=== PATIENT | female | born 1930 | race Caucasian/White ===

== ENCOUNTER → 2016-09-21 | Day surgery (SDC) | payer MEDICARE ==
[~2016-09-21] VITALS: Ht 157.5 cm; Wt 70.3 kg
[~2016-09-21] MED LIST: /INSU7030 SC; /PRAV20TA PO; /WARF5TA PO; ACET-654 PO; ACETAMINOPHEN TAB 650MG DOSE (2X325MG) PO PRN; ADV250INH INH; ALBU17IN INH; ALBU17IN2 INH; ALBU83IN INH; ALPR0.5T3 PO; AMOX500C PO; ASCO10003 PO; ASPI325T5 PO; ASPI81TA85 PO; BACITAB3 PO; BIOT5TAB3 PO; BIOTCAP PO; BISA5TAB29 PO; CEPA0.05 MT; CIPR250T2 PO; COLA100C3 PO; CONRAY-60 60% 50ML VIAL (Q9961) As Ordered ONE; CYMB1CAP PO; DIFL150T PO; DIFL200T PO; DILT PO; DOCU10ELUD PO; DULC5TAB PO; DUONSOL INH; ELIQ2.5T PO; ELIQ5TAB PO; FERR150C PO; FERR325T PO; FURO20TA2 PO; FURO40TA2 PO; GENTAMICIN 80 MG in APPROPRIATE DILUENT 1 EA IV ONE; GLUC10TA3 PO; HEPA100SY INJ; HEPA1INJ4 IV; HUMA100I3 SC; HUMU70IN SC; INSUH10VL SC; IPRA2IN INH; IPRASOL4 INH; IPRASOL4 NEB; IRON65TA PO; K-TA10TA2 PO; KEFL500C7 PO; KLOR10TA21 PO; KLOR1TAB69 PO; KLOR1TAB77 PO; KLOR20TA PO; LASI20TA PO; LASI40TA PO; LASI80TA PO; LEVO25TA4 PO; LEXA1TAB PO; LIDOCAINE 2% 5ML JELLY UROJET As Ordered ONE; LIDOCAINE 2% INJ 100 MG/5 ML SDV (FOR ANES.) As Ordered ONE; LISI-538 PO; LISI2.5T PO; LOPR1TAB6 PO; LOSA25TA8 PO; LR 1,000 ML IV SCH; MACR100C3 PO; MECL-68 PO; MELA5TAB14 PO; METO12TA PO; MILKSUS PO; MIRA3350 PO; MOM30SS PO; NEXI40CA PO; NITR4TASL SL; NOVO70IN SC; NOVO70VL SC; NOVOLIN 70/30 SC; NYST100024 TOP; NYSTPOW TOP; OCEA0.654; ONDA4TAB6 PO; ONDANSETRON 4MG/2ML VIAL (J2405) IV PRN; OXYGEN INH; PANT40TA2 PO; PENI IV; PENI250T57 PO; PERC5TAB6 PO; PERCOCET 5MG/325MG TAB PO PRN; PERCOCET PO; POLYBTL PO; POTA20TA PO; POTA20TA4 PO; PRAV10TA PO; PRAV20TA2 PO; PRAV40TA2 PO; PRED10PA PO; PRED10TA PO; PROP225T PO; PROP300T PO; PROPOFOL 200 MG/20 ML VIAL As Ordered ONE; PROT20TA11 PO; RANI300C PO; REFR0.1D OU; SALI0.9I2 IV; SENO8.6T2 PO; SERT-138 PO; SYNT25TA PO; TRAMADOL PO; TYLE325T5 PO; TYLE500T78 PO; TYLE650T25 PO; VANC1VLAD INJ; VANCOMYCIN HCL 1,000 MG, VIAL MATE ADAPTER 1 EACH in D5W 250 ML IV ONE; VENTAER INH; VICODEN PO; VIT D PO; VITA-122 PO; VITA-130 PO; VITA100066 PO; ZETI10TA2 PO; ZETI10TA21 PO; ZOFR20TA PO; ZOFR4TAB3 PO; [UNRECOGNIZED DRUG - CODE] IV; [UNRECOGNIZED DRUG - OTHER] PO; fentaNYL 100 MCG/2 ML INJECTION (J3010) As Ordered ONE; fentaNYL 100 MCG/2 ML INJECTION (J3010) IV PRN; mycostatin TOP
--- NOTE | 2016-09-21 09:19 | RO ---
DATE OF PROCEDURE: 09/21/2016 PREPROCEDURE DIAGNOSIS: Left ureteral stricture. POSTPROCEDURE DIAGNOSIS: Left ureteral stricture. PROCEDURE: Cystoscopy, left retrograde pyelogram with intraoperative interpretation of images, left ureteral stent exchange. SURGEON: Dr. Dann Loza MANAGER GROCERY: None. ANESTHESIA: MAC. 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 She is here today for routine ureteral stent exchange. DESCRIPTION OF PROCEDURE: The patient was brought to the operating room where MAC anesthesia was administered. Prophylactic antibiotics were infused. She was then placed in dorsal lithotomy position, prepped and draped in the usual sterile fashion. A rigid cystoscope was inserted into the urethral meatus and advanced into the bladder. Once within the bladder, a wire was advanced up the to the left collecting system along side the previously placed left ureteral stent. The left ureteral stent was the removed leaving the wire in place. I then advanced an open ended ureteral catheter over the wire up into the left collecting system. The wire was then removed and a retrograde pyelogram was performed and was notable for mild to moderate left hydronephrosis and no extravasation. The wire was then advanced back up the open ended ureteral catheter and into the left collecting system. The open ended ureteral catheter was then removed leaving the wire in place. We then utilized the wire to advance a #7-Andorran x 22-32 cm JJ ureteral stent up into the left collecting system. The wire was the removed and there were adequate curl to the stent in the left renal pelvis and in the bladder. The bladder was emptied of all fluid and this marked the conclusion of the procedure. The patient was then taken out of dorsal lithotomy position, awakened from anesthesia and transported to the recovery room in stable condition. ESTIMATED BLOOD LOSS: 0 mL. COMPLICATIONS: None. SPECIMENS: None. PLAN: The patient will be brought back to the seen in the clinic in approximately 2 months to get her setup for her next ureteral stent exchange.
[2016-09-21 10:20] VITALS: BP 110/58
--- NOTE | 2016-09-22 09:44 | REP ---
C-ARM VIEWS ABDOMEN: Two C-arm views are performed. There is a left ureteral stent with the proximal end coiled in the left renal pelvis, which is partially opacified by contrast. The distal end is coiled in the region of the urinary bladder. 10 seconds of fluoroscopy time utilized. Signed by David Hubbard MD 09/22/2016 04:36 P
== END | disposition home or self-care (01) ==
LOC: M SDC 07:26
PROVIDERS: ATTEND Urology
DX: N13.5 Crossing vessel and stricture of ureter without hydronephrosis (principal); I25.10 Atherosclerotic heart disease of native coronary artery without angina pectoris; I10 Essential (primary) hypertension; Z95.0 Presence of cardiac pacemaker; E10.21 Type 1 diabetes mellitus with diabetic nephropathy; K21.9 Gastro-esophageal reflux disease without esophagitis; E03.9 Hypothyroidism, unspecified; Z79.4 Long term (current) use of insulin; J44.9 Chronic obstructive pulmonary disease, unspecified; Z86.73 Personal history of transient ischemic attack (TIA), and cerebral infarction without residual deficits; Z87.891 Personal history of nicotine dependence; Z92.21 Personal history of antineoplastic chemotherapy; Z79.899 Other long term (current) drug therapy; Z88.2 Allergy status to sulfonamides; Z88.8 Allergy status to other drugs, medicaments and biological substances
CPT/HCPCS: 52332; 74420; C1726; C2617; J1580; J3010; J3370; Q9961

== ENCOUNTER → 2016-12-24 | Day surgery (SDC) | payer MEDICARE ==
[~2016-12-24] VITALS: Ht 157.5 cm; Wt 78.9 kg
[~2016-12-24] MED LIST changes: -ACET-654 PO; +ACET1TAB17 PO; -ACETAMINOPHEN TAB 650MG DOSE (2X325MG) PO PRN; +BACITAB PO; -BACITAB3 PO; +CIPR-249 PO; -COLA100C3 PO; +COLA100C5 PO; +COZA1TAB PO; +FERR1TAB8 PO; -FERR325T PO; +HYDR-3713 PO; +KEFL500C17 PO; -KEFL500C7 PO; +LR 1,000 ML IV ONE; -LR 1,000 ML IV SCH; -MACR100C3 PO; +MACR100C43 PO; -MELA5TAB14 PO; +MELA5TAB17 PO; +METO-346 PO; +MIDAZOLAM INJ 2 MG/2 ML VIAL (J2250) As Ordered ONE; +NOVO1INJ4 SC; -NOVO70IN SC; -NYST100024 TOP; +NYST1POW9 TOP; -ONDANSETRON 4MG/2ML VIAL (J2405) IV PRN; +PERC5TAB12 PO; -PERC5TAB6 PO; -PERCOCET 5MG/325MG TAB PO PRN; -PRAV10TA PO; +PRAV10TA4 PO; -SENO8.6T2 PO; +SENO8.6T5 PO; -VITA-130 PO; +VITA500T PO; -ZETI10TA2 PO; +ZETI10TA30 PO; -fentaNYL 100 MCG/2 ML INJECTION (J3010) IV PRN
[2016-12-24 14:05] VITALS: BP 121/56
--- NOTE | 2016-12-24 14:07 | REP ---
Clinical: Chronic ureteral obstruction. Technique: Intraoperative fluoroscopic imaging for retrograde pyelogram. Findings: Multiple intraoperative fluoroscopic images demonstrate the patient to be status post left ureteral stent placement. Total fluoroscopic time 17-second. Impression: Satisfactory left ureteral stent placement. Signed by Puneet Sommers MD 12/24/2016 01:58 P
--- NOTE | 2016-12-24 20:56 | RO ---
DATE OF PROCEDURE: 12/24/2016 PREPROCEDURE DIAGNOSIS: Ureteral stricture. POSTPROCEDURE DIAGNOSIS: Ureteral stricture. PROCEDURE: Cystoscopy, left retrograde pyelogram with intraoperative interpretation of images, left ureteral stent exchange. SURGEON: Dann Loza MD GAMING TABLE OPERATOR: None. ANESTHESIA: Monitored anesthesia care (MAC) OPERATIVE INDICATIONS: This is an 86-year-old female with a left ureteral stricture managed with chronic left renal stenting. She is brought to the emergency room today for a stent exchange. DESCRIPTION OF PROCEDURE: The patient was brought to the operating room and MAC anesthesia was administered. Prophylactic antibiotics were infused. She was then placed in the dorsal lithotomy position and prepped and draped in the usual sterile fashion. At this point a rigid cystoscope was inserted through the urethral meatus and advanced into the bladder. Once within the bladder, a guidewire was advanced up the left collecting system along side the stent. The stent was then removed leaving the wire in place. Next, an open ended ureteral catheter was advanced over the wire up to the left collecting system. The wire was then removed and a retrograde pyelogram was performed notable for mild to moderate left hydronephrosis with no extravasation. At this point, the wire was then advanced back up the ureteral catheter and the ureteral catheter was removed leaving the wire in place. We then utilized this wire to advance a #7-Cymro x 22-32 cm JJ ureteral stent up to the left collecting system. The wire was then removed and there were adequate curls of the stent in the left renal pelvis and in the bladder. The bladder was then emptied of all fluid. This marked the conclusion of the procedure. The patient was then taken out of the dorsal lithotomy position, awakened from anesthesia and transported to the recovery room in stable condition. ESTIMATED BLOOD LOSS: 0 mL COMPLICATIONS: None SPECIMENS: None. PLAN: The patient will followup in the clinic in approximately two months to sign a consent for the next stent exchange. MAG
== END | disposition home or self-care (01) ==
LOC: M SDC 10:01
PROVIDERS: ATTEND Urology
DX: N13.5 Crossing vessel and stricture of ureter without hydronephrosis (principal); E55.9 Vitamin D deficiency, unspecified; Q85.00 Neurofibromatosis, unspecified; C20 Malignant neoplasm of rectum; C85.90 Non-Hodgkin lymphoma, unspecified, unspecified site; H40.9 Unspecified glaucoma; I48.91 Unspecified atrial fibrillation; H54.7 Unspecified visual loss; M15.0 Primary generalized (osteo)arthritis; F41.9 Anxiety disorder, unspecified; K21.9 Gastro-esophageal reflux disease without esophagitis; I11.0 Hypertensive heart disease with heart failure; I25.10 Atherosclerotic heart disease of native coronary artery without angina pectoris; E10.40 Type 1 diabetes mellitus with diabetic neuropathy, unspecified; I50.9 Heart failure, unspecified; N20.0 Calculus of kidney; N39.0 Urinary tract infection, site not specified; E78.00 Pure hypercholesterolemia, unspecified; R23.3 Spontaneous ecchymoses; R29.898 Other symptoms and signs involving the musculoskeletal system; M54.9 Dorsalgia, unspecified; J44.9 Chronic obstructive pulmonary disease, unspecified; R06.02 Shortness of breath; Z88.6 Allergy status to analgesic agent; Z88.2 Allergy status to sulfonamides; Z88.8 Allergy status to other drugs, medicaments and biological substances; Z79.899 Other long term (current) drug therapy; Z87.440 Personal history of urinary (tract) infections; Z87.442 Personal history of urinary calculi; Z95.0 Presence of cardiac pacemaker; Z92.21 Personal history of antineoplastic chemotherapy; Z86.73 Personal history of transient ischemic attack (TIA), and cerebral infarction without residual deficits; Z90.710 Acquired absence of both cervix and uterus; Z78.0 Asymptomatic menopausal state; Z96.1 Presence of intraocular lens; Z96.653 Presence of artificial knee joint, bilateral
CPT/HCPCS: 52332; 74420; C1726; C2617; J1580; J2250; J3370; Q9961

== ENCOUNTER → 2017-02-16 | Outpatient (REF) | payer MEDICARE ==
[~2017-02-16] MED LIST changes: -CONRAY-60 60% 50ML VIAL (Q9961) As Ordered ONE; -GENTAMICIN 80 MG in APPROPRIATE DILUENT 1 EA IV ONE; -LIDOCAINE 2% 5ML JELLY UROJET As Ordered ONE; -LIDOCAINE 2% INJ 100 MG/5 ML SDV (FOR ANES.) As Ordered ONE; -LR 1,000 ML IV ONE; -MIDAZOLAM INJ 2 MG/2 ML VIAL (J2250) As Ordered ONE; -PROPOFOL 200 MG/20 ML VIAL As Ordered ONE; -VANCOMYCIN HCL 1,000 MG, VIAL MATE ADAPTER 1 EACH in D5W 250 ML IV ONE; -fentaNYL 100 MCG/2 ML INJECTION (J3010) As Ordered ONE
[2017-02-16 13:36] LABS: BASO # 0.1 K/mm3 (0.0-0.2); BASO % 0.8 % (0.0-1.0); EOS # 0.2 K/mm3 (0.0-0.50); EOS % 1.8 % (0.0-3.0); LARGE UNSTAINED CELL # 0.1 K/mm3 (0.0-0.4); LARGE UNSTAINED CELL % 1.4 % (0.0-4.0); LYMPH # 1.2 K/mm3 (1.5-4.5); LYMPH % 12.8 % (24.0-44.0); MEAN CORPUSCULAR HEMOGLOBIN 29.8 pg (27.0-33.0); MEAN CORPUSCULAR HGB CONC 32.5 g/dl (32.0-36.5); MEAN CORPUSCULAR VOLUME 91.7 fl (80.0-96.0); MONO # 0.6 K/mm3 (0.0-0.8); MONO % 6.5 % (0.0-5.0); NEUTROPHILS # 6.5 K/mm3 (1.8-7.7); NEUTROPHILS % 76.6 % (36.0-66.0); PLATELET COUNT, AUTOMATED 214 k/mm3 (150-450); RED CELL DISTRIBUTION WIDTH 14.1 % (11.5-14.5); WHITE BLOOD COUNT 8.5 K/mm3 (4.0-10.0)
[2017-02-16 14:46] LABS: ERYTHROCYTE SEDIMENTATION RATE 52 mm/hr (0-42)
== END ==
LOC: M SFHCPLAZ 11:12
PROVIDERS: ATTEND Internal Medicine Infectious Disease
DX: T84.59XA Infection and inflammatory reaction due to other internal joint prosthesis, initial encounter (principal); N39.0 Urinary tract infection, site not specified; B95.2 Enterococcus as the cause of diseases classified elsewhere; Z79.2 Long term (current) use of antibiotics; Z79.01 Long term (current) use of anticoagulants; Z79.899 Other long term (current) drug therapy; X58.XXXA Exposure to other specified factors, initial encounter; Y92.9 Unspecified place or not applicable; Y93.9 Activity, unspecified; Y99.9 Unspecified external cause status
CPT/HCPCS: 36415; 85025; 85652; 86140; G0463

== ENCOUNTER → 2017-03-02 | Outpatient (CLI) | payer MEDICARE ==
[2017-03-02 19:21] LABS: CREATININE FOR GFR 1.17 MG/DL (0.55-1.02); GLOMERULAR FILTRATION RATE 46.6 (>32); POTASSIUM SERUM 3.6 MEQ/L (3.5-5.1)
[2017-03-02 19:43] LABS: MICROSCOPIC INDICATED? MAN YES (NO)
[2017-03-02 20:08] LABS: BACTERIA, URINE MOD AMOUNT; MICROSCOPIC EXAM PERFORMED; RBC, URINE TNTC /hpf (0-3); SQUAMOUS EPITHELIAL CELL URINE SMALL AMOUNT /hpf (SMALL AMT); WBC, URINE 20-30 /hpf (0-3)
== END ==
LOC: M SMT 15:09
PROVIDERS: ATTEND Urology
DX: N13.5 Crossing vessel and stricture of ureter without hydronephrosis (principal)
CPT/HCPCS: 36415; 80048; 81000; 87086; G0463

== ENCOUNTER 2017-03-08 10:12 | Day surgery (SDC) | payer MEDICARE ==
[~2017-03-08] VITALS: Ht 157.5 cm; Wt 80.7 kg
[~2017-03-08 10:12] MED LIST changes: +GENTAMICIN 80 MG in APPROPRIATE DILUENT 1 EA IV ONE; +VANCOMYCIN HCL 1,000 MG, VIAL MATE ADAPTER 1 EACH in D5W 250 ML IV ONE
[2017-03-08] MEDS ORDERED: LIDOCAINE 2% INJ 100 MG/5 ML SDV (FOR ANES.) As Ordered ONE (10:36)
[2017-03-08] MEDS ORDERED: MIDAZOLAM INJ 2 MG/2 ML VIAL (J2250) As Ordered ONE (10:37)
[2017-03-08] MEDS ORDERED: fentaNYL 100 MCG/2 ML INJECTION (J3010) As Ordered ONE (10:37)
[2017-03-08] MEDS ORDERED: PROPOFOL 200 MG/20 ML VIAL As Ordered ONE (10:37)
[2017-03-08] MEDS ORDERED: LIDOCAINE 1% MDV 20ML VIAL SQ ONE (11:00)
[2017-03-08] MEDS ORDERED: LR 1,000 ML IV ONE (11:00)
[2017-03-08] MEDS ORDERED: CONRAY-60 60% 50ML VIAL (Q9961) As Ordered ONE (11:02)
[2017-03-08] MEDS ORDERED: LIDOCAINE 2% 5ML JELLY UROJET As Ordered ONE (11:02)
[2017-03-08 13:20] VITALS: BP 96/50
--- NOTE | 2017-03-08 14:59 | REP ---
C-ARM VIEW DURING RETROGRADE PYELOGRAM: Single C-arm view of the abdomen demonstrates contrast in the left pelvicalyceal system. There is a left ureteral stent. The proximal end is coiled in the left renal pelvis. The distal end is coiled in the region of the urinary bladder. 113 seconds of fluoroscopy time is utilized. Signed by David Hubbard MD 03/08/2017 05:04 P
--- NOTE | 2017-03-08 15:44 | RO ---
DATE OF PROCEDURE: 03/08/2017 PREPROCEDURE DIAGNOSIS: Left ureteral stricture. POSTPROCEDURE DIAGNOSIS: Left ureteral stricture. PROCEDURE: Cystoscopy, left retrograde pyelogram with intraoperative interpretation of images, left ureteral stent exchange. SURGEON: Dann Loza MD INSIDE TRUCKER: None. ANESTHESIA: Monitored anesthesia care (MAC) OPERATIVE INDICATIONS: This is an 87-year-old female with a left ureteral stricture managed with chronic left ureteral stenting. She is here for ureteral stent exchange. DESCRIPTION OF PROCEDURE: The patient was brought to the operating room and MAC anesthesia was administered. Prophylactic antibiotics were infused. She was then placed in the dorsal lithotomy position and prepped and draped in the usual sterile fashion. A rigid cystoscope was inserted through the urethral meatus and a wire was advanced up along side the previously placed stent. The previously placed stent was then removed leaving the wire in place. Next an open-ended ureteral catheter was advanced over the wire up into the left collecting system. The wire was then removed and the retrograde pyelogram was shot and was notable for mild hydronephrosis but no extravasation. The wire was then advanced back up the open-ended ureteral catheter and then the open-ended ureteral catheter was removed leaving the wire in place. The wire was then utilized to advance a #7-Tongan x 22-32 cm JJ ureteral stent up the left collecting system. The wire was then removed and there were adequate curls of the stent in the left renal pelvis and in the bladder. The bladder was then emptied of all fluid and this marked the conclusion of the procedure. The patient was then taken out of the dorsal lithotomy position, awakened from anesthesia and transported to the recovery room in stable condition. ESTIMATED BLOOD LOSS: 0 mL COMPLICATIONS: None SPECIMENS: None PLAN: The patient will followup in the clinic in approximately 2 months in preparation for her next stent exchange. MAG
== END 2017-03-08 14:00 | disposition home or self-care (01) ==
LOC: M SDC 10:12
PROVIDERS: ATTEND Urology
DX: N35.9 Urethral stricture, unspecified (principal); I25.10 Atherosclerotic heart disease of native coronary artery without angina pectoris; I10 Essential (primary) hypertension; E78.00 Pure hypercholesterolemia, unspecified; R60.0 Localized edema; E11.40 Type 2 diabetes mellitus with diabetic neuropathy, unspecified; E03.9 Hypothyroidism, unspecified; K57.32 Diverticulitis of large intestine without perforation or abscess without bleeding; I69.998 Other sequelae following unspecified cerebrovascular disease; J44.9 Chronic obstructive pulmonary disease, unspecified; K44.9 Diaphragmatic hernia without obstruction or gangrene; K59.00 Constipation, unspecified; K21.9 Gastro-esophageal reflux disease without esophagitis; D64.9 Anemia, unspecified; R06.02 Shortness of breath; M51.86 Other intervertebral disc disorders, lumbar region; F41.9 Anxiety disorder, unspecified; Z88.2 Allergy status to sulfonamides; Z88.5 Allergy status to narcotic agent; Z88.8 Allergy status to other drugs, medicaments and biological substances; Z79.899 Other long term (current) drug therapy; Z79.4 Long term (current) use of insulin; Z79.01 Long term (current) use of anticoagulants; Z95.0 Presence of cardiac pacemaker; Z92.21 Personal history of antineoplastic chemotherapy; Z96.653 Presence of artificial knee joint, bilateral; Z90.710 Acquired absence of both cervix and uterus; Z87.442 Personal history of urinary calculi; Z87.440 Personal history of urinary (tract) infections; Z85.72 Personal history of non-Hodgkin lymphomas
CPT/HCPCS: 52332; 74420; C1769; C2617; J1580; J2250; J3010; J3370; Q9961

== ENCOUNTER → 2017-05-24 | Outpatient (REF) | payer MEDICARE ==
[~2017-05-24] MED LIST changes: +CARDIA XT PO; -GENTAMICIN 80 MG in APPROPRIATE DILUENT 1 EA IV ONE; -VANCOMYCIN HCL 1,000 MG, VIAL MATE ADAPTER 1 EACH in D5W 250 ML IV ONE; +[UNRECOGNIZED DRUG - CODE] PO
== END ==
LOC: M SMT 17:05
PROVIDERS: ATTEND Nurse Practitioner Family
DX: R31.0 Gross hematuria (principal)
CPT/HCPCS: 51798; 87086; G0463

== ENCOUNTER 2017-06-07 05:58 | Day surgery (SDC) | payer MEDICARE ==
[~2017-06-07] VITALS: Ht 157.5 cm; Wt 81.6 kg
[~2017-06-07 05:58] MED LIST changes: -CARDIA XT PO; -[UNRECOGNIZED DRUG - CODE] PO
[2017-06-07] MEDS ORDERED: [UNRECOGNIZED DRUG - CODE] PO (06:43)
[2017-06-07] MEDS ORDERED: CARDIA XT PO (06:43)
[2017-06-07] MEDS ORDERED: VANCOMYCIN 1000 MG/20 ML VIAL (J3370) As Ordered ONE (08:16)
[2017-06-07] MEDS ORDERED: GENTAMICIN SULF INJ 80MG/2ML VIAL (J1580) As Ordered ONE (08:16)
[2017-06-07] MEDS ORDERED: LIDOCAINE 2% 5ML JELLY UROJET As Ordered ONE (08:50)
[2017-06-07] MEDS ORDERED: MIDAZOLAM INJ 2 MG/2 ML VIAL (J2250) As Ordered ONE (08:50)
[2017-06-07] MEDS ORDERED: CONRAY-60 60% 50ML VIAL (Q9961) As Ordered ONE (08:50)
[2017-06-07] MEDS ORDERED: fentaNYL 100 MCG/2 ML INJECTION (J3010) As Ordered ONE (08:52)
[2017-06-07] MEDS ORDERED: PROPOFOL 200 MG/20 ML VIAL As Ordered ONE (08:55)
[2017-06-07] MEDS ORDERED: LIDOCAINE 2% INJ 100 MG/5 ML SDV (FOR ANES.) As Ordered ONE (08:55)
[2017-06-07] MEDS ORDERED: VANCOMYCIN HCL 1,000 MG, VIAL MATE ADAPTER 1 EACH in D5W 250 ML IV ONE (09:00)
[2017-06-07] MEDS ORDERED: LR 1,000 ML IV ONE (09:00)
[2017-06-07] MEDS ORDERED: GENTAMICIN 80 MG in APPROPRIATE DILUENT 1 EA IV ONE (09:00)
--- NOTE | 2017-06-07 09:56 | ROOPDOC ---
[facility] Report Of Operation Report of Operation DATE OF PROCEDURE: 06/07/2017 PREPROCEDURE DIAGNOSIS: Left ureteral stricture. POSTPROCEDURE DIAGNOSIS: Left ureteral stricture. PROCEDURE: Cystoscopy, left retrograde pyelogram with intraoperative interpretation of images, left ureteral stent exchange. SURGEON: Mckinley Pancahl MD SOFTWARE INTERN: None. ANESTHESIA: Monitored anesthesia care (MAC) OPERATIVE INDICATIONS: This is an 87-year-old female with a left ureteral stricture managed with chronic left ureteral stenting. She is here for ureteral stent exchange. DESCRIPTION OF PROCEDURE: The patient was brought to the operating room and MAC anesthesia was administered. Prophylactic antibiotics were infused. She was then placed in the dorsal lithotomy position and prepped and draped in the usual sterile fashion. A rigid cystoscope was inserted through the urethral meatus and a wire was advanced up along side the previously placed stent. The previously placed stent was then removed leaving the wire in place. Next an open-ended ureteral catheter was advanced over the wire up into the left collecting system. The wire was then removed and the retrograde pyelogram was shot. Of note, the patient's bowel was opacified due to recent oral contrast given during her hospital stay. Because of this it was difficult to visualize the contrast in the left collecting system. The wire was then advanced back up the open-ended ureteral catheter and then the open-ended ureteral catheter was removed leaving the wire in place. The wire was then utilized to advance a #7-Bruneian x 22-32 cm JJ ureteral stent up the left collecting system. The wire was then removed and there were adequate curls of the stent in the left renal pelvis and in the bladder. The bladder was then emptied of all fluid and this marked the conclusion of the procedure. The patient was then taken out of the dorsal lithotomy position, awakened from anesthesia and transported to the recovery room in stable condition. ESTIMATED BLOOD LOSS: 0 mL COMPLICATIONS: None SPECIMENS: None PLAN: The patient will followup in the clinic in approximately 2 months in preparation for her next stent exchange. MCKINLEY PANCHAL MD Jun 07, 2017 09:56
--- NOTE | 2017-06-07 10:03 | REP ---
C-ARM VIEWS ABDOMEN: Two C-arm views of the abdomen are performed. Left ureteral stent is visualized. Proximal end cannot be visualized due to barium in the colon obscuring the underlying proximal end of the catheter. The distal end is coiled in the region of the urinary bladder. 33 seconds fluoroscopy time utilized. Signed by David Hubbard MD 06/07/2017 05:55 P
[2017-06-07] MEDS ORDERED: LR 1,000 ML IV SCH (10:15)
[2017-06-07] MEDS ORDERED: ONDANSETRON 4MG/2ML VIAL (J2405) IV PRN (10:15)
[2017-06-07] MEDS ORDERED: ACETAMINOPHEN TAB 650MG DOSE (2X325MG) PO PRN (10:15)
[2017-06-07] MEDS ORDERED: PERCOCET 5MG/325MG TAB As Ordered ONE (10:45)
[2017-06-07] MEDS ORDERED: PERCOCET 5MG/325MG TAB PO PRN (11:00)
[2017-06-07 12:00] VITALS: BP 116/56
== END 2017-06-07 12:24 | disposition home or self-care (01) ==
LOC: M SDC 05:58
PROVIDERS: ATTEND Urology
DX: N35.9 Urethral stricture, unspecified (principal); R31.0 Gross hematuria; I11.0 Hypertensive heart disease with heart failure; I48.91 Unspecified atrial fibrillation; Z95.0 Presence of cardiac pacemaker; J44.9 Chronic obstructive pulmonary disease, unspecified; E11.9 Type 2 diabetes mellitus without complications; I50.9 Heart failure, unspecified; I25.10 Atherosclerotic heart disease of native coronary artery without angina pectoris; M19.90 Unspecified osteoarthritis, unspecified site; F41.9 Anxiety disorder, unspecified; K21.9 Gastro-esophageal reflux disease without esophagitis; I25.83 Coronary atherosclerosis due to lipid rich plaque; C85.90 Non-Hodgkin lymphoma, unspecified, unspecified site; Z79.899 Other long term (current) drug therapy; Z79.01 Long term (current) use of anticoagulants; Z79.51 Long term (current) use of inhaled steroids; Z79.4 Long term (current) use of insulin; Z95.5 Presence of coronary angioplasty implant and graft; Z87.891 Personal history of nicotine dependence; Z88.5 Allergy status to narcotic agent; Z88.8 Allergy status to other drugs, medicaments and biological substances
CPT/HCPCS: 52332; 74420; C1769; C2617; J1580; J2250; J3010; J3370; Q9961

== ENCOUNTER 2017-08-30 06:09 | Day surgery (SDC) | payer MEDICARE ==
[2017-08-30] MEDS ORDERED: LIDOCAINE 1% MDV 20ML VIAL SQ (06:15)
[2017-08-30] MEDS: LR 1,000 ML IV (06:56)
[2017-08-30] MEDS ORDERED: PROPOFOL 200 MG/20 ML VIAL As Ordered (07:11)
[2017-08-30] MEDS ORDERED: METOCLOPRAMIDE INJ 10MG/2ML VIAL (J2765) As Ordered (07:11)
[2017-08-30] MEDS ORDERED: LIDOCAINE 2% INJ 100 MG/5 ML SDV (FOR ANES.) As Ordered (07:11)
[2017-08-30] MEDS ORDERED: fentaNYL 100 MCG/2 ML INJECTION (J3010) As Ordered (07:11)
[2017-08-30] MEDS ORDERED: ONDANSETRON 4MG/2ML VIAL (J2405) As Ordered (07:11)
[2017-08-30] MEDS ORDERED: MIDAZOLAM INJ 2 MG/2 ML VIAL (J2250) As Ordered (07:11)
[2017-08-30] MEDS: PIPERACILLIN/TAZOBACTAM SOD 3.375 GM in APPROPRIATE DILUENT 1 EA IV (07:44)
[2017-08-30] MEDS: LIDOCAINE 2% 5ML JELLY UROJET As Ordered (07:52)
[2017-08-30] MEDS: CONRAY-60 60% 50ML VIAL (Q9961) As Ordered (07:53)
[2017-08-30] MEDS ORDERED: PHENYLephrine HCL 500 MCG/5 ML (100MCG/ML) SYRINGE (J2370) As Ordered (07:54)
[2017-08-30] MEDS ORDERED: ACETAMINOPHEN TAB 650MG DOSE (2X325MG) As Ordered (08:32)
[2017-08-30 08:34] LABS: BEDSIDE GLUCOSE 237 MG/DL (83-110)
[2017-08-30] MEDS ORDERED: HumaLOG INSULIN (NovoLOG) PER UNIT As Ordered (08:38)
[2017-08-30] MEDS: ACETAMINOPHEN TAB 650MG DOSE (2X325MG) PO (08:47)
[2017-08-30] MEDS: HumaLOG INSULIN (NovoLOG) PER UNIT SC (08:49)
== END 2017-08-30 09:55 | disposition home or self-care (01) ==
LOC: M SDC 06:09
DX: N13.5 Crossing vessel and stricture of ureter without hydronephrosis (principal); H40.9 Unspecified glaucoma; E03.9 Hypothyroidism, unspecified; I11.0 Hypertensive heart disease with heart failure; I50.32 Chronic diastolic (congestive) heart failure; I48.91 Unspecified atrial fibrillation; C20 Malignant neoplasm of rectum; C85.90 Non-Hodgkin lymphoma, unspecified, unspecified site; Q85.00 Neurofibromatosis, unspecified; M15.0 Primary generalized (osteo)arthritis; K21.9 Gastro-esophageal reflux disease without esophagitis; E10.40 Type 1 diabetes mellitus with diabetic neuropathy, unspecified; I25.10 Atherosclerotic heart disease of native coronary artery without angina pectoris; E78.00 Pure hypercholesterolemia, unspecified; R60.0 Localized edema; K57.32 Diverticulitis of large intestine without perforation or abscess without bleeding; K44.9 Diaphragmatic hernia without obstruction or gangrene; K59.00 Constipation, unspecified; D64.9 Anemia, unspecified; R23.3 Spontaneous ecchymoses; R29.898 Other symptoms and signs involving the musculoskeletal system; M51.9 Unspecified thoracic, thoracolumbar and lumbosacral intervertebral disc disorder; M81.0 Age-related osteoporosis without current pathological fracture; F41.9 Anxiety disorder, unspecified; F32.9 Major depressive disorder, single episode, unspecified; R51 Headache; I69.998 Other sequelae following unspecified cerebrovascular disease; R06.02 Shortness of breath; R32 Unspecified urinary incontinence; Z88.8 Allergy status to other drugs, medicaments and biological substances; Z79.899 Other long term (current) drug therapy; Z79.01 Long term (current) use of anticoagulants; Z79.4 Long term (current) use of insulin; Z95.0 Presence of cardiac pacemaker; Z92.21 Personal history of antineoplastic chemotherapy; Z90.710 Acquired absence of both cervix and uterus; Z78.0 Asymptomatic menopausal state; Z96.1 Presence of intraocular lens; Z96.653 Presence of artificial knee joint, bilateral
CPT/HCPCS: 52332

== ENCOUNTER 2017-10-09 10:09 | Inpatient (IN) | payer MEDICARE ==
[2017-10-09 10:59] LABS: BASO % 0.3 % (0.0-1.0); EOS # 0.1 10^3/uL (0.0-0.50); HEMATOCRIT 34.2 % (36.0-47.0); HEMOGLOBIN 10.9 g/dl (12.0-15.5); IMMATURE GRANULOCYTE % 0.5 % (0-3.0); LYMPH # 0.8 10^3/uL (1.5-4.5); LYMPH % 6.6 % (24.0-44.0); MEAN CORPUSCULAR HEMOGLOBIN 29.4 pg (27.0-33.0); MEAN CORPUSCULAR HGB CONC 31.9 g/dl (32.0-36.5); MEAN CORPUSCULAR VOLUME 92.2 fl (80.0-96.0); MONO # 0.9 10^3/uL (0.0-0.8); MONO % 7.7 % (0.0-5.0); NEUTROPHILS # 9.6 10^3/uL (1.8-7.7); NEUTROPHILS % 83.9 % (36.0-66.0); PLATELET COUNT, AUTOMATED 220 10^3/uL (150-450); RED BLOOD COUNT 3.71 10^6/uL (4.00-5.40); RED CELL DISTRIBUTION WIDTH 15.1 % (11.5-14.5); WHITE BLOOD COUNT 11.5 10^3/uL (4.0-10.0)
[2017-10-09 11:10] LABS: INR 1.48; PROTHROMBIN TIME 18.3 SECONDS (12.4-14.5)
[2017-10-09 11:11] LABS: PARTIAL THROMBOPLASTIN TIME 36.4 SECONDS (26.8-37.9)
[2017-10-09 11:27] LABS: ANION GAP 6 MEQ/L (8-16); BLOOD UREA NITROGEN 38 MG/DL (7-18); CALCIUM LEVEL 8.2 MG/DL (8.8-10.2); CARBON DIOXIDE LEVEL 34 MEQ/L (21-32); CHLORIDE LEVEL 99 MEQ/L (98-107); CK-MB VALUE MASS 1.3 NG/ML (<3.6); CPK CREATINE PHOSPHOKINASE 54 U/L (26-192); CREATININE FOR GFR 1.59 MG/DL (0.55-1.30); GLOMERULAR FILTRATION RATE 32.7 (>32); GLUCOSE, FASTING 318 MG/DL (70-100); POTASSIUM SERUM 4.7 MEQ/L (3.5-5.1); SODIUM LEVEL 139 MEQ/L (136-145); TROPONIN I < 0.02 NG/ML (< 0.10)
[2017-10-09] MEDS ORDERED: GLUCOSE 4 GM CHEW TABLET PO (14:00)
[2017-10-09] MEDS ORDERED: GLUCAGON FOR INJ 1 MG VIAL (J1610) SC (14:00)
[2017-10-09] MEDS ORDERED: DEXTROSE 50% 50 ML SYRINGE IV (14:00)
[2017-10-09] MEDS ORDERED: ONDANSETRON 4MG/2ML VIAL (J2405) IV (14:15)
[2017-10-09] MEDS ORDERED: FUROSEMIDE 40 MG TAB PO (16:00)
[2017-10-09 17:02] LABS: CK-MB VALUE MASS < 1.0 NG/ML (<3.6); CPK CREATINE PHOSPHOKINASE 46 U/L (26-192); MB/CK RELATIVE INDEX 2.17 (< OR =4); TROPONIN I < 0.02 NG/ML (< 0.10)
[2017-10-09] MEDS: SUCRALFATE 1 GM TAB PO (18:19)
[2017-10-09] MEDS: HumaLOG INSULIN (NovoLOG) PER UNIT SC (18:19)
[2017-10-09] MEDS: HumuLIN (NovoLIN)70/30 INSULIN INJ PER UNIT SC (18:20)
[2017-10-09 19:21] LABS: BEDSIDE GLUCOSE 295 MG/DL (83-110)
[2017-10-09] MEDS: IPRATROPIUM 0.5MG/ALBUTEROL 2.5MG INH SOL UD 3ML (DUONEB)(J7620) NEB (20:22)
[2017-10-09 21:44] LABS: CPK CREATINE PHOSPHOKINASE 58 U/L (26-192); TROPONIN I < 0.02 NG/ML (< 0.10)
[2017-10-09 21:45] LABS: CK-MB VALUE MASS < 1.0 NG/ML (<3.6); MB/CK RELATIVE INDEX 1.72 (< OR =4)
[2017-10-09] MEDS: FERROUS SULFATE 325MG TAB PO (22:14)
[2017-10-09] MEDS: EZETIMIBE 10 MG TAB (ZETIA) PO (22:15)
[2017-10-09] MEDS: MECLIZINE 25 MG TABLET PO (22:15)
[2017-10-09] MEDS: SIMVASTATIN 20 MG TAB PO (22:15)
[2017-10-09] MEDS: POTASSIUM CHLORIDE 10 MEQ SR TABLET PO (22:15)
[2017-10-09] MEDS: CARVedilol 3.125 MG TAB PO (22:15)
[2017-10-09] MEDS: DOCUSATE SODIUM 100 MG CAP PO (22:16)
[2017-10-09] MEDS: PROPAFENONE 150 MG TAB PO (22:16)
[2017-10-09] MEDS: APIXABAN 5 MG TAB (ELIQUIS) PO (22:16)
[2017-10-09 22:55] LABS: BEDSIDE GLUCOSE 117 MG/DL (83-110)
[2017-10-10 04:02] LABS: BASO % 0.4 % (0.0-1.0); EOS # 0.1 10^3/uL (0.0-0.50); EOS % 1.3 % (0.0-3.0); HEMATOCRIT 30.1 % (36.0-47.0); HEMOGLOBIN 9.6 g/dl (12.0-15.5); IMMATURE GRANULOCYTE % 0.2 % (0-3.0); LYMPH # 1.2 10^3/uL (1.5-4.5); LYMPH % 14.9 % (24.0-44.0); MEAN CORPUSCULAR HEMOGLOBIN 29.5 pg (27.0-33.0); MEAN CORPUSCULAR HGB CONC 31.9 g/dl (32.0-36.5); MEAN CORPUSCULAR VOLUME 92.6 fl (80.0-96.0); MONO # 0.8 10^3/uL (0.0-0.8); NEUTROPHILS % 73.2 % (36.0-66.0); PLATELET COUNT, AUTOMATED 175 10^3/uL (150-450); RED BLOOD COUNT 3.25 10^6/uL (4.00-5.40); WHITE BLOOD COUNT 8.2 10^3/uL (4.0-10.0)
[2017-10-10 04:25] LABS: ALBUMIN 2.8 GM/DL (3.2-5.2); ALBUMIN/GLOBULIN RATIO 0.72 (1.00-1.93); ALKALINE PHOSPHATASE 94 U/L (45-117); ALT/SGPT 10 U/L (12-78); ANION GAP 7 MEQ/L (8-16); AST/SGOT 14 U/L (7-37); BILIRUBIN,TOTAL 0.3 MG/DL (0.2-1.0); BLOOD UREA NITROGEN 32 MG/DL (7-18); CALCIUM LEVEL 8.3 MG/DL (8.8-10.2); CARBON DIOXIDE LEVEL 31 MEQ/L (21-32); CHLORIDE LEVEL 100 MEQ/L (98-107); CK-MB VALUE MASS < 1.0 NG/ML (<3.6); CPK CREATINE PHOSPHOKINASE 72 U/L (26-192); CREATININE FOR GFR 1.47 MG/DL (0.55-1.30); GLOMERULAR FILTRATION RATE 35.8 (>32); GLUCOSE, FASTING 131 MG/DL (70-100); MB/CK RELATIVE INDEX 1.38 (< OR =4); SODIUM LEVEL 138 MEQ/L (136-145); TOTAL PROTEIN 6.7 GM/DL (6.4-8.2); TROPONIN I < 0.02 NG/ML (< 0.10)
[2017-10-10] MEDS: LEVOTHYROXINE 50MCG TABLET (0.05MG) PO (05:57)
[2017-10-10] MEDS: IPRATROPIUM 0.5MG/ALBUTEROL 2.5MG INH SOL UD 3ML (DUONEB)(J7620) NEB ×3 (07:10→19:48)
[2017-10-10] MEDS: SUCRALFATE 1 GM TAB PO ×3 (07:30→17:28)
[2017-10-10] MEDS: HumaLOG INSULIN (NovoLOG) PER UNIT SC ×3 (07:30→17:28)
[2017-10-10] MEDS: MECLIZINE 25 MG TABLET PO ×2 (08:18→20:52)
[2017-10-10] MEDS: ESCITALOPRAM OXALATE 10 MG TAB (LEXAPRO) PO (08:18)
[2017-10-10] MEDS: PANTOPRAZOLE 40MG TAB (PROTONIX) PO (08:19)
[2017-10-10] MEDS: CARVedilol 3.125 MG TAB PO ×2 (08:19→20:49)
[2017-10-10] MEDS: POTASSIUM CHLORIDE 10 MEQ SR TABLET PO ×3 (08:20→20:50)
[2017-10-10] MEDS: PROPAFENONE 150 MG TAB PO ×2 (08:20→20:51)
[2017-10-10] MEDS: VITAMIN D 1,000 INTERNATIONAL UNITS TABLET PO (08:20)
[2017-10-10] MEDS: diltiaZEM **CD** 180 MG CAP PO (08:20)
[2017-10-10] MEDS: DOCUSATE SODIUM 100 MG CAP PO ×2 (08:20→20:53)
[2017-10-10] MEDS: SITagliptin 50 MG TAB (JANUVIA) PO (08:20)
[2017-10-10] MEDS: FERROUS SULFATE 325MG TAB PO ×2 (08:21→20:49)
[2017-10-10] MEDS: APIXABAN 5 MG TAB (ELIQUIS) PO ×2 (08:21→20:49)
[2017-10-10] MEDS: HumuLIN (NovoLIN)70/30 INSULIN INJ PER UNIT SC ×2 (08:21→17:29)
[2017-10-10] MEDS: TAMSULOSIN 0.4 MG CAP PO (08:21)
[2017-10-10] MEDS: MIRALAX *UNIT DOSE* 17GM PACKET PO (08:22)
[2017-10-10] MEDS: NYSTATIN 100,000 UNITS/GM TOPICAL PWD 15 GM TOP ×2 (09:00→20:52)
[2017-10-10] MEDS: FUROSEMIDE 80 MG TAB PO (09:47)
[2017-10-10 11:47] LABS: BEDSIDE GLUCOSE 265 MG/DL (83-110)
[2017-10-10 17:16] LABS: BEDSIDE GLUCOSE 160 MG/DL (83-110)
[2017-10-10] MEDS: EZETIMIBE 10 MG TAB (ZETIA) PO (20:51)
[2017-10-10] MEDS: SIMVASTATIN 20 MG TAB PO (20:51)
[2017-10-11 04:35] LABS: BEDSIDE GLUCOSE 108 MG/DL (83-110)
[2017-10-11 05:22] LABS: BASO % 0.4 % (0.0-1.0); EOS # 0.2 10^3/uL (0.0-0.50); EOS % 2.9 % (0.0-3.0); HEMATOCRIT 30.6 % (36.0-47.0); HEMOGLOBIN 9.8 g/dl (12.0-15.5); IMMATURE GRANULOCYTE % 0.4 % (0-3.0); LYMPH # 1.1 10^3/uL (1.5-4.5); LYMPH % 14.1 % (24.0-44.0); MEAN CORPUSCULAR HEMOGLOBIN 29.7 pg (27.0-33.0); MEAN CORPUSCULAR VOLUME 92.7 fl (80.0-96.0); MONO # 0.8 10^3/uL (0.0-0.8); NEUTROPHILS # 5.4 10^3/uL (1.8-7.7); NEUTROPHILS % 72.2 % (36.0-66.0); PLATELET COUNT, AUTOMATED 175 10^3/uL (150-450); RED CELL DISTRIBUTION WIDTH 15.3 % (11.5-14.5); WHITE BLOOD COUNT 7.5 10^3/uL (4.0-10.0)
[2017-10-11 05:49] LABS: ALBUMIN 2.6 GM/DL (3.2-5.2); ALBUMIN/GLOBULIN RATIO 0.65 (1.00-1.93); ALKALINE PHOSPHATASE 91 U/L (45-117); ALT/SGPT 10 U/L (12-78); ANION GAP 6 MEQ/L (8-16); AST/SGOT 18 U/L (7-37); BILIRUBIN,TOTAL 0.3 MG/DL (0.2-1.0); BLOOD UREA NITROGEN 30 MG/DL (7-18); CALCIUM LEVEL 8.3 MG/DL (8.8-10.2); CARBON DIOXIDE LEVEL 31 MEQ/L (21-32); CHLORIDE LEVEL 103 MEQ/L (98-107); CREATININE FOR GFR 1.47 MG/DL (0.55-1.30); GLOMERULAR FILTRATION RATE 35.8 (>32); GLUCOSE, FASTING 117 MG/DL (70-100); MAGNESIUM LEVEL 2.3 MG/DL (1.8-2.4); POTASSIUM SERUM 4.3 MEQ/L (3.5-5.1); SODIUM LEVEL 140 MEQ/L (136-145); TOTAL PROTEIN 6.6 GM/DL (6.4-8.2)
[2017-10-11] MEDS: LEVOTHYROXINE 50MCG TABLET (0.05MG) PO (06:00)
[2017-10-11] MEDS: IPRATROPIUM 0.5MG/ALBUTEROL 2.5MG INH SOL UD 3ML (DUONEB)(J7620) NEB ×3 (08:09→20:11)
[2017-10-11] MEDS: HumuLIN (NovoLIN)70/30 INSULIN INJ PER UNIT SC ×2 (08:22→17:10)
[2017-10-11] MEDS: SUCRALFATE 1 GM TAB PO ×3 (08:22→17:11)
[2017-10-11] MEDS: HumaLOG INSULIN (NovoLOG) PER UNIT SC ×3 (08:22→17:10)
[2017-10-11] MEDS: MIRALAX *UNIT DOSE* 17GM PACKET PO (08:23)
[2017-10-11] MEDS: CARVedilol 3.125 MG TAB PO ×2 (08:24→21:00)
[2017-10-11] MEDS: PROPAFENONE 150 MG TAB PO ×2 (08:24→21:17)
[2017-10-11] MEDS: MECLIZINE 25 MG TABLET PO ×2 (08:24→21:05)
[2017-10-11] MEDS: POTASSIUM CHLORIDE 10 MEQ SR TABLET PO ×3 (08:25→21:04)
[2017-10-11] MEDS: APIXABAN 5 MG TAB (ELIQUIS) PO ×2 (08:25→21:05)
[2017-10-11] MEDS: PANTOPRAZOLE 40MG TAB (PROTONIX) PO (08:26)
[2017-10-11] MEDS: VITAMIN D 1,000 INTERNATIONAL UNITS TABLET PO (08:26)
[2017-10-11] MEDS: SITagliptin 50 MG TAB (JANUVIA) PO (08:26)
[2017-10-11] MEDS: diltiaZEM **CD** 180 MG CAP PO (08:27)
[2017-10-11] MEDS: FUROSEMIDE 80 MG TAB PO (08:27)
[2017-10-11] MEDS: ESCITALOPRAM OXALATE 10 MG TAB (LEXAPRO) PO (08:27)
[2017-10-11] MEDS: TAMSULOSIN 0.4 MG CAP PO (08:27)
[2017-10-11] MEDS: FERROUS SULFATE 325MG TAB PO ×2 (08:28→21:05)
[2017-10-11] MEDS: DOCUSATE SODIUM 100 MG CAP PO ×3 (08:28→21:04)
[2017-10-11] MEDS: NYSTATIN 100,000 UNITS/GM TOPICAL PWD 15 GM TOP ×2 (08:33→21:17)
[2017-10-11 12:26] LABS: BEDSIDE GLUCOSE 195 MG/DL (83-110)
[2017-10-11] MEDS: ACETAMINOPHEN TAB 650MG DOSE (2X325MG) PO (13:22)
[2017-10-11 16:54] LABS: BEDSIDE GLUCOSE 193 MG/DL (83-110)
[2017-10-11] MEDS: ASPIRIN 81 MG ENTERIC TAB PO (17:16)
[2017-10-11 20:19] LABS: BEDSIDE GLUCOSE 126 MG/DL (83-110)
[2017-10-11] MEDS: EZETIMIBE 10 MG TAB (ZETIA) PO (21:04)
[2017-10-11] MEDS: SIMVASTATIN 20 MG TAB PO (21:05)
[2017-10-12] MEDS: LEVOTHYROXINE 50MCG TABLET (0.05MG) PO (05:27)
[2017-10-12] MEDS: MEROPENEM INJ 1 GM in APPROPRIATE DILUENT 1 EA IV ×2 (06:17→17:21)
[2017-10-12] MEDS: HumaLOG INSULIN (NovoLOG) PER UNIT SC ×3 (07:30→17:20)
[2017-10-12 07:31] LABS: BASO % 0.4 % (0.0-1.0); EOS # 0.2 10^3/uL (0.0-0.50); EOS % 2.7 % (0.0-3.0); HEMATOCRIT 32.8 % (36.0-47.0); HEMOGLOBIN 10.6 g/dl (12.0-15.5); IMMATURE GRANULOCYTE % 0.2 % (0-3.0); LYMPH # 0.9 10^3/uL (1.5-4.5); LYMPH % 10.9 % (24.0-44.0); MEAN CORPUSCULAR HEMOGLOBIN 29.9 pg (27.0-33.0); MEAN CORPUSCULAR HGB CONC 32.3 g/dl (32.0-36.5); MEAN CORPUSCULAR VOLUME 92.7 fl (80.0-96.0); MONO # 0.6 10^3/uL (0.0-0.8); MONO % 7.1 % (0.0-5.0); NEUTROPHILS # 6.5 10^3/uL (1.8-7.7); NEUTROPHILS % 78.7 % (36.0-66.0); PLATELET COUNT, AUTOMATED 213 10^3/uL (150-450); RED BLOOD COUNT 3.54 10^6/uL (4.00-5.40); RED CELL DISTRIBUTION WIDTH 15.3 % (11.5-14.5); WHITE BLOOD COUNT 8.3 10^3/uL (4.0-10.0)
[2017-10-12] MEDS: IPRATROPIUM 0.5MG/ALBUTEROL 2.5MG INH SOL UD 3ML (DUONEB)(J7620) NEB ×3 (07:36→20:43)
[2017-10-12 08:18] LABS: ALBUMIN 2.9 GM/DL (3.2-5.2); ALBUMIN/GLOBULIN RATIO 0.83 (1.00-1.93); ALKALINE PHOSPHATASE 107 U/L (45-117); ALT/SGPT 12 U/L (12-78); ANION GAP 6 MEQ/L (8-16); AST/SGOT 18 U/L (7-37); BILIRUBIN,TOTAL 0.3 MG/DL (0.2-1.0); BLOOD UREA NITROGEN 26 MG/DL (7-18); CALCIUM LEVEL 7.9 MG/DL (8.8-10.2); CARBON DIOXIDE LEVEL 30 MEQ/L (21-32); CHLORIDE LEVEL 105 MEQ/L (98-107); CREATININE FOR GFR 1.39 MG/DL (0.55-1.30); GLOMERULAR FILTRATION RATE 38.2 (>32); GLUCOSE, FASTING 146 MG/DL (70-100); MAGNESIUM LEVEL 2.4 MG/DL (1.8-2.4); POTASSIUM SERUM 4.3 MEQ/L (3.5-5.1); SODIUM LEVEL 141 MEQ/L (136-145); TOTAL PROTEIN 6.4 GM/DL (6.4-8.2)
[2017-10-12] MEDS: HumuLIN (NovoLIN)70/30 INSULIN INJ PER UNIT SC ×2 (08:22→17:21)
[2017-10-12] MEDS: TAMSULOSIN 0.4 MG CAP PO (08:23)
[2017-10-12] MEDS: FERROUS SULFATE 325MG TAB PO ×2 (08:23→21:05)
[2017-10-12] MEDS: POTASSIUM CHLORIDE 10 MEQ SR TABLET PO ×3 (08:23→21:03)
[2017-10-12] MEDS: ASPIRIN 81 MG ENTERIC TAB PO (08:23)
[2017-10-12] MEDS: PROPAFENONE 150 MG TAB PO ×2 (08:24→21:04)
[2017-10-12] MEDS: FUROSEMIDE 80 MG TAB PO (08:24)
[2017-10-12] MEDS: VITAMIN D 1,000 INTERNATIONAL UNITS TABLET PO (08:24)
[2017-10-12] MEDS: SITagliptin 50 MG TAB (JANUVIA) PO (08:24)
[2017-10-12] MEDS: SUCRALFATE 1 GM TAB PO ×3 (08:24→17:21)
[2017-10-12] MEDS: diltiaZEM **CD** 180 MG CAP PO (08:25)
[2017-10-12] MEDS: PANTOPRAZOLE 40MG TAB (PROTONIX) PO (08:25)
[2017-10-12] MEDS: MECLIZINE 25 MG TABLET PO ×2 (08:25→21:03)
[2017-10-12] MEDS: DOCUSATE SODIUM 100 MG CAP PO ×3 (08:25→21:00)
[2017-10-12] MEDS: CARVedilol 3.125 MG TAB PO ×2 (08:25→21:05)
[2017-10-12] MEDS: NYSTATIN 100,000 UNITS/GM TOPICAL PWD 15 GM TOP ×2 (08:26→21:05)
[2017-10-12] MEDS: ESCITALOPRAM OXALATE 10 MG TAB (LEXAPRO) PO (08:26)
[2017-10-12] MEDS: MIRALAX *UNIT DOSE* 17GM PACKET PO ×2 (08:26→09:00)
[2017-10-12] MEDS: APIXABAN 5 MG TAB (ELIQUIS) PO ×2 (08:26→21:03)
[2017-10-12 11:45] LABS: BEDSIDE GLUCOSE 215 MG/DL (83-110)
[2017-10-12 17:26] LABS: BEDSIDE GLUCOSE 184 MG/DL (83-110)
[2017-10-12 20:14] LABS: BEDSIDE GLUCOSE 150 MG/DL (83-110)
[2017-10-12] MEDS: EZETIMIBE 10 MG TAB (ZETIA) PO (21:05)
[2017-10-12] MEDS: SIMVASTATIN 20 MG TAB PO (21:05)
[2017-10-13 04:41] LABS: BASO % 0.5 % (0.0-1.0); EOS # 0.3 10^3/uL (0.0-0.50); EOS % 3.2 % (0.0-3.0); HEMATOCRIT 31.6 % (36.0-47.0); HEMOGLOBIN 10.3 g/dl (12.0-15.5); IMMATURE GRANULOCYTE % 0.4 % (0-3.0); LYMPH # 1.1 10^3/uL (1.5-4.5); LYMPH % 14.4 % (24.0-44.0); MEAN CORPUSCULAR HEMOGLOBIN 29.9 pg (27.0-33.0); MEAN CORPUSCULAR HGB CONC 32.6 g/dl (32.0-36.5); MEAN CORPUSCULAR VOLUME 91.6 fl (80.0-96.0); MONO # 0.7 10^3/uL (0.0-0.8); MONO % 9.1 % (0.0-5.0); NEUTROPHILS # 5.6 10^3/uL (1.8-7.7); NEUTROPHILS % 72.4 % (36.0-66.0); PLATELET COUNT, AUTOMATED 203 10^3/uL (150-450); RED BLOOD COUNT 3.45 10^6/uL (4.00-5.40); RED CELL DISTRIBUTION WIDTH 15.2 % (11.5-14.5); WHITE BLOOD COUNT 7.8 10^3/uL (4.0-10.0)
[2017-10-13 04:58] LABS: ALBUMIN 2.7 GM/DL (3.2-5.2); ALBUMIN/GLOBULIN RATIO 0.66 (1.00-1.93); ALKALINE PHOSPHATASE 102 U/L (45-117); ALT/SGPT 10 U/L (12-78); ANION GAP 5 MEQ/L (8-16); AST/SGOT 17 U/L (7-37); BILIRUBIN,TOTAL 0.3 MG/DL (0.2-1.0); BLOOD UREA NITROGEN 22 MG/DL (7-18); CARBON DIOXIDE LEVEL 30 MEQ/L (21-32); CHLORIDE LEVEL 107 MEQ/L (98-107); CREATININE FOR GFR 1.36 MG/DL (0.55-1.30); GLOMERULAR FILTRATION RATE 39.2 (>32); GLUCOSE, FASTING 104 MG/DL (70-100); MAGNESIUM LEVEL 2.3 MG/DL (1.8-2.4); POTASSIUM SERUM 4.5 MEQ/L (3.5-5.1); SODIUM LEVEL 142 MEQ/L (136-145); TOTAL PROTEIN 6.8 GM/DL (6.4-8.2)
[2017-10-13] MEDS: LEVOTHYROXINE 50MCG TABLET (0.05MG) PO (06:20)
[2017-10-13] MEDS: MEROPENEM INJ 1 GM in APPROPRIATE DILUENT 1 EA IV (06:21)
[2017-10-13] MEDS: HumaLOG INSULIN (NovoLOG) PER UNIT SC ×2 (07:30→11:54)
[2017-10-13] MEDS: IPRATROPIUM 0.5MG/ALBUTEROL 2.5MG INH SOL UD 3ML (DUONEB)(J7620) NEB ×2 (08:00→13:54)
[2017-10-13] MEDS: MIRALAX *UNIT DOSE* 17GM PACKET PO (08:49)
[2017-10-13] MEDS: SUCRALFATE 1 GM TAB PO ×2 (08:50→11:54)
[2017-10-13] MEDS: MECLIZINE 25 MG TABLET PO (08:51)
[2017-10-13] MEDS: HumuLIN (NovoLIN)70/30 INSULIN INJ PER UNIT SC (08:51)
[2017-10-13] MEDS: SITagliptin 50 MG TAB (JANUVIA) PO (08:52)
[2017-10-13] MEDS: DOCUSATE SODIUM 100 MG CAP PO (08:52)
[2017-10-13] MEDS: ASPIRIN 81 MG ENTERIC TAB PO (08:52)
[2017-10-13] MEDS: FERROUS SULFATE 325MG TAB PO (08:52)
[2017-10-13] MEDS: TAMSULOSIN 0.4 MG CAP PO (08:52)
[2017-10-13] MEDS: APIXABAN 5 MG TAB (ELIQUIS) PO (08:52)
[2017-10-13] MEDS: CARVedilol 3.125 MG TAB PO (08:52)
[2017-10-13] MEDS: NYSTATIN 100,000 UNITS/GM TOPICAL PWD 15 GM TOP (08:53)
[2017-10-13] MEDS: POTASSIUM CHLORIDE 10 MEQ SR TABLET PO (08:53)
[2017-10-13] MEDS: PANTOPRAZOLE 40MG TAB (PROTONIX) PO (08:53)
[2017-10-13] MEDS: VITAMIN D 1,000 INTERNATIONAL UNITS TABLET PO (08:53)
[2017-10-13] MEDS: ESCITALOPRAM OXALATE 10 MG TAB (LEXAPRO) PO (08:53)
[2017-10-13] MEDS: FUROSEMIDE 80 MG TAB PO (08:53)
[2017-10-13] MEDS: PROPAFENONE 150 MG TAB PO (08:53)
[2017-10-13 11:20] LABS: BEDSIDE GLUCOSE 229 MG/DL (83-110)
== END 2017-10-13 16:00 | DRG 68 ==
LOC: M ED 10:09 → M ED INP 13:16 → M PCU 17:10
DX: I65.23 Occlusion and stenosis of bilateral carotid arteries (principal); I13.0 Hypertensive heart and chronic kidney disease with heart failure and stage 1 through stage 4 chronic kidney disease, or unspecified chronic kidney disease; I50.22 Chronic systolic (congestive) heart failure; N18.3 Chronic kidney disease, stage 3 (moderate); E03.9 Hypothyroidism, unspecified; I48.91 Unspecified atrial fibrillation; Z95.0 Presence of cardiac pacemaker; E11.9 Type 2 diabetes mellitus without complications; I27.20 Pulmonary hypertension, unspecified; K21.9 Gastro-esophageal reflux disease without esophagitis; B96.29 Other Escherichia coli [E. coli] as the cause of diseases classified elsewhere; Z86.711 Personal history of pulmonary embolism; Z79.01 Long term (current) use of anticoagulants; M19.90 Unspecified osteoarthritis, unspecified site; Z79.899 Other long term (current) drug therapy; Z79.4 Long term (current) use of insulin; Z88.2 Allergy status to sulfonamides; Z88.8 Allergy status to other drugs, medicaments and biological substances; Z95.1 Presence of aortocoronary bypass graft; J44.9 Chronic obstructive pulmonary disease, unspecified; F41.9 Anxiety disorder, unspecified; F32.9 Major depressive disorder, single episode, unspecified; Z96.651 Presence of right artificial knee joint; Z96.652 Presence of left artificial knee joint; E78.00 Pure hypercholesterolemia, unspecified; R35.0 Frequency of micturition

== ENCOUNTER 2017-10-13 16:00 | Inpatient (IN) | payer MEDICARE ==
[~2017-10-13 16:00] MED LIST changes: -/INSU7030 SC; -/PRAV20TA PO; -/WARF5TA PO; -ACET1TAB17 PO; -ADV250INH INH; -ALBU17IN INH; -ALBU17IN2 INH; -ALBU83IN INH; +ALBUTEROL 90 MCG/ACT 8GM HFA INHALER INH; -ALPR0.5T3 PO; -AMOX500C PO; -ASCO10003 PO; -ASPI325T5 PO; -ASPI81TA85 PO; -BACITAB PO; -BIOT5TAB3 PO; -BIOTCAP PO; -BISA5TAB29 PO; +BISACODYL 10 MG SUPP PR; -CEPA0.05 MT; -CIPR-249 PO; -CIPR250T2 PO; -COLA100C5 PO; -COZA1TAB PO; -CYMB1CAP PO; +DEXTROSE 50% 50 ML SYRINGE IV; -DIFL150T PO; -DIFL200T PO; -DILT PO; -DOCU10ELUD PO; -DULC5TAB PO; -DUONSOL INH; -ELIQ2.5T PO; -ELIQ5TAB PO; -FERR150C PO; -FERR1TAB8 PO; +FLEET ENEMA PR; -FURO20TA2 PO; -FURO40TA2 PO; -GLUC10TA3 PO; +GLUCAGON FOR INJ 1 MG VIAL (J1610) SC; +GLUCOSE 4 GM CHEW TABLET PO; -HEPA100SY INJ; -HEPA1INJ4 IV; -HUMA100I3 SC; -HUMU70IN SC; -HYDR-3713 PO; -INSUH10VL SC; -IPRA2IN INH; -IPRASOL4 INH; -IPRASOL4 NEB; -IRON65TA PO; -K-TA10TA2 PO; -KEFL500C17 PO; -KLOR10TA21 PO; -KLOR1TAB69 PO; -KLOR1TAB77 PO; -KLOR20TA PO; -LASI20TA PO; -LASI40TA PO; -LASI80TA PO; -LEVO25TA4 PO; -LEXA1TAB PO; -LISI-538 PO; -LISI2.5T PO; -LOPR1TAB6 PO; -LOSA25TA8 PO; -MACR100C43 PO; -MECL-68 PO; +MECLIZINE 25 MG TABLET PO; -MELA5TAB17 PO; -METO-346 PO; -METO12TA PO; -MILKSUS PO; -MIRA3350 PO; -MOM30SS PO; -NEXI40CA PO; -NITR4TASL SL; -NOVO1INJ4 SC; -NOVO70VL SC; -NOVOLIN 70/30 SC; -NYST1POW9 TOP; -NYSTPOW TOP; -OCEA0.654; -ONDA4TAB6 PO; -OXYGEN INH; -PANT40TA2 PO; -PENI IV; -PENI250T57 PO; -PERC5TAB12 PO; -PERCOCET PO; -POLYBTL PO; -POTA20TA PO; -POTA20TA4 PO; +POTASSIUM CHLORIDE 10 MEQ SR TABLET PO; -PRAV10TA4 PO; -PRAV20TA2 PO; -PRAV40TA2 PO; -PRED10PA PO; -PRED10TA PO; -PROP225T PO; -PROP300T PO; -PROT20TA11 PO; -RANI300C PO; -REFR0.1D OU; -SALI0.9I2 IV; -SENO8.6T5 PO; -SERT-138 PO; -SYNT25TA PO; -TRAMADOL PO; -TYLE325T5 PO; -TYLE500T78 PO; -TYLE650T25 PO; -VANC1VLAD INJ; -VENTAER INH; -VICODEN PO; -VIT D PO; -VITA-122 PO; -VITA100066 PO; -VITA500T PO; -ZETI10TA21 PO; -ZETI10TA30 PO; -ZOFR20TA PO; -ZOFR4TAB3 PO; -[UNRECOGNIZED DRUG - CODE] IV; -[UNRECOGNIZED DRUG - OTHER] PO; -mycostatin TOP
[2017-10-13 16:59] LABS: BEDSIDE GLUCOSE 173 MG/DL (83-110)
[2017-10-13] MEDS ORDERED: PILL CRUSHER/CUTTER 1 EACH XX (17:00)
[2017-10-13] MEDS: IPRATROPIUM 0.5MG/ALBUTEROL 2.5MG INH SOL UD 3ML (DUONEB)(J7620) NEB ×3 (17:49→20:00)
[2017-10-13] MEDS: SUCRALFATE 1 GM TAB PO (18:04)
[2017-10-13] MEDS: HumaLOG INSULIN (NovoLOG) PER UNIT SC (18:05)
[2017-10-13] MEDS: MEROPENEM INJ 1 GM in APPROPRIATE DILUENT 1 EA IV (18:05)
[2017-10-13] MEDS: HumuLIN (NovoLIN)70/30 INSULIN INJ PER UNIT SC (18:05)
[2017-10-13 20:59] LABS: BEDSIDE GLUCOSE 232 MG/DL (83-110)
[2017-10-13] MEDS: DOCUSATE SODIUM 100 MG CAP PO (21:08)
[2017-10-13] MEDS: SIMVASTATIN 20 MG TAB PO (21:08)
[2017-10-13] MEDS: POTASSIUM CHLORIDE 10 MEQ SR TABLET PO (21:08)
[2017-10-13] MEDS: APIXABAN 5 MG TAB (ELIQUIS) PO (21:08)
[2017-10-13] MEDS: CARVedilol 3.125 MG TAB PO (21:09)
[2017-10-13] MEDS: PROPAFENONE 150 MG TAB PO (21:09)
[2017-10-13] MEDS: FERROUS SULFATE 325MG TAB PO (21:09)
[2017-10-13] MEDS: NYSTATIN 100,000 UNITS/GM TOPICAL PWD 15 GM TOP (21:10)
[2017-10-14 01:43] LABS: BEDSIDE GLUCOSE 121 MG/DL (83-110)
[2017-10-14] MEDS: PROPAFENONE 150 MG TAB PO ×3 (05:28→21:28)
[2017-10-14] MEDS: MEROPENEM INJ 1 GM in APPROPRIATE DILUENT 1 EA IV ×2 (05:28→17:36)
[2017-10-14] MEDS: LEVOTHYROXINE 50MCG TABLET (0.05MG) PO (05:28)
[2017-10-14 06:49] LABS: BASO % 0.4 % (0.0-1.0); EOS # 0.4 10^3/uL (0.0-0.50); HEMATOCRIT 33.7 % (36.0-47.0); HEMOGLOBIN 10.8 g/dl (12.0-15.5); IMMATURE GRANULOCYTE % 0.4 % (0-3.0); LYMPH % 13.8 % (24.0-44.0); MEAN CORPUSCULAR HEMOGLOBIN 29.8 pg (27.0-33.0); MEAN CORPUSCULAR VOLUME 93.1 fl (80.0-96.0); MONO # 0.6 10^3/uL (0.0-0.8); MONO % 8.7 % (0.0-5.0); NEUTROPHILS # 5.2 10^3/uL (1.8-7.7); NEUTROPHILS % 70.7 % (36.0-66.0); PLATELET COUNT, AUTOMATED 234 10^3/uL (150-450); RED BLOOD COUNT 3.62 10^6/uL (4.00-5.40); RED CELL DISTRIBUTION WIDTH 15.3 % (11.5-14.5); WHITE BLOOD COUNT 7.3 10^3/uL (4.0-10.0)
[2017-10-14 07:25] LABS: ALBUMIN 2.9 GM/DL (3.2-5.2); ALBUMIN/GLOBULIN RATIO 0.81 (1.00-1.93); ALKALINE PHOSPHATASE 102 U/L (45-117); ALT/SGPT 13 U/L (12-78); ANION GAP 4 MEQ/L (8-16); AST/SGOT 17 U/L (7-37); BILIRUBIN,TOTAL 0.3 MG/DL (0.2-1.0); BLOOD UREA NITROGEN 20 MG/DL (7-18); CALCIUM LEVEL 8.2 MG/DL (8.8-10.2); CARBON DIOXIDE LEVEL 31 MEQ/L (21-32); CHLORIDE LEVEL 108 MEQ/L (98-107); CREATININE FOR GFR 1.23 MG/DL (0.55-1.30); GLUCOSE, FASTING 93 MG/DL (70-100); POTASSIUM SERUM 4.2 MEQ/L (3.5-5.1); SODIUM LEVEL 143 MEQ/L (136-145); TOTAL PROTEIN 6.5 GM/DL (6.4-8.2)
[2017-10-14] MEDS: HumaLOG INSULIN (NovoLOG) PER UNIT SC ×3 (07:27→17:30)
[2017-10-14] MEDS: IPRATROPIUM 0.5MG/ALBUTEROL 2.5MG INH SOL UD 3ML (DUONEB)(J7620) NEB ×4 (07:28→20:32)
[2017-10-14] MEDS: HumuLIN (NovoLIN)70/30 INSULIN INJ PER UNIT SC ×3 (07:30→17:37)
[2017-10-14] MEDS: SUCRALFATE 1 GM TAB PO ×3 (07:52→17:36)
[2017-10-14] MEDS: MIRALAX *UNIT DOSE* 17GM PACKET PO (09:00)
[2017-10-14] MEDS: DOCUSATE SODIUM 100 MG CAP PO ×3 (09:00→21:28)
[2017-10-14] MEDS: SITagliptin 50 MG TAB (JANUVIA) PO (09:38)
[2017-10-14] MEDS: TAMSULOSIN 0.4 MG CAP PO (09:41)
[2017-10-14] MEDS: CARVedilol 3.125 MG TAB PO ×2 (09:41→21:30)
[2017-10-14] MEDS: APIXABAN 5 MG TAB (ELIQUIS) PO ×2 (09:42→21:28)
[2017-10-14] MEDS: VITAMIN D 1,000 INTERNATIONAL UNITS TABLET PO (09:42)
[2017-10-14] MEDS: PANTOPRAZOLE 40MG TAB (PROTONIX) PO (09:42)
[2017-10-14] MEDS: POTASSIUM CHLORIDE 10 MEQ SR TABLET PO ×2 (09:42→21:27)
[2017-10-14] MEDS: FERROUS SULFATE 325MG TAB PO ×2 (09:42→21:28)
[2017-10-14] MEDS: EZETIMIBE 10 MG TAB (ZETIA) PO (09:42)
[2017-10-14] MEDS: ESCITALOPRAM OXALATE 10 MG TAB (LEXAPRO) PO (09:42)
[2017-10-14] MEDS: ASPIRIN 81 MG ENTERIC TAB PO (09:43)
[2017-10-14] MEDS: FUROSEMIDE 40 MG TAB PO ×2 (09:43→12:40)
[2017-10-14] MEDS: NYSTATIN 100,000 UNITS/GM TOPICAL PWD 15 GM TOP ×2 (09:44→21:28)
[2017-10-14] MEDS: LISINOPRIL *2.5 MG* TAB PO (09:44)
[2017-10-14 12:10] LABS: BEDSIDE GLUCOSE 148 MG/DL (83-110)
[2017-10-14 17:32] LABS: BEDSIDE GLUCOSE 146 MG/DL (83-110)
[2017-10-14 20:27] LABS: BEDSIDE GLUCOSE 79 MG/DL (83-110)
[2017-10-14] MEDS: SIMVASTATIN 20 MG TAB PO (21:28)
[2017-10-15 03:19] LABS: BEDSIDE GLUCOSE 67 MG/DL (83-110)
[2017-10-15] MEDS: MEROPENEM INJ 1 GM in APPROPRIATE DILUENT 1 EA IV ×2 (05:48→17:14)
[2017-10-15] MEDS: PROPAFENONE 150 MG TAB PO ×3 (05:48→21:26)
[2017-10-15] MEDS: LEVOTHYROXINE 50MCG TABLET (0.05MG) PO (05:48)
[2017-10-15 07:01] LABS: BEDSIDE GLUCOSE 74 MG/DL (83-110)
[2017-10-15 07:11] LABS: BEDSIDE GLUCOSE 89 MG/DL (83-110)
[2017-10-15] MEDS: HumaLOG INSULIN (NovoLOG) PER UNIT SC ×4 (07:20→17:09)
[2017-10-15] MEDS: IPRATROPIUM 0.5MG/ALBUTEROL 2.5MG INH SOL UD 3ML (DUONEB)(J7620) NEB (09:00)
[2017-10-15] MEDS: HumuLIN (NovoLIN)70/30 INSULIN INJ PER UNIT SC (09:09)
[2017-10-15] MEDS: POTASSIUM CHLORIDE 10 MEQ SR TABLET PO ×2 (09:09→21:26)
[2017-10-15] MEDS: EZETIMIBE 10 MG TAB (ZETIA) PO (09:09)
[2017-10-15] MEDS: ASPIRIN 81 MG ENTERIC TAB PO (09:09)
[2017-10-15] MEDS: FUROSEMIDE 40 MG TAB PO ×2 (09:09→11:48)
[2017-10-15] MEDS: SUCRALFATE 1 GM TAB PO ×3 (09:09→17:14)
[2017-10-15] MEDS: VITAMIN D 1,000 INTERNATIONAL UNITS TABLET PO (09:10)
[2017-10-15] MEDS: SITagliptin 50 MG TAB (JANUVIA) PO (09:10)
[2017-10-15] MEDS: ESCITALOPRAM OXALATE 10 MG TAB (LEXAPRO) PO (09:10)
[2017-10-15] MEDS: FERROUS SULFATE 325MG TAB PO ×2 (09:10→21:26)
[2017-10-15] MEDS: TAMSULOSIN 0.4 MG CAP PO (09:10)
[2017-10-15] MEDS: APIXABAN 5 MG TAB (ELIQUIS) PO ×2 (09:10→21:26)
[2017-10-15] MEDS: PANTOPRAZOLE 40MG TAB (PROTONIX) PO (09:10)
[2017-10-15] MEDS: CARVedilol 3.125 MG TAB PO ×2 (09:10→21:27)
[2017-10-15] MEDS: LISINOPRIL *2.5 MG* TAB PO (09:11)
[2017-10-15] MEDS: DOCUSATE SODIUM 100 MG CAP PO ×2 (09:11→21:26)
[2017-10-15] MEDS: NYSTATIN 100,000 UNITS/GM TOPICAL PWD 15 GM TOP ×2 (09:12→21:28)
[2017-10-15] MEDS: ACETAMINOPHEN TAB 650MG DOSE (2X325MG) PO ×2 (10:35→21:30)
[2017-10-15 11:36] LABS: BEDSIDE GLUCOSE 111 MG/DL (83-110)
[2017-10-15 17:05] LABS: BEDSIDE GLUCOSE 75 MG/DL (83-110)
[2017-10-15 17:05] LABS: BEDSIDE GLUCOSE 66 MG/DL (83-110)
[2017-10-15] MEDS: ONDANSETRON 4 MG TAB (S0181) PO (17:18)
[2017-10-15] MEDS ORDERED: HumuLIN (NovoLIN)70/30 INSULIN INJ PER UNIT SC (17:30)
[2017-10-15 20:40] LABS: BEDSIDE GLUCOSE 116 MG/DL (83-110)
[2017-10-15] MEDS ORDERED: LEVEMIR (INSULIN DETEMIR) 1 UNITS/0.01ML SC (21:00)
[2017-10-15] MEDS: SIMVASTATIN 20 MG TAB PO (21:26)
[2017-10-15] MEDS: LEVEMIR (INSULIN DETEMIR) 1 UNITS/0.01ML SC (21:26)
[2017-10-16 02:35] LABS: BEDSIDE GLUCOSE 112 MG/DL (83-110)
[2017-10-16] MEDS: LEVOTHYROXINE 50MCG TABLET (0.05MG) PO (06:34)
[2017-10-16] MEDS: PROPAFENONE 150 MG TAB PO ×3 (06:34→21:11)
[2017-10-16] MEDS: MEROPENEM INJ 1 GM in APPROPRIATE DILUENT 1 EA IV ×2 (06:34→17:43)
[2017-10-16 06:38] LABS: HEMATOCRIT 32.9 % (36.0-47.0); HEMOGLOBIN 10.4 g/dl (12.0-15.5); MEAN CORPUSCULAR HEMOGLOBIN 29.6 pg (27.0-33.0); MEAN CORPUSCULAR HGB CONC 31.6 g/dl (32.0-36.5); MEAN CORPUSCULAR VOLUME 93.7 fl (80.0-96.0); PLATELET COUNT, AUTOMATED 246 10^3/uL (150-450); RED BLOOD COUNT 3.51 10^6/uL (4.00-5.40); RED CELL DISTRIBUTION WIDTH 15.4 % (11.5-14.5); WHITE BLOOD COUNT 7.5 10^3/uL (4.0-10.0)
[2017-10-16 06:53] LABS: ANION GAP 4 MEQ/L (8-16); BLOOD UREA NITROGEN 19 MG/DL (7-18); CALCIUM LEVEL 8.4 MG/DL (8.8-10.2); CARBON DIOXIDE LEVEL 32 MEQ/L (21-32); CHLORIDE LEVEL 106 MEQ/L (98-107); CREATININE FOR GFR 1.18 MG/DL (0.55-1.30); GLOMERULAR FILTRATION RATE 46.1 (>32); GLUCOSE, FASTING 82 MG/DL (70-100); MAGNESIUM LEVEL 2.5 MG/DL (1.8-2.4); POTASSIUM SERUM 4.3 MEQ/L (3.5-5.1); SODIUM LEVEL 142 MEQ/L (136-145)
[2017-10-16] MEDS: HumaLOG INSULIN (NovoLOG) PER UNIT SC ×3 (07:14→17:10)
[2017-10-16 07:17] LABS: ESTIMATED AVERAGE GLUCOSE 189 MG/DL (60-110); HEMOGLOBIN A1c 8.2 %
[2017-10-16] MEDS ORDERED: HumuLIN (NovoLIN)70/30 INSULIN INJ PER UNIT SC (07:30)
[2017-10-16] MEDS: SUCRALFATE 1 GM TAB PO ×3 (08:37→17:43)
[2017-10-16] MEDS: EZETIMIBE 10 MG TAB (ZETIA) PO (08:37)
[2017-10-16] MEDS: LISINOPRIL *2.5 MG* TAB PO (08:37)
[2017-10-16] MEDS: FERROUS SULFATE 325MG TAB PO ×2 (08:37→21:12)
[2017-10-16] MEDS: FUROSEMIDE 40 MG TAB PO ×2 (08:37→11:40)
[2017-10-16] MEDS: PANTOPRAZOLE 40MG TAB (PROTONIX) PO (08:37)
[2017-10-16] MEDS: ASPIRIN 81 MG ENTERIC TAB PO (08:38)
[2017-10-16] MEDS: TAMSULOSIN 0.4 MG CAP PO (08:38)
[2017-10-16] MEDS: VITAMIN D 1,000 INTERNATIONAL UNITS TABLET PO (08:38)
[2017-10-16] MEDS: DOCUSATE SODIUM 100 MG CAP PO ×2 (08:38→21:12)
[2017-10-16] MEDS: ESCITALOPRAM OXALATE 10 MG TAB (LEXAPRO) PO (08:38)
[2017-10-16] MEDS: POTASSIUM CHLORIDE 10 MEQ SR TABLET PO ×2 (08:38→21:12)
[2017-10-16] MEDS: CARVedilol 3.125 MG TAB PO ×2 (08:38→21:11)
[2017-10-16] MEDS: APIXABAN 5 MG TAB (ELIQUIS) PO ×2 (08:38→21:12)
[2017-10-16] MEDS: LEVEMIR (INSULIN DETEMIR) 1 UNITS/0.01ML SC ×2 (08:39→21:12)
[2017-10-16] MEDS: NYSTATIN 100,000 UNITS/GM TOPICAL PWD 15 GM TOP ×2 (08:39→21:13)
[2017-10-16 11:43] LABS: BEDSIDE GLUCOSE 180 MG/DL (83-110)
[2017-10-16 17:15] LABS: BEDSIDE GLUCOSE 96 MG/DL (83-110)
[2017-10-16 20:18] LABS: BEDSIDE GLUCOSE 231 MG/DL (83-110)
[2017-10-16] MEDS: SIMVASTATIN 20 MG TAB PO (21:12)
[2017-10-16] MEDS: ACETAMINOPHEN TAB 650MG DOSE (2X325MG) PO (21:13)
[2017-10-17 00:59] LABS: BEDSIDE GLUCOSE 115 MG/DL (83-110)
[2017-10-17] MEDS: MEROPENEM INJ 1 GM in APPROPRIATE DILUENT 1 EA IV (06:00)
[2017-10-17] MEDS: LEVOTHYROXINE 50MCG TABLET (0.05MG) PO (06:00)
[2017-10-17] MEDS: PROPAFENONE 150 MG TAB PO ×3 (06:00→21:23)
[2017-10-17 06:34] LABS: HEMATOCRIT 31.5 % (36.0-47.0); MEAN CORPUSCULAR HEMOGLOBIN 29.9 pg (27.0-33.0); MEAN CORPUSCULAR HGB CONC 31.7 g/dl (32.0-36.5); PLATELET COUNT, AUTOMATED 248 10^3/uL (150-450); RED BLOOD COUNT 3.35 10^6/uL (4.00-5.40); RED CELL DISTRIBUTION WIDTH 15.3 % (11.5-14.5); WHITE BLOOD COUNT 6.8 10^3/uL (4.0-10.0)
[2017-10-17 06:54] LABS: ANION GAP 5 MEQ/L (8-16); BLOOD UREA NITROGEN 23 MG/DL (7-18); CALCIUM LEVEL 8.1 MG/DL (8.8-10.2); CARBON DIOXIDE LEVEL 29 MEQ/L (21-32); CHLORIDE LEVEL 106 MEQ/L (98-107); CREATININE FOR GFR 1.16 MG/DL (0.55-1.30); GLUCOSE, FASTING 89 MG/DL (70-100); MAGNESIUM LEVEL 2.4 MG/DL (1.8-2.4); POTASSIUM SERUM 4.3 MEQ/L (3.5-5.1); SODIUM LEVEL 140 MEQ/L (136-145)
[2017-10-17] MEDS: HumaLOG INSULIN (NovoLOG) PER UNIT SC ×3 (07:16→17:01)
[2017-10-17] MEDS: LEVEMIR (INSULIN DETEMIR) 1 UNITS/0.01ML SC ×2 (07:16→21:22)
[2017-10-17] MEDS: DOCUSATE SODIUM 100 MG CAP PO ×2 (08:25→21:22)
[2017-10-17] MEDS: ASPIRIN 81 MG ENTERIC TAB PO (08:25)
[2017-10-17] MEDS: FUROSEMIDE 40 MG TAB PO ×2 (08:25→12:56)
[2017-10-17] MEDS: TAMSULOSIN 0.4 MG CAP PO (08:25)
[2017-10-17] MEDS: FERROUS SULFATE 325MG TAB PO ×2 (08:25→21:23)
[2017-10-17] MEDS: SUCRALFATE 1 GM TAB PO ×3 (08:25→17:01)
[2017-10-17] MEDS: PANTOPRAZOLE 40MG TAB (PROTONIX) PO (08:25)
[2017-10-17] MEDS: CARVedilol 3.125 MG TAB PO ×2 (08:25→21:22)
[2017-10-17] MEDS: VITAMIN D 1,000 INTERNATIONAL UNITS TABLET PO (08:25)
[2017-10-17] MEDS: EZETIMIBE 10 MG TAB (ZETIA) PO (08:26)
[2017-10-17] MEDS: APIXABAN 5 MG TAB (ELIQUIS) PO ×2 (08:26→21:23)
[2017-10-17] MEDS: NYSTATIN 100,000 UNITS/GM TOPICAL PWD 15 GM TOP ×2 (08:26→21:24)
[2017-10-17] MEDS: ESCITALOPRAM OXALATE 10 MG TAB (LEXAPRO) PO (08:26)
[2017-10-17] MEDS: LISINOPRIL *2.5 MG* TAB PO (08:26)
[2017-10-17] MEDS: POTASSIUM CHLORIDE 10 MEQ SR TABLET PO ×2 (08:26→21:23)
[2017-10-17 11:43] LABS: BEDSIDE GLUCOSE 157 MG/DL (83-110)
[2017-10-17] MEDS: BISACODYL 5 MG TAB PO (12:56)
[2017-10-17 16:50] LABS: BEDSIDE GLUCOSE 137 MG/DL (83-110)
[2017-10-17 19:49] LABS: BEDSIDE GLUCOSE 135 MG/DL (83-110)
[2017-10-17] MEDS: SIMVASTATIN 20 MG TAB PO (21:23)
[2017-10-17] MEDS: ACETAMINOPHEN TAB 650MG DOSE (2X325MG) PO (21:31)
[2017-10-18] MEDS: MEROPENEM INJ 1 GM in APPROPRIATE DILUENT 1 EA IV ×2 (01:39→14:10)
[2017-10-18] MEDS: PROPAFENONE 150 MG TAB PO ×3 (05:54→21:26)
[2017-10-18] MEDS: LEVOTHYROXINE 50MCG TABLET (0.05MG) PO (05:54)
[2017-10-18 06:42] LABS: HEMATOCRIT 31.6 % (36.0-47.0); HEMOGLOBIN 10.1 g/dl (12.0-15.5); MEAN CORPUSCULAR HEMOGLOBIN 29.6 pg (27.0-33.0); MEAN CORPUSCULAR VOLUME 92.7 fl (80.0-96.0); PLATELET COUNT, AUTOMATED 252 10^3/uL (150-450); RED BLOOD COUNT 3.41 10^6/uL (4.00-5.40); RED CELL DISTRIBUTION WIDTH 15.1 % (11.5-14.5); WHITE BLOOD COUNT 6.6 10^3/uL (4.0-10.0)
[2017-10-18 07:02] LABS: ANION GAP 4 MEQ/L (8-16); BLOOD UREA NITROGEN 25 MG/DL (7-18); CALCIUM LEVEL 8.3 MG/DL (8.8-10.2); CARBON DIOXIDE LEVEL 32 MEQ/L (21-32); CHLORIDE LEVEL 104 MEQ/L (98-107); CREATININE FOR GFR 1.05 MG/DL (0.55-1.30); GLOMERULAR FILTRATION RATE 52.8 (>32); GLUCOSE, FASTING 89 MG/DL (70-100); MAGNESIUM LEVEL 2.3 MG/DL (1.8-2.4); POTASSIUM SERUM 4.2 MEQ/L (3.5-5.1); SODIUM LEVEL 140 MEQ/L (136-145)
[2017-10-18] MEDS: HumaLOG INSULIN (NovoLOG) PER UNIT SC ×3 (07:30→17:45)
[2017-10-18] MEDS: LEVEMIR (INSULIN DETEMIR) 1 UNITS/0.01ML SC ×2 (08:12→21:27)
[2017-10-18] MEDS: SUCRALFATE 1 GM TAB PO ×3 (08:13→17:45)
[2017-10-18] MEDS: VITAMIN D 1,000 INTERNATIONAL UNITS TABLET PO (08:16)
[2017-10-18] MEDS: LISINOPRIL *2.5 MG* TAB PO (08:16)
[2017-10-18] MEDS: EZETIMIBE 10 MG TAB (ZETIA) PO (08:17)
[2017-10-18] MEDS: POTASSIUM CHLORIDE 10 MEQ SR TABLET PO ×2 (08:17→21:26)
[2017-10-18] MEDS: PANTOPRAZOLE 40MG TAB (PROTONIX) PO (08:17)
[2017-10-18] MEDS: CARVedilol 3.125 MG TAB PO ×2 (08:17→21:25)
[2017-10-18] MEDS: TAMSULOSIN 0.4 MG CAP PO (08:17)
[2017-10-18] MEDS: DOCUSATE SODIUM 100 MG CAP PO ×2 (08:18→21:26)
[2017-10-18] MEDS: ASPIRIN 81 MG ENTERIC TAB PO (08:18)
[2017-10-18] MEDS: ESCITALOPRAM OXALATE 10 MG TAB (LEXAPRO) PO (08:18)
[2017-10-18] MEDS: FERROUS SULFATE 325MG TAB PO ×2 (08:18→21:26)
[2017-10-18] MEDS: FUROSEMIDE 40 MG TAB PO ×2 (08:18→12:08)
[2017-10-18] MEDS: APIXABAN 5 MG TAB (ELIQUIS) PO ×2 (08:18→21:26)
[2017-10-18] MEDS: NYSTATIN 100,000 UNITS/GM TOPICAL PWD 15 GM TOP ×2 (08:19→21:27)
[2017-10-18 11:56] LABS: BEDSIDE GLUCOSE 171 MG/DL (83-110)
[2017-10-18 17:18] LABS: BEDSIDE GLUCOSE 144 MG/DL (83-110)
[2017-10-18 20:50] LABS: BEDSIDE GLUCOSE 172 MG/DL (83-110)
[2017-10-18] MEDS: SIMVASTATIN 20 MG TAB PO (21:26)
[2017-10-18] MEDS: ACETAMINOPHEN TAB 650MG DOSE (2X325MG) PO (21:34)
[2017-10-19] MEDS: MEROPENEM INJ 1 GM in APPROPRIATE DILUENT 1 EA IV (01:50)
[2017-10-19] MEDS: PROPAFENONE 150 MG TAB PO ×3 (05:38→20:55)
[2017-10-19] MEDS: LEVOTHYROXINE 50MCG TABLET (0.05MG) PO (05:38)
[2017-10-19 06:40] LABS: HEMATOCRIT 30.9 % (36.0-47.0); HEMOGLOBIN 9.8 g/dl (12.0-15.5); MEAN CORPUSCULAR HEMOGLOBIN 29.3 pg (27.0-33.0); MEAN CORPUSCULAR HGB CONC 31.7 g/dl (32.0-36.5); MEAN CORPUSCULAR VOLUME 92.5 fl (80.0-96.0); PLATELET COUNT, AUTOMATED 230 10^3/uL (150-450); RED BLOOD COUNT 3.34 10^6/uL (4.00-5.40); RED CELL DISTRIBUTION WIDTH 14.9 % (11.5-14.5); WHITE BLOOD COUNT 6.8 10^3/uL (4.0-10.0)
[2017-10-19 06:55] LABS: ANION GAP 2 MEQ/L (8-16); BLOOD UREA NITROGEN 30 MG/DL (7-18); CALCIUM LEVEL 8.5 MG/DL (8.8-10.2); CARBON DIOXIDE LEVEL 32 MEQ/L (21-32); CHLORIDE LEVEL 104 MEQ/L (98-107); CREATININE FOR GFR 1.06 MG/DL (0.55-1.30); GLOMERULAR FILTRATION RATE 52.2 (>32); GLUCOSE, FASTING 108 MG/DL (70-100); MAGNESIUM LEVEL 2.3 MG/DL (1.8-2.4); POTASSIUM SERUM 4.2 MEQ/L (3.5-5.1); SODIUM LEVEL 138 MEQ/L (136-145)
[2017-10-19] MEDS: DOCUSATE SODIUM 100 MG CAP PO ×2 (07:59→20:53)
[2017-10-19] MEDS: EZETIMIBE 10 MG TAB (ZETIA) PO (07:59)
[2017-10-19] MEDS: SUCRALFATE 1 GM TAB PO ×3 (07:59→17:26)
[2017-10-19] MEDS: ESCITALOPRAM OXALATE 10 MG TAB (LEXAPRO) PO (07:59)
[2017-10-19] MEDS: ASPIRIN 81 MG ENTERIC TAB PO (07:59)
[2017-10-19] MEDS: APIXABAN 5 MG TAB (ELIQUIS) PO ×2 (07:59→20:53)
[2017-10-19] MEDS: FUROSEMIDE 40 MG TAB PO ×2 (08:00→12:43)
[2017-10-19] MEDS: TAMSULOSIN 0.4 MG CAP PO (08:00)
[2017-10-19] MEDS: VITAMIN D 1,000 INTERNATIONAL UNITS TABLET PO (08:00)
[2017-10-19] MEDS: POTASSIUM CHLORIDE 10 MEQ SR TABLET PO ×2 (08:01→20:55)
[2017-10-19] MEDS: PANTOPRAZOLE 40MG TAB (PROTONIX) PO (08:01)
[2017-10-19] MEDS: FERROUS SULFATE 325MG TAB PO ×2 (08:01→20:55)
[2017-10-19] MEDS: CARVedilol 3.125 MG TAB PO ×2 (08:02→20:54)
[2017-10-19] MEDS: LISINOPRIL *2.5 MG* TAB PO (08:02)
[2017-10-19] MEDS: LEVEMIR (INSULIN DETEMIR) 1 UNITS/0.01ML SC ×2 (08:03→20:56)
[2017-10-19] MEDS: NYSTATIN 100,000 UNITS/GM TOPICAL PWD 15 GM TOP ×2 (08:04→20:56)
[2017-10-19] MEDS: HumaLOG INSULIN (NovoLOG) PER UNIT SC ×3 (08:04→17:26)
[2017-10-19 12:16] LABS: BEDSIDE GLUCOSE 82 MG/DL (83-110)
[2017-10-19 17:28] LABS: BEDSIDE GLUCOSE 148 MG/DL (83-110)
[2017-10-19 19:51] LABS: BEDSIDE GLUCOSE 185 MG/DL (83-110)
[2017-10-19] MEDS: SIMVASTATIN 20 MG TAB PO (20:53)
[2017-10-19] MEDS: ACETAMINOPHEN TAB 650MG DOSE (2X325MG) PO (21:06)
[2017-10-20] MEDS: PROPAFENONE 150 MG TAB PO ×3 (05:40→21:30)
[2017-10-20] MEDS: LEVOTHYROXINE 50MCG TABLET (0.05MG) PO (05:40)
[2017-10-20 06:30] LABS: BEDSIDE GLUCOSE 69 MG/DL (83-110)
[2017-10-20 06:53] LABS: HEMATOCRIT 30.8 % (36.0-47.0); HEMOGLOBIN 9.9 g/dl (12.0-15.5); MEAN CORPUSCULAR HEMOGLOBIN 29.6 pg (27.0-33.0); MEAN CORPUSCULAR HGB CONC 32.1 g/dl (32.0-36.5); MEAN CORPUSCULAR VOLUME 92.2 fl (80.0-96.0); PLATELET COUNT, AUTOMATED 224 10^3/uL (150-450); RED BLOOD COUNT 3.34 10^6/uL (4.00-5.40); RED CELL DISTRIBUTION WIDTH 14.8 % (11.5-14.5); WHITE BLOOD COUNT 6.9 10^3/uL (4.0-10.0)
[2017-10-20 07:21] LABS: ANION GAP 5 MEQ/L (8-16); BLOOD UREA NITROGEN 31 MG/DL (7-18); CALCIUM LEVEL 8.7 MG/DL (8.8-10.2); CARBON DIOXIDE LEVEL 33 MEQ/L (21-32); CHLORIDE LEVEL 101 MEQ/L (98-107); CREATININE FOR GFR 1.11 MG/DL (0.55-1.30); GLOMERULAR FILTRATION RATE 49.5 (>32); GLUCOSE, FASTING 98 MG/DL (70-100); MAGNESIUM LEVEL 2.3 MG/DL (1.8-2.4); POTASSIUM SERUM 4.1 MEQ/L (3.5-5.1); SODIUM LEVEL 139 MEQ/L (136-145)
[2017-10-20] MEDS: HumaLOG INSULIN (NovoLOG) PER UNIT SC ×3 (07:28→16:28)
[2017-10-20] MEDS: LEVEMIR (INSULIN DETEMIR) 1 UNITS/0.01ML SC ×2 (07:28→21:32)
[2017-10-20] MEDS: VITAMIN D 1,000 INTERNATIONAL UNITS TABLET PO (08:09)
[2017-10-20] MEDS: SUCRALFATE 1 GM TAB PO ×3 (08:09→16:48)
[2017-10-20] MEDS: PANTOPRAZOLE 40MG TAB (PROTONIX) PO (08:10)
[2017-10-20] MEDS: FUROSEMIDE 40 MG TAB PO ×2 (08:10→12:09)
[2017-10-20] MEDS: ESCITALOPRAM OXALATE 10 MG TAB (LEXAPRO) PO (08:10)
[2017-10-20] MEDS: POTASSIUM CHLORIDE 10 MEQ SR TABLET PO ×2 (08:10→21:31)
[2017-10-20] MEDS: DOCUSATE SODIUM 100 MG CAP PO ×2 (08:10→21:30)
[2017-10-20] MEDS: FERROUS SULFATE 325MG TAB PO ×2 (08:10→21:30)
[2017-10-20] MEDS: ASPIRIN 81 MG ENTERIC TAB PO (08:10)
[2017-10-20] MEDS: EZETIMIBE 10 MG TAB (ZETIA) PO (08:10)
[2017-10-20] MEDS: TAMSULOSIN 0.4 MG CAP PO (08:10)
[2017-10-20] MEDS: APIXABAN 5 MG TAB (ELIQUIS) PO ×2 (08:10→21:30)
[2017-10-20] MEDS: LISINOPRIL *2.5 MG* TAB PO (08:12)
[2017-10-20] MEDS: NYSTATIN 100,000 UNITS/GM TOPICAL PWD 15 GM TOP ×2 (08:12→21:00)
[2017-10-20] MEDS: CARVedilol 3.125 MG TAB PO ×2 (08:12→21:30)
[2017-10-20 12:10] LABS: BEDSIDE GLUCOSE 151 MG/DL (83-110)
[2017-10-20 16:44] LABS: BEDSIDE GLUCOSE 74 MG/DL (83-110)
[2017-10-20 20:34] LABS: BEDSIDE GLUCOSE 218 MG/DL (83-110)
[2017-10-20] MEDS: SIMVASTATIN 20 MG TAB PO (21:30)
[2017-10-20] MEDS: ACETAMINOPHEN TAB 650MG DOSE (2X325MG) PO (21:30)
[2017-10-21 06:16] LABS: HEMATOCRIT 31.1 % (36.0-47.0); HEMOGLOBIN 10.1 g/dl (12.0-15.5); MEAN CORPUSCULAR HEMOGLOBIN 29.8 pg (27.0-33.0); MEAN CORPUSCULAR HGB CONC 32.5 g/dl (32.0-36.5); MEAN CORPUSCULAR VOLUME 91.7 fl (80.0-96.0); PLATELET COUNT, AUTOMATED 223 10^3/uL (150-450); RED BLOOD COUNT 3.39 10^6/uL (4.00-5.40); RED CELL DISTRIBUTION WIDTH 14.7 % (11.5-14.5); WHITE BLOOD COUNT 6.5 10^3/uL (4.0-10.0)
[2017-10-21] MEDS: LEVOTHYROXINE 50MCG TABLET (0.05MG) PO (06:24)
[2017-10-21] MEDS: PROPAFENONE 150 MG TAB PO (06:24)
[2017-10-21 06:45] LABS: ANION GAP 6 MEQ/L (8-16); BLOOD UREA NITROGEN 30 MG/DL (7-18); CALCIUM LEVEL 8.3 MG/DL (8.8-10.2); CARBON DIOXIDE LEVEL 32 MEQ/L (21-32); CHLORIDE LEVEL 102 MEQ/L (98-107); CREATININE FOR GFR 1.03 MG/DL (0.55-1.30); GLUCOSE, FASTING 78 MG/DL (70-100); MAGNESIUM LEVEL 2.5 MG/DL (1.8-2.4); POTASSIUM SERUM 4.3 MEQ/L (3.5-5.1); SODIUM LEVEL 140 MEQ/L (136-145)
[2017-10-21] MEDS: HumaLOG INSULIN (NovoLOG) PER UNIT SC (07:30)
[2017-10-21] MEDS: NYSTATIN 100,000 UNITS/GM TOPICAL PWD 15 GM TOP (09:00)
[2017-10-21] MEDS: LEVEMIR (INSULIN DETEMIR) 1 UNITS/0.01ML SC (09:00)
[2017-10-21] MEDS: SUCRALFATE 1 GM TAB PO (09:10)
[2017-10-21] MEDS: LISINOPRIL *2.5 MG* TAB PO (09:10)
[2017-10-21] MEDS: PANTOPRAZOLE 40MG TAB (PROTONIX) PO (09:10)
[2017-10-21] MEDS: VITAMIN D 1,000 INTERNATIONAL UNITS TABLET PO (09:11)
[2017-10-21] MEDS: FUROSEMIDE 40 MG TAB PO (09:11)
[2017-10-21] MEDS: POTASSIUM CHLORIDE 10 MEQ SR TABLET PO (09:11)
[2017-10-21] MEDS: ESCITALOPRAM OXALATE 10 MG TAB (LEXAPRO) PO (09:11)
[2017-10-21] MEDS: FERROUS SULFATE 325MG TAB PO (09:11)
[2017-10-21] MEDS: ASPIRIN 81 MG ENTERIC TAB PO (09:11)
[2017-10-21] MEDS: TAMSULOSIN 0.4 MG CAP PO (09:11)
[2017-10-21] MEDS: APIXABAN 5 MG TAB (ELIQUIS) PO (09:11)
[2017-10-21] MEDS: DOCUSATE SODIUM 100 MG CAP PO (09:12)
[2017-10-21] MEDS: EZETIMIBE 10 MG TAB (ZETIA) PO (09:12)
[2017-10-21] MEDS: CARVedilol 3.125 MG TAB PO (09:12)
== END 2017-10-21 12:00 | disposition home or self-care (01) | DRG 57 ==
LOC: M PM&R 16:00
PROVIDERS: Physical Medicine & Rehabilitation
DX: I69.351 Hemiplegia and hemiparesis following cerebral infarction affecting right dominant side (principal); I50.22 Chronic systolic (congestive) heart failure; N39.0 Urinary tract infection, site not specified; I13.0 Hypertensive heart and chronic kidney disease with heart failure and stage 1 through stage 4 chronic kidney disease, or unspecified chronic kidney disease; I48.91 Unspecified atrial fibrillation; E11.9 Type 2 diabetes mellitus without complications; I25.10 Atherosclerotic heart disease of native coronary artery without angina pectoris; E78.5 Hyperlipidemia, unspecified; B37.9 Candidiasis, unspecified; B96.20 Unspecified Escherichia coli [E. coli] as the cause of diseases classified elsewhere; M25.561 Pain in right knee; R42 Dizziness and giddiness; M54.5 Low back pain; D50.9 Iron deficiency anemia, unspecified; E16.2 Hypoglycemia, unspecified; N18.3 Chronic kidney disease, stage 3 (moderate); F32.9 Major depressive disorder, single episode, unspecified; M19.90 Unspecified osteoarthritis, unspecified site; E03.9 Hypothyroidism, unspecified; F41.9 Anxiety disorder, unspecified; J44.9 Chronic obstructive pulmonary disease, unspecified; Z95.1 Presence of aortocoronary bypass graft; Z95.0 Presence of cardiac pacemaker; Z96.659 Presence of unspecified artificial knee joint; Z87.891 Personal history of nicotine dependence; Z86.711 Personal history of pulmonary embolism; Z79.01 Long term (current) use of anticoagulants; Z79.4 Long term (current) use of insulin; Z88.2 Allergy status to sulfonamides; Z88.8 Allergy status to other drugs, medicaments and biological substances

== ENCOUNTER → 2017-11-01 | Outpatient (REF) | payer MEDICARE ==
[2017-11-01 14:07] LABS: APPEARANCE, URINE TURBID (CLEAR); BACTERIA, URINE AUTO 3+ (NEGATIVE); BILIRUBIN, URINE AUTO NEGATIVE (NEGATIVE); BLOOD, URINE BLOOD 3+ (NEGATIVE); COLOR, URINE AMBER (YELLOW); GLUCOSE, URINE (UA) AUTO 2+ mg/dL (NEGATIVE); KETONE, URINE AUTO NEGATIVE (NEGATIVE); LEUKOCYTE ESTERASE, URINE AUTO 3+ (NEGATIVE); NITRITE, URINE AUTO NEGATIVE (NEGATIVE); PROTEIN, URINE AUTO 2+ mg/dL (NEGATIVE); RBC, URINE AUTO TNTC /HPF (0-3); SPECIFIC GRAVITY URINE AUTO 1.014 (1.002-1.035); SQUAMOUS EPITHELIAL CELL UR AU 12 /HPF (0-6); UROBILINOGEN, URINE AUTO 0.2 mg/dL (0.0-2.0); WBC, URINE AUTO TNTC /HPF (0-3)
== END ==
LOC: M SMT 13:06
DX: R30.0 Dysuria (principal)
CPT/HCPCS: 81001

== ENCOUNTER 2017-12-03 07:21 | Day surgery (SDC) | payer MEDICARE ==
[2017-12-03] MEDS ORDERED: LIDOCAINE 1% MDV 20ML VIAL SQ (07:30)
[2017-12-03] MEDS ORDERED: fentaNYL 100 MCG/2 ML INJECTION (J3010) As Ordered (08:05)
[2017-12-03] MEDS ORDERED: EPINEPHrine INJ 1 MG/ML 1ML AMP As Ordered (08:05)
[2017-12-03] MEDS ORDERED: MIDAZOLAM INJ 2 MG/2 ML VIAL (J2250) As Ordered (08:05)
[2017-12-03] MEDS ORDERED: PROPOFOL 200 MG/20 ML VIAL As Ordered (08:06)
[2017-12-03 08:21] LABS: BEDSIDE GLUCOSE 179 MG/DL (83-110)
[2017-12-03] MEDS: LR 1,000 ML IV (08:23)
[2017-12-03] MEDS: LIDOCAINE 2% 5ML JELLY UROJET As Ordered (09:30)
[2017-12-03] MEDS: CONRAY-60 60% 50ML VIAL (Q9961) As Ordered (09:30)
[2017-12-03 09:56] LABS: BEDSIDE GLUCOSE 212 MG/DL (83-110)
== END 2017-12-03 11:05 | disposition home or self-care (01) ==
LOC: M SDC 07:21
DX: N35.9 Urethral stricture, unspecified (principal); H40.9 Unspecified glaucoma; E03.9 Hypothyroidism, unspecified; I10 Essential (primary) hypertension; E10.40 Type 1 diabetes mellitus with diabetic neuropathy, unspecified; I50.32 Chronic diastolic (congestive) heart failure; I48.91 Unspecified atrial fibrillation; K21.9 Gastro-esophageal reflux disease without esophagitis; Q85.00 Neurofibromatosis, unspecified; M15.0 Primary generalized (osteo)arthritis; K57.32 Diverticulitis of large intestine without perforation or abscess without bleeding; K44.9 Diaphragmatic hernia without obstruction or gangrene; R29.898 Other symptoms and signs involving the musculoskeletal system; M81.0 Age-related osteoporosis without current pathological fracture; F41.9 Anxiety disorder, unspecified; F03.90 Unspecified dementia, unspecified severity, without behavioral disturbance, psychotic disturbance, mood disturbance, and anxiety; F32.9 Major depressive disorder, single episode, unspecified; R51 Headache; K59.00 Constipation, unspecified; R06.83 Snoring; R06.02 Shortness of breath; R32 Unspecified urinary incontinence; J44.9 Chronic obstructive pulmonary disease, unspecified; D64.9 Anemia, unspecified; E78.00 Pure hypercholesterolemia, unspecified; C18.9 Malignant neoplasm of colon, unspecified; I25.10 Atherosclerotic heart disease of native coronary artery without angina pectoris; R60.0 Localized edema; Z88.2 Allergy status to sulfonamides; Z88.6 Allergy status to analgesic agent; Z88.8 Allergy status to other drugs, medicaments and biological substances; Z79.899 Other long term (current) drug therapy; Z79.01 Long term (current) use of anticoagulants; Z79.4 Long term (current) use of insulin; Z95.0 Presence of cardiac pacemaker; Z96.1 Presence of intraocular lens; Z92.21 Personal history of antineoplastic chemotherapy; Z85.72 Personal history of non-Hodgkin lymphomas; Z86.73 Personal history of transient ischemic attack (TIA), and cerebral infarction without residual deficits; Z86.711 Personal history of pulmonary embolism
CPT/HCPCS: 52332

== ENCOUNTER 2017-12-12 11:08 | Emergency (ER) | payer MEDICARE ==
[2017-12-12] MEDS: NORCO, ANEXSIA 5/325MG TABLET (HYDROcodone/ACETAMINOPHEN) PO (12:06)
== END 2017-12-12 15:28 | disposition home or self-care (01) ==
LOC: M ED 11:08
DX: S00.83XA Contusion of other part of head, initial encounter (principal); S62.610A Displaced fracture of proximal phalanx of right index finger, initial encounter for closed fracture; W01.198A Fall on same level from slipping, tripping and stumbling with subsequent striking against other object, initial encounter; Y92.009 Unspecified place in unspecified non-institutional (private) residence as the place of occurrence of the external cause; R91.8 Other nonspecific abnormal finding of lung field; I25.10 Atherosclerotic heart disease of native coronary artery without angina pectoris; I50.9 Heart failure, unspecified; I48.91 Unspecified atrial fibrillation; E11.9 Type 2 diabetes mellitus without complications; Z95.0 Presence of cardiac pacemaker; Z85.048 Personal history of other malignant neoplasm of rectum, rectosigmoid junction, and anus; Z82.0 Family history of epilepsy and other diseases of the nervous system; Z79.01 Long term (current) use of anticoagulants; Z85.72 Personal history of non-Hodgkin lymphomas; Z88.8 Allergy status to other drugs, medicaments and biological substances; Z88.2 Allergy status to sulfonamides; Z79.82 Long term (current) use of aspirin; Z79.4 Long term (current) use of insulin; Z79.890 Hormone replacement therapy
CPT/HCPCS: 71046

== ENCOUNTER 2018-01-02 17:59 | Inpatient (IN) | payer MEDICARE ==
[2018-01-02] MEDS: NS 750 ML IV (00:40)
[2018-01-02 19:01] LABS: BASO # 0.1 10^3/uL (0.0-0.2); BASO % 0.4 % (0.0-1.0); EOS # 0.1 10^3/uL (0.0-0.50); EOS % 0.7 % (0.0-3.0); HEMATOCRIT 36.8 % (36.0-47.0); HEMOGLOBIN 11.9 g/dl (12.0-15.5); IMMATURE GRANULOCYTE % 0.5 % (0-3.0); LYMPH # 1.4 10^3/uL (1.5-4.5); LYMPH % 8.5 % (24.0-44.0); MEAN CORPUSCULAR HEMOGLOBIN 29.3 pg (27.0-33.0); MEAN CORPUSCULAR HGB CONC 32.3 g/dl (32.0-36.5); MEAN CORPUSCULAR VOLUME 90.6 fl (80.0-96.0); MONO # 1.2 10^3/uL (0.0-0.8); MONO % 7.2 % (0.0-5.0); NEUTROPHILS # 13.2 10^3/uL (1.8-7.7); NEUTROPHILS % 82.7 % (36.0-66.0); PLATELET COUNT, AUTOMATED 232 10^3/uL (150-450); RED BLOOD COUNT 4.06 10^6/uL (4.00-5.40); RED CELL DISTRIBUTION WIDTH 13.6 % (11.5-14.5)
[2018-01-02 19:20] LABS: INR 1.37
[2018-01-02 19:26] LABS: ALBUMIN 3.3 GM/DL (3.2-5.2); ALBUMIN/GLOBULIN RATIO 0.94 (1.00-1.93); ALKALINE PHOSPHATASE 97 U/L (45-117); ALT/SGPT 25 U/L (12-78); ANION GAP 8 MEQ/L (8-16); AST/SGOT 29 U/L (7-37); BILIRUBIN,DIRECT 0.1 MG/DL (0.0-0.2); BILIRUBIN,TOTAL 0.3 MG/DL (0.2-1.0); BLOOD UREA NITROGEN 32 MG/DL (7-18); C REACTIVE PROTEIN QUANTITATIV 0.86 MG/DL (0.00-0.30); CALCIUM LEVEL 8.4 MG/DL (8.8-10.2); CARBON DIOXIDE LEVEL 28 MEQ/L (21-32); CHLORIDE LEVEL 99 MEQ/L (98-107); CK-MB VALUE MASS 1.1 NG/ML (<3.6); CPK CREATINE PHOSPHOKINASE 41 U/L (26-192); CREATININE FOR GFR 1.44 MG/DL (0.55-1.30); GLOMERULAR FILTRATION RATE 36.7 (>32); GLUCOSE, FASTING 300 MG/DL (70-100); LIPASE 93 U/L (73-393); MB/CK RELATIVE INDEX 2.68 (< OR =4); SODIUM LEVEL 135 MEQ/L (136-145); TOTAL PROTEIN 6.8 GM/DL (6.4-8.2); TROPONIN I < 0.02 NG/ML (< 0.10)
[2018-01-02] MEDS: ONDANSETRON 4MG/2ML VIAL (J2405) IV (19:26)
[2018-01-02] MEDS: MORPHINE 2 MG/ML 1ML SYRINGE (J2270) IV ×2 (20:09→20:40)
[2018-01-02 20:23] LABS: KETONE, URINE AUTO RFX NEGATIVE (NEGATIVE); NITRITE, URINE AUTO RFX NEGATIVE (NEGATIVE); RBC, URINE AUTO RFX TNTC /HPF (0-3); SPECIFIC GRAVITY UR AUTO RFX 1.015 (1.002-1.035); SQUAM EPITHELIAL CELL UR AURFX 1 /HPF (0-6)
[2018-01-02 20:24] LABS: LEUKOCYTE ESTERASE UR AUTO RFX 3+ (NEGATIVE); WBC, URINE AUTO RFX TNTC /HPF (0-3)
[2018-01-02] MEDS: NS 500 ML IV (20:31)
[2018-01-02] MEDS ORDERED: ISOVUE-370 76% 100ML VIAL (Q9967) As Ordered (20:49)
[2018-01-02] MEDS: MEROPENEM INJ 1 GM in APPROPRIATE DILUENT 1 EA IV (22:08)
[2018-01-02] MEDS ORDERED: GLUCAGON FOR INJ 1 MG VIAL (J1610) SC (22:45)
[2018-01-02] MEDS ORDERED: GLUCOSE 4 GM CHEW TABLET PO (22:45)
[2018-01-02] MEDS ORDERED: DEXTROSE 50% 50 ML SYRINGE IV (22:45)
[2018-01-02] MEDS: ACETAMINOPHEN TAB 650MG DOSE (2X325MG) PO (22:55)
[2018-01-02] MEDS: PANTOPRAZOLE 40MG INJ (PROTONIX) (C9113) IV (22:55)
[2018-01-02] MEDS ORDERED: ALBUTEROL 90 MCG/ACT 8GM HFA INHALER INH (23:15)
[2018-01-02] MEDS: MORPHINE 4 MG/ML 1ML VIAL/SYRINGE (J2270) IV (23:44)
[2018-01-03] MEDS: DOCUSATE SODIUM 100 MG CAP PO ×3 (01:27→22:31)
[2018-01-03] MEDS: CARVedilol 3.125 MG TAB PO ×3 (01:54→22:32)
[2018-01-03] MEDS: APIXABAN 5 MG TAB (ELIQUIS) PO ×3 (01:56→22:31)
[2018-01-03] MEDS: PRAVASTATIN 10 MG TAB PO ×2 (01:56→22:31)
[2018-01-03] MEDS: LEVEMIR (INSULIN DETEMIR) 1 UNITS/0.01ML SC ×3 (01:58→22:31)
[2018-01-03] MEDS ORDERED: GLUCOSE 4 GM CHEW TABLET PO ×2 (02:00)
[2018-01-03] MEDS ORDERED: DEXTROSE 50% 50 ML SYRINGE IV ×2 (02:00)
[2018-01-03] MEDS ORDERED: GLUCAGON FOR INJ 1 MG VIAL (J1610) SC ×2 (02:00)
[2018-01-03] MEDS: MORPHINE 4 MG/ML 1ML VIAL/SYRINGE (J2270) IV ×3 (03:47→14:51)
[2018-01-03] MEDS ORDERED: MEROPENEM INJ 1 GM in APPROPRIATE DILUENT 1 EA IV (06:00)
[2018-01-03] MEDS: LEVOTHYROXINE 50MCG TABLET (0.05MG) PO (06:12)
[2018-01-03 07:19] LABS: HEMATOCRIT 36.1 % (36.0-47.0); HEMOGLOBIN 11.3 g/dl (12.0-15.5); MEAN CORPUSCULAR HEMOGLOBIN 29.1 pg (27.0-33.0); MEAN CORPUSCULAR HGB CONC 31.3 g/dl (32.0-36.5); PLATELET COUNT, AUTOMATED 190 10^3/uL (150-450); RED BLOOD COUNT 3.88 10^6/uL (4.00-5.40); RED CELL DISTRIBUTION WIDTH 13.9 % (11.5-14.5); WHITE BLOOD COUNT 9.7 10^3/uL (4.0-10.0)
[2018-01-03] MEDS ORDERED: HumaLOG INSULIN (NovoLOG) PER UNIT SC (07:30)
[2018-01-03 07:39] LABS: ANION GAP 7 MEQ/L (8-16); BLOOD UREA NITROGEN 30 MG/DL (7-18); CALCIUM LEVEL 8.2 MG/DL (8.8-10.2); CARBON DIOXIDE LEVEL 27 MEQ/L (21-32); CHLORIDE LEVEL 103 MEQ/L (98-107); CREATININE FOR GFR 1.29 MG/DL (0.55-1.30); GLOMERULAR FILTRATION RATE 41.6 (>32); GLUCOSE, FASTING 245 MG/DL (70-100); POTASSIUM SERUM 3.6 MEQ/L (3.5-5.1); SODIUM LEVEL 137 MEQ/L (136-145)
[2018-01-03] MEDS: HumaLOG INSULIN (NovoLOG) PER UNIT SC ×4 (08:53→22:31)
[2018-01-03] MEDS: TAMSULOSIN 0.4 MG CAP PO (08:53)
[2018-01-03] MEDS: ASPIRIN 81 MG ENTERIC TAB PO (08:54)
[2018-01-03] MEDS: VITAMIN D 1,000 INTERNATIONAL UNITS TABLET PO (08:54)
[2018-01-03] MEDS: ESCITALOPRAM OXALATE 10 MG TAB (LEXAPRO) PO (08:54)
[2018-01-03] MEDS: SUCRALFATE 1 GM TAB PO ×3 (08:55→17:52)
[2018-01-03] MEDS: EZETIMIBE 10 MG TAB (ZETIA) PO (08:55)
[2018-01-03] MEDS: PANTOPRAZOLE 40MG INJ (PROTONIX) (C9113) IV ×2 (08:56→22:31)
[2018-01-03] MEDS: MEROPENEM INJ 1 GM in APPROPRIATE DILUENT 1 EA IV ×2 (08:56→22:30)
[2018-01-03 11:46] LABS: BEDSIDE GLUCOSE 132 MG/DL (83-110)
[2018-01-03 17:07] LABS: BEDSIDE GLUCOSE 102 MG/DL (83-110)
[2018-01-03 18:35] LABS: HEMOGLOBIN 10.7 g/dl (12.0-15.5)
[2018-01-03 20:31] LABS: BEDSIDE GLUCOSE 145 MG/DL (83-110)
[2018-01-03] MEDS ORDERED: SIMVASTATIN 20 MG TAB PO (21:00)
[2018-01-04] MEDS: LEVOTHYROXINE 50MCG TABLET (0.05MG) PO (06:35)
[2018-01-04 06:57] LABS: HEMATOCRIT 32.8 % (36.0-47.0); HEMOGLOBIN 10.4 g/dl (12.0-15.5); MEAN CORPUSCULAR HEMOGLOBIN 28.9 pg (27.0-33.0); MEAN CORPUSCULAR HGB CONC 31.7 g/dl (32.0-36.5); MEAN CORPUSCULAR VOLUME 91.1 fl (80.0-96.0); PLATELET COUNT, AUTOMATED 176 10^3/uL (150-450); RED CELL DISTRIBUTION WIDTH 13.9 % (11.5-14.5); WHITE BLOOD COUNT 9.4 10^3/uL (4.0-10.0)
[2018-01-04 07:14] LABS: ANION GAP 5 MEQ/L (8-16); BLOOD UREA NITROGEN 17 MG/DL (7-18); CALCIUM LEVEL 8.3 MG/DL (8.8-10.2); CARBON DIOXIDE LEVEL 30 MEQ/L (21-32); CHLORIDE LEVEL 107 MEQ/L (98-107); CREATININE FOR GFR 0.84 MG/DL (0.55-1.30); GLOMERULAR FILTRATION RATE > 60.0 (>32); GLUCOSE, FASTING 102 MG/DL (70-100); POTASSIUM SERUM 3.6 MEQ/L (3.5-5.1); SODIUM LEVEL 142 MEQ/L (136-145)
[2018-01-04] MEDS: HumaLOG INSULIN (NovoLOG) PER UNIT SC ×4 (07:30→21:00)
[2018-01-04] MEDS: LEVEMIR (INSULIN DETEMIR) 1 UNITS/0.01ML SC ×2 (09:00→22:26)
[2018-01-04] MEDS: EZETIMIBE 10 MG TAB (ZETIA) PO (10:30)
[2018-01-04] MEDS: SUCRALFATE 1 GM TAB PO ×3 (10:30→17:17)
[2018-01-04] MEDS: ESCITALOPRAM OXALATE 10 MG TAB (LEXAPRO) PO (10:30)
[2018-01-04] MEDS: DOCUSATE SODIUM 100 MG CAP PO ×2 (10:30→22:26)
[2018-01-04] MEDS: VITAMIN D 1,000 INTERNATIONAL UNITS TABLET PO (10:30)
[2018-01-04] MEDS: APIXABAN 5 MG TAB (ELIQUIS) PO ×2 (10:30→22:26)
[2018-01-04] MEDS: CARVedilol 3.125 MG TAB PO ×2 (10:31→22:27)
[2018-01-04] MEDS: TAMSULOSIN 0.4 MG CAP PO (10:31)
[2018-01-04] MEDS: ASPIRIN 81 MG ENTERIC TAB PO (10:31)
[2018-01-04] MEDS: MEROPENEM INJ 1 GM in APPROPRIATE DILUENT 1 EA IV ×2 (10:32→22:29)
[2018-01-04] MEDS: PANTOPRAZOLE 40MG INJ (PROTONIX) (C9113) IV (10:32)
[2018-01-04] MEDS: MORPHINE 4 MG/ML 1ML VIAL/SYRINGE (J2270) IV (10:37)
[2018-01-04 11:33] LABS: BEDSIDE GLUCOSE 141 MG/DL (83-110)
[2018-01-04] MEDS: PERCOCET 5MG/325MG TAB PO ×2 (14:16→22:27)
[2018-01-04 16:36] LABS: BEDSIDE GLUCOSE 139 MG/DL (83-110)
[2018-01-04 20:25] LABS: BEDSIDE GLUCOSE 137 MG/DL (83-110)
[2018-01-04] MEDS: PRAVASTATIN 10 MG TAB PO (22:26)
[2018-01-05] MEDS: LEVOTHYROXINE 50MCG TABLET (0.05MG) PO (05:41)
[2018-01-05 05:56] LABS: HEMOGLOBIN 9.7 g/dl (12.0-15.5); MEAN CORPUSCULAR HEMOGLOBIN 28.9 pg (27.0-33.0); MEAN CORPUSCULAR HGB CONC 31.3 g/dl (32.0-36.5); MEAN CORPUSCULAR VOLUME 92.3 fl (80.0-96.0); PLATELET COUNT, AUTOMATED 165 10^3/uL (150-450); RED BLOOD COUNT 3.36 10^6/uL (4.00-5.40); WHITE BLOOD COUNT 7.1 10^3/uL (4.0-10.0)
[2018-01-05 06:19] LABS: ANION GAP 5 MEQ/L (8-16); BLOOD UREA NITROGEN 15 MG/DL (7-18); CALCIUM LEVEL 8.1 MG/DL (8.8-10.2); CARBON DIOXIDE LEVEL 30 MEQ/L (21-32); CHLORIDE LEVEL 106 MEQ/L (98-107); CREATININE FOR GFR 0.87 MG/DL (0.55-1.30); GLOMERULAR FILTRATION RATE > 60.0 (>32); GLUCOSE, FASTING 146 MG/DL (70-100); POTASSIUM SERUM 3.7 MEQ/L (3.5-5.1); SODIUM LEVEL 141 MEQ/L (136-145)
[2018-01-05] MEDS: CARVedilol 3.125 MG TAB PO ×2 (09:00→21:12)
[2018-01-05] MEDS: FLUCONAZOLE 100 MG TAB PO (09:33)
[2018-01-05] MEDS: APIXABAN 5 MG TAB (ELIQUIS) PO ×2 (09:33→21:11)
[2018-01-05] MEDS: EZETIMIBE 10 MG TAB (ZETIA) PO (09:33)
[2018-01-05] MEDS: SUCRALFATE 1 GM TAB PO ×3 (09:33→17:18)
[2018-01-05] MEDS: DOCUSATE SODIUM 100 MG CAP PO ×2 (09:33→21:11)
[2018-01-05] MEDS: TAMSULOSIN 0.4 MG CAP PO (09:33)
[2018-01-05] MEDS: ESCITALOPRAM OXALATE 10 MG TAB (LEXAPRO) PO (09:34)
[2018-01-05] MEDS: VITAMIN D 1,000 INTERNATIONAL UNITS TABLET PO (09:34)
[2018-01-05] MEDS: ASPIRIN 81 MG ENTERIC TAB PO (09:35)
[2018-01-05] MEDS: PANTOPRAZOLE 40MG TAB (PROTONIX) PO (09:35)
[2018-01-05] MEDS: PERCOCET 5MG/325MG TAB PO ×2 (09:36→21:13)
[2018-01-05] MEDS: MEROPENEM INJ 1 GM in APPROPRIATE DILUENT 1 EA IV ×2 (09:36→21:13)
[2018-01-05] MEDS: LEVEMIR (INSULIN DETEMIR) 1 UNITS/0.01ML SC ×2 (09:37→21:12)
[2018-01-05] MEDS: HumaLOG INSULIN (NovoLOG) PER UNIT SC ×4 (09:37→20:55)
[2018-01-05 11:33] LABS: BEDSIDE GLUCOSE 174 MG/DL (83-110)
[2018-01-05 16:47] LABS: BEDSIDE GLUCOSE 118 MG/DL (83-110)
[2018-01-05 19:35] LABS: BEDSIDE GLUCOSE 117 MG/DL (83-110)
[2018-01-05] MEDS: PRAVASTATIN 10 MG TAB PO (21:12)
[2018-01-06] MEDS: LEVOTHYROXINE 50MCG TABLET (0.05MG) PO (06:22)
[2018-01-06 06:48] LABS: HEMATOCRIT 32.2 % (36.0-47.0); HEMOGLOBIN 10.2 g/dl (12.0-15.5); MEAN CORPUSCULAR HEMOGLOBIN 29.2 pg (27.0-33.0); MEAN CORPUSCULAR HGB CONC 31.7 g/dl (32.0-36.5); MEAN CORPUSCULAR VOLUME 92.3 fl (80.0-96.0); PLATELET COUNT, AUTOMATED 181 10^3/uL (150-450); RED BLOOD COUNT 3.49 10^6/uL (4.00-5.40); WHITE BLOOD COUNT 7.9 10^3/uL (4.0-10.0)
[2018-01-06 07:10] LABS: ANION GAP 6 MEQ/L (8-16); BLOOD UREA NITROGEN 13 MG/DL (7-18); CALCIUM LEVEL 8.2 MG/DL (8.8-10.2); CARBON DIOXIDE LEVEL 29 MEQ/L (21-32); CHLORIDE LEVEL 107 MEQ/L (98-107); CREATININE FOR GFR 0.93 MG/DL (0.55-1.30); GLOMERULAR FILTRATION RATE > 60.0 (>32); GLUCOSE, FASTING 122 MG/DL (70-100); SODIUM LEVEL 142 MEQ/L (136-145)
[2018-01-06] MEDS: ASPIRIN 81 MG ENTERIC TAB PO (08:48)
[2018-01-06] MEDS: DOCUSATE SODIUM 100 MG CAP PO ×2 (08:48→21:27)
[2018-01-06] MEDS: APIXABAN 5 MG TAB (ELIQUIS) PO ×2 (08:48→21:28)
[2018-01-06] MEDS: FLUCONAZOLE 100 MG TAB PO (08:48)
[2018-01-06] MEDS: EZETIMIBE 10 MG TAB (ZETIA) PO (08:48)
[2018-01-06] MEDS: SUCRALFATE 1 GM TAB PO ×3 (08:48→17:23)
[2018-01-06] MEDS: CARVedilol 3.125 MG TAB PO ×2 (08:48→21:39)
[2018-01-06] MEDS: TAMSULOSIN 0.4 MG CAP PO (08:48)
[2018-01-06] MEDS: VITAMIN D 1,000 INTERNATIONAL UNITS TABLET PO (08:49)
[2018-01-06] MEDS: ESCITALOPRAM OXALATE 10 MG TAB (LEXAPRO) PO (08:49)
[2018-01-06] MEDS: PERCOCET 5MG/325MG TAB PO ×3 (08:49→21:28)
[2018-01-06] MEDS: PANTOPRAZOLE 40MG TAB (PROTONIX) PO (08:49)
[2018-01-06] MEDS: HumaLOG INSULIN (NovoLOG) PER UNIT SC ×4 (08:50→21:00)
[2018-01-06] MEDS: LEVEMIR (INSULIN DETEMIR) 1 UNITS/0.01ML SC ×2 (08:50→21:27)
[2018-01-06] MEDS: MEROPENEM INJ 1 GM in APPROPRIATE DILUENT 1 EA IV ×2 (11:22→21:40)
[2018-01-06 11:48] LABS: BEDSIDE GLUCOSE 160 MG/DL (83-110)
[2018-01-06 12:50] LABS: AMORPHOUS SEDIMENT SMALL (NEGATIVE); APPEARANCE, URINE TURBID (CLEAR); BACTERIA, URINE AUTO 2+ (NEGATIVE); BILIRUBIN, URINE AUTO NEGATIVE (NEGATIVE); BLOOD, URINE BLOOD 3+ (NEGATIVE); COLOR, URINE YELLOW (YELLOW); GLUCOSE, URINE (UA) AUTO 3+ mg/dL (NEGATIVE); KETONE, URINE AUTO NEGATIVE (NEGATIVE); LEUKOCYTE ESTERASE, URINE AUTO 3+ (NEGATIVE); NITRITE, URINE AUTO NEGATIVE (NEGATIVE); PROTEIN, URINE AUTO 2+ mg/dL (NEGATIVE); RBC, URINE AUTO TNTC /HPF (0-3); RENAL EPITHELIAL CELLS 1 /HPF; SPECIFIC GRAVITY URINE AUTO 1.015 (1.002-1.035); SQUAMOUS EPITHELIAL CELL UR AU 2 /HPF (0-6); TRANSITIONAL EPITHELIAL AUTO 2 /HPF; UROBILINOGEN, URINE AUTO 0.2 mg/dL (0.0-2.0); WBC, URINE AUTO TNTC /HPF (0-3)
[2018-01-06 16:34] LABS: BEDSIDE GLUCOSE 78 MG/DL (83-110)
[2018-01-06 19:46] LABS: BEDSIDE GLUCOSE 128 MG/DL (83-110)
[2018-01-06] MEDS: PRAVASTATIN 10 MG TAB PO (21:28)
[2018-01-07 06:06] LABS: HEMATOCRIT 31.5 % (36.0-47.0); HEMOGLOBIN 9.9 g/dl (12.0-15.5); MEAN CORPUSCULAR HEMOGLOBIN 28.9 pg (27.0-33.0); MEAN CORPUSCULAR HGB CONC 31.4 g/dl (32.0-36.5); MEAN CORPUSCULAR VOLUME 92.1 fl (80.0-96.0); PLATELET COUNT, AUTOMATED 195 10^3/uL (150-450); RED BLOOD COUNT 3.42 10^6/uL (4.00-5.40); WHITE BLOOD COUNT 6.6 10^3/uL (4.0-10.0)
[2018-01-07 06:18] LABS: ANION GAP 6 MEQ/L (8-16); BLOOD UREA NITROGEN 16 MG/DL (7-18); CALCIUM LEVEL 8.1 MG/DL (8.8-10.2); CARBON DIOXIDE LEVEL 29 MEQ/L (21-32); CHLORIDE LEVEL 107 MEQ/L (98-107); CREATININE FOR GFR 0.76 MG/DL (0.55-1.30); GLOMERULAR FILTRATION RATE > 60.0 (>32); GLUCOSE, FASTING 87 MG/DL (70-100); POTASSIUM SERUM 3.8 MEQ/L (3.5-5.1); SODIUM LEVEL 142 MEQ/L (136-145)
[2018-01-07] MEDS: LEVOTHYROXINE 50MCG TABLET (0.05MG) PO (06:30)
[2018-01-07] MEDS: PERCOCET 5MG/325MG TAB PO ×3 (06:30→20:55)
[2018-01-07] MEDS: HumaLOG INSULIN (NovoLOG) PER UNIT SC ×4 (06:57→20:55)
[2018-01-07] MEDS: CARVedilol 3.125 MG TAB PO ×2 (09:00→20:54)
[2018-01-07] MEDS: VITAMIN D 1,000 INTERNATIONAL UNITS TABLET PO (09:00)
[2018-01-07] MEDS: MEROPENEM INJ 1 GM in APPROPRIATE DILUENT 1 EA IV (10:00)
[2018-01-07] MEDS: DOCUSATE SODIUM 100 MG CAP PO ×2 (10:06→20:54)
[2018-01-07] MEDS: PANTOPRAZOLE 40MG TAB (PROTONIX) PO (10:06)
[2018-01-07] MEDS: FLUCONAZOLE 100 MG TAB PO (10:06)
[2018-01-07] MEDS: SUCRALFATE 1 GM TAB PO ×3 (10:06→17:00)
[2018-01-07] MEDS: EZETIMIBE 10 MG TAB (ZETIA) PO (10:07)
[2018-01-07] MEDS: ESCITALOPRAM OXALATE 10 MG TAB (LEXAPRO) PO (10:07)
[2018-01-07] MEDS: ASPIRIN 81 MG ENTERIC TAB PO (10:07)
[2018-01-07] MEDS: APIXABAN 5 MG TAB (ELIQUIS) PO ×2 (10:07→20:54)
[2018-01-07] MEDS: TAMSULOSIN 0.4 MG CAP PO (10:07)
[2018-01-07] MEDS: LEVEMIR (INSULIN DETEMIR) 1 UNITS/0.01ML SC ×2 (10:08→20:54)
[2018-01-07 12:07] LABS: BEDSIDE GLUCOSE 121 MG/DL (83-110)
[2018-01-07 16:42] LABS: BEDSIDE GLUCOSE 81 MG/DL (83-110)
[2018-01-07] MEDS: MIRALAX *UNIT DOSE* 17GM PACKET PO (17:00)
[2018-01-07 19:56] LABS: BEDSIDE GLUCOSE 127 MG/DL (83-110)
[2018-01-07] MEDS: PRAVASTATIN 10 MG TAB PO (20:54)
[2018-01-08] MEDS: LEVOTHYROXINE 50MCG TABLET (0.05MG) PO (05:37)
[2018-01-08 06:38] LABS: HEMATOCRIT 32.5 % (36.0-47.0); HEMOGLOBIN 10.1 g/dl (12.0-15.5); MEAN CORPUSCULAR HEMOGLOBIN 29.1 pg (27.0-33.0); MEAN CORPUSCULAR HGB CONC 31.1 g/dl (32.0-36.5); MEAN CORPUSCULAR VOLUME 93.7 fl (80.0-96.0); PLATELET COUNT, AUTOMATED 209 10^3/uL (150-450); RED BLOOD COUNT 3.47 10^6/uL (4.00-5.40); RED CELL DISTRIBUTION WIDTH 13.8 % (11.5-14.5); WHITE BLOOD COUNT 6.2 10^3/uL (4.0-10.0)
[2018-01-08 06:52] LABS: ANION GAP 7 MEQ/L (8-16); BLOOD UREA NITROGEN 15 MG/DL (7-18); CALCIUM LEVEL 8.4 MG/DL (8.8-10.2); CARBON DIOXIDE LEVEL 30 MEQ/L (21-32); CHLORIDE LEVEL 105 MEQ/L (98-107); CREATININE FOR GFR 0.71 MG/DL (0.55-1.30); GLOMERULAR FILTRATION RATE > 60.0 (>32); GLUCOSE, FASTING 78 MG/DL (70-100); POTASSIUM SERUM 4.1 MEQ/L (3.5-5.1); SODIUM LEVEL 142 MEQ/L (136-145)
[2018-01-08] MEDS: HumaLOG INSULIN (NovoLOG) PER UNIT SC ×4 (07:29→21:00)
[2018-01-08] MEDS: VITAMIN D 1,000 INTERNATIONAL UNITS TABLET PO (08:45)
[2018-01-08] MEDS: EZETIMIBE 10 MG TAB (ZETIA) PO (08:45)
[2018-01-08] MEDS: APIXABAN 5 MG TAB (ELIQUIS) PO ×2 (08:45→21:22)
[2018-01-08] MEDS: SUCRALFATE 1 GM TAB PO ×3 (08:45→16:47)
[2018-01-08] MEDS: ASPIRIN 81 MG ENTERIC TAB PO (08:45)
[2018-01-08] MEDS: FLUCONAZOLE 100 MG TAB PO (08:45)
[2018-01-08] MEDS: CARVedilol 3.125 MG TAB PO ×2 (08:45→21:23)
[2018-01-08] MEDS: LEVEMIR (INSULIN DETEMIR) 1 UNITS/0.01ML SC ×2 (08:46→21:23)
[2018-01-08] MEDS: DOCUSATE SODIUM 100 MG CAP PO ×2 (08:46→21:22)
[2018-01-08] MEDS: TAMSULOSIN 0.4 MG CAP PO (08:46)
[2018-01-08] MEDS: PANTOPRAZOLE 40MG TAB (PROTONIX) PO (08:46)
[2018-01-08] MEDS: ESCITALOPRAM OXALATE 10 MG TAB (LEXAPRO) PO (08:46)
[2018-01-08] MEDS: PHENAZOPYRIDINE 100 MG TAB PO ×3 (10:49→21:22)
[2018-01-08 11:38] LABS: BEDSIDE GLUCOSE 119 MG/DL (83-110)
[2018-01-08] MEDS: PERCOCET 5MG/325MG TAB PO ×2 (12:48→21:23)
[2018-01-08] MEDS: FUROSEMIDE 40 MG TAB PO (14:24)
[2018-01-08 16:38] LABS: BEDSIDE GLUCOSE 79 MG/DL (83-110)
[2018-01-08 19:51] LABS: BEDSIDE GLUCOSE 113 MG/DL (83-110)
[2018-01-08] MEDS: PRAVASTATIN 10 MG TAB PO (21:22)
[2018-01-09] MEDS: PERCOCET 5MG/325MG TAB PO ×3 (04:45→21:13)
[2018-01-09] MEDS: LEVOTHYROXINE 50MCG TABLET (0.05MG) PO (04:45)
[2018-01-09 06:55] LABS: HEMATOCRIT 31.9 % (36.0-47.0); MEAN CORPUSCULAR HGB CONC 31.3 g/dl (32.0-36.5); MEAN CORPUSCULAR VOLUME 92.5 fl (80.0-96.0); PLATELET COUNT, AUTOMATED 237 10^3/uL (150-450); RED BLOOD COUNT 3.45 10^6/uL (4.00-5.40); RED CELL DISTRIBUTION WIDTH 13.8 % (11.5-14.5)
[2018-01-09 07:13] LABS: ANION GAP 4 MEQ/L (8-16); BLOOD UREA NITROGEN 16 MG/DL (7-18); CALCIUM LEVEL 8.5 MG/DL (8.8-10.2); CARBON DIOXIDE LEVEL 35 MEQ/L (21-32); CHLORIDE LEVEL 103 MEQ/L (98-107); CREATININE FOR GFR 0.84 MG/DL (0.55-1.30); GLOMERULAR FILTRATION RATE > 60.0 (>32); GLUCOSE, FASTING 70 MG/DL (70-100); POTASSIUM SERUM 3.8 MEQ/L (3.5-5.1); SODIUM LEVEL 142 MEQ/L (136-145)
[2018-01-09] MEDS: HumaLOG INSULIN (NovoLOG) PER UNIT SC ×4 (07:30→21:00)
[2018-01-09] MEDS: APIXABAN 5 MG TAB (ELIQUIS) PO ×2 (08:08→21:05)
[2018-01-09] MEDS: EZETIMIBE 10 MG TAB (ZETIA) PO (08:08)
[2018-01-09] MEDS: PHENAZOPYRIDINE 100 MG TAB PO ×3 (08:08→21:06)
[2018-01-09] MEDS: LEVEMIR (INSULIN DETEMIR) 1 UNITS/0.01ML SC ×2 (08:08→21:06)
[2018-01-09] MEDS: PANTOPRAZOLE 40MG TAB (PROTONIX) PO (08:08)
[2018-01-09] MEDS: FLUCONAZOLE 100 MG TAB PO (08:08)
[2018-01-09] MEDS: ESCITALOPRAM OXALATE 10 MG TAB (LEXAPRO) PO (08:08)
[2018-01-09] MEDS: ASPIRIN 81 MG ENTERIC TAB PO (08:08)
[2018-01-09] MEDS: DOCUSATE SODIUM 100 MG CAP PO ×2 (08:08→21:05)
[2018-01-09] MEDS: SUCRALFATE 1 GM TAB PO ×3 (08:08→17:16)
[2018-01-09] MEDS: VITAMIN D 1,000 INTERNATIONAL UNITS TABLET PO (08:08)
[2018-01-09] MEDS: TAMSULOSIN 0.4 MG CAP PO (08:08)
[2018-01-09] MEDS: CARVedilol 3.125 MG TAB PO ×2 (08:08→21:09)
[2018-01-09] MEDS: FUROSEMIDE 10MG PER 1/2 TABLET PO (10:05)
[2018-01-09 15:10] LABS: ANION GAP 8 MEQ/L (8-16); BLOOD UREA NITROGEN 17 MG/DL (7-18); CALCIUM LEVEL 8.3 MG/DL (8.8-10.2); CARBON DIOXIDE LEVEL 28 MEQ/L (21-32); CHLORIDE LEVEL 103 MEQ/L (98-107); CREATININE FOR GFR 0.78 MG/DL (0.55-1.30); GLOMERULAR FILTRATION RATE > 60.0 (>32); GLUCOSE, FASTING 85 MG/DL (70-100); POTASSIUM SERUM 4.3 MEQ/L (3.5-5.1); SODIUM LEVEL 139 MEQ/L (136-145)
[2018-01-09] MEDS: PRAVASTATIN 10 MG TAB PO (21:05)
[2018-01-10 02:21] LABS: BEDSIDE GLUCOSE 164 MG/DL (83-110)
[2018-01-10 02:21] LABS: BEDSIDE GLUCOSE 62 MG/DL (83-110)
[2018-01-10 02:22] LABS: BEDSIDE GLUCOSE 125 MG/DL (83-110)
[2018-01-10] MEDS: LEVOTHYROXINE 50MCG TABLET (0.05MG) PO (05:10)
[2018-01-10] MEDS: PERCOCET 5MG/325MG TAB PO (05:11)
[2018-01-10 05:28] LABS: BEDSIDE GLUCOSE 69 MG/DL (83-110)
[2018-01-10] MEDS: HumaLOG INSULIN (NovoLOG) PER UNIT SC ×2 (07:23→11:53)
[2018-01-10] MEDS: LEVEMIR (INSULIN DETEMIR) 1 UNITS/0.01ML SC (08:04)
[2018-01-10] MEDS: DOCUSATE SODIUM 100 MG CAP PO (08:29)
[2018-01-10] MEDS: SUCRALFATE 1 GM TAB PO ×2 (08:29→11:53)
[2018-01-10] MEDS: FLUCONAZOLE 100 MG TAB PO (08:30)
[2018-01-10] MEDS: EZETIMIBE 10 MG TAB (ZETIA) PO (08:30)
[2018-01-10] MEDS: PHENAZOPYRIDINE 100 MG TAB PO (08:30)
[2018-01-10] MEDS: FUROSEMIDE 10MG PER 1/2 TABLET PO (08:30)
[2018-01-10] MEDS: TAMSULOSIN 0.4 MG CAP PO (08:30)
[2018-01-10] MEDS: ASPIRIN 81 MG ENTERIC TAB PO (08:30)
[2018-01-10] MEDS: VITAMIN D 1,000 INTERNATIONAL UNITS TABLET PO (08:30)
[2018-01-10] MEDS: APIXABAN 5 MG TAB (ELIQUIS) PO (08:30)
[2018-01-10] MEDS: ESCITALOPRAM OXALATE 10 MG TAB (LEXAPRO) PO (08:30)
[2018-01-10] MEDS: PANTOPRAZOLE 40MG TAB (PROTONIX) PO (08:30)
[2018-01-10] MEDS: CARVedilol 3.125 MG TAB PO (08:31)
[2018-01-10 09:34] LABS: BASO # 0.1 10^3/uL (0.0-0.2); BASO % 0.8 % (0.0-1.0); EOS # 0.2 10^3/uL (0.0-0.50); EOS % 2.8 % (0.0-3.0); HEMATOCRIT 33.3 % (36.0-47.0); HEMOGLOBIN 10.4 g/dl (12.0-15.5); IMMATURE GRANULOCYTE % 0.3 % (0-3.0); LYMPH # 1.3 10^3/uL (1.5-4.5); LYMPH % 19.7 % (24.0-44.0); MEAN CORPUSCULAR HEMOGLOBIN 29.5 pg (27.0-33.0); MEAN CORPUSCULAR HGB CONC 31.2 g/dl (32.0-36.5); MEAN CORPUSCULAR VOLUME 94.3 fl (80.0-96.0); MONO # 0.7 10^3/uL (0.0-0.8); MONO % 9.9 % (0.0-5.0); NEUTROPHILS # 4.4 10^3/uL (1.8-7.7); NEUTROPHILS % 66.5 % (36.0-66.0); PLATELET COUNT, AUTOMATED 250 10^3/uL (150-450); RED BLOOD COUNT 3.53 10^6/uL (4.00-5.40); RED CELL DISTRIBUTION WIDTH 13.9 % (11.5-14.5); WHITE BLOOD COUNT 6.5 10^3/uL (4.0-10.0)
[2018-01-10 10:03] LABS: ANION GAP 7 MEQ/L (8-16); BLOOD UREA NITROGEN 17 MG/DL (7-18); CALCIUM LEVEL 8.5 MG/DL (8.8-10.2); CARBON DIOXIDE LEVEL 29 MEQ/L (21-32); CHLORIDE LEVEL 103 MEQ/L (98-107); GLOMERULAR FILTRATION RATE 55.8 (>32); GLUCOSE, FASTING 153 MG/DL (70-100); POTASSIUM SERUM 4.2 MEQ/L (3.5-5.1); SODIUM LEVEL 139 MEQ/L (136-145)
[2018-01-10 11:29] LABS: BEDSIDE GLUCOSE 167 MG/DL (83-110)
== END 2018-01-10 13:18 | disposition home health service (06) | DRG 698 ==
LOC: M MS5PR 01-03 00:28 → M ED 17:59 → M ED INP 22:25
DX: T83.592A Infection and inflammatory reaction due to indwelling ureteral stent, initial encounter (principal); A41.9 Sepsis, unspecified organism; I50.22 Chronic systolic (congestive) heart failure; N17.9 Acute kidney failure, unspecified; N39.0 Urinary tract infection, site not specified; I69.351 Hemiplegia and hemiparesis following cerebral infarction affecting right dominant side; N13.30 Unspecified hydronephrosis; I11.0 Hypertensive heart disease with heart failure; J44.9 Chronic obstructive pulmonary disease, unspecified; K64.9 Unspecified hemorrhoids; I48.91 Unspecified atrial fibrillation; Z95.0 Presence of cardiac pacemaker; Z79.01 Long term (current) use of anticoagulants; I25.10 Atherosclerotic heart disease of native coronary artery without angina pectoris; Z95.1 Presence of aortocoronary bypass graft; Z86.711 Personal history of pulmonary embolism; K21.9 Gastro-esophageal reflux disease without esophagitis; E11.9 Type 2 diabetes mellitus without complications; R30.0 Dysuria; F32.9 Major depressive disorder, single episode, unspecified; E78.5 Hyperlipidemia, unspecified; E03.9 Hypothyroidism, unspecified; Z79.899 Other long term (current) drug therapy; Z79.82 Long term (current) use of aspirin; Z87.891 Personal history of nicotine dependence; Z88.2 Allergy status to sulfonamides; Z88.8 Allergy status to other drugs, medicaments and biological substances; Y82.8 Other medical devices associated with adverse incidents

== ENCOUNTER → 2018-01-17 | Outpatient (REF) | payer MEDICARE ==
[2018-01-17 20:01] LABS: APPEARANCE, URINE HAZY (CLEAR); BACTERIA, URINE AUTO 2+ (NEGATIVE); BILIRUBIN, URINE AUTO NEGATIVE (NEGATIVE); BLOOD, URINE BLOOD 3+ (NEGATIVE); COLOR, URINE AMBER (YELLOW); GLUCOSE, URINE (UA) AUTO 2+ mg/dL (NEGATIVE); KETONE, URINE AUTO NEGATIVE (NEGATIVE); LEUKOCYTE ESTERASE, URINE AUTO 2+ (NEGATIVE); NITRITE, URINE AUTO POSITIVE (NEGATIVE); PROTEIN, URINE AUTO 2+ mg/dL (NEGATIVE); RBC, URINE AUTO TNTC /HPF (0-3); SPECIFIC GRAVITY URINE AUTO 1.015 (1.002-1.035); SQUAMOUS EPITHELIAL CELL UR AU 1 /HPF (0-6); WBC, URINE AUTO TNTC /HPF (0-3)
== END ==
LOC: M SMT 16:56
DX: R30.0 Dysuria (principal)
CPT/HCPCS: 81001

== ENCOUNTER 2018-03-04 07:01 | Day surgery (SDC) | payer MEDICARE ==
[2018-03-04] MEDS ORDERED: MIDAZOLAM INJ 2 MG/2 ML VIAL (J2250) As Ordered (07:51)
[2018-03-04] MEDS ORDERED: fentaNYL 250 MCG/5 ML INJECTION (J3010) As Ordered (07:51)
[2018-03-04] MEDS ORDERED: PROPOFOL 200 MG/20 ML VIAL As Ordered (07:51)
[2018-03-04] MEDS ORDERED: LIDOCAINE 2% INJ 100 MG/5 ML SDV (FOR ANES.) As Ordered (07:51)
[2018-03-04] MEDS: LR 1,000 ML IV (08:00)
[2018-03-04 08:05] LABS: BEDSIDE GLUCOSE 201 MG/DL (83-110)
[2018-03-04] MEDS ORDERED: VANCOMYCIN 1000 MG/20 ML VIAL (J3370) As Ordered (08:20)
[2018-03-04] MEDS: VANCOMYCIN HCL 1,000 MG, VIAL MATE ADAPTER 1 EACH in D5W 250 ML IV (08:27)
[2018-03-04] MEDS ORDERED: PHENYLephrine HCL 500 MCG/5 ML (100MCG/ML) SYRINGE (J2370) As Ordered (08:53)
[2018-03-04] MEDS: CONRAY-60 60% 50ML VIAL (Q9961) As Ordered (08:54)
[2018-03-04] MEDS: LIDOCAINE 2% 5ML JELLY UROJET As Ordered (08:54)
[2018-03-04] MEDS ORDERED: PERCOCET 5MG/325MG TAB PO (09:30)
[2018-03-04] MEDS ORDERED: ONDANSETRON 4MG/2ML VIAL (J2405) IV (09:30)
[2018-03-04] MEDS ORDERED: LR 1,000 ML IV (09:30)
[2018-03-04] MEDS: GENTAMICIN 80 MG in APPROPRIATE DILUENT 1 EA IV (09:53)
== END 2018-03-04 11:00 | disposition home or self-care (01) ==
LOC: M SDC 07:01
DX: N35.9 Urethral stricture, unspecified (principal); I25.10 Atherosclerotic heart disease of native coronary artery without angina pectoris; E11.9 Type 2 diabetes mellitus without complications; I10 Essential (primary) hypertension; E78.5 Hyperlipidemia, unspecified; K44.9 Diaphragmatic hernia without obstruction or gangrene; Z79.4 Long term (current) use of insulin; Z79.02 Long term (current) use of antithrombotics/antiplatelets; Z79.82 Long term (current) use of aspirin; Z88.8 Allergy status to other drugs, medicaments and biological substances; Z88.2 Allergy status to sulfonamides; Z79.899 Other long term (current) drug therapy
CPT/HCPCS: 52332

== ENCOUNTER 2018-03-12 09:13 | Emergency (ER) | payer MEDICARE ==
[2018-03-12 09:52] LABS: BASO # 0.1 10^3/uL (0.0-0.2); BASO % 1.1 % (0.0-1.0); EOS # 0.2 10^3/uL (0.0-0.50); EOS % 2.5 % (0.0-3.0); HEMATOCRIT 42.9 % (36.0-47.0); HEMOGLOBIN 13.6 g/dl (12.0-15.5); IMMATURE GRANULOCYTE % 0.3 % (0-3.0); LYMPH # 2.1 10^3/uL (1.5-4.5); LYMPH % 22.9 % (24.0-44.0); MEAN CORPUSCULAR HEMOGLOBIN 28.6 pg (27.0-33.0); MEAN CORPUSCULAR HGB CONC 31.7 g/dl (32.0-36.5); MEAN CORPUSCULAR VOLUME 90.3 fl (80.0-96.0); MONO # 0.8 10^3/uL (0.0-0.8); NEUTROPHILS # 5.8 10^3/uL (1.8-7.7); NEUTROPHILS % 64.2 % (36.0-66.0); PLATELET COUNT, AUTOMATED 275 10^3/uL (150-450); RED BLOOD COUNT 4.75 10^6/uL (4.00-5.40); RED CELL DISTRIBUTION WIDTH 14.2 % (11.5-14.5)
[2018-03-12] MEDS: SODIUM CHLORIDE HYPERTONIC 3% 15ML NEB SOL INH (10:00)
[2018-03-12] MEDS: ALBUTEROL SULFATE 2.5 MG/0.5 ML INH NEB SOLN NEB (10:00)
[2018-03-12] MEDS: ACETYLCYSTEINE 20% 4 ML VIAL (200MG/ML) INH (10:00)
[2018-03-12 10:22] LABS: ANION GAP 9 MEQ/L (8-16); BLOOD UREA NITROGEN 24 MG/DL (7-18); CALCIUM LEVEL 8.8 MG/DL (8.8-10.2); CARBON DIOXIDE LEVEL 33 MEQ/L (21-32); CHLORIDE LEVEL 96 MEQ/L (98-107); CPK CREATINE PHOSPHOKINASE 74 U/L (26-192); CREATININE FOR GFR 1.31 MG/DL (0.55-1.30); GLOMERULAR FILTRATION RATE 40.8 (>32); GLUCOSE, FASTING 177 MG/DL (70-100); MB/CK RELATIVE INDEX 2.03 (< OR =4); NT-PRO BNP 660 PG/ML (<450); POTASSIUM SERUM 3.9 MEQ/L (3.5-5.1); SODIUM LEVEL 138 MEQ/L (136-145); TROPONIN I < 0.02 NG/ML (< 0.10)
== END 2018-03-12 11:30 | disposition home or self-care (01) ==
LOC: M ED 09:13
DX: R05 Cough (principal); R06.02 Shortness of breath; E11.9 Type 2 diabetes mellitus without complications; I11.0 Hypertensive heart disease with heart failure; I50.9 Heart failure, unspecified; I48.91 Unspecified atrial fibrillation; K21.9 Gastro-esophageal reflux disease without esophagitis; E55.9 Vitamin D deficiency, unspecified; H40.9 Unspecified glaucoma; Q85.00 Neurofibromatosis, unspecified; Z95.0 Presence of cardiac pacemaker; Z96.0 Presence of urogenital implants; Z79.899 Other long term (current) drug therapy; Z79.82 Long term (current) use of aspirin; Z79.01 Long term (current) use of anticoagulants; Z79.890 Hormone replacement therapy; Z79.4 Long term (current) use of insulin; Z88.2 Allergy status to sulfonamides; Z88.8 Allergy status to other drugs, medicaments and biological substances; Z87.891 Personal history of nicotine dependence
CPT/HCPCS: 71046

== ENCOUNTER 2018-04-22 10:57 | Inpatient (IN) | payer MEDICARE ==
[2018-04-22 11:45] LABS: BASO # 0.1 10^3/uL (0.0-0.2); BASO % 0.6 % (0.0-1.0); EOS # 0.1 10^3/uL (0.0-0.50); EOS % 0.5 % (0.0-3.0); HEMATOCRIT 37.3 % (36.0-47.0); HEMOGLOBIN 11.9 g/dl (12.0-15.5); IMMATURE GRANULOCYTE % 0.3 % (0-3.0); LYMPH # 1.7 10^3/uL (1.5-4.5); LYMPH % 17.9 % (24.0-44.0); MEAN CORPUSCULAR HEMOGLOBIN 29.4 pg (27.0-33.0); MEAN CORPUSCULAR HGB CONC 31.9 g/dl (32.0-36.5); MEAN CORPUSCULAR VOLUME 92.1 fl (80.0-96.0); MONO # 0.7 10^3/uL (0.0-0.8); NEUTROPHILS # 6.9 10^3/uL (1.8-7.7); NEUTROPHILS % 73.7 % (36.0-66.0); PLATELET COUNT, AUTOMATED 272 10^3/uL (150-450); RED BLOOD COUNT 4.05 10^6/uL (4.00-5.40); RED CELL DISTRIBUTION WIDTH 15.9 % (11.5-14.5); WHITE BLOOD COUNT 9.3 10^3/uL (4.0-10.0)
[2018-04-22 12:01] LABS: INR 1.63; PARTIAL THROMBOPLASTIN TIME 33.7 SECONDS (25.4-37.6); PROTHROMBIN TIME 19.6 SECONDS (12.1-14.4)
[2018-04-22 12:08] LABS: ANION GAP 8 MEQ/L (8-16); BLOOD UREA NITROGEN 24 MG/DL (7-18); CALCIUM LEVEL 8.4 MG/DL (8.8-10.2); CARBON DIOXIDE LEVEL 30 MEQ/L (21-32); CHLORIDE LEVEL 102 MEQ/L (98-107); CPK CREATINE PHOSPHOKINASE 241 U/L (26-192); CREATININE FOR GFR 1.49 MG/DL (0.55-1.30); GLOMERULAR FILTRATION RATE 35.2 (>32); GLUCOSE, FASTING 169 MG/DL (70-100); MB/CK RELATIVE INDEX 0.87 (< OR =4); POTASSIUM SERUM 4.6 MEQ/L (3.5-5.1); SODIUM LEVEL 140 MEQ/L (136-145); TROPONIN I < 0.02 NG/ML (< 0.10)
[2018-04-22] MEDS ORDERED: ISOVUE-370 76% 100ML VIAL (Q9967) As Ordered (12:47)
[2018-04-22] MEDS: NS 1,000 ML IV ×2 (15:15→23:39)
[2018-04-22] MEDS ORDERED: NYSTATIN 100,000 UNITS/GM TOPICAL PWD 15 GM TOP (17:15)
[2018-04-22] MEDS: ACETAMINOPHEN 500 MG TAB PO (17:50)
[2018-04-23] MEDS ORDERED: GLUCAGON FOR INJ 1 MG VIAL (J1610) SC (08:30)
[2018-04-23] MEDS ORDERED: GLUCOSE 4 GM CHEW TABLET PO (08:30)
[2018-04-23] MEDS ORDERED: ENOXAPARIN 100MG/1ML SYRINGE (J1650) SC (08:30)
[2018-04-23] MEDS ORDERED: DEXTROSE 50% 50 ML SYRINGE IV (08:30)
[2018-04-23] MEDS: HumuLIN (NovoLIN)70/30 INSULIN INJ PER UNIT SC ×2 (09:00→21:42)
[2018-04-23 09:27] LABS: BEDSIDE GLUCOSE 139 MG/DL (83-110)
[2018-04-23] MEDS: FERROUS SULFATE 325MG TAB PO (09:46)
[2018-04-23] MEDS: APIXABAN 5 MG TAB (ELIQUIS) PO ×2 (09:46→21:42)
[2018-04-23] MEDS: EZETIMIBE 10 MG TAB (ZETIA) PO (09:46)
[2018-04-23] MEDS: ESCITALOPRAM OXALATE 10 MG TAB (LEXAPRO) PO (09:46)
[2018-04-23] MEDS: ASPIRIN 81 MG ENTERIC TAB PO (09:46)
[2018-04-23] MEDS: LEVOTHYROXINE 50MCG TABLET (0.05MG) PO (09:49)
[2018-04-23 12:03] LABS: BEDSIDE GLUCOSE 211 MG/DL (83-110)
[2018-04-23 12:07] LABS: BASO # 0.1 10^3/uL (0.0-0.2); EOS # 0.1 10^3/uL (0.0-0.50); HEMATOCRIT 32.8 % (36.0-47.0); HEMOGLOBIN 10.3 g/dl (12.0-15.5); IMMATURE GRANULOCYTE % 0.7 % (0-3.0); LYMPH # 1.4 10^3/uL (1.5-4.5); LYMPH % 21.1 % (24.0-44.0); MEAN CORPUSCULAR HEMOGLOBIN 29.3 pg (27.0-33.0); MEAN CORPUSCULAR HGB CONC 31.4 g/dl (32.0-36.5); MEAN CORPUSCULAR VOLUME 93.4 fl (80.0-96.0); MONO # 0.6 10^3/uL (0.0-0.8); MONO % 8.7 % (0.0-5.0); NEUTROPHILS # 4.6 10^3/uL (1.8-7.7); NEUTROPHILS % 67.5 % (36.0-66.0); PLATELET COUNT, AUTOMATED 264 10^3/uL (150-450); RED BLOOD COUNT 3.51 10^6/uL (4.00-5.40); RED CELL DISTRIBUTION WIDTH 16.2 % (11.5-14.5); WHITE BLOOD COUNT 6.8 10^3/uL (4.0-10.0)
[2018-04-23 12:39] LABS: ANION GAP 7 MEQ/L (8-16); BLOOD UREA NITROGEN 20 MG/DL (7-18); CARBON DIOXIDE LEVEL 26 MEQ/L (21-32); CHLORIDE LEVEL 106 MEQ/L (98-107); CREATININE FOR GFR 1.23 MG/DL (0.55-1.30); GLOMERULAR FILTRATION RATE 43.9 (>32); GLUCOSE, FASTING 233 MG/DL (70-100); POTASSIUM SERUM 4.8 MEQ/L (3.5-5.1); SODIUM LEVEL 139 MEQ/L (136-145)
[2018-04-23] MEDS: HumaLOG INSULIN (NovoLOG) PER UNIT SC ×3 (12:56→21:00)
[2018-04-23 16:54] LABS: BEDSIDE GLUCOSE 171 MG/DL (83-110)
[2018-04-23 21:20] LABS: BEDSIDE GLUCOSE 144 MG/DL (83-110)
[2018-04-23] MEDS: PRAVASTATIN 10 MG TAB PO (21:42)
[2018-04-23] MEDS: ACETAMINOPHEN TAB 650MG DOSE (2X325MG) PO (22:58)
[2018-04-24 01:45] LABS: BEDSIDE GLUCOSE 52 MG/DL (83-110)
[2018-04-24 02:00] LABS: BEDSIDE GLUCOSE 66 MG/DL (83-110)
[2018-04-24 02:00] LABS: BEDSIDE GLUCOSE 89 MG/DL (83-110)
[2018-04-24] MEDS: LEVOTHYROXINE 50MCG TABLET (0.05MG) PO (05:52)
[2018-04-24 06:15] LABS: HEMATOCRIT 32.4 % (36.0-47.0); HEMOGLOBIN 10.1 g/dl (12.0-15.5); MEAN CORPUSCULAR HGB CONC 31.2 g/dl (32.0-36.5); MEAN CORPUSCULAR VOLUME 93.1 fl (80.0-96.0); PLATELET COUNT, AUTOMATED 260 10^3/uL (150-450); RED BLOOD COUNT 3.48 10^6/uL (4.00-5.40); RED CELL DISTRIBUTION WIDTH 16.4 % (11.5-14.5); WHITE BLOOD COUNT 8.3 10^3/uL (4.0-10.0)
[2018-04-24 06:47] LABS: ANION GAP 6 MEQ/L (8-16); BLOOD UREA NITROGEN 19 MG/DL (7-18); CALCIUM LEVEL 8.3 MG/DL (8.8-10.2); CARBON DIOXIDE LEVEL 28 MEQ/L (21-32); CHLORIDE LEVEL 106 MEQ/L (98-107); CREATININE FOR GFR 1.25 MG/DL (0.55-1.30); GLOMERULAR FILTRATION RATE 43.1 (>32); GLUCOSE, FASTING 176 MG/DL (70-100); POTASSIUM SERUM 4.8 MEQ/L (3.5-5.1); SODIUM LEVEL 140 MEQ/L (136-145)
[2018-04-24] MEDS ORDERED: HumuLIN (NovoLIN)70/30 INSULIN INJ PER UNIT SC (09:00)
[2018-04-24] MEDS: HumaLOG INSULIN (NovoLOG) PER UNIT SC ×4 (10:01→21:43)
[2018-04-24] MEDS: FERROUS SULFATE 325MG TAB PO (10:02)
[2018-04-24] MEDS: EZETIMIBE 10 MG TAB (ZETIA) PO (10:03)
[2018-04-24] MEDS: ESCITALOPRAM OXALATE 10 MG TAB (LEXAPRO) PO (10:03)
[2018-04-24] MEDS: ASPIRIN 81 MG ENTERIC TAB PO (10:03)
[2018-04-24] MEDS: APIXABAN 5 MG TAB (ELIQUIS) PO (10:03)
[2018-04-24] MEDS: ACETAMINOPHEN TAB 650MG DOSE (2X325MG) PO (10:09)
[2018-04-24 12:25] LABS: PARTIAL THROMBOPLASTIN TIME 32.7 SECONDS (25.4-37.6)
[2018-04-24 13:45] LABS: GLUCOSE, URINE (UA) MANUAL 1+(100 MG/DL) mg/dL (NEGATIVE); PROTEIN, URINE MANUAL REFLEX 3+ mg/dL (NEGATIVE)
[2018-04-24 13:46] LABS: BILIRUBIN, URINE MANUAL OBSCURED (NEGATIVE); BLOOD URINE MANUAL RFX POSITIVE (NEGATIVE); KETONE, URINE MANUAL OBSCURED mg/dL (NEGATIVE); MICROSCOPIC INDICATED? RFX YES (NO); NITRITE, URINE MANUAL RFX OBSCURED (NEGATIVE); UROBILINOGEN, URINE MANUAL OBSCURED mg/dl (NORMAL)
[2018-04-24 13:52] LABS: RBC, URINE TNTC /hpf (0-3); WBC, URINE MAN RFX TNTC /hpf (0-3)
[2018-04-24 13:53] LABS: AMORPHOUS SEDIMENT, URINE SMALL AMOUNT (NEGATIVE); BACTERIA, URINE MOD AMOUNT; HYALINE CAST, URINE NONE SEEN /lpf (0-1); RENAL EPITHELIAL CELLS, URINE SMALL AMOUNT /hpf; SQUAMOUS EPITHELIAL CELL URINE NONE SEEN /hpf (SMALL AMT)
[2018-04-24 14:31] LABS: MICROSCOPIC EXAM PERFORMED
[2018-04-24 17:18] LABS: BEDSIDE GLUCOSE 107 MG/DL (83-110)
[2018-04-24 17:18] LABS: BEDSIDE GLUCOSE 177 MG/DL (83-110)
[2018-04-24 20:37] LABS: BEDSIDE GLUCOSE 231 MG/DL (83-110)
[2018-04-24 20:43] LABS: PARTIAL THROMBOPLASTIN TIME 34.7 SECONDS (25.4-37.6)
[2018-04-24] MEDS: PRAVASTATIN 10 MG TAB PO (21:49)
[2018-04-24] MEDS: HEPARIN DRIP 25,000 UNITS in APPROPRIATE DILUENT 1 EA IV (22:04)
[2018-04-25] MEDS: ACETAMINOPHEN TAB 650MG DOSE (2X325MG) PO (01:40)
[2018-04-25 04:49] LABS: HEMATOCRIT 35.1 % (36.0-47.0); HEMOGLOBIN 11.1 g/dl (12.0-15.5); MEAN CORPUSCULAR HEMOGLOBIN 29.1 pg (27.0-33.0); MEAN CORPUSCULAR HGB CONC 31.6 g/dl (32.0-36.5); MEAN CORPUSCULAR VOLUME 91.9 fl (80.0-96.0); PLATELET COUNT, AUTOMATED 275 10^3/uL (150-450); RED BLOOD COUNT 3.82 10^6/uL (4.00-5.40); RED CELL DISTRIBUTION WIDTH 16.4 % (11.5-14.5); WHITE BLOOD COUNT 9.8 10^3/uL (4.0-10.0)
[2018-04-25 05:02] LABS: PARTIAL THROMBOPLASTIN TIME 95.8 SECONDS (25.4-37.6)
[2018-04-25 05:12] LABS: ANION GAP 7 MEQ/L (8-16); BLOOD UREA NITROGEN 19 MG/DL (7-18); CALCIUM LEVEL 8.2 MG/DL (8.8-10.2); CARBON DIOXIDE LEVEL 27 MEQ/L (21-32); CHLORIDE LEVEL 104 MEQ/L (98-107); CREATININE FOR GFR 1.17 MG/DL (0.55-1.30); GLOMERULAR FILTRATION RATE 46.5 (>32); GLUCOSE, FASTING 209 MG/DL (70-100); POTASSIUM SERUM 4.6 MEQ/L (3.5-5.1); SODIUM LEVEL 138 MEQ/L (136-145)
[2018-04-25] MEDS: LEVOTHYROXINE 50MCG TABLET (0.05MG) PO (05:44)
[2018-04-25] MEDS: HumaLOG INSULIN (NovoLOG) PER UNIT SC ×4 (09:42→20:35)
[2018-04-25] MEDS: ESCITALOPRAM OXALATE 10 MG TAB (LEXAPRO) PO (09:42)
[2018-04-25] MEDS: FERROUS SULFATE 325MG TAB PO (09:42)
[2018-04-25] MEDS: ASPIRIN 81 MG ENTERIC TAB PO (09:42)
[2018-04-25] MEDS: EZETIMIBE 10 MG TAB (ZETIA) PO (09:42)
[2018-04-25 10:25] LABS: PARTIAL THROMBOPLASTIN TIME 96.3 SECONDS (25.4-37.6)
[2018-04-25 12:03] LABS: BEDSIDE GLUCOSE 168 MG/DL (83-110)
[2018-04-25 12:50] LABS: MAGNESIUM LEVEL 2.1 MG/DL (1.8-2.4)
[2018-04-25] MEDS: traMADol 50 MG TAB PO ×2 (13:19→23:06)
[2018-04-25 13:58] LABS: BEDSIDE GLUCOSE 158 MG/DL (83-110)
[2018-04-25 16:48] LABS: BEDSIDE GLUCOSE 111 MG/DL (83-110)
[2018-04-25] MEDS: HEPARIN DRIP 25,000 UNITS in APPROPRIATE DILUENT 1 EA IV (17:27)
[2018-04-25 17:33] LABS: PARTIAL THROMBOPLASTIN TIME 128.4 SECONDS (25.4-37.6)
[2018-04-25] MEDS: ALBUTEROL SULFATE 2.5 MG/0.5 ML INH NEB SOLN INH (17:48)
[2018-04-25] MEDS: methylPREDNISolone INJ 40 MG/1 ML VIAL (J2920) IV (18:10)
[2018-04-25] MEDS: FUROSEMIDE 20 MG/2 ML VIAL (J1940) IV (18:10)
[2018-04-25 19:58] LABS: BEDSIDE GLUCOSE 274 MG/DL (83-110)
[2018-04-25] MEDS: PRAVASTATIN 10 MG TAB PO (20:35)
[2018-04-25] MEDS: IPRATROPIUM 0.5MG/ALBUTEROL 2.5MG INH SOL UD 3ML (DUONEB)(J7620) NEB (21:35)
[2018-04-26 00:45] LABS: PARTIAL THROMBOPLASTIN TIME 114.5 SECONDS (25.4-37.6)
[2018-04-26] MEDS: IPRATROPIUM 0.5MG/ALBUTEROL 2.5MG INH SOL UD 3ML (DUONEB)(J7620) NEB ×6 (04:00→20:42)
[2018-04-26] MEDS: LEVOTHYROXINE 50MCG TABLET (0.05MG) PO (06:28)
[2018-04-26 07:31] LABS: HEMATOCRIT 32.7 % (36.0-47.0); HEMOGLOBIN 10.5 g/dl (12.0-15.5); MEAN CORPUSCULAR HEMOGLOBIN 29.4 pg (27.0-33.0); MEAN CORPUSCULAR HGB CONC 32.1 g/dl (32.0-36.5); MEAN CORPUSCULAR VOLUME 91.6 fl (80.0-96.0); PLATELET COUNT, AUTOMATED 278 10^3/uL (150-450); RED BLOOD COUNT 3.57 10^6/uL (4.00-5.40); RED CELL DISTRIBUTION WIDTH 16.3 % (11.5-14.5); WHITE BLOOD COUNT 12.2 10^3/uL (4.0-10.0)
[2018-04-26 07:53] LABS: ANION GAP 10 MEQ/L (8-16); BLOOD UREA NITROGEN 20 MG/DL (7-18); CALCIUM LEVEL 8.3 MG/DL (8.8-10.2); CARBON DIOXIDE LEVEL 25 MEQ/L (21-32); CHLORIDE LEVEL 102 MEQ/L (98-107); GLOMERULAR FILTRATION RATE 41.2 (>32); GLUCOSE, FASTING 349 MG/DL (70-100); POTASSIUM SERUM 4.4 MEQ/L (3.5-5.1); SODIUM LEVEL 137 MEQ/L (136-145)
[2018-04-26 08:08] LABS: PARTIAL THROMBOPLASTIN TIME 89.4 SECONDS (25.4-37.6)
[2018-04-26] MEDS: FERROUS SULFATE 325MG TAB PO (09:09)
[2018-04-26] MEDS: ESCITALOPRAM OXALATE 10 MG TAB (LEXAPRO) PO (09:10)
[2018-04-26] MEDS: ASPIRIN 81 MG ENTERIC TAB PO (09:10)
[2018-04-26] MEDS: HumaLOG INSULIN (NovoLOG) PER UNIT SC ×4 (09:10→21:01)
[2018-04-26] MEDS: EZETIMIBE 10 MG TAB (ZETIA) PO (09:10)
[2018-04-26 11:53] LABS: BEDSIDE GLUCOSE 352 MG/DL (83-110)
[2018-04-26 12:36] LABS: PARTIAL THROMBOPLASTIN TIME 62.4 SECONDS (25.4-37.6)
[2018-04-26] MEDS: HEPARIN SOD (PORCINE) 5000 UNITS/ML VIAL IV (13:05)
[2018-04-26] MEDS: HEPARIN DRIP 25,000 UNITS in APPROPRIATE DILUENT 1 EA IV ×3 (13:06→23:01)
[2018-04-26 14:06] LABS: BEDSIDE GLUCOSE 146 MG/DL (83-110)
[2018-04-26] MEDS: traMADol 50 MG TAB PO ×2 (14:30→23:02)
[2018-04-26 17:07] LABS: BEDSIDE GLUCOSE 343 MG/DL (83-110)
[2018-04-26 18:20] LABS: PARTIAL THROMBOPLASTIN TIME 115.3 SECONDS (25.4-37.6)
[2018-04-26 19:56] LABS: BEDSIDE GLUCOSE 263 MG/DL (83-110)
[2018-04-26] MEDS: ACETAMINOPHEN TAB 650MG DOSE (2X325MG) PO (21:00)
[2018-04-26] MEDS: PRAVASTATIN 10 MG TAB PO (21:00)
[2018-04-27 02:01] LABS: PARTIAL THROMBOPLASTIN TIME 57.8 SECONDS (25.4-37.6)
[2018-04-27] MEDS: HEPARIN SOD (PORCINE) 5000 UNITS/ML VIAL IV (02:36)
[2018-04-27] MEDS: IPRATROPIUM 0.5MG/ALBUTEROL 2.5MG INH SOL UD 3ML (DUONEB)(J7620) NEB ×6 (04:00→20:54)
[2018-04-27] MEDS: LEVOTHYROXINE 50MCG TABLET (0.05MG) PO (05:07)
[2018-04-27 06:35] LABS: HEMATOCRIT 28.9 % (36.0-47.0); HEMOGLOBIN 9.4 g/dl (12.0-15.5); MEAN CORPUSCULAR HEMOGLOBIN 29.2 pg (27.0-33.0); MEAN CORPUSCULAR HGB CONC 32.5 g/dl (32.0-36.5); MEAN CORPUSCULAR VOLUME 89.8 fl (80.0-96.0); PLATELET COUNT, AUTOMATED 313 10^3/uL (150-450); RED BLOOD COUNT 3.22 10^6/uL (4.00-5.40); RED CELL DISTRIBUTION WIDTH 16.4 % (11.5-14.5); WHITE BLOOD COUNT 14.2 10^3/uL (4.0-10.0)
[2018-04-27 06:55] LABS: ANION GAP 5 MEQ/L (8-16); BLOOD UREA NITROGEN 24 MG/DL (7-18); CALCIUM LEVEL 8.4 MG/DL (8.8-10.2); CARBON DIOXIDE LEVEL 30 MEQ/L (21-32); CHLORIDE LEVEL 101 MEQ/L (98-107); CREATININE FOR GFR 1.24 MG/DL (0.55-1.30); GLOMERULAR FILTRATION RATE 43.5 (>32); GLUCOSE, FASTING 260 MG/DL (70-100); POTASSIUM SERUM 4.5 MEQ/L (3.5-5.1); SODIUM LEVEL 136 MEQ/L (136-145)
[2018-04-27] MEDS: HumaLOG INSULIN (NovoLOG) PER UNIT SC ×4 (07:30→20:40)
[2018-04-27] MEDS: FERROUS SULFATE 325MG TAB PO (09:13)
[2018-04-27] MEDS: ESCITALOPRAM OXALATE 10 MG TAB (LEXAPRO) PO (09:13)
[2018-04-27] MEDS: EZETIMIBE 10 MG TAB (ZETIA) PO (09:13)
[2018-04-27] MEDS: ASPIRIN 81 MG ENTERIC TAB PO (09:18)
[2018-04-27 10:17] LABS: PARTIAL THROMBOPLASTIN TIME 86.1 SECONDS (25.4-37.6)
[2018-04-27 10:33] LABS: APPEARANCE, URINE MANUAL CLOUDY (CLEAR); BILIRUBIN, URINE MANUAL NEGATIVE (NEGATIVE); BLOOD URINE MANUAL POSITIVE (NEGATIVE); COLOR, URINE MANUAL RED (YELLOW); GLUCOSE, URINE (UA) MANUAL 2+(250 MG/DL) mg/dL (NEGATIVE); KETONE, URINE MANUAL NEGATIVE (NEGATIVE); LEUKOCYTE ESTERASE, URINE MAN POSITIVE (NEGATIVE); MICROSCOPIC INDICATED? MAN YES (NO); NITRITE, URINE MANUAL NEGATIVE (NEGATIVE); PH,URINE MAN 5.5 UNITS (5.0 - 7.0); PROTEIN, URINE MANUAL 3+ mg/dL (NEGATIVE); SPECIFIC GRAVITY,URINE MANUAL 1.015 (1.002-1.035); UROBILINOGEN, URINE MANUAL NORMAL (NORMAL)
[2018-04-27 10:35] LABS: RBC, URINE TNTC /hpf (0-3); SQUAMOUS EPITHELIAL CELL URINE SMALL AMOUNT /hpf (SMALL AMT); WBC, URINE TNTC /hpf (0-3)
[2018-04-27 10:36] LABS: MICROSCOPIC EXAM PERFORMED
[2018-04-27 12:00] LABS: BEDSIDE GLUCOSE 291 MG/DL (83-110)
[2018-04-27 13:24] LABS: BACTERIA, URINE SMALL AMOUNT; HYALINE CAST, URINE NONE SEEN /lpf (0-1)
[2018-04-27] MEDS: traMADol 50 MG TAB PO ×2 (14:24→22:52)
[2018-04-27 15:20] LABS: PARTIAL THROMBOPLASTIN TIME 66.7 SECONDS (25.4-37.6)
[2018-04-27] MEDS ORDERED: LIDOCAINE 1% MDV 20ML VIAL As Ordered (15:25)
[2018-04-27 16:48] LABS: BEDSIDE GLUCOSE 199 MG/DL (83-110)
[2018-04-27] MEDS: cefTRIAXone SOD 1 GM in D5W MINI-BAG PLUS 50 ML IV (18:03)
[2018-04-27] MEDS: SODIUM CHLORIDE 0.9% INJ 10 ML SYR IV (19:00)
[2018-04-27 20:45] LABS: BEDSIDE GLUCOSE 181 MG/DL (83-110)
[2018-04-27] MEDS: PRAVASTATIN 10 MG TAB PO (21:04)
[2018-04-28] MEDS: HEPARIN DRIP 25,000 UNITS in APPROPRIATE DILUENT 1 EA IV (02:00)
[2018-04-28 02:44] LABS: BEDSIDE GLUCOSE 264 MG/DL (83-110)
[2018-04-28] MEDS: IPRATROPIUM 0.5MG/ALBUTEROL 2.5MG INH SOL UD 3ML (DUONEB)(J7620) NEB ×7 (04:00→23:27)
[2018-04-28] MEDS: SODIUM CHLORIDE 0.9% INJ 10 ML SYR IV ×2 (05:15→12:46)
[2018-04-28 05:35] LABS: HEMOGLOBIN 9.1 g/dl (12.0-15.5); MEAN CORPUSCULAR HEMOGLOBIN 29.4 pg (27.0-33.0); MEAN CORPUSCULAR HGB CONC 31.4 g/dl (32.0-36.5); MEAN CORPUSCULAR VOLUME 93.9 fl (80.0-96.0); PLATELET COUNT, AUTOMATED 277 10^3/uL (150-450); RED BLOOD COUNT 3.09 10^6/uL (4.00-5.40); RED CELL DISTRIBUTION WIDTH 17.1 % (11.5-14.5); WHITE BLOOD COUNT 9.2 10^3/uL (4.0-10.0)
[2018-04-28 05:47] LABS: PARTIAL THROMBOPLASTIN TIME 89.3 SECONDS (25.4-37.6)
[2018-04-28 06:02] LABS: ANION GAP 4 MEQ/L (8-16); BLOOD UREA NITROGEN 24 MG/DL (7-18); CALCIUM LEVEL 8.1 MG/DL (8.8-10.2); CARBON DIOXIDE LEVEL 32 MEQ/L (21-32); CHLORIDE LEVEL 102 MEQ/L (98-107); CREATININE FOR GFR 1.26 MG/DL (0.55-1.30); GLOMERULAR FILTRATION RATE 42.7 (>32); GLUCOSE, FASTING 271 MG/DL (70-100); POTASSIUM SERUM 4.5 MEQ/L (3.5-5.1); SODIUM LEVEL 138 MEQ/L (136-145)
[2018-04-28] MEDS: LEVOTHYROXINE 50MCG TABLET (0.05MG) PO (06:05)
[2018-04-28] MEDS: HumaLOG INSULIN (NovoLOG) PER UNIT SC ×4 (07:42→20:20)
[2018-04-28] MEDS: ESCITALOPRAM OXALATE 10 MG TAB (LEXAPRO) PO (09:00)
[2018-04-28] MEDS: EZETIMIBE 10 MG TAB (ZETIA) PO (09:00)
[2018-04-28] MEDS: ASPIRIN 81 MG ENTERIC TAB PO (09:00)
[2018-04-28] MEDS: FERROUS SULFATE 325MG TAB PO (09:00)
[2018-04-28 11:42] LABS: HEMATOCRIT 28.8 % (36.0-47.0); HEMOGLOBIN 9.1 g/dl (12.0-15.5)
[2018-04-28 11:56] LABS: PARTIAL THROMBOPLASTIN TIME 46.2 SECONDS (25.4-37.6)
[2018-04-28 12:22] LABS: BEDSIDE GLUCOSE 227 MG/DL (83-110)
[2018-04-28] MEDS: cefTRIAXone SOD 1 GM in D5W MINI-BAG PLUS 50 ML IV (12:45)
[2018-04-28] MEDS: HEPARIN SOD (PORCINE) 5000 UNITS/ML VIAL IV (12:47)
[2018-04-28] MEDS: traMADol 50 MG TAB PO ×2 (14:52→22:18)
[2018-04-28 17:22] LABS: BEDSIDE GLUCOSE 232 MG/DL (83-110)
[2018-04-28 19:54] LABS: BEDSIDE GLUCOSE 185 MG/DL (83-110)
[2018-04-28] MEDS: PRAVASTATIN 10 MG TAB PO (20:21)
[2018-04-29 02:17] LABS: PARTIAL THROMBOPLASTIN TIME 58.2 SECONDS (25.4-37.6)
[2018-04-29] MEDS: HEPARIN SOD (PORCINE) 5000 UNITS/ML VIAL IV ×2 (03:04→16:18)
[2018-04-29] MEDS: IPRATROPIUM 0.5MG/ALBUTEROL 2.5MG INH SOL UD 3ML (DUONEB)(J7620) NEB ×5 (04:00→20:23)
[2018-04-29] MEDS: SODIUM CHLORIDE 0.9% INJ 10 ML SYR IV ×2 (05:30→18:00)
[2018-04-29] MEDS: HEPARIN DRIP 25,000 UNITS in APPROPRIATE DILUENT 1 EA IV (05:51)
[2018-04-29] MEDS: LEVOTHYROXINE 50MCG TABLET (0.05MG) PO (05:52)
[2018-04-29] MEDS: HumaLOG INSULIN (NovoLOG) PER UNIT SC ×4 (07:30→20:35)
[2018-04-29] MEDS: ESCITALOPRAM OXALATE 10 MG TAB (LEXAPRO) PO (08:06)
[2018-04-29] MEDS: FERROUS SULFATE 325MG TAB PO (08:06)
[2018-04-29] MEDS: EZETIMIBE 10 MG TAB (ZETIA) PO (08:06)
[2018-04-29] MEDS: ASPIRIN 81 MG ENTERIC TAB PO (08:06)
[2018-04-29 08:16] LABS: HEMATOCRIT 29.7 % (36.0-47.0); MEAN CORPUSCULAR HEMOGLOBIN 28.7 pg (27.0-33.0); MEAN CORPUSCULAR HGB CONC 30.3 g/dl (32.0-36.5); MEAN CORPUSCULAR VOLUME 94.6 fl (80.0-96.0); PLATELET COUNT, AUTOMATED 249 10^3/uL (150-450); RED BLOOD COUNT 3.14 10^6/uL (4.00-5.40); RED CELL DISTRIBUTION WIDTH 17.3 % (11.5-14.5); WHITE BLOOD COUNT 9.5 10^3/uL (4.0-10.0)
[2018-04-29 08:53] LABS: ANION GAP 5 MEQ/L (8-16); BLOOD UREA NITROGEN 17 MG/DL (7-18); CALCIUM LEVEL 8.5 MG/DL (8.8-10.2); CARBON DIOXIDE LEVEL 31 MEQ/L (21-32); CHLORIDE LEVEL 102 MEQ/L (98-107); CREATININE FOR GFR 0.97 MG/DL (0.55-1.30); GLOMERULAR FILTRATION RATE 57.7 (>32); GLUCOSE, FASTING 249 MG/DL (70-100); POTASSIUM SERUM 4.1 MEQ/L (3.5-5.1); SODIUM LEVEL 138 MEQ/L (136-145)
[2018-04-29 09:43] LABS: PARTIAL THROMBOPLASTIN TIME 87.9 SECONDS (25.4-37.6)
[2018-04-29 12:01] LABS: BEDSIDE GLUCOSE 275 MG/DL (83-110)
[2018-04-29] MEDS: cefTRIAXone SOD 1 GM in D5W MINI-BAG PLUS 50 ML IV (12:10)
[2018-04-29 12:50] LABS: HEMOGLOBIN 9.3 g/dl (12.0-15.5)
[2018-04-29] MEDS: traMADol 50 MG TAB PO ×2 (13:06→22:35)
[2018-04-29 16:41] LABS: BEDSIDE GLUCOSE 197 MG/DL (83-110)
[2018-04-29 20:09] LABS: BEDSIDE GLUCOSE 261 MG/DL (83-110)
[2018-04-29] MEDS: PRAVASTATIN 10 MG TAB PO (20:35)
[2018-04-29 23:10] LABS: PARTIAL THROMBOPLASTIN TIME 135.8 SECONDS (25.4-37.6)
[2018-04-30] MEDS: IPRATROPIUM 0.5MG/ALBUTEROL 2.5MG INH SOL UD 3ML (DUONEB)(J7620) NEB ×6 (04:00→20:11)
[2018-04-30 05:38] LABS: HEMATOCRIT 29.6 % (36.0-47.0); HEMOGLOBIN 9.2 g/dl (12.0-15.5); MEAN CORPUSCULAR HEMOGLOBIN 29.2 pg (27.0-33.0); MEAN CORPUSCULAR HGB CONC 31.1 g/dl (32.0-36.5); PLATELET COUNT, AUTOMATED 238 10^3/uL (150-450); RED BLOOD COUNT 3.15 10^6/uL (4.00-5.40); RED CELL DISTRIBUTION WIDTH 17.8 % (11.5-14.5); WHITE BLOOD COUNT 8.4 10^3/uL (4.0-10.0)
[2018-04-30] MEDS: SODIUM CHLORIDE 0.9% INJ 10 ML SYR IV ×4 (05:47→15:08)
[2018-04-30] MEDS: LEVOTHYROXINE 50MCG TABLET (0.05MG) PO (05:47)
[2018-04-30 05:51] LABS: PARTIAL THROMBOPLASTIN TIME 38.9 SECONDS (25.4-37.6)
[2018-04-30 06:06] LABS: ANION GAP 6 MEQ/L (8-16); BLOOD UREA NITROGEN 12 MG/DL (7-18); CALCIUM LEVEL 8.2 MG/DL (8.8-10.2); CARBON DIOXIDE LEVEL 31 MEQ/L (21-32); CHLORIDE LEVEL 103 MEQ/L (98-107); CREATININE FOR GFR 0.84 MG/DL (0.55-1.30); GLOMERULAR FILTRATION RATE > 60.0 (>32); GLUCOSE, FASTING 245 MG/DL (70-100); POTASSIUM SERUM 4.1 MEQ/L (3.5-5.1); SODIUM LEVEL 140 MEQ/L (136-145)
[2018-04-30] MEDS: HEPARIN SOD (PORCINE) 5000 UNITS/ML VIAL IV (08:02)
[2018-04-30] MEDS: HEPARIN DRIP 25,000 UNITS in APPROPRIATE DILUENT 1 EA IV ×2 (08:06→10:27)
[2018-04-30] MEDS: FERROUS SULFATE 325MG TAB PO (09:05)
[2018-04-30] MEDS: ASPIRIN 81 MG ENTERIC TAB PO (09:06)
[2018-04-30] MEDS: ESCITALOPRAM OXALATE 10 MG TAB (LEXAPRO) PO (09:06)
[2018-04-30] MEDS: EZETIMIBE 10 MG TAB (ZETIA) PO (09:06)
[2018-04-30] MEDS: HumaLOG INSULIN (NovoLOG) PER UNIT SC ×4 (09:09→20:22)
[2018-04-30 12:06] LABS: BEDSIDE GLUCOSE 178 MG/DL (83-110)
[2018-04-30] MEDS: cefTRIAXone SOD 1 GM in D5W MINI-BAG PLUS 50 ML IV (13:22)
[2018-04-30] MEDS: traMADol 50 MG TAB PO ×2 (14:27→21:55)
[2018-04-30 15:41] LABS: PARTIAL THROMBOPLASTIN TIME 165.6 SECONDS (25.4-37.6)
[2018-04-30 17:00] LABS: BEDSIDE GLUCOSE 250 MG/DL (83-110)
[2018-04-30 20:12] LABS: BEDSIDE GLUCOSE 204 MG/DL (83-110)
[2018-04-30] MEDS: PRAVASTATIN 10 MG TAB PO (20:21)
[2018-04-30 22:27] LABS: PARTIAL THROMBOPLASTIN TIME 94.8 SECONDS (25.4-37.6)
[2018-05-01] MEDS: IPRATROPIUM 0.5MG/ALBUTEROL 2.5MG INH SOL UD 3ML (DUONEB)(J7620) NEB ×6 (04:00→20:00)
[2018-05-01] MEDS: LEVOTHYROXINE 50MCG TABLET (0.05MG) PO (05:40)
[2018-05-01] MEDS: SODIUM CHLORIDE 0.9% INJ 10 ML SYR IV ×2 (05:40→18:10)
[2018-05-01 06:38] LABS: BEDSIDE GLUCOSE 263 MG/DL (83-110)
[2018-05-01] MEDS: HumaLOG INSULIN (NovoLOG) PER UNIT SC ×4 (08:00→20:59)
[2018-05-01] MEDS: FERROUS SULFATE 325MG TAB PO (08:03)
[2018-05-01] MEDS: EZETIMIBE 10 MG TAB (ZETIA) PO (08:03)
[2018-05-01] MEDS: ASPIRIN 81 MG ENTERIC TAB PO (08:06)
[2018-05-01] MEDS: ESCITALOPRAM OXALATE 10 MG TAB (LEXAPRO) PO (08:06)
[2018-05-01] MEDS: PANTOPRAZOLE 20 MG TAB PO (09:00)
[2018-05-01] MEDS: FUROSEMIDE 40 MG TAB PO ×2 (09:00→20:58)
[2018-05-01 09:23] LABS: BASO % 0.4 % (0.0-1.0); EOS # 0.2 10^3/uL (0.0-0.50); HEMATOCRIT 28.7 % (36.0-47.0); HEMOGLOBIN 8.9 g/dl (12.0-15.5); IMMATURE GRANULOCYTE % 0.8 % (0-3.0); LYMPH # 1.2 10^3/uL (1.5-4.5); LYMPH % 13.2 % (24.0-44.0); MEAN CORPUSCULAR HEMOGLOBIN 29.7 pg (27.0-33.0); MEAN CORPUSCULAR VOLUME 95.7 fl (80.0-96.0); MONO # 0.6 10^3/uL (0.0-0.8); MONO % 6.8 % (0.0-5.0); NEUTROPHILS # 7.1 10^3/uL (1.8-7.7); NEUTROPHILS % 76.8 % (36.0-66.0); PLATELET COUNT, AUTOMATED 232 10^3/uL (150-450); RED CELL DISTRIBUTION WIDTH 18.4 % (11.5-14.5); WHITE BLOOD COUNT 9.2 10^3/uL (4.0-10.0)
[2018-05-01 09:51] LABS: ALBUMIN 2.5 GM/DL (3.2-5.2); ALBUMIN/GLOBULIN RATIO 0.69 (1.00-1.93); ALKALINE PHOSPHATASE 94 U/L (45-117); ALT/SGPT 12 U/L (12-78); ANION GAP 4 MEQ/L (8-16); AST/SGOT 13 U/L (7-37); BILIRUBIN,TOTAL 0.3 MG/DL (0.2-1.0); BLOOD UREA NITROGEN 11 MG/DL (7-18); CALCIUM LEVEL 8.7 MG/DL (8.8-10.2); CARBON DIOXIDE LEVEL 32 MEQ/L (21-32); CHLORIDE LEVEL 103 MEQ/L (98-107); CREATININE FOR GFR 0.96 MG/DL (0.55-1.30); GLOMERULAR FILTRATION RATE 58.4 (>32); GLUCOSE, FASTING 289 MG/DL (70-100); POTASSIUM SERUM 3.7 MEQ/L (3.5-5.1); SODIUM LEVEL 139 MEQ/L (136-145); TOTAL PROTEIN 6.1 GM/DL (6.4-8.2)
[2018-05-01] MEDS: HEPARIN DRIP 25,000 UNITS in APPROPRIATE DILUENT 1 EA IV (10:50)
[2018-05-01 11:06] LABS: PARTIAL THROMBOPLASTIN TIME 188.6 SECONDS (25.4-37.6)
[2018-05-01 11:38] LABS: BEDSIDE GLUCOSE 238 MG/DL (83-110)
[2018-05-01 11:49] LABS: PARTIAL THROMBOPLASTIN TIME 62.4 SECONDS (25.4-37.6)
[2018-05-01] MEDS: HEPARIN SOD (PORCINE) 5000 UNITS/ML VIAL IV (12:10)
[2018-05-01] MEDS: cefTRIAXone SOD 1 GM in D5W MINI-BAG PLUS 50 ML IV (12:21)
[2018-05-01] MEDS: traMADol 50 MG TAB PO ×2 (12:56→20:59)
[2018-05-01 17:01] LABS: BEDSIDE GLUCOSE 132 MG/DL (83-110)
[2018-05-01 18:44] LABS: PARTIAL THROMBOPLASTIN TIME 117.8 SECONDS (25.4-37.6)
[2018-05-01] MEDS: PRAVASTATIN 10 MG TAB PO (20:58)
[2018-05-01 21:31] LABS: BEDSIDE GLUCOSE 200 MG/DL (83-110)
[2018-05-02 01:22] LABS: PARTIAL THROMBOPLASTIN TIME 87.6 SECONDS (25.4-37.6)
[2018-05-02] MEDS: ACETAMINOPHEN TAB 650MG DOSE (2X325MG) PO (02:44)
[2018-05-02] MEDS: diphenhydrAMINE 25 MG CAP PO (02:44)
[2018-05-02] MEDS: IPRATROPIUM 0.5MG/ALBUTEROL 2.5MG INH SOL UD 3ML (DUONEB)(J7620) NEB ×6 (04:00→20:35)
[2018-05-02] MEDS: LEVOTHYROXINE 50MCG TABLET (0.05MG) PO (06:00)
[2018-05-02] MEDS: SODIUM CHLORIDE 0.9% INJ 10 ML SYR IV ×2 (06:00→12:30)
[2018-05-02 07:05] LABS: BASO % 0.3 % (0.0-1.0); EOS # 0.2 10^3/uL (0.0-0.50); EOS % 1.8 % (0.0-3.0); HEMATOCRIT 27.5 % (36.0-47.0); HEMOGLOBIN 8.6 g/dl (12.0-15.5); IMMATURE GRANULOCYTE % 0.6 % (0-3.0); LYMPH % 9.8 % (24.0-44.0); MEAN CORPUSCULAR HGB CONC 31.3 g/dl (32.0-36.5); MEAN CORPUSCULAR VOLUME 95.8 fl (80.0-96.0); MONO # 0.9 10^3/uL (0.0-0.8); MONO % 8.4 % (0.0-5.0); NEUTROPHILS # 8.3 10^3/uL (1.8-7.7); NEUTROPHILS % 79.1 % (36.0-66.0); PLATELET COUNT, AUTOMATED 219 10^3/uL (150-450); RED BLOOD COUNT 2.87 10^6/uL (4.00-5.40); RED CELL DISTRIBUTION WIDTH 18.5 % (11.5-14.5); WHITE BLOOD COUNT 10.5 10^3/uL (4.0-10.0)
[2018-05-02 07:17] LABS: PARTIAL THROMBOPLASTIN TIME 80.2 SECONDS (25.4-37.6)
[2018-05-02 07:55] LABS: ALBUMIN 2.4 GM/DL (3.2-5.2); ALBUMIN/GLOBULIN RATIO 0.77 (1.00-1.93); ALKALINE PHOSPHATASE 94 U/L (45-117); ALT/SGPT 12 U/L (12-78); ANION GAP 5 MEQ/L (8-16); AST/SGOT 16 U/L (7-37); BILIRUBIN,TOTAL 0.3 MG/DL (0.2-1.0); BLOOD UREA NITROGEN 13 MG/DL (7-18); CALCIUM LEVEL 7.8 MG/DL (8.8-10.2); CARBON DIOXIDE LEVEL 33 MEQ/L (21-32); CHLORIDE LEVEL 100 MEQ/L (98-107); CREATININE FOR GFR 0.88 MG/DL (0.55-1.30); GLOMERULAR FILTRATION RATE > 60.0 (>32); GLUCOSE, FASTING 240 MG/DL (70-100); MAGNESIUM LEVEL 1.8 MG/DL (1.8-2.4); POTASSIUM SERUM 3.9 MEQ/L (3.5-5.1); SODIUM LEVEL 138 MEQ/L (136-145); TOTAL PROTEIN 5.5 GM/DL (6.4-8.2)
[2018-05-02] MEDS: HumaLOG INSULIN (NovoLOG) PER UNIT SC ×4 (08:26→21:36)
[2018-05-02] MEDS: CEFDINIR 300 MG CAP (OMNICEF) PO ×2 (08:26→20:39)
[2018-05-02] MEDS: ESCITALOPRAM OXALATE 10 MG TAB (LEXAPRO) PO (08:28)
[2018-05-02] MEDS: FERROUS SULFATE 325MG TAB PO (08:28)
[2018-05-02] MEDS: FUROSEMIDE 40 MG TAB PO ×2 (08:28→17:42)
[2018-05-02] MEDS: ASPIRIN 81 MG ENTERIC TAB PO (08:28)
[2018-05-02] MEDS: PANTOPRAZOLE 20 MG TAB PO (08:29)
[2018-05-02] MEDS: EZETIMIBE 10 MG TAB (ZETIA) PO (08:29)
[2018-05-02 11:55] LABS: BEDSIDE GLUCOSE 156 MG/DL (83-110)
[2018-05-02] MEDS: HEPARIN DRIP 25,000 UNITS in APPROPRIATE DILUENT 1 EA IV (12:38)
[2018-05-02 13:20] LABS: PARTIAL THROMBOPLASTIN TIME 58.3 SECONDS (25.4-37.6)
[2018-05-02] MEDS: traMADol 50 MG TAB PO ×2 (13:56→22:02)
[2018-05-02] MEDS: HEPARIN SOD (PORCINE) 5000 UNITS/ML VIAL IV (13:57)
[2018-05-02 16:37] LABS: BEDSIDE GLUCOSE 155 MG/DL (83-110)
[2018-05-02] MEDS: PRAVASTATIN 10 MG TAB PO (20:39)
[2018-05-02 20:46] LABS: BEDSIDE GLUCOSE 256 MG/DL (83-110)
[2018-05-02 20:49] LABS: INR 1.08; PROTHROMBIN TIME 14.2 SECONDS (12.1-14.4)
[2018-05-02 21:07] LABS: PARTIAL THROMBOPLASTIN TIME 126.7 SECONDS (25.4-37.6)
[2018-05-02 22:11] LABS: INR 1.04; PROTHROMBIN TIME 13.7 SECONDS (12.1-14.4)
[2018-05-02 22:13] LABS: PARTIAL THROMBOPLASTIN TIME 119.6 SECONDS (25.4-37.6)
[2018-05-03] MEDS: IPRATROPIUM 0.5MG/ALBUTEROL 2.5MG INH SOL UD 3ML (DUONEB)(J7620) NEB ×7 (04:00→23:50)
[2018-05-03 04:38] LABS: BASO % 0.5 % (0.0-1.0); EOS # 0.2 10^3/uL (0.0-0.50); EOS % 1.7 % (0.0-3.0); HEMATOCRIT 30.3 % (36.0-47.0); HEMOGLOBIN 9.5 g/dl (12.0-15.5); IMMATURE GRANULOCYTE % 0.5 % (0-3.0); LYMPH % 11.3 % (24.0-44.0); MEAN CORPUSCULAR HEMOGLOBIN 29.5 pg (27.0-33.0); MEAN CORPUSCULAR HGB CONC 31.4 g/dl (32.0-36.5); MEAN CORPUSCULAR VOLUME 94.1 fl (80.0-96.0); MONO # 0.8 10^3/uL (0.0-0.8); NEUTROPHILS # 6.8 10^3/uL (1.8-7.7); PLATELET COUNT, AUTOMATED 209 10^3/uL (150-450); RED BLOOD COUNT 3.22 10^6/uL (4.00-5.40); RED CELL DISTRIBUTION WIDTH 18.6 % (11.5-14.5); WHITE BLOOD COUNT 8.8 10^3/uL (4.0-10.0)
[2018-05-03 04:50] LABS: INR 1.05; PROTHROMBIN TIME 13.8 SECONDS (12.1-14.4)
[2018-05-03 04:52] LABS: PARTIAL THROMBOPLASTIN TIME 89.7 SECONDS (25.4-37.6)
[2018-05-03 05:03] LABS: ALBUMIN 2.6 GM/DL (3.2-5.2); ALBUMIN/GLOBULIN RATIO 0.74 (1.00-1.93); ALKALINE PHOSPHATASE 98 U/L (45-117); ALT/SGPT 16 U/L (12-78); ANION GAP 7 MEQ/L (8-16); AST/SGOT 15 U/L (7-37); BILIRUBIN,TOTAL 0.3 MG/DL (0.2-1.0); BLOOD UREA NITROGEN 15 MG/DL (7-18); CALCIUM LEVEL 8.5 MG/DL (8.8-10.2); CARBON DIOXIDE LEVEL 34 MEQ/L (21-32); CHLORIDE LEVEL 95 MEQ/L (98-107); CREATININE FOR GFR 1.11 MG/DL (0.55-1.30); GLOMERULAR FILTRATION RATE 49.4 (>32); GLUCOSE, FASTING 250 MG/DL (70-100); MAGNESIUM LEVEL 1.8 MG/DL (1.8-2.4); POTASSIUM SERUM 3.9 MEQ/L (3.5-5.1); SODIUM LEVEL 136 MEQ/L (136-145); TOTAL PROTEIN 6.1 GM/DL (6.4-8.2)
[2018-05-03] MEDS: SODIUM CHLORIDE 0.9% INJ 10 ML SYR IV ×2 (05:30→17:51)
[2018-05-03] MEDS: LEVOTHYROXINE 50MCG TABLET (0.05MG) PO (05:32)
[2018-05-03] MEDS: ACETAMINOPHEN TAB 650MG DOSE (2X325MG) PO ×2 (05:32→20:50)
[2018-05-03] MEDS: HumaLOG INSULIN (NovoLOG) PER UNIT SC ×4 (09:02→20:49)
[2018-05-03] MEDS: FERROUS SULFATE 325MG TAB PO (09:03)
[2018-05-03] MEDS: ESCITALOPRAM OXALATE 10 MG TAB (LEXAPRO) PO (09:03)
[2018-05-03] MEDS: PANTOPRAZOLE 20 MG TAB PO (09:03)
[2018-05-03] MEDS: FUROSEMIDE 40 MG TAB PO ×2 (09:03→17:41)
[2018-05-03] MEDS: CEFDINIR 300 MG CAP (OMNICEF) PO ×2 (09:03→20:49)
[2018-05-03] MEDS: EZETIMIBE 10 MG TAB (ZETIA) PO (09:03)
[2018-05-03] MEDS: ASPIRIN 81 MG ENTERIC TAB PO (09:03)
[2018-05-03 11:07] LABS: INR 1.06; PROTHROMBIN TIME 13.9 SECONDS (12.1-14.4)
[2018-05-03 11:25] LABS: BEDSIDE GLUCOSE 216 MG/DL (83-110)
[2018-05-03] MEDS: HEPARIN SOD (PORCINE) 5000 UNITS/ML VIAL IV (11:37)
[2018-05-03] MEDS: HEPARIN DRIP 25,000 UNITS in APPROPRIATE DILUENT 1 EA IV ×2 (11:37→18:35)
[2018-05-03] MEDS: traMADol 50 MG TAB PO ×2 (13:46→22:38)
[2018-05-03 16:24] LABS: BEDSIDE GLUCOSE 165 MG/DL (83-110)
[2018-05-03 18:28] LABS: PARTIAL THROMBOPLASTIN TIME 179.8 SECONDS (25.4-37.6)
[2018-05-03 19:56] LABS: BEDSIDE GLUCOSE 183 MG/DL (83-110)
[2018-05-03] MEDS: PRAVASTATIN 10 MG TAB PO (20:49)
[2018-05-04] MEDS: IPRATROPIUM 0.5MG/ALBUTEROL 2.5MG INH SOL UD 3ML (DUONEB)(J7620) NEB ×5 (03:30→21:04)
[2018-05-04] MEDS: LEVOTHYROXINE 50MCG TABLET (0.05MG) PO (05:32)
[2018-05-04] MEDS: SODIUM CHLORIDE 0.9% INJ 10 ML SYR IV ×2 (05:32→18:10)
[2018-05-04 06:14] LABS: BASO % 0.5 % (0.0-1.0); EOS # 0.2 10^3/uL (0.0-0.50); EOS % 2.1 % (0.0-3.0); HEMATOCRIT 29.2 % (36.0-47.0); HEMOGLOBIN 9.2 g/dl (12.0-15.5); IMMATURE GRANULOCYTE % 0.7 % (0-3.0); MEAN CORPUSCULAR HEMOGLOBIN 29.7 pg (27.0-33.0); MEAN CORPUSCULAR HGB CONC 31.5 g/dl (32.0-36.5); MEAN CORPUSCULAR VOLUME 94.2 fl (80.0-96.0); MONO # 0.9 10^3/uL (0.0-0.8); MONO % 10.8 % (0.0-5.0); NEUTROPHILS # 6.2 10^3/uL (1.8-7.7); NEUTROPHILS % 73.9 % (36.0-66.0); PLATELET COUNT, AUTOMATED 231 10^3/uL (150-450); RED CELL DISTRIBUTION WIDTH 18.4 % (11.5-14.5); WHITE BLOOD COUNT 8.4 10^3/uL (4.0-10.0)
[2018-05-04 06:46] LABS: ALBUMIN 2.5 GM/DL (3.2-5.2); ALBUMIN/GLOBULIN RATIO 0.81 (1.00-1.93); ALKALINE PHOSPHATASE 109 U/L (45-117); ALT/SGPT 23 U/L (12-78); ANION GAP 6 MEQ/L (8-16); AST/SGOT 43 U/L (7-37); BILIRUBIN,TOTAL 0.4 MG/DL (0.2-1.0); BLOOD UREA NITROGEN 22 MG/DL (7-18); CALCIUM LEVEL 7.9 MG/DL (8.8-10.2); CARBON DIOXIDE LEVEL 35 MEQ/L (21-32); CHLORIDE LEVEL 95 MEQ/L (98-107); GLOMERULAR FILTRATION RATE 45.1 (>32); GLUCOSE, FASTING 261 MG/DL (70-100); MAGNESIUM LEVEL 1.8 MG/DL (1.8-2.4); POTASSIUM SERUM 3.9 MEQ/L (3.5-5.1); SODIUM LEVEL 136 MEQ/L (136-145); TOTAL PROTEIN 5.6 GM/DL (6.4-8.2)
[2018-05-04 07:47] LABS: INR 1.09; PROTHROMBIN TIME 14.3 SECONDS (12.1-14.4)
[2018-05-04 07:49] LABS: PARTIAL THROMBOPLASTIN TIME 97.2 SECONDS (25.4-37.6)
[2018-05-04] MEDS: HumaLOG INSULIN (NovoLOG) PER UNIT SC ×4 (08:28→21:59)
[2018-05-04] MEDS: CEFDINIR 300 MG CAP (OMNICEF) PO ×2 (09:24→21:53)
[2018-05-04] MEDS: ASPIRIN 81 MG ENTERIC TAB PO (09:24)
[2018-05-04] MEDS: ESCITALOPRAM OXALATE 10 MG TAB (LEXAPRO) PO (09:25)
[2018-05-04] MEDS: FUROSEMIDE 40 MG TAB PO (09:25)
[2018-05-04] MEDS: FERROUS SULFATE 325MG TAB PO (09:25)
[2018-05-04] MEDS: EZETIMIBE 10 MG TAB (ZETIA) PO (09:25)
[2018-05-04] MEDS: PANTOPRAZOLE 20 MG TAB PO (09:26)
[2018-05-04] MEDS: HEPARIN DRIP 25,000 UNITS in APPROPRIATE DILUENT 1 EA IV (11:31)
[2018-05-04] MEDS: traMADol 50 MG TAB PO ×2 (13:19→21:59)
[2018-05-04 13:30] LABS: BEDSIDE GLUCOSE 199 MG/DL (83-110)
[2018-05-04 13:58] LABS: PARTIAL THROMBOPLASTIN TIME 67.3 SECONDS (25.4-37.6)
[2018-05-04 17:02] LABS: BEDSIDE GLUCOSE 177 MG/DL (83-110)
[2018-05-04 19:52] LABS: PARTIAL THROMBOPLASTIN TIME 75.4 SECONDS (25.4-37.6)
[2018-05-04] MEDS: PRAVASTATIN 10 MG TAB PO (21:53)
[2018-05-04 21:57] LABS: BEDSIDE GLUCOSE 283 MG/DL (83-110)
[2018-05-05] MEDS: LEVOTHYROXINE 50MCG TABLET (0.05MG) PO (05:32)
[2018-05-05] MEDS: SODIUM CHLORIDE 0.9% INJ 10 ML SYR IV ×2 (05:32→17:39)
[2018-05-05 07:00] LABS: BASO # 0.1 10^3/uL (0.0-0.2); BASO % 0.6 % (0.0-1.0); EOS # 0.2 10^3/uL (0.0-0.50); EOS % 2.7 % (0.0-3.0); HEMOGLOBIN 9.8 g/dl (12.0-15.5); IMMATURE GRANULOCYTE % 0.5 % (0-3.0); LYMPH # 1.2 10^3/uL (1.5-4.5); LYMPH % 13.9 % (24.0-44.0); MEAN CORPUSCULAR HEMOGLOBIN 30.1 pg (27.0-33.0); MEAN CORPUSCULAR HGB CONC 31.6 g/dl (32.0-36.5); MEAN CORPUSCULAR VOLUME 95.1 fl (80.0-96.0); MONO # 0.9 10^3/uL (0.0-0.8); MONO % 10.8 % (0.0-5.0); NEUTROPHILS # 6.1 10^3/uL (1.8-7.7); NEUTROPHILS % 71.5 % (36.0-66.0); PLATELET COUNT, AUTOMATED 237 10^3/uL (150-450); RED BLOOD COUNT 3.26 10^6/uL (4.00-5.40); RED CELL DISTRIBUTION WIDTH 18.3 % (11.5-14.5); WHITE BLOOD COUNT 8.5 10^3/uL (4.0-10.0)
[2018-05-05 07:13] LABS: PARTIAL THROMBOPLASTIN TIME 96.6 SECONDS (25.4-37.6)
[2018-05-05 07:27] LABS: ALBUMIN 2.6 GM/DL (3.2-5.2); ALBUMIN/GLOBULIN RATIO 0.68 (1.00-1.93); ALKALINE PHOSPHATASE 107 U/L (45-117); ALT/SGPT 20 U/L (12-78); ANION GAP 8 MEQ/L (8-16); AST/SGOT 23 U/L (7-37); BILIRUBIN,TOTAL 0.4 MG/DL (0.2-1.0); BLOOD UREA NITROGEN 22 MG/DL (7-18); CALCIUM LEVEL 8.6 MG/DL (8.8-10.2); CARBON DIOXIDE LEVEL 33 MEQ/L (21-32); CHLORIDE LEVEL 94 MEQ/L (98-107); CREATININE FOR GFR 1.31 MG/DL (0.55-1.30); GLOMERULAR FILTRATION RATE 40.8 (>32); GLUCOSE, FASTING 282 MG/DL (70-100); SODIUM LEVEL 135 MEQ/L (136-145); TOTAL PROTEIN 6.4 GM/DL (6.4-8.2)
[2018-05-05] MEDS: HumaLOG INSULIN (NovoLOG) PER UNIT SC ×4 (07:30→21:00)
[2018-05-05] MEDS: IPRATROPIUM 0.5MG/ALBUTEROL 2.5MG INH SOL UD 3ML (DUONEB)(J7620) NEB ×4 (08:00→20:52)
[2018-05-05] MEDS: CEFDINIR 300 MG CAP (OMNICEF) PO ×2 (08:26→21:40)
[2018-05-05] MEDS: EZETIMIBE 10 MG TAB (ZETIA) PO (08:27)
[2018-05-05] MEDS: ESCITALOPRAM OXALATE 10 MG TAB (LEXAPRO) PO (08:27)
[2018-05-05] MEDS: FERROUS SULFATE 325MG TAB PO (08:27)
[2018-05-05] MEDS: ASPIRIN 81 MG ENTERIC TAB PO (08:27)
[2018-05-05] MEDS: FUROSEMIDE 40 MG TAB PO (08:27)
[2018-05-05] MEDS: PANTOPRAZOLE 20 MG TAB PO (08:28)
[2018-05-05] MEDS: traMADol 50 MG TAB PO ×2 (10:06→21:40)
[2018-05-05 11:48] LABS: BEDSIDE GLUCOSE 183 MG/DL (83-110)
[2018-05-05] MEDS: ACETAMINOPHEN TAB 650MG DOSE (2X325MG) PO (14:18)
[2018-05-05 16:22] LABS: BEDSIDE GLUCOSE 205 MG/DL (83-110)
[2018-05-05 20:08] LABS: BEDSIDE GLUCOSE 165 MG/DL (83-110)
[2018-05-05] MEDS: PRAVASTATIN 10 MG TAB PO (21:40)
[2018-05-06] MEDS: IPRATROPIUM 0.5MG/ALBUTEROL 2.5MG INH SOL UD 3ML (DUONEB)(J7620) NEB ×6 (04:00→20:04)
[2018-05-06] MEDS: SODIUM CHLORIDE 0.9% INJ 10 ML SYR IV ×2 (05:40→21:28)
[2018-05-06] MEDS: LEVOTHYROXINE 50MCG TABLET (0.05MG) PO (05:40)
[2018-05-06 05:45] LABS: BASO # 0.1 10^3/uL (0.0-0.2); BASO % 0.6 % (0.0-1.0); EOS # 0.2 10^3/uL (0.0-0.50); EOS % 2.4 % (0.0-3.0); HEMATOCRIT 29.6 % (36.0-47.0); HEMOGLOBIN 9.2 g/dl (12.0-15.5); IMMATURE GRANULOCYTE % 0.5 % (0-3.0); LYMPH # 1.3 10^3/uL (1.5-4.5); LYMPH % 15.4 % (24.0-44.0); MEAN CORPUSCULAR HEMOGLOBIN 29.7 pg (27.0-33.0); MEAN CORPUSCULAR HGB CONC 31.1 g/dl (32.0-36.5); MEAN CORPUSCULAR VOLUME 95.5 fl (80.0-96.0); MONO # 0.9 10^3/uL (0.0-0.8); MONO % 10.5 % (0.0-5.0); NEUTROPHILS % 70.6 % (36.0-66.0); PLATELET COUNT, AUTOMATED 252 10^3/uL (150-450); RED CELL DISTRIBUTION WIDTH 18.3 % (11.5-14.5); WHITE BLOOD COUNT 8.5 10^3/uL (4.0-10.0)
[2018-05-06 06:04] LABS: PARTIAL THROMBOPLASTIN TIME 90.1 SECONDS (25.4-37.6)
[2018-05-06 07:03] LABS: ALBUMIN 2.7 GM/DL (3.2-5.2); ALBUMIN/GLOBULIN RATIO 0.84 (1.00-1.93); ALKALINE PHOSPHATASE 108 U/L (45-117); ALT/SGPT 16 U/L (12-78); ANION GAP 8 MEQ/L (8-16); AST/SGOT 21 U/L (7-37); BILIRUBIN,TOTAL 0.4 MG/DL (0.2-1.0); BLOOD UREA NITROGEN 25 MG/DL (7-18); CALCIUM LEVEL 8.4 MG/DL (8.8-10.2); CARBON DIOXIDE LEVEL 33 MEQ/L (21-32); CHLORIDE LEVEL 93 MEQ/L (98-107); CREATININE FOR GFR 1.21 MG/DL (0.55-1.30); GLOMERULAR FILTRATION RATE 44.7 (>32); GLUCOSE, FASTING 254 MG/DL (70-100); MAGNESIUM LEVEL 1.9 MG/DL (1.8-2.4); SODIUM LEVEL 134 MEQ/L (136-145); TOTAL PROTEIN 5.9 GM/DL (6.4-8.2)
[2018-05-06] MEDS: HumaLOG INSULIN (NovoLOG) PER UNIT SC ×4 (07:30→21:27)
[2018-05-06 08:15] LABS: DIGOXIN LEVEL < 0.1 NG/ML (0.5-2.0)
[2018-05-06] MEDS: ASPIRIN 81 MG ENTERIC TAB PO (09:00)
[2018-05-06] MEDS: FERROUS SULFATE 325MG TAB PO (09:00)
[2018-05-06] MEDS: PANTOPRAZOLE 20 MG TAB PO (09:00)
[2018-05-06] MEDS: CEFDINIR 300 MG CAP (OMNICEF) PO ×2 (10:32→21:27)
[2018-05-06] MEDS: EZETIMIBE 10 MG TAB (ZETIA) PO (10:33)
[2018-05-06] MEDS: ESCITALOPRAM OXALATE 10 MG TAB (LEXAPRO) PO (10:33)
[2018-05-06] MEDS: traMADol 50 MG TAB PO ×2 (10:34→20:11)
[2018-05-06] MEDS: NS 500 ML IV (10:45)
[2018-05-06 12:05] LABS: BEDSIDE GLUCOSE 221 MG/DL (83-110)
[2018-05-06] MEDS ORDERED: MIDAZOLAM INJ 2 MG/2 ML VIAL (J2250) As Ordered (13:57)
[2018-05-06] MEDS ORDERED: HEPARIN SOD (PORCINE) 5000 UNITS/ML VIAL As Ordered (13:57)
[2018-05-06] MEDS ORDERED: ROCURONIUM BROMIDE 50 MG/5 ML VIAL As Ordered (13:57)
[2018-05-06] MEDS ORDERED: GLYCOPYRROLATE INJ 0.2 MG/ML 2 ML VIAL As Ordered (13:57)
[2018-05-06] MEDS ORDERED: PROPOFOL 200 MG/20 ML VIAL As Ordered (13:57)
[2018-05-06] MEDS ORDERED: ONDANSETRON 4MG/2ML VIAL (J2405) As Ordered (13:57)
[2018-05-06] MEDS ORDERED: PHENYLEPHRINE INJ 10MG/ML VIAL (J2370) As Ordered (13:57)
[2018-05-06] MEDS ORDERED: NEOSTIGMINE 10 MG/10 ML VIAL (J2710) As Ordered (13:57)
[2018-05-06] MEDS ORDERED: dexameTHASONE 4 MG/ML 1ML VIAL (J1100) As Ordered (13:57)
[2018-05-06] MEDS ORDERED: LIDOCAINE 2% INJ 100 MG/5 ML SDV (FOR ANES.) As Ordered (13:57)
[2018-05-06] MEDS ORDERED: PHENYLephrine HCL 500 MCG/5 ML (100MCG/ML) SYRINGE (J2370) As Ordered ×2 (13:57→15:41)
[2018-05-06] MEDS ORDERED: fentaNYL 100 MCG/2 ML INJECTION (J3010) As Ordered ×2 (13:58→18:29)
[2018-05-06] MEDS: ceFAZolin 2 GM/D5W 50 ML IV BAG (J0690 PER 500MG) As Ordered (16:25)
[2018-05-06] MEDS: HEPARIN SOD (PORCINE) 5000 UNITS/ML VIAL As Ordered (17:21)
[2018-05-06] MEDS: LIDOCAINE 1% SDV INJ 30 ML VIAL As Ordered (17:22)
[2018-05-06] MEDS: BUPIVACAINE HCL 0.5% 30 ML VIAL As Ordered (17:22)
[2018-05-06] MEDS: THROMBIN SOLN 20,000 UNITS KIT As Ordered (17:22)
[2018-05-06] MEDS ORDERED: ONDANSETRON 4MG/2ML VIAL (J2405) IV (18:00)
[2018-05-06] MEDS: LR 1,000 ML IV (18:00)
[2018-05-06] MEDS: fentaNYL 100 MCG/2 ML INJECTION (J3010) IV ×4 (18:32→18:47)
[2018-05-06 20:54] LABS: BEDSIDE GLUCOSE 286 MG/DL (83-110)
[2018-05-06] MEDS: PRAVASTATIN 10 MG TAB PO (21:27)
[2018-05-07 00:24] LABS: HEMATOCRIT 29.3 % (36.0-47.0); HEMOGLOBIN 9.2 g/dl (12.0-15.5)
[2018-05-07 00:44] LABS: PARTIAL THROMBOPLASTIN TIME 179.8 SECONDS (25.4-37.6)
[2018-05-07] MEDS: ACETAMINOPHEN TAB 650MG DOSE (2X325MG) PO ×2 (02:53→08:56)
[2018-05-07] MEDS: traMADol 50 MG TAB PO ×3 (04:11→20:33)
[2018-05-07] MEDS: IPRATROPIUM 0.5MG/ALBUTEROL 2.5MG INH SOL UD 3ML (DUONEB)(J7620) NEB ×6 (04:14→20:08)
[2018-05-07] MEDS: PANTOPRAZOLE 40MG TAB (PROTONIX) PO (04:53)
[2018-05-07] MEDS: CALCIUM CARBONATE 500 MG CHEW U/D PO ×3 (05:28→20:31)
[2018-05-07] MEDS: LEVOTHYROXINE 50MCG TABLET (0.05MG) PO (05:44)
[2018-05-07] MEDS: SODIUM CHLORIDE 0.9% INJ 10 ML SYR IV ×2 (05:47→18:00)
[2018-05-07 06:06] LABS: BASO % 0.1 % (0.0-1.0); HEMATOCRIT 27.8 % (36.0-47.0); HEMOGLOBIN 8.8 g/dl (12.0-15.5); IMMATURE GRANULOCYTE % 0.8 % (0-3.0); LYMPH # 0.9 10^3/uL (1.5-4.5); LYMPH % 6.7 % (24.0-44.0); MEAN CORPUSCULAR HEMOGLOBIN 30.1 pg (27.0-33.0); MEAN CORPUSCULAR HGB CONC 31.7 g/dl (32.0-36.5); MEAN CORPUSCULAR VOLUME 95.2 fl (80.0-96.0); MONO # 0.1 10^3/uL (0.0-0.8); NEUTROPHILS # 11.8 10^3/uL (1.8-7.7); NEUTROPHILS % 91.4 % (36.0-66.0); PLATELET COUNT, AUTOMATED 254 10^3/uL (150-450); RED BLOOD COUNT 2.92 10^6/uL (4.00-5.40); RED CELL DISTRIBUTION WIDTH 18.1 % (11.5-14.5); WHITE BLOOD COUNT 12.9 10^3/uL (4.0-10.0)
[2018-05-07 06:29] LABS: PARTIAL THROMBOPLASTIN TIME 97.8 SECONDS (25.4-37.6)
[2018-05-07 06:40] LABS: ALBUMIN 2.5 GM/DL (3.2-5.2); ALBUMIN/GLOBULIN RATIO 0.78 (1.00-1.93); ALKALINE PHOSPHATASE 162 U/L (45-117); ALT/SGPT 44 U/L (12-78); ANION GAP 14 MEQ/L (8-16); AST/SGOT 84 U/L (7-37); BILIRUBIN,TOTAL 0.4 MG/DL (0.2-1.0); BLOOD UREA NITROGEN 24 MG/DL (7-18); CALCIUM LEVEL 8.1 MG/DL (8.8-10.2); CARBON DIOXIDE LEVEL 24 MEQ/L (21-32); CHLORIDE LEVEL 94 MEQ/L (98-107); CREATININE FOR GFR 1.03 MG/DL (0.55-1.30); GLOMERULAR FILTRATION RATE 53.8 (>32); GLUCOSE, FASTING 364 MG/DL (70-100); POTASSIUM SERUM 4.6 MEQ/L (3.5-5.1); SODIUM LEVEL 132 MEQ/L (136-145); TOTAL PROTEIN 5.7 GM/DL (6.4-8.2)
[2018-05-07] MEDS: FERROUS SULFATE 325MG TAB PO (08:43)
[2018-05-07] MEDS: CEFDINIR 300 MG CAP (OMNICEF) PO ×2 (08:43→20:31)
[2018-05-07] MEDS: ASPIRIN 81 MG ENTERIC TAB PO (08:43)
[2018-05-07] MEDS: EZETIMIBE 10 MG TAB (ZETIA) PO (08:43)
[2018-05-07] MEDS: ESCITALOPRAM OXALATE 10 MG TAB (LEXAPRO) PO (08:43)
[2018-05-07] MEDS: HumaLOG INSULIN (NovoLOG) PER UNIT SC ×4 (08:44→20:33)
[2018-05-07] MEDS: LEVEMIR (INSULIN DETEMIR) 1 UNITS/0.01ML SC ×2 (08:57→20:33)
[2018-05-07 10:07] LABS: BEDSIDE GLUCOSE 356 MG/DL (83-110)
[2018-05-07 12:01] LABS: BEDSIDE GLUCOSE 305 MG/DL (83-110)
[2018-05-07 12:55] LABS: PARTIAL THROMBOPLASTIN TIME 66.3 SECONDS (25.4-37.6)
[2018-05-07 14:23] LABS: BEDSIDE GLUCOSE 271 MG/DL (83-110)
[2018-05-07] MEDS: CLOPIDOGREL 75 MG TAB PO (15:50)
[2018-05-07] MEDS: APIXABAN 5 MG TAB (ELIQUIS) PO ×2 (15:50→20:31)
[2018-05-07 16:45] LABS: BEDSIDE GLUCOSE 269 MG/DL (83-110)
[2018-05-07 18:20] LABS: BEDSIDE GLUCOSE 196 MG/DL (83-110)
[2018-05-07 20:24] LABS: BEDSIDE GLUCOSE 178 MG/DL (83-110)
[2018-05-07] MEDS: FAMOTIDINE 20 MG TAB PO (20:33)
[2018-05-07] MEDS: PRAVASTATIN 10 MG TAB PO (20:45)
[2018-05-08] MEDS: IPRATROPIUM 0.5MG/ALBUTEROL 2.5MG INH SOL UD 3ML (DUONEB)(J7620) NEB ×7 (00:26→23:32)
[2018-05-08 04:37] LABS: BASO % 0.2 % (0.0-1.0); EOS % 0.2 % (0.0-3.0); HEMATOCRIT 24.5 % (36.0-47.0); HEMOGLOBIN 7.9 g/dl (12.0-15.5); IMMATURE GRANULOCYTE % 0.5 % (0-3.0); LYMPH % 8.9 % (24.0-44.0); MEAN CORPUSCULAR HEMOGLOBIN 30.4 pg (27.0-33.0); MEAN CORPUSCULAR HGB CONC 32.2 g/dl (32.0-36.5); MEAN CORPUSCULAR VOLUME 94.2 fl (80.0-96.0); MONO % 9.1 % (0.0-5.0); NEUTROPHILS # 9.3 10^3/uL (1.8-7.7); NEUTROPHILS % 81.1 % (36.0-66.0); PLATELET COUNT, AUTOMATED 254 10^3/uL (150-450); RED CELL DISTRIBUTION WIDTH 18.3 % (11.5-14.5); WHITE BLOOD COUNT 11.4 10^3/uL (4.0-10.0)
[2018-05-08 04:48] LABS: INR 1.42; PROTHROMBIN TIME 17.5 SECONDS (12.1-14.4)
[2018-05-08 05:26] LABS: ALBUMIN 2.7 GM/DL (3.2-5.2); ALBUMIN/GLOBULIN RATIO 0.93 (1.00-1.93); ALKALINE PHOSPHATASE 134 U/L (45-117); ALT/SGPT 27 U/L (12-78); ANION GAP 7 MEQ/L (8-16); AST/SGOT 34 U/L (7-37); BILIRUBIN,TOTAL 0.3 MG/DL (0.2-1.0); BLOOD UREA NITROGEN 22 MG/DL (7-18); CALCIUM LEVEL 8.3 MG/DL (8.8-10.2); CARBON DIOXIDE LEVEL 31 MEQ/L (21-32); CHLORIDE LEVEL 97 MEQ/L (98-107); CREATININE FOR GFR 0.98 MG/DL (0.55-1.30); GLUCOSE, FASTING 196 MG/DL (70-100); POTASSIUM SERUM 4.2 MEQ/L (3.5-5.1); SODIUM LEVEL 135 MEQ/L (136-145); TOTAL PROTEIN 5.6 GM/DL (6.4-8.2)
[2018-05-08] MEDS: LEVOTHYROXINE 50MCG TABLET (0.05MG) PO (06:00)
[2018-05-08] MEDS: SODIUM CHLORIDE 0.9% INJ 10 ML SYR IV ×2 (06:01→18:34)
[2018-05-08] MEDS: FERROUS SULFATE 325MG TAB PO (08:51)
[2018-05-08] MEDS: ESCITALOPRAM OXALATE 10 MG TAB (LEXAPRO) PO (08:51)
[2018-05-08] MEDS: EZETIMIBE 10 MG TAB (ZETIA) PO (08:51)
[2018-05-08] MEDS: CEFDINIR 300 MG CAP (OMNICEF) PO ×2 (08:51→20:45)
[2018-05-08] MEDS: LEVEMIR (INSULIN DETEMIR) 1 UNITS/0.01ML SC ×2 (08:52→20:44)
[2018-05-08] MEDS: CLOPIDOGREL 75 MG TAB PO (08:52)
[2018-05-08] MEDS: PANTOPRAZOLE 40MG TAB (PROTONIX) PO (08:52)
[2018-05-08] MEDS: APIXABAN 5 MG TAB (ELIQUIS) PO ×2 (08:52→20:46)
[2018-05-08] MEDS: HumaLOG INSULIN (NovoLOG) PER UNIT SC ×4 (08:53→20:43)
[2018-05-08 11:15] LABS: IMMEDIATE SPIN CROSSMATCH 1 1
[2018-05-08 12:13] LABS: BEDSIDE GLUCOSE 172 MG/DL (83-110)
[2018-05-08] MEDS: traMADol 50 MG TAB PO ×2 (13:44→20:45)
[2018-05-08 16:06] LABS: HEMATOCRIT 28.4 % (36.0-47.0); HEMOGLOBIN 9.2 g/dl (12.0-15.5)
[2018-05-08 17:04] LABS: BEDSIDE GLUCOSE 126 MG/DL (83-110)
[2018-05-08 20:37] LABS: BEDSIDE GLUCOSE 254 MG/DL (83-110)
[2018-05-08] MEDS: PRAVASTATIN 10 MG TAB PO (20:44)
[2018-05-09] MEDS: ACETAMINOPHEN TAB 650MG DOSE (2X325MG) PO (00:35)
[2018-05-09] MEDS: IPRATROPIUM 0.5MG/ALBUTEROL 2.5MG INH SOL UD 3ML (DUONEB)(J7620) NEB ×5 (04:00→20:20)
[2018-05-09] MEDS: LEVOTHYROXINE 50MCG TABLET (0.05MG) PO (05:40)
[2018-05-09] MEDS: SODIUM CHLORIDE 0.9% INJ 10 ML SYR IV ×2 (05:40→17:10)
[2018-05-09 06:05] LABS: HEMATOCRIT 31.7 % (36.0-47.0); HEMOGLOBIN 9.3 g/dl (12.0-15.5); MEAN CORPUSCULAR HEMOGLOBIN 31.7 pg (27.0-33.0); MEAN CORPUSCULAR HGB CONC 29.3 g/dl (32.0-36.5); MEAN CORPUSCULAR VOLUME 108.2 fl (80.0-96.0); PLATELET COUNT, AUTOMATED 190 10^3/uL (150-450); RED BLOOD COUNT 2.93 10^6/uL (4.00-5.40); RED CELL DISTRIBUTION WIDTH 18.9 % (11.5-14.5); WHITE BLOOD COUNT 7.5 10^3/uL (4.0-10.0)
[2018-05-09 06:14] LABS: PROTHROMBIN TIME 15.3 SECONDS (12.1-14.4)
[2018-05-09 06:39] LABS: ALBUMIN 2.7 GM/DL (3.2-5.2); ALBUMIN/GLOBULIN RATIO 0.93 (1.00-1.93); ALKALINE PHOSPHATASE 121 U/L (45-117); ALT/SGPT 21 U/L (12-78); ANION GAP 5 MEQ/L (8-16); AST/SGOT 25 U/L (7-37); BILIRUBIN,TOTAL 0.4 MG/DL (0.2-1.0); BLOOD UREA NITROGEN 21 MG/DL (7-18); CALCIUM LEVEL 8.4 MG/DL (8.8-10.2); CARBON DIOXIDE LEVEL 32 MEQ/L (21-32); CHLORIDE LEVEL 100 MEQ/L (98-107); CREATININE FOR GFR 0.99 MG/DL (0.55-1.30); GLOMERULAR FILTRATION RATE 56.4 (>32); GLUCOSE, FASTING 70 MG/DL (70-100); MAGNESIUM LEVEL 2.1 MG/DL (1.8-2.4); POTASSIUM SERUM 4.3 MEQ/L (3.5-5.1); SODIUM LEVEL 137 MEQ/L (136-145); TOTAL PROTEIN 5.6 GM/DL (6.4-8.2)
[2018-05-09] MEDS: HumaLOG INSULIN (NovoLOG) PER UNIT SC ×4 (07:30→20:03)
[2018-05-09] MEDS: LEVEMIR (INSULIN DETEMIR) 1 UNITS/0.01ML SC ×2 (09:02→20:03)
[2018-05-09] MEDS: FERROUS SULFATE 325MG TAB PO (09:02)
[2018-05-09] MEDS: CEFDINIR 300 MG CAP (OMNICEF) PO ×2 (09:03→20:03)
[2018-05-09] MEDS: PANTOPRAZOLE 40MG TAB (PROTONIX) PO (09:04)
[2018-05-09] MEDS: CLOPIDOGREL 75 MG TAB PO (09:04)
[2018-05-09] MEDS: EZETIMIBE 10 MG TAB (ZETIA) PO (09:04)
[2018-05-09] MEDS: ESCITALOPRAM OXALATE 10 MG TAB (LEXAPRO) PO (09:04)
[2018-05-09] MEDS: APIXABAN 5 MG TAB (ELIQUIS) PO ×2 (09:04→20:02)
[2018-05-09 12:05] LABS: BEDSIDE GLUCOSE 148 MG/DL (83-110)
[2018-05-09] MEDS: traMADol 50 MG TAB PO ×2 (13:58→20:03)
[2018-05-09 17:08] LABS: BEDSIDE GLUCOSE 133 MG/DL (83-110)
[2018-05-09] MEDS: PRAVASTATIN 10 MG TAB PO (20:03)
[2018-05-09 20:04] LABS: BEDSIDE GLUCOSE 179 MG/DL (83-110)
[2018-05-10] MEDS: IPRATROPIUM 0.5MG/ALBUTEROL 2.5MG INH SOL UD 3ML (DUONEB)(J7620) NEB ×5 (04:00→16:10)
[2018-05-10] MEDS: LEVOTHYROXINE 50MCG TABLET (0.05MG) PO (04:44)
[2018-05-10] MEDS: SODIUM CHLORIDE 0.9% INJ 10 ML SYR IV ×2 (04:45→17:37)
[2018-05-10] MEDS: traMADol 50 MG TAB PO ×3 (04:45→13:51)
[2018-05-10 05:04] LABS: HEMATOCRIT 31.3 % (36.0-47.0); HEMOGLOBIN 9.8 g/dl (12.0-15.5); MEAN CORPUSCULAR HGB CONC 31.3 g/dl (32.0-36.5); MEAN CORPUSCULAR VOLUME 95.7 fl (80.0-96.0); PLATELET COUNT, AUTOMATED 253 10^3/uL (150-450); RED BLOOD COUNT 3.27 10^6/uL (4.00-5.40); RED CELL DISTRIBUTION WIDTH 19.2 % (11.5-14.5); WHITE BLOOD COUNT 8.5 10^3/uL (4.0-10.0)
[2018-05-10 05:27] LABS: PROTHROMBIN TIME 16.4 SECONDS (12.1-14.4)
[2018-05-10 06:02] LABS: ALKALINE PHOSPHATASE 124 U/L (45-117); ALT/SGPT 19 U/L (12-78); ANION GAP 5 MEQ/L (8-16); AST/SGOT 23 U/L (7-37); BLOOD UREA NITROGEN 19 MG/DL (7-18); CALCIUM LEVEL 8.5 MG/DL (8.8-10.2); CARBON DIOXIDE LEVEL 31 MEQ/L (21-32); CHLORIDE LEVEL 100 MEQ/L (98-107); GLOMERULAR FILTRATION RATE 55.7 (>32); GLUCOSE, FASTING 138 MG/DL (70-100); POTASSIUM SERUM 4.2 MEQ/L (3.5-5.1); SODIUM LEVEL 136 MEQ/L (136-145)
[2018-05-10 06:03] LABS: ALBUMIN 2.8 GM/DL (3.2-5.2); ALBUMIN/GLOBULIN RATIO 0.97 (1.00-1.93); BILIRUBIN,TOTAL 0.3 MG/DL (0.2-1.0); TOTAL PROTEIN 5.7 GM/DL (6.4-8.2)
[2018-05-10] MEDS: PANTOPRAZOLE 40MG TAB (PROTONIX) PO (09:36)
[2018-05-10] MEDS: FUROSEMIDE 40 MG TAB PO (09:36)
[2018-05-10] MEDS: EZETIMIBE 10 MG TAB (ZETIA) PO (09:36)
[2018-05-10] MEDS: FERROUS SULFATE 325MG TAB PO (09:36)
[2018-05-10] MEDS: CLOPIDOGREL 75 MG TAB PO (09:36)
[2018-05-10] MEDS: CEFDINIR 300 MG CAP (OMNICEF) PO (09:36)
[2018-05-10] MEDS: ESCITALOPRAM OXALATE 10 MG TAB (LEXAPRO) PO (09:36)
[2018-05-10] MEDS: APIXABAN 5 MG TAB (ELIQUIS) PO (09:38)
[2018-05-10] MEDS: HumaLOG INSULIN (NovoLOG) PER UNIT SC ×3 (09:40→17:32)
[2018-05-10] MEDS: LEVEMIR (INSULIN DETEMIR) 1 UNITS/0.01ML SC (09:41)
[2018-05-10 12:18] LABS: BEDSIDE GLUCOSE 163 MG/DL (83-110)
[2018-05-10] MEDS: SENOKOT S TAB PO (12:20)
[2018-05-10] MEDS ORDERED: LORazepam 2 MG/ML VIAL (J2060) IV ×2 (14:45)
[2018-05-10 16:33] LABS: BEDSIDE GLUCOSE 48 MG/DL (83-110)
[2018-05-10 16:52] LABS: BEDSIDE GLUCOSE 61 MG/DL (83-110)
[2018-05-10] MEDS: PREVNAR 13 VACCINE SYRINGE (CPT CODE:90670) IM (17:38)
== END 2018-05-10 18:18 | DRG 38 ==
LOC: M PCU 05-08 21:05 → M ICU 05-06 16:21 → M ED 10:57 → M ICU 05-06 16:34 → M ED INP 14:18 → M MSPAV 15:54
PROVIDERS: Internal Medicine
PROC: 03CN0ZZ Extirpation of Matter from Left External Carotid Artery, Open Approach (ICD-10-PCS; principal; 2018-05-06 12:57)
PROC: 30233N1 Transfusion of Nonautologous Red Blood Cells into Peripheral Vein, Percutaneous Approach (ICD-10-PCS; 2018-05-06 15:02)
DX: I65.23 Occlusion and stenosis of bilateral carotid arteries (principal); D62 Acute posthemorrhagic anemia; N17.9 Acute kidney failure, unspecified; I50.22 Chronic systolic (congestive) heart failure; N39.0 Urinary tract infection, site not specified; R04.2 Hemoptysis; I25.10 Atherosclerotic heart disease of native coronary artery without angina pectoris; S82.402A Unspecified fracture of shaft of left fibula, initial encounter for closed fracture; I48.2 Chronic atrial fibrillation; J44.9 Chronic obstructive pulmonary disease, unspecified; E03.9 Hypothyroidism, unspecified; K21.9 Gastro-esophageal reflux disease without esophagitis; N18.3 Chronic kidney disease, stage 3 (moderate); E11.65 Type 2 diabetes mellitus with hyperglycemia; F32.9 Major depressive disorder, single episode, unspecified; Z86.73 Personal history of transient ischemic attack (TIA), and cerebral infarction without residual deficits; W18.30XA Fall on same level, unspecified, initial encounter; Y92.009 Unspecified place in unspecified non-institutional (private) residence as the place of occurrence of the external cause; Z79.4 Long term (current) use of insulin; Z79.899 Other long term (current) drug therapy; T85.838A Hemorrhage due to other internal prosthetic devices, implants and grafts, initial encounter; Z99.81 Dependence on supplemental oxygen; Z79.01 Long term (current) use of anticoagulants; I73.9 Peripheral vascular disease, unspecified; Z88.2 Allergy status to sulfonamides; Z88.8 Allergy status to other drugs, medicaments and biological substances; Z95.1 Presence of aortocoronary bypass graft; I70.1 Atherosclerosis of renal artery; R31.1 Benign essential microscopic hematuria; Z95.0 Presence of cardiac pacemaker; Z85.048 Personal history of other malignant neoplasm of rectum, rectosigmoid junction, and anus; Z86.711 Personal history of pulmonary embolism; Z96.651 Presence of right artificial knee joint; Z96.652 Presence of left artificial knee joint

== ENCOUNTER 2018-05-10 17:30 | Inpatient (IN) | payer MEDICARE ==
[~2018-05-10 17:30] MED LIST changes: -ALBUTEROL 90 MCG/ACT 8GM HFA INHALER INH; -BISACODYL 10 MG SUPP PR; -FLEET ENEMA PR; -MECLIZINE 25 MG TABLET PO; +NITROGLYCERIN 0.4 MG SUBL TABLET SL; -POTASSIUM CHLORIDE 10 MEQ SR TABLET PO
[2018-05-10] MEDS: HumaLOG INSULIN (NovoLOG) PER UNIT SC (17:30)
[2018-05-10] MEDS: HumuLIN (NovoLIN)70/30 INSULIN INJ PER UNIT SC (17:30)
[2018-05-10 19:31] LABS: BEDSIDE GLUCOSE 156 MG/DL (83-110)
[2018-05-10] MEDS: APIXABAN 5 MG TAB (ELIQUIS) PO (20:58)
[2018-05-10] MEDS: PRAVASTATIN 10 MG TAB PO (20:58)
[2018-05-10] MEDS: ACETAMINOPHEN TAB 650MG DOSE (2X325MG) PO (20:59)
[2018-05-10] MEDS ORDERED: PROPAFENONE 150 MG TAB PO (21:00)
[2018-05-10] MEDS: traMADol 50 MG TAB PO (22:16)
[2018-05-10 22:48] LABS: APPEARANCE, URINE TURBID (CLEAR); BACTERIA, URINE AUTO NEGATIVE (NEGATIVE); BILIRUBIN, URINE AUTO NEGATIVE (NEGATIVE); BLOOD, URINE BLOOD 3+ (NEGATIVE); COLOR, URINE RED (YELLOW); GLUCOSE, URINE (UA) AUTO 1+ mg/dL (NEGATIVE); KETONE, URINE AUTO NEGATIVE (NEGATIVE); LEUKOCYTE ESTERASE, URINE AUTO 3+ (NEGATIVE); NITRITE, URINE AUTO NEGATIVE (NEGATIVE); PROTEIN, URINE AUTO 2+ mg/dL (NEGATIVE); RBC, URINE AUTO TNTC /HPF (0-3); SPECIFIC GRAVITY URINE AUTO 1.009 (1.002-1.035); SQUAMOUS EPITHELIAL CELL UR AU 0 /HPF (0-6); UROBILINOGEN, URINE AUTO 0.2 mg/dL (0.0-2.0); WBC, URINE AUTO TNTC /HPF (0-3)
[2018-05-11] MEDS ORDERED: SODIUM CHLORIDE 0.9% INJ 10 ML SYR IV ×3 (02:15→06:00)
[2018-05-11] MEDS: LEVOTHYROXINE 50MCG TABLET (0.05MG) PO (05:53)
[2018-05-11] MEDS: SODIUM CHLORIDE 0.9% INJ 10 ML SYR IV ×2 (05:57→17:06)
[2018-05-11] MEDS: traMADol 50 MG TAB PO ×2 (05:58→18:13)
[2018-05-11 06:19] LABS: BASO % 0.4 % (0.0-1.0); EOS # 0.2 10^3/uL (0.0-0.50); EOS % 2.2 % (0.0-3.0); HEMATOCRIT 31.9 % (36.0-47.0); HEMOGLOBIN 10.2 g/dl (12.0-15.5); IMMATURE GRANULOCYTE % 0.9 % (0-3.0); LYMPH # 1.1 10^3/uL (1.5-4.5); LYMPH % 11.2 % (24.0-44.0); MEAN CORPUSCULAR HEMOGLOBIN 30.6 pg (27.0-33.0); MEAN CORPUSCULAR VOLUME 95.8 fl (80.0-96.0); MONO # 0.6 10^3/uL (0.0-0.8); MONO % 6.5 % (0.0-5.0); NEUTROPHILS # 7.4 10^3/uL (1.8-7.7); NEUTROPHILS % 78.8 % (36.0-66.0); PLATELET COUNT, AUTOMATED 272 10^3/uL (150-450); RED BLOOD COUNT 3.33 10^6/uL (4.00-5.40); RED CELL DISTRIBUTION WIDTH 18.4 % (11.5-14.5); WHITE BLOOD COUNT 9.4 10^3/uL (4.0-10.0)
[2018-05-11 06:58] LABS: ALBUMIN 2.6 GM/DL (3.2-5.2); ALBUMIN/GLOBULIN RATIO 0.84 (1.00-1.93); ALKALINE PHOSPHATASE 125 U/L (45-117); ALT/SGPT 16 U/L (12-78); ANION GAP 6 MEQ/L (8-16); AST/SGOT 21 U/L (7-37); BILIRUBIN,TOTAL 0.6 MG/DL (0.2-1.0); BLOOD UREA NITROGEN 22 MG/DL (7-18); CALCIUM LEVEL 8.1 MG/DL (8.8-10.2); CARBON DIOXIDE LEVEL 32 MEQ/L (21-32); CHLORIDE LEVEL 97 MEQ/L (98-107); CREATININE FOR GFR 1.18 MG/DL (0.55-1.30); GLUCOSE, FASTING 210 MG/DL (70-100); POTASSIUM SERUM 4.4 MEQ/L (3.5-5.1); SODIUM LEVEL 135 MEQ/L (136-145); TOTAL PROTEIN 5.7 GM/DL (6.4-8.2)
[2018-05-11] MEDS: HumuLIN (NovoLIN)70/30 INSULIN INJ PER UNIT SC ×2 (07:46→17:06)
[2018-05-11] MEDS: HumaLOG INSULIN (NovoLOG) PER UNIT SC ×3 (07:46→17:06)
[2018-05-11] MEDS: VITAMIN D 1,000 INTERNATIONAL UNITS TABLET PO (08:01)
[2018-05-11] MEDS: LISINOPRIL *2.5 MG* TAB PO (08:02)
[2018-05-11] MEDS: PANTOPRAZOLE 40MG TAB (PROTONIX) PO (08:02)
[2018-05-11] MEDS: EZETIMIBE 10 MG TAB (ZETIA) PO (08:02)
[2018-05-11] MEDS: FERROUS SULFATE 325MG TAB PO (08:02)
[2018-05-11] MEDS: ESCITALOPRAM OXALATE 10 MG TAB (LEXAPRO) PO (08:02)
[2018-05-11] MEDS: FUROSEMIDE 20 MG TAB PO (08:05)
[2018-05-11] MEDS: CLOPIDOGREL 75 MG TAB PO (08:05)
[2018-05-11] MEDS: SENOKOT S TAB PO ×2 (08:05→20:21)
[2018-05-11] MEDS: APIXABAN 5 MG TAB (ELIQUIS) PO ×2 (08:08→20:21)
[2018-05-11] MEDS ORDERED: FUROSEMIDE 40 MG TAB PO (09:00)
[2018-05-11] MEDS: CEFDINIR 300 MG CAP (OMNICEF) PO ×2 (09:19→20:21)
[2018-05-11] MEDS: ALBUTEROL 90 MCG/ACT 8GM HFA INHALER INH (09:53)
[2018-05-11 12:29] LABS: BEDSIDE GLUCOSE 92 MG/DL (83-110)
[2018-05-11] MEDS: LIDOCAINE 5% (LIDODERM) PATCH TD (15:02)
[2018-05-11 16:26] LABS: BEDSIDE GLUCOSE 251 MG/DL (83-110)
[2018-05-11 19:29] LABS: BEDSIDE GLUCOSE 84 MG/DL (83-110)
[2018-05-11] MEDS ORDERED: ONDANSETRON 4 MG ORAL DISINTEGRATING TAB (Q0162 PER 1MG) SL (20:00)
[2018-05-11] MEDS: **NOTE PATIENT COMMENT** MISC XX (20:16)
[2018-05-11] MEDS: CALCIUM CARBONATE 500 MG CHEW U/D PO (20:21)
[2018-05-11] MEDS: PRAVASTATIN 10 MG TAB PO (20:21)
[2018-05-11] MEDS: ACETAMINOPHEN TAB 650MG DOSE (2X325MG) PO (20:24)
[2018-05-12] MEDS: traMADol 50 MG TAB PO ×4 (00:17→21:49)
[2018-05-12] MEDS: SODIUM CHLORIDE 0.9% INJ 10 ML SYR IV ×2 (05:17→17:34)
[2018-05-12 05:39] LABS: HEMATOCRIT 29.4 % (36.0-47.0); HEMOGLOBIN 9.3 g/dl (12.0-15.5); MEAN CORPUSCULAR HEMOGLOBIN 30.1 pg (27.0-33.0); MEAN CORPUSCULAR HGB CONC 31.6 g/dl (32.0-36.5); MEAN CORPUSCULAR VOLUME 95.1 fl (80.0-96.0); PLATELET COUNT, AUTOMATED 286 10^3/uL (150-450); RED BLOOD COUNT 3.09 10^6/uL (4.00-5.40); RED CELL DISTRIBUTION WIDTH 18.1 % (11.5-14.5); WHITE BLOOD COUNT 11.3 10^3/uL (4.0-10.0)
[2018-05-12 05:47] LABS: ANION GAP 6 MEQ/L (8-16); BLOOD UREA NITROGEN 26 MG/DL (7-18); CALCIUM LEVEL 8.1 MG/DL (8.8-10.2); CARBON DIOXIDE LEVEL 31 MEQ/L (21-32); CHLORIDE LEVEL 97 MEQ/L (98-107); CREATININE FOR GFR 1.06 MG/DL (0.55-1.30); GLOMERULAR FILTRATION RATE 52.1 (>32); GLUCOSE, FASTING 92 MG/DL (70-100); MAGNESIUM LEVEL 1.9 MG/DL (1.8-2.4); POTASSIUM SERUM 3.8 MEQ/L (3.5-5.1); SODIUM LEVEL 134 MEQ/L (136-145)
[2018-05-12] MEDS: ACETAMINOPHEN TAB 650MG DOSE (2X325MG) PO (05:49)
[2018-05-12] MEDS: LEVOTHYROXINE 50MCG TABLET (0.05MG) PO (05:49)
[2018-05-12] MEDS: HumaLOG INSULIN (NovoLOG) PER UNIT SC ×3 (07:30→17:34)
[2018-05-12] MEDS: HumuLIN (NovoLIN)70/30 INSULIN INJ PER UNIT SC ×2 (07:30→17:34)
[2018-05-12] MEDS: ESCITALOPRAM OXALATE 10 MG TAB (LEXAPRO) PO (10:29)
[2018-05-12] MEDS: CEFDINIR 300 MG CAP (OMNICEF) PO ×2 (10:29→21:48)
[2018-05-12] MEDS: LISINOPRIL *2.5 MG* TAB PO (10:30)
[2018-05-12] MEDS: VITAMIN D 1,000 INTERNATIONAL UNITS TABLET PO (10:30)
[2018-05-12] MEDS: SENOKOT S TAB PO ×2 (10:30→21:49)
[2018-05-12] MEDS: APIXABAN 5 MG TAB (ELIQUIS) PO ×2 (10:30→21:48)
[2018-05-12] MEDS: CLOPIDOGREL 75 MG TAB PO (10:30)
[2018-05-12] MEDS: PANTOPRAZOLE 40MG TAB (PROTONIX) PO (10:30)
[2018-05-12] MEDS: FERROUS SULFATE 325MG TAB PO (10:31)
[2018-05-12] MEDS: FUROSEMIDE 20 MG TAB PO (10:31)
[2018-05-12] MEDS: LIDOCAINE 5% (LIDODERM) PATCH TD (10:31)
[2018-05-12] MEDS: EZETIMIBE 10 MG TAB (ZETIA) PO (10:31)
[2018-05-12 11:20] LABS: BEDSIDE GLUCOSE 244 MG/DL (83-110)
[2018-05-12 16:25] LABS: BEDSIDE GLUCOSE 160 MG/DL (83-110)
[2018-05-12 20:45] LABS: BEDSIDE GLUCOSE 73 MG/DL (83-110)
[2018-05-12] MEDS: **NOTE PATIENT COMMENT** MISC XX (21:00)
[2018-05-12] MEDS: PRAVASTATIN 10 MG TAB PO (21:48)
[2018-05-13] MEDS: LEVOTHYROXINE 50MCG TABLET (0.05MG) PO (05:11)
[2018-05-13] MEDS: SODIUM CHLORIDE 0.9% INJ 10 ML SYR IV ×2 (05:12→18:02)
[2018-05-13 05:32] LABS: HEMATOCRIT 29.5 % (36.0-47.0); HEMOGLOBIN 9.4 g/dl (12.0-15.5); MEAN CORPUSCULAR HEMOGLOBIN 30.4 pg (27.0-33.0); MEAN CORPUSCULAR HGB CONC 31.9 g/dl (32.0-36.5); MEAN CORPUSCULAR VOLUME 95.5 fl (80.0-96.0); PLATELET COUNT, AUTOMATED 298 10^3/uL (150-450); RED BLOOD COUNT 3.09 10^6/uL (4.00-5.40); RED CELL DISTRIBUTION WIDTH 17.7 % (11.5-14.5); WHITE BLOOD COUNT 9.3 10^3/uL (4.0-10.0)
[2018-05-13 06:25] LABS: ANION GAP 7 MEQ/L (8-16); BLOOD UREA NITROGEN 24 MG/DL (7-18); CALCIUM LEVEL 7.6 MG/DL (8.8-10.2); CARBON DIOXIDE LEVEL 30 MEQ/L (21-32); CHLORIDE LEVEL 98 MEQ/L (98-107); CREATININE FOR GFR 1.01 MG/DL (0.55-1.30); GLOMERULAR FILTRATION RATE 55.1 (>32); GLUCOSE, FASTING 91 MG/DL (70-100); POTASSIUM SERUM 4.2 MEQ/L (3.5-5.1); SODIUM LEVEL 135 MEQ/L (136-145)
[2018-05-13] MEDS: HumaLOG INSULIN (NovoLOG) PER UNIT SC ×3 (07:30→18:00)
[2018-05-13] MEDS: SENOKOT S TAB PO ×2 (10:20→20:23)
[2018-05-13] MEDS: APIXABAN 5 MG TAB (ELIQUIS) PO ×2 (10:20→20:23)
[2018-05-13] MEDS: CLOPIDOGREL 75 MG TAB PO (10:21)
[2018-05-13] MEDS: VITAMIN D 1,000 INTERNATIONAL UNITS TABLET PO (10:21)
[2018-05-13] MEDS: CEFDINIR 300 MG CAP (OMNICEF) PO ×2 (10:21→20:22)
[2018-05-13] MEDS: PANTOPRAZOLE 40MG TAB (PROTONIX) PO (10:21)
[2018-05-13] MEDS: FERROUS SULFATE 325MG TAB PO (10:21)
[2018-05-13] MEDS: ESCITALOPRAM OXALATE 10 MG TAB (LEXAPRO) PO (10:22)
[2018-05-13] MEDS: FUROSEMIDE 20 MG TAB PO (10:22)
[2018-05-13] MEDS: LISINOPRIL *2.5 MG* TAB PO (10:23)
[2018-05-13] MEDS: LIDOCAINE 5% (LIDODERM) PATCH TD (10:24)
[2018-05-13] MEDS: traMADol 50 MG TAB PO ×2 (10:25→20:23)
[2018-05-13] MEDS: EZETIMIBE 10 MG TAB (ZETIA) PO (10:28)
[2018-05-13 12:08] LABS: BEDSIDE GLUCOSE 281 MG/DL (83-110)
[2018-05-13 16:49] LABS: BEDSIDE GLUCOSE 151 MG/DL (83-110)
[2018-05-13 20:03] LABS: BEDSIDE GLUCOSE 82 MG/DL (83-110)
[2018-05-13] MEDS: PRAVASTATIN 10 MG TAB PO (20:23)
[2018-05-13] MEDS: **NOTE PATIENT COMMENT** MISC XX (20:24)
[2018-05-14 05:36] LABS: BEDSIDE GLUCOSE 178 MG/DL (83-110)
[2018-05-14] MEDS: SODIUM CHLORIDE 0.9% INJ 10 ML SYR IV (05:43)
[2018-05-14] MEDS: LEVOTHYROXINE 50MCG TABLET (0.05MG) PO (05:43)
[2018-05-14 06:13] LABS: HEMATOCRIT 27.9 % (36.0-47.0); HEMOGLOBIN 8.8 g/dl (12.0-15.5); MEAN CORPUSCULAR HEMOGLOBIN 30.3 pg (27.0-33.0); MEAN CORPUSCULAR HGB CONC 31.5 g/dl (32.0-36.5); MEAN CORPUSCULAR VOLUME 96.2 fl (80.0-96.0); PLATELET COUNT, AUTOMATED 296 10^3/uL (150-450); RED CELL DISTRIBUTION WIDTH 17.5 % (11.5-14.5); WHITE BLOOD COUNT 8.3 10^3/uL (4.0-10.0)
[2018-05-14 06:32] LABS: ANION GAP 6 MEQ/L (8-16); BLOOD UREA NITROGEN 22 MG/DL (7-18); CALCIUM LEVEL 7.9 MG/DL (8.8-10.2); CARBON DIOXIDE LEVEL 30 MEQ/L (21-32); CHLORIDE LEVEL 99 MEQ/L (98-107); CREATININE FOR GFR 0.99 MG/DL (0.55-1.30); GLOMERULAR FILTRATION RATE 56.4 (>32); GLUCOSE, FASTING 179 MG/DL (70-100); POTASSIUM SERUM 4.1 MEQ/L (3.5-5.1); SODIUM LEVEL 135 MEQ/L (136-145)
[2018-05-14] MEDS: LIDOCAINE 5% (LIDODERM) PATCH TD (08:50)
[2018-05-14] MEDS: EZETIMIBE 10 MG TAB (ZETIA) PO (08:51)
[2018-05-14] MEDS: FUROSEMIDE 20 MG TAB PO (08:51)
[2018-05-14] MEDS: FERROUS SULFATE 325MG TAB PO (08:51)
[2018-05-14] MEDS: HumaLOG INSULIN (NovoLOG) PER UNIT SC (08:51)
[2018-05-14] MEDS: VITAMIN D 1,000 INTERNATIONAL UNITS TABLET PO (08:51)
[2018-05-14] MEDS: LISINOPRIL *2.5 MG* TAB PO (08:51)
[2018-05-14] MEDS: CLOPIDOGREL 75 MG TAB PO (08:51)
[2018-05-14] MEDS: CEFDINIR 300 MG CAP (OMNICEF) PO (08:51)
[2018-05-14] MEDS: PANTOPRAZOLE 40MG TAB (PROTONIX) PO (08:52)
[2018-05-14] MEDS: SENOKOT S TAB PO (08:52)
[2018-05-14] MEDS: ESCITALOPRAM OXALATE 10 MG TAB (LEXAPRO) PO (08:52)
[2018-05-14] MEDS: APIXABAN 5 MG TAB (ELIQUIS) PO (08:52)
[2018-05-14] MEDS ORDERED: NYSTATIN 100,000 UNITS/GM TOPICAL PWD 15 GM TOP (09:00)
[2018-05-14 12:07] LABS: BEDSIDE GLUCOSE 192 MG/DL (83-110)
== END 2018-05-14 11:45 | disposition short-term general hospital (02) | DRG 57 ==
LOC: M PM&R 17:30
PROVIDERS: Physical Medicine & Rehabilitation
DX: I69.321 Dysphasia following cerebral infarction (principal); I50.32 Chronic diastolic (congestive) heart failure; D62 Acute posthemorrhagic anemia; R04.2 Hemoptysis; I69.322 Dysarthria following cerebral infarction; Z95.0 Presence of cardiac pacemaker; I48.91 Unspecified atrial fibrillation; J44.9 Chronic obstructive pulmonary disease, unspecified; E03.9 Hypothyroidism, unspecified; E11.9 Type 2 diabetes mellitus without complications; I25.10 Atherosclerotic heart disease of native coronary artery without angina pectoris; Z66 Do not resuscitate; I36.0 Nonrheumatic tricuspid (valve) stenosis; Z86.711 Personal history of pulmonary embolism; Z85.048 Personal history of other malignant neoplasm of rectum, rectosigmoid junction, and anus; Z85.72 Personal history of non-Hodgkin lymphomas; Z79.899 Other long term (current) drug therapy; K21.9 Gastro-esophageal reflux disease without esophagitis; S82.402D Unspecified fracture of shaft of left fibula, subsequent encounter for closed fracture with routine healing; W18.30XD Fall on same level, unspecified, subsequent encounter; Y92.009 Unspecified place in unspecified non-institutional (private) residence as the place of occurrence of the external cause; Z88.2 Allergy status to sulfonamides; Z88.8 Allergy status to other drugs, medicaments and biological substances; R31.9 Hematuria, unspecified; N18.3 Chronic kidney disease, stage 3 (moderate); F32.9 Major depressive disorder, single episode, unspecified

== ENCOUNTER 2018-05-14 11:38 | Inpatient (IN) | payer MEDICARE ==
[2018-05-14] VITALS (8 sets, daily range): BP systolic 100–134; BP diastolic 52–69; O2SAT 95–97
[~2018-05-14] VITALS: Ht 157.5 cm; Wt 75.5 kg
[~2018-05-14 11:38] MED LIST changes: +/INSU7030 SC; +/PRAV20TA PO; +/WARF5TA PO; +ACET1TAB55 PO; +ADV100INH INH; +ADV250INH INH; +ALBU17IN INH; +ALBU17IN2 INH; +ALBU83IN INH; +ALPR0.5T3 PO; +AMOX500C PO; +AMOX875T PO; +ASCO10003 PO; +ASPI1TAB PO; +ASPI325T5 PO; +ASPI81TA85 PO; +ASPI81TAEC PO; +Acetaminophen Tab PO; +BACITAB PO; +BIOT5TAB3 PO; +BIOTCAP PO; +BISA5TAB29 PO; +CARDIA XT PO; +CART120C PO; +CARV3.12 PO; +CEFD300CAP PO; +CEPA0.05 MT; +CIPR-249 PO; +CIPR250T2 PO; +CLOP75TA2 PO; +COLA100C5 PO; +COZA1TAB PO; +CYMB1CAP PO; -DEXTROSE 50% 50 ML SYRINGE IV; +DIFL150T PO; +DIFL200T PO; +DILT PO; +DILT120C82 PO; +DILT240C77 PO; +DOCU100C16 PO; +DOCU10ELUD PO; +DULC5TAB PO; +DUONSOL INH; +Docusate Sod/Senna PO; +ELIQ2.5T PO; +ELIQ5TAB PO; +ESCI10TA2 PO; +FERR150C PO; +FERR1TAB8 PO; +FERR325T3 PO; +FLOM0.4C39 PO; +FLUC200T2 PO; +FURO20TA2 PO; +FURO40TA2 PO; +GLUC10TA3 PO; +GLUC4CHW19 PO; -GLUCAGON FOR INJ 1 MG VIAL (J1610) SC; -GLUCOSE 4 GM CHEW TABLET PO; +HEPA100SY INJ; +HEPA1INJ4 IV; +HUMA100I3 SC; +HUMU70IN SC; +HYDR-3713 PO; +INSUDET SC; +INSUH10VL SC; +INSUHUMDS SC; +IPRA0.00 INH; +IPRA0.00 NEB; +IPRA2IN INH; +IRON65TA PO; +K-TA10TA2 PO; +KEFL500C17 PO; +KLOR10TA21 PO; +KLOR1TAB69 PO; +KLOR1TAB77 PO; +KLOR20TA PO; +KLOR20TA42 PO; +LASI20TA3 PO; +LASI40TA PO; +LASI40TA9 PO; +LASI80TA PO; +LEVO25TA4 PO; +LEVO50TA5 PO; +LEXA1TAB PO; +LISI-538 PO; +LISI2.5T PO; +LISI2.5T5 PO; +LOPR1TAB6 PO; +LOSA25TA14 PO; +MACR100C43 PO; +MECL-68 PO; +MELA5TAB17 PO; +METO-346 PO; +METO12TA PO; +MILK120011 PO; +MIRA3350 PO; +MOM30SS PO; +NEXI40CA PO; +NITR0.4S14 SL; +NITR4TASL SL; -NITROGLYCERIN 0.4 MG SUBL TABLET SL; +NORCOTAB PO; +NOVO1INJ4 SC; +NOVO70VL SC; +NOVOLIN 70/30 SC; +NYAM10003 TOP; +NYST1POW9 TOP; +NYSTPOW TOP; +OCEA0.654; +ONDA4TAB6 PO; +OXYC1TAB23 PO; +OXYGEN INH; +PANT20TA2 PO; +PANT40TA2 PO; +PANT40TA3 PO; +PATIENT COMMENTS; +PENI IV; +PENI250T57 PO; +PERC5TAB12 PO; +PERCOCET PO; +PHEN-500 PO; +POLYBTL PO; +POTA10TA16 PO; +POTA20TA4 PO; +PRAV10TA3 PO; +PRAV10TA4 PO; +PRAV20TA2 PO; +PRAV40TA2 PO; +PRED10PA PO; +PRED10TA PO; +PROP225C13 PO; +PROP225T PO; +PROP300T PO; +PROT20TA11 PO; +RANI300C PO; +REFR0.1D OU; +SALI0.9I2 IV; +SENN8.6T9 PO; +SENO8.6T5 PO; +SERT-138 PO; +SIMV20TA2 PO; +SITA50TAB PO; +SUCR1TA PO; +SUCR1TAB56 PO; +SYNT25TA PO; +TRAMADOL PO; +TYLE325T5 PO; +TYLE500T78 PO; +TYLE650T25 PO; +VANC1VLAD INJ; +VENTAER INH; +VICODEN PO; +VIT D PO; +VITA-112 PO; +VITA-122 PO; +VITA100066 PO; +VITA500T PO; +VITAD1000T PO; +ZANTTAB PO; +ZEST1TAB4 PO; +ZETI10TA21 PO; +ZETI10TA30 PO; +ZOFR4TAB14 PO; +ZOFR4TAB16 PO; +[UNRECOGNIZED DRUG - CODE] IV; +[UNRECOGNIZED DRUG - CODE] PO; +[UNRECOGNIZED DRUG - OTHER] PO; +mycostatin TOP
[2018-05-14] MEDS ORDERED: ALBUTEROL 90 MCG/ACT 8GM HFA INHALER INH PRN (12:15)
[2018-05-14] MEDS ORDERED: ISOVUE-370 76% 100ML VIAL (Q9967) As Ordered ONE (12:37)
[2018-05-14 14:43] LABS: CPK CREATINE PHOSPHOKINASE 55 U/L (26-192); MB/CK RELATIVE INDEX 2.73 (< OR =4); TROPONIN I < 0.02 NG/ML (< 0.10)
--- NOTE | 2018-05-14 16:56 | HPE ---
DATE OF ADMISSION: 05/14/2018 UROLOGIST: Dr. Cisneros VASCULAR SURGERY: Dr. Elizondo PRIMARY CARE PROVIDER: Dr. Chris Arreola STEWARD/STEWARDESS THIRD: Dr. Hernández ORTHOPEDIC SURGEON: Dr. Nicanor Maravilla CHIEF COMPLAINT: Right upper extremity weakness as well as right-sided facial pain as well as slurred speech. HISTORY OF PRESENT ILLNESS: This is an 88-year-old female patient with underlying medical history of multiple strokes, moderate to severe bilateral carotid artery stenosis. Recently on May 06 patient had a right-sided carotid endarterectomy by Dr. Elizondo. Patient was later transferred to acute rehabilitation for further care. Patient previously has refused carotid endarterectomy. Has history of chronic systolic congestive heart failure (CHF), atrial fibrillation, on Eliquis, chronic obstructive pulmonary disease (COPD), on 2 liters oxygen, hypertension, cerebrovascular disease, peripheral artery disease, hypothyroidism. Also history of pulmonary embolism (PE), type 2 diabetes, depression, chronic kidney disease (CKD), gastroesophageal reflux disease (GERD), with also fall with left fibular fracture. Patient was in acute rehabilitation, seen earlier in the morning of at around 8:30 a.m. patient reported that overnight she woke up with right upper extremity weakness. Patient was also noted to have slurred speech. Subsequently, CT head stat was ordered, and patient was immediately transferred to progressive care unit (PCU). Neurology was reconsulted. Patient denies any chest pain, pressure, or discomfort but reported that when she had stroke previously she experienced similar symptoms. Family is at the bedside. ALLERGIES: PENTAZOCINE, PROMETHAZINE, and SULFA DRUGS. PAST MEDICAL HISTORY: 1. Coronary artery disease with coronary artery bypass graft (CABG). 2. Chronic systolic CHF. 3. Atrial fibrillation, on Eliquis. 4. Oxygen dependent, 2 liters at home with COPD. 5. Hypertension. 6. History of multiple cerebrovascular accidents (CVAs). 7. Peripheral arterial disease. 8. Bilateral carotid artery stenosis 9. Hypothyroidism. PAST SURGICAL HISTORY: 1. CABG. 2. Recent right-sided carotid artery endarterectomy. FAMILY HISTORY: Noncontributory. SOCIAL HISTORY: Denies smoking, alcohol use, or illicit drug use. REVIEW OF SYSTEMS: Slurred speech and right upper extremity weakness. Right- sided facial pain and numbness. HOME MEDICATIONS: - acetaminophen 650 mg every 4 hours as needed - Ventolin inhaler every 4 hours as needed - Eliquis 5 mg by mouth twice a day - cefdinir 300 mg by mouth twice a day for 2 more days - vitamin D 1000 units by mouth daily - Plavix 75 mg by mouth daily - diltiazem 240 mg by mouth daily - senna plus one tablet by mouth twice a day - Lexapro 10 mg by mouth daily - Zetia 10 mg by mouth daily - ferrous sulfate 650 mg by mouth daily - Lasix 40 mg by mouth daily - insulin 70/30, 14 units subcutaneous twice a day - Humalog AC subcutaneous - Synthroid 50 mcg by mouth daily - lisinopril 2.5 mg by mouth daily - sublingual nitroglycerine 0.4 mg as needed - nystatin twice a day topical - Protonix 40 mg by mouth daily - MiraLax by mouth daily as needed - pravastatin 10 mg by mouth at bedtime - propafenone 225 mg by mouth twice a day PHYSICAL EXAMINATION: VITAL SIGNS: Temperature 97.8, pulse 69, respirations 18, blood pressure 110/58, pulse oximetry 100% on room air. GENERAL: Patient alert, comfortable in no acute distress. HEENT: Normocephalic, atraumatic. PULMONARY: Bilaterally clear. CARDIAC: Regular, S1, S2. ABDOMEN: Soft and nontender. Positive bowel sounds. EXTREMITIES: No edema, bilateral lower extremities. Mild bruising. Patient's right upper extremity seems to be slightly weaker than the left. Left lower extremity seems to be slightly weaker than the right. Patient does have a left fibular fracture. Slurred speech. Other cranial nerves II-XII grossly intact. LABORATORY DATA: WBC 8.3, hemoglobin and hematocrit 8.8/27.9, platelets 296. Chemistry: Sodium 135, potassium 4.1, chloride 99, bicarbonate 30, BUN 22, creatinine 0.99. Cardiac enzymes negative times two. ASSESSMENT AND PLAN: This is an 88-year-old female with underlying medical history of multiple strokes, moderate to severe bilateral carotid artery disease. Has a history of refusing carotid endarterectomy. Status post recent right-sided carotid endarterectomy. Also with chronic systolic congestive heart failure (CHF), atrial fibrillation, on Eliquis, chronic obstructive pulmonary disease (COPD), on 2 liters oxygen, hypertension, cerebrovascular accident (CVA), peripheral vascular disease, hypothyroidism, history of pulmonary embolism (PE). Was in acute rehabilitation after carotid endarterectomy. Developed acute slurred speech as well as right-sided weakness. 1. Slurred speech and right-sided weakness, possibly secondary to transient ischemic attack (TIA). CT head has been done. Will repeat CT head tomorrow. CT angiogram of the head and neck has been ordered. Consulted neurology. Patient already on Plavix and Eliquis. Monitor blood pressure. Continue Zetia. Continue statin. Further recommendations as per neurology and physical therapy (PT)/occupational therapy (OT). Speech and swallow has been ordered. Repeat CT scan tomorrow. 2. Acute blood loss anemia in the setting of carotid surgery as well as hematuria. Transfusion as needed. Will monitor. 3. Right forearm hematoma. Ultrasound appreciated during the last admission. Currently resolving. 4. History of urinary tract infection (UTI). Will complete course of cefdinir. 5. Hematuria. CT scan shows stent to be in good position. Monitor urine. Followup urology as outpatient. Patient will need stent to be changed in May. 6. Coronary artery disease with coronary artery bypass graft (CABG). Outpatient followup with cardiology. Cardiology was consulted prior to carotid artery endarterectomy, on Plavix and statin. Patient on Eliquis. Monitor blood pressure. 7. Chronic systolic heart failure. Oxygen supplementation. Monitor fluid status. Lasix on hold given acute mental status change. Will restart at a later time. 8. Atrial fibrillation. Continue diltiazem and Eliquis. Monitor on telemetry. 9. COPD with chronic hypoxia. Oxygen supplementation. Currently not having any wheeze. Continue to monitor. 10. History of PE. Continue Eliquis. 11. History of CVA. Monitor as above. Neurology consulted. 12. Hypothyroidism. Continue levothyroxine. 13. Type 2 diabetes. Basal bolus insulin. Monitor fingersticks. 14. Depression. Continue current medication. 15. Chronic kidney disease (CKD), stage III. Monitor BUN and creatinine. 16. Gastroesophageal reflux disease (GERD). Continue proton pump inhibitor (PPI). 17. Left fibular fracture. Cam boot. Orthopedics recommended 50% weightbearing Continue physical therapy (PT)/occupational therapy (OT). 18. Deep vein thrombosis (DVT) prophylaxis. Patient on Eliquis. DISPOSITION: Pending further workup. Patient had another suspected CVA versus TIA. Will followup neurology recommendations. MTDD
[2018-05-14] MEDS: ACETAMINOPHEN TAB 650MG DOSE (2X325MG) PO PRN (18:47)
[2018-05-14] MEDS: SENOKOT S TAB PO SCH (20:44)
[2018-05-14] MEDS: CEFDINIR 300 MG CAP (OMNICEF) PO SCH (20:44)
[2018-05-14] MEDS: APIXABAN 5 MG TAB (ELIQUIS) PO SCH (20:44)
[2018-05-14] MEDS: NYSTATIN 100,000 UNITS/GM TOPICAL PWD 15 GM TOP SCH (20:45)
[2018-05-14] MEDS: PRAVASTATIN 10 MG TAB PO SCH (20:45)
[2018-05-14] MEDS: HumuLIN (NovoLIN)70/30 INSULIN INJ PER UNIT SC SCH (20:46)
[2018-05-14] MEDS: SODIUM CHLORIDE 0.9% INJ 10 ML SYR IV PRN (22:00)
[2018-05-14 22:54] LABS: CPK CREATINE PHOSPHOKINASE 49 U/L (26-192); MB/CK RELATIVE INDEX 2.86 (< OR =4); TROPONIN I < 0.02 NG/ML (< 0.10)
[2018-05-15] VITALS (13 sets, daily range): BP systolic 98–124; BP diastolic 55–67; O2SAT 96–99
[2018-05-15] MEDS: SODIUM CHLORIDE 0.9% INJ 10 ML SYR IV PRN (03:50)
[2018-05-15 04:11] LABS: HEMATOCRIT 27.6 % (36.0-47.0); HEMOGLOBIN 8.8 g/dl (12.0-15.5); MEAN CORPUSCULAR HEMOGLOBIN 30.8 pg (27.0-33.0); MEAN CORPUSCULAR HGB CONC 31.9 g/dl (32.0-36.5); MEAN CORPUSCULAR VOLUME 96.5 fl (80.0-96.0); PLATELET COUNT, AUTOMATED 297 10^3/uL (150-450); RED BLOOD COUNT 2.86 10^6/uL (4.00-5.40); WHITE BLOOD COUNT 6.6 10^3/uL (4.0-10.0)
[2018-05-15 04:40] LABS: ALBUMIN 2.5 GM/DL (3.2-5.2); BILIRUBIN,TOTAL 0.3 MG/DL (0.2-1.0); CALCIUM LEVEL 7.8 MG/DL (8.8-10.2); CREATININE FOR GFR 0.98 MG/DL (0.55-1.30); POTASSIUM SERUM 3.7 MEQ/L (3.5-5.1); TOTAL PROTEIN 5.3 GM/DL (6.4-8.2)
[2018-05-15 04:41] LABS: CPK CREATINE PHOSPHOKINASE 46 U/L (26-192); MB/CK RELATIVE INDEX 2.83 (< OR =4); TROPONIN I < 0.02 NG/ML (< 0.10)
[2018-05-15] MEDS: LEVOTHYROXINE 50MCG TABLET (0.05MG) PO SCH (05:26)
[2018-05-15] MEDS: SODIUM CHLORIDE 0.9% INJ 10 ML SYR IV SCH ×2 (05:27→17:23)
[2018-05-15] MEDS: CLOPIDOGREL 75 MG TAB PO SCH (08:36)
[2018-05-15] MEDS: SENOKOT S TAB PO SCH ×2 (08:36→20:52)
[2018-05-15] MEDS: HumuLIN (NovoLIN)70/30 INSULIN INJ PER UNIT SC SCH ×2 (08:36→20:53)
[2018-05-15] MEDS: APIXABAN 5 MG TAB (ELIQUIS) PO SCH ×2 (08:36→20:52)
[2018-05-15] MEDS: ESCITALOPRAM OXALATE 10 MG TAB (LEXAPRO) PO SCH (08:36)
[2018-05-15] MEDS: NYSTATIN 100,000 UNITS/GM TOPICAL PWD 15 GM TOP SCH ×2 (08:36→20:53)
[2018-05-15] MEDS: CEFDINIR 300 MG CAP (OMNICEF) PO SCH ×2 (08:36→20:52)
[2018-05-15] MEDS: VITAMIN D 1,000 INTERNATIONAL UNITS TABLET PO SCH (08:37)
[2018-05-15] MEDS: MIRALAX *UNIT DOSE* 17GM PACKET PO SCH (08:37)
[2018-05-15] MEDS: FERROUS SULFATE 325MG TAB PO SCH (08:37)
[2018-05-15] MEDS: PANTOPRAZOLE 40MG TAB (PROTONIX) PO SCH (08:37)
[2018-05-15] MEDS: LISINOPRIL *2.5 MG* TAB PO SCH (08:37)
[2018-05-15] MEDS: EZETIMIBE 10 MG TAB (ZETIA) PO SCH (08:37)
--- NOTE | 2018-05-15 08:55 | CR.PDOC ---
General Date of Consultation: May 15, 2018 Referring Provider: SHARRON LAL MD Attending Physician: SHARRON LAL MD Consultation REASON FOR CONSULTATION/CHIEF COMPLAINT: hematuria, UTI HISTORY OF PRESENT ILLNESS: 88 very ill vasculopath with chronic left side ureteral stent for (according to prior notes) possible ureteral stricture or atherosclerosis and retroperitoneal fibrosis, who was admitted for neurologic reasons and I was asked to evaluate due to presence of spots of blood. She admits to seeing blood off/on periodically with stent. She has had several UTI and was recently treated for one. She missed f/u with Dr. Loza earlier this month to plan stent exchange, and states she has f/u scheduled for same in May. No pain now. She admits to some increases in urgency to void, with associated unproductive straining, but emptying bladder fine. No fever. Urine for culture has been sent this admit through I/O cath. ALLERGIES: Please see below. HOME MEDICATIONS: Please see below. PAST MEDICAL HISTORY: 1. Extensive. Please see admit H&P PAST SURGICAL HISTORY: 1. : chronic left stent with multiple exchanges FAMILY HISTORY: Non Contributory SOCIAL HISTORY: Denies smoking REVIEW OF SYSTEMS: CONSTITUTIONAL: Negative for 10 system review from standpoint other than as listed in HPI. Admits to back pain she says is "her kidneys" but states it hurts bilaterally and is worse with movement and into her neck...seems MSK in nature. PHYSICAL EXAMINATION: VITAL SIGNS: Please see below. GENERAL APPEARANCE: Sickly, bruises over entire arms, obese, weak HEENT: NC/AT RESPIRATORY: Regular, no cough CARDIOVASCULAR: Regular ABDOMEN: Soft EXTREMITIES: Bruised. left arm swollen NEUROLOGICAL: Deferred PSYCHIATRIC: No anxiety or distress LABORATORY DATA: Please see below. IMAGING: Review of recent CT shows large bore stent in appropriate position in atrophic left kidney, no stones noted. Mild chronic dilation of upper tract. No stones on right. no hydro on right. Bladder empty. ASSESSMENT: 1. Chronic left stent, due for change soon, plan in action by Dr. Loza already 2. Recurrent UTI, with culture currently pending 3. Hematuria, mild and associated with #1 and #2 above, not urgent PLAN: Follow her urine C+S and treat appropriately Make sure she has f/u with Dr. Loza for planning of stent exchange No need for acute/urgent care this admit. Vital Signs/I&O Vital Signs Date Time Temp Pulse Resp B/P (MAP) Pulse Ox O2 Delivery O2 Flow Rate FiO2 05/15/18 08:37 112/55 05/15/18 08:00 97.5 72 17 100 Room Air I&O- Last 24 Hours up to 6 AM 05/15/18 06:00 Intake Total 0 ml Output Total 500 ml Balance -500 ml Laboratory Data Labs 24H Laboratory Tests 2 05/14/18 13:49: Total Creatine Kinase 55, Creatine Kinase MB 2.0, Creatine Kinase MB Relative Index 2.73, Troponin I < 0.02 05/14/18 20:02: Bedside Glucose (Misc Panel) 260H 05/14/18 22:02: Total Creatine Kinase 49, Creatine Kinase MB 1.0, Creatine Kinase MB Relative Index 2.86, Troponin I < 0.02 05/15/18 03:55: Total Creatine Kinase 46, Creatine Kinase MB 1.0, Creatine Kinase MB Relative Index 2.83, Troponin I < 0.02, Nucleated Red Blood Cells % (auto) 0.0, Anion Gap 4L, Glomerular Filtration Rate 57.0, Blood Urea Nitrogen 20H, Creatinine 0.98, Sodium Level 138, Potassium Level 3.7, Chloride Level 102, Carbon Dioxide Level 32, Calcium Level 7.8L, Aspartate Amino Transf (AST/SGOT) 18, Alanine Aminotransferase (ALT/SGPT) 12, Alkaline Phosphatase 101, Total Bilirubin 0.3, Total Protein 5.3L, Albumin 2.5L, Albumin/Globulin Ratio 0.89L 05/15/18 07:28: CBC/BMP Laboratory Tests 05/15/18 03:55 Red Blood Count 2.86 L, Mean Corpuscular Volume 96.5 H, Mean Corpuscular Hemoglobin 30.8, Mean Corpuscular Hemoglobin Concent 31.9 L, Red Cell Distribution Width 17.6 H, Calcium Level 7.8 L, Aspartate Amino Transf (AST/SGOT) 18, Alanine Aminotransferase (ALT/SGPT) 12, Alkaline Phosphatase 101, Total Bilirubin 0.3, Total Protein 5.3 L, Albumin 2.5 L Allergies Coded Allergies: Pentazocine (Verified Adverse Reaction, Intermediate, FAINT FEELING, CONFUSION, 02/18/18) Promethazine (Verified Adverse Reaction, Intermediate, CONFUSION, 11/23/17) Sulfa Drugs (Verified Adverse Reaction, Intermediate, CONFUSION, 11/23/17) Home Medications Scheduled (Propafenone HCl ER) 225 Mg Cap, 225 MG PO BID, (Reported) Apixaban Base (Eliquis) 5 Mg Tab, 5 MG PO BID, (Reported) Cefdinir (Cefdinir) 300 Mg Cap, 300 MG PO BID, #14 Cholecalciferol (Vitamin D-1000) 1,000 Unit Tab, 1,000 UNIT PO DAILY, (Reported) Clopidogrel Bisulfate (Clopidogrel) 75 Mg Tab, 75 MG PO DAILY, #30 Diltiazem Hcl (Diltiazem HCl ER) 240 Mg Cap, 240 MG PO DAILY, (Reported) Docusate Sod/Senna (Docusate Sodium & Senna S 8.6-50 mg) 1 Tab Tab, 1 TAB PO BID, (Reported) Escitalopram Oxalate (Escitalopram Oxalate) 10 Mg Tab, 10 MG PO DAILY, (Reported) Ezetimibe (Zetia) 10 Mg Tab, 10 MG PO DAILY, (Reported) Ferrous Sulfate (Ferrous Sulfate) 325 Mg Tab, 650 MG PO DAILY, (Reported) Furosemide (Furosemide) 40 Mg Tab, 40 MG PO DAILY, #30 Insulin Human Isophan/Regular (Humulin 70/30 (70-30) 100 Unit/ml) 1 Inj Inj, 14 UNITS SC BID, #1 Insulin Human Lispro (Humalog) 1 Units/0.01 Ml Inj, 1 DOSE SC ASDIRECTED, (Reported) PER SLIDING SCALE Levothyroxine Sodium (Synthroid) 50 Mcg Tab, 50 MCG PO DAILY, (Reported) Lisinopril (Lisinopril) 2.5 Mg Tab, 2.5 MG PO DAILY, (Reported) Nystatin (Nystatin Powder) 100,000 Unit/Gm Pow, 1 DOSE TOP BID, (Reported) APPLY TO AFFECTED AREA UNDER BREASTS Pantoprazole Sodium (Pantoprazole Sodium) 20 Mg Tab, 40 MG PO DAILY, (Reported) Pravastatin Sodium (Pravastatin Sodium) 10 Mg Tab, 10 MG PO QHS, (Reported) Scheduled PRN Acetaminophen (Acetaminophen) 325 Mg Tab, 650 MG PO Q4H PRN for PAIN / FEVER, (Reported) Albuterol Sulfate (Ventolin Hfa) 108 Mcg/Act Aer, 2 PUFF INH Q4H PRN for SOB/WHEEZING, (Reported) Nitroglycerin (Nitroglycerin) 0.4 Mg Sub, 0.4 MG SL NITRO PRN for CHEST PAIN, (Reported) Polyethylene Glycol (Miralax) 1 Pow Pow, 1 DOSE PO DAILY PRN for CONSTIPATION, (Reported) dilute in 8 ounces of water or juice DEB ESQUEDA MD May 15, 2018 08:55
[2018-05-15] MEDS: FUROSEMIDE 40 MG TAB PO SCH (09:00)
--- NOTE | 2018-05-15 10:08 | REP ---
Clinical: Acute cerebrovascular accident. Comparison: 05/14/2018 . Findings: Atrophy with periventricular leukomalacia and microvascular ischemic changes are appreciated. The ventricles and sulci are symmetric. Hubbard-white differentiation is maintained. There is no evidence for acute intracranial hemorrhage, mass/mass effect, pathology or infarction. No extra-axial fluid collection. Calvarium is intact. Paranasal sinuses and mastoid air cells are clear. Impression: Age related atrophy and microvascular ischemic changes. No acute intracranial hemorrhage, infarction, or mass/mass effect. Electronically Signed by Puneet Sommers MD 05/15/2018 10:00 A
[2018-05-15] MEDS: ACETAMINOPHEN TAB 650MG DOSE (2X325MG) PO PRN ×2 (10:38→17:22)
--- NOTE | 2018-05-15 13:40 | CR ---
DATE OF CONSULTATION: 05/15/2018 REFERRING PROVIDER: Gwen Easton MD REASON FOR CONSULTATION: New onset of right upper extremity weakness and transient slurred speech. The patient is a 88-year-old female with past history of multiple ischemic strokes, known bilateral carotid artery stenosis, status post carotid endarterectomy recently under the care of Dr. Elizondo involving the right carotid artery. The patient was in rehab and experienced a 20-minute episode of right arm weakness with slurring of her speech. The patient states the symptoms resolved on their own. She has a pacemaker and head CT was obtained which shows small-vessel ischemic disease with no acute stroke. The patient did have a CT angio of the head and neck repeated. The results are pending at this time. The patient remains on Plavix 75 mg by mouth daily and Eliquis 5 mg twice a day. The patient optimally medically managed at the present time. At the present time the patient denies any headache, change in vision, speech, she states that she has residual weakness involving all four limbs from multiple prior strokes. The patient denies any new acute symptoms. REVIEW OF SYSTEMS: 14-point review of systems obtained and is negative except as per HPI. PAST MEDICAL HISTORY: Multiple strokes. Carotid stenosis. Diastolic congestive heart failure. History status post pacemaker. Atrial fibrillation. COPD. Hypothyroidism. Type 2 diabetes., Lymphoma. Rectal carcinoma. Pulmonary embolism. PAST SURGICAL HISTORY: Right CVA. Bilateral total knee replacement. Ureteral stents for recurrent kidney stones. CABG. ALLERGIES: 1. PENTAZOCINE. 2. PROMETHAZINE. 3. SULFA. MEDICATIONS PRESENTLY: - Pravachol 10 mg by mouth daily - Eliquis 5 mg by mouth twice a day - Plavix 75 mg by mouth daily - Zetia 10 mg by mouth daily - Prinivil 2.5 mg by mouth daily - Protonix 40 mg by mouth daily - MiraLAX as needed - Omnicef daily - senna as needed - insulin sliding scale - Lexapro 10 mg by mouth daily - iron 650 mg by mouth daily - diltiazem 30 mg by mouth every 6 hours - albuterol as needed PHYSICAL EXAMINATION: Blood pressure is 160/58, pulse rate 69, respiratory rate is 18, temperature is 97.8 degrees Fahrenheit, oxygenation is 100% on room air. The patient is awake, alert, and oriented to person, place and time. Speech language comprehension and repetition are intact without aphasia. Sensory V1, V2, V3 is intact to light touch. No facial asymmetry to activation. Palate elevates symmetrically. Tongue is midline. No weakness in sternocleidomastoids bilaterally. There is no pronator drift although the patient does have significant weakness involving bilateral triceps. Biceps appear to be weak on the left from residual stroke. Romberg testing was deferred. Coordination does not reveal any ataxia. ASSESSMENT: 1. Transient ischemic attack involving right arm weakness and slurred speech. 2. Bilateral carotid artery stenosis status post CEA on the right with residual symptoms of weakness from prior strokes. PLAN: 1. Repeat head CT in a.m. 2. Continue Plavix 75 mg by mouth daily, Eliquis 5 mg by mouth daily, continue Pravachol 10 mg daily. Optimize hypertension, hyperlipidemia, diabetes. 3. Continue physical therapy and occupational therapy. Continue neuro checks every 4 hours. MTDD
--- NOTE | 2018-05-15 16:03 | REP ---
Clinical: Right facial pain. Status post carotid endarterectomy. Comparison: 04/22/2018. Technique: Axial contrast enhanced images from the skull base to the vertex using CT angiographic technique with 100 ml Isovue 370 intravenous contrast material including multiplanar and MIP re-formations. Findings: Satisfactory enhancement is obtained. Calcified atherosclerotic plaque is involve the cavernous internal carotid arteries and distal vertebral arteries without significant change from prior examination. Plaquing appears to cause moderate areas of stenosis. However, the intracranial vasculature including [place] appears normal and patent. No aneurysm or arteriovenous malformation is appreciated. Impression: 1. Atherosclerotic changes of the internal carotid arteries and distal vertebral arteries with relatively normal and symmetric intracranial vasculature. 2. No evidence for arteriovenous malformation or aneurysm. Electronically Signed by Puneet Sommers MD 05/15/2018 03:54 P
--- NOTE | 2018-05-15 17:01 | REP ---
Clinical: Right facial pain. Status post carotid endarterectomy. Technique: Axial contrast enhanced images from the thoracic inlet through the skull base using angiographic technique with 100 ml Isovue 370 intravenous contrast material including multiplanar and MIP re-formations. Comparison: 04/22/2018. Findings: The patient appears to be status post right carotid endarterectomy as compared with prior examination and the internal carotid artery which previously demonstrated 85% stenosis now appears normally patent. Soft tissue infiltration along the right side of the neck extending to the submandibular region likely represents postsurgical change. There appears to be occlusion at the origin of the right external carotid artery with relatively symmetric enhancement of the downstream vasculature likely related to collateral circulation. The remainder examination is unchanged when compared to prior examination. Left carotid system again demonstrates approximately 65% stenosis of the left internal carotid artery at its origin along with 25% stenosis of the left external carotid artery at its origin. Calcified atherosclerotic changes are also identified involving the bilateral vertebral arteries as well as through the visualized aortic arch and origins of the great vessels. Impression: 1. Considerably improved patency to the right internal carotid artery. There appears to be an occlusion of the origin of the right external carotid artery with subsequent perfusion to the vessels likely via collateral circulation. Postsurgical soft tissue swelling along the right side of the neck extending from the thoracic inlet to the submandibular region. 2. Remainder of the examination including the left carotid system, vertebral arteries, and aortic arch demonstrate a stable atheromatous changes. Electronically Signed by Puneet Sommers MD 05/15/2018 04:52 P
--- NOTE | 2018-05-15 17:02 | IPNPDOC ---
Text Note Date of Service The patient was seen on 05/15/18. NOTE Patient seen and examined. no acute events overnight, speech returned to baseline, Denied chest pain, pressure or discomfort. GENERAL: Patient alert, comfortable in no acute distress. HEENT: Normocephalic, atraumatic. PULMONARY: Bilaterally clear. CARDIAC: Regular, S1, S2. ABDOMEN: Soft and nontender. Positive bowel sounds. EXTREMITIES: No edema, bilateral lower extremities. Mild bruising. symmetrical strength b/l. Left lower extremity seems to be slightly weaker than the right. Patient does have a left fibular fracture. cranial nerves II-XII grossly intact. ASSESSMENT AND PLAN: This is an 88-year-old female with underlying medical history of multiple strokes, moderate to severe bilateral carotid artery disease. Has a history of refusing carotid endarterectomy. Status post recent right-sided carotid endarterectomy. Also with chronic systolic congestive heart failure (CHF), atrial fibrillation, on Eliquis, chronic obstructive pulmonary disease (COPD), on 2 liters oxygen, hypertension, cerebrovascular accident (CVA), peripheral vascular disease, hypothyroidism, history of pulmonary embolism (PE). Was in acute rehabilitation after carotid endarterectomy. Developed acute slurred speech as well as right-sided weakness. 1. Slurred speech and right-sided weakness, possibly secondary to transient ischemic attack (TIA). CT head done. CT angiogram of the head and neck. Consulted neurology. Patient already on Plavix and Eliquis. Monitor blood pressure. Continue Zetia. Continue statin. Further recommendations as per neurology and physical therapy (PT)/occupational therapy (OT). Speech and swallow has been ordered. 2. right facial pain. recent surgery. ct appreciated. Vascular surgery consulted. 3. Acute blood loss anemia in the setting of carotid surgery as well as hematuria. Transfusion as needed. Will monitor. 4. Right forearm hematoma. Ultrasound appreciated during the last admission. Currently resolving. 5. History of urinary tract infection (UTI). Will complete course of cefdinir. 5. Hematuria. CT scan shows stent to be in good position. Monitor urine. Urology consulted. Followup urology as outpatient. Patient will need stent to be changed in May. 7. Coronary artery disease with coronary artery bypass graft (CABG). Outpatient followup with cardiology. Cardiology was consulted prior to carotid artery endarterectomy, on Plavix and statin. Patient on Eliquis. Monitor blood pressure. 8. Chronic systolic heart failure. Oxygen supplementation. Monitor fluid status. restart lasix 9. Atrial fibrillation. Continue diltiazem and Eliquis. Monitor on telemetry. 10. COPD with chronic hypoxia. Oxygen supplementation. Currently not having any wheeze. Continue to monitor. 11. History of PE. Continue Eliquis. 12. Hypothyroidism. Continue levothyroxine. 13. Type 2 diabetes. Basal bolus insulin. Monitor fingersticks. 14. Depression. Continue current medication. 15. Chronic kidney disease (CKD), stage III. Monitor BUN and creatinine. 16. Gastroesophageal reflux disease (GERD). Continue proton pump inhibitor (PPI). 17. Left fibular fracture. Cam boot. Orthopedics recommended 50% weightbearing Continue physical therapy (PT)/occupational therapy (OT). 18. Deep vein thrombosis (DVT) prophylaxis. Patient on Eliquis. DISPOSITION: Pending further workup. ARU screen VS,Fishbone, I+O VS, Fishbone, I+O Laboratory Tests 05/15/18 03:55 Red Blood Count 2.86 L, Mean Corpuscular Volume 96.5 H, Mean Corpuscular Hemoglobin 30.8, Mean Corpuscular Hemoglobin Concent 31.9 L, Red Cell Distribution Width 17.6 H, Calcium Level 7.8 L, Aspartate Amino Transf (AST/SGOT) 18, Alanine Aminotransferase (ALT/SGPT) 12, Alkaline Phosphatase 101, Total Bilirubin 0.3, Total Protein 5.3 L, Albumin 2.5 L Vital Signs Date Time Temp Pulse Resp B/P (MAP) Pulse Ox O2 Delivery O2 Flow Rate FiO2 05/15/18 12:22 69 124/62 05/15/18 12:00 98.0 18 100 Room Air I&O- Last 24 Hours up to 6 AM 05/15/18 06:00 Intake Total 0 ml Output Total 500 ml Balance -500 ml SHARRON LAL MD May 15, 2018 17:02
[2018-05-15] MEDS: PRAVASTATIN 10 MG TAB PO SCH (20:52)
[2018-05-16] VITALS (13 sets, daily range): BP systolic 105–143; BP diastolic 53–67; O2SAT 95–99
[2018-05-16] MEDS: ACETAMINOPHEN TAB 650MG DOSE (2X325MG) PO PRN ×3 (01:58→20:34)
[2018-05-16 05:07] LABS: HEMATOCRIT 28.6 % (36.0-47.0); HEMOGLOBIN 9.3 g/dl (12.0-15.5); MEAN CORPUSCULAR HEMOGLOBIN 30.9 pg (27.0-33.0); MEAN CORPUSCULAR HGB CONC 32.5 g/dl (32.0-36.5); PLATELET COUNT, AUTOMATED 336 10^3/uL (150-450); RED BLOOD COUNT 3.01 10^6/uL (4.00-5.40); WHITE BLOOD COUNT 9.3 10^3/uL (4.0-10.0)
[2018-05-16 05:35] LABS: ALBUMIN 2.6 GM/DL (3.2-5.2); ALT/SGPT 13 U/L (12-78); BILIRUBIN,TOTAL 0.3 MG/DL (0.2-1.0); BLOOD UREA NITROGEN 18 MG/DL (7-18); CALCIUM LEVEL 7.7 MG/DL (8.8-10.2); CARBON DIOXIDE LEVEL 30 MEQ/L (21-32); CHLORIDE LEVEL 101 MEQ/L (98-107); CREATININE FOR GFR 0.88 MG/DL (0.55-1.30); GLOMERULAR FILTRATION RATE > 60.0 (>32); GLUCOSE, FASTING 106 MG/DL (70-100); POTASSIUM SERUM 3.8 MEQ/L (3.5-5.1); SODIUM LEVEL 139 MEQ/L (136-145); TOTAL PROTEIN 5.3 GM/DL (6.4-8.2)
[2018-05-16] MEDS: LEVOTHYROXINE 50MCG TABLET (0.05MG) PO SCH (05:35)
[2018-05-16] MEDS: SODIUM CHLORIDE 0.9% INJ 10 ML SYR IV SCH ×2 (05:35→18:07)
[2018-05-16] MEDS: SENOKOT S TAB PO SCH ×2 (09:42→20:34)
[2018-05-16] MEDS: FERROUS SULFATE 325MG TAB PO SCH (09:42)
[2018-05-16] MEDS: CEFDINIR 300 MG CAP (OMNICEF) PO SCH (09:42)
[2018-05-16] MEDS: APIXABAN 5 MG TAB (ELIQUIS) PO SCH ×2 (09:43→20:34)
[2018-05-16] MEDS: FUROSEMIDE 40 MG TAB PO SCH (09:43)
[2018-05-16] MEDS: LISINOPRIL *2.5 MG* TAB PO SCH (09:43)
[2018-05-16] MEDS: ESCITALOPRAM OXALATE 10 MG TAB (LEXAPRO) PO SCH (09:43)
[2018-05-16] MEDS: EZETIMIBE 10 MG TAB (ZETIA) PO SCH (09:43)
[2018-05-16] MEDS: CLOPIDOGREL 75 MG TAB PO SCH (09:43)
[2018-05-16] MEDS: VITAMIN D 1,000 INTERNATIONAL UNITS TABLET PO SCH (09:43)
[2018-05-16] MEDS: PANTOPRAZOLE 40MG TAB (PROTONIX) PO SCH (09:44)
[2018-05-16] MEDS: NYSTATIN 100,000 UNITS/GM TOPICAL PWD 15 GM TOP SCH ×2 (09:44→20:35)
[2018-05-16] MEDS: HumuLIN (NovoLIN)70/30 INSULIN INJ PER UNIT SC SCH ×2 (09:44→20:35)
[2018-05-16] MEDS: MIRALAX *UNIT DOSE* 17GM PACKET PO SCH (09:44)
--- NOTE | 2018-05-16 15:48 | NUR ---
Pt. presents with mild oral phase dysphagia as characterized by: decreased/slow bolus manipulation. Recommend: Mechanical soft solids and thin liquids. OOB for all meals. Please consider nutrition supplement. Pt does not care for vanilla ensure but is willing to try chocolate or strawberry. Please provide supervision for 24 hours to assess tolerance. Addendum: 05/16/18 at 1549 by SHANTA BAJWA ALEXANDER Amended: Links added.
--- NOTE | 2018-05-16 16:42 | IPNPDOC ---
Subjective Date Seen The patient was seen on 05/16/18. Subjective Chief Complaint/HPI Slurred speech resolved. otherwise no c/o. Objective Physical Examination General Exam: Positive: Alert, Cooperative, Mild Distress Eye Exam: Positive: PERRLA, EOMI ENT Exam: Positive: Atraumatic Neck Exam: Positive: Supple, Other (Rt neck incision healing well ) Chest Exam: Positive: Clear to auscultation, Normal air movement; Negative: Rales, Rhonchi, Wheezing, Diminished, Other Heart Exam: Positive: Rate Normal, Regular Rhythm, Normal S1, Normal S2; Negative: Irregular Rhythm, Gallops, Murmurs, Rubs, Other Abdomen Exam: Positive: Normal bowel sounds, Soft; Negative: Tenderness, Mass Extremity Exam: Positive: Normal pulses, Other (Large ecchymosis and hematoma Rt forearm); Negative: Clubbing, Cyanosis, Edema, Tenderness, Swelling Neuro Exam: Positive: Normal Speech, Strength at 5/5 X4 ext (RUE 4/5), Cranial Nerves 3-12 NL; Negative: Normal Tone, Sensation Intact Psych Exam: Positive: Mental status NL, Mood NL, Oriented x 3 Assessment /Plan Assessment 1. TIA/CVA with RUE weakness 4/5. 2. B/l carotid stenoses, s/p RCEA wound healing well w/o concern. Lt 65% by CTA Plan/VTE VTE Prophylaxis Ordered?: Yes Plan Continue Plavix and Eliquis. Plan to proceed with LCEA this week. VS, I&O, 24H, Fishbone Vital Signs/I&O Vital Signs Date Time Temp Pulse Resp B/P (MAP) Pulse Ox O2 Delivery O2 Flow Rate FiO2 05/16/18 13:05 70 113/57 05/16/18 08:00 96.9 22 99 Room Air I&O- Last 24 Hours up to 6 AM 05/16/18 06:00 Intake Total 720 ml Output Total 2125 ml Balance -1405 ml Laboratory Data 24H LABS Laboratory Tests 2 05/15/18 17:21: Bedside Glucose (Misc Panel) 138H 05/15/18 20:45: Bedside Glucose (Misc Panel) 170H 05/16/18 04:49: Nucleated Red Blood Cells % (auto) 0.0, Anion Gap 8, Glomerular Filtration Rate > 60.0, Blood Urea Nitrogen 18, Creatinine 0.88, Sodium Level 139, Potassium Level 3.8, Chloride Level 101, Carbon Dioxide Level 30, Calcium Level 7.7L, Aspartate Amino Transf (AST/SGOT) 19, Alanine Aminotransferase (ALT/SGPT) 13, Alkaline Phosphatase 97, Total Bilirubin 0.3, Total Protein 5.3L, Albumin 2.6L, Albumin/Globulin Ratio 0.96L CBC/BMP Laboratory Tests 05/16/18 04:49 Red Blood Count 3.01 L, Mean Corpuscular Volume 95.0, Mean Corpuscular Hemoglobin 30.9, Mean Corpuscular Hemoglobin Concent 32.5, Red Cell Distribution Width 17.6 H, Calcium Level 7.7 L, Aspartate Amino Transf (AST/SGOT) 19, Alanine Aminotransferase (ALT/SGPT) 13, Alkaline Phosphatase 97, Total Bilirubin 0.3, Total Protein 5.3 L, Albumin 2.6 L Microbiology Microbiology 05/15/18 Urine Culture, Received Pending JESUS ALBERTO GUERRA PA-C May 16, 2018 16:42
--- NOTE | 2018-05-16 17:04 | IPNPDOC ---
Text Note Date of Service The patient was seen on 05/16/18. NOTE Patient seen and examined. no acute events overnight, speech returned to baseline, Denied chest pain, pressure or discomfort. GENERAL: Patient alert, comfortable in no acute distress. HEENT: Normocephalic, atraumatic. PULMONARY: Bilaterally clear. CARDIAC: Regular, S1, S2. ABDOMEN: Soft and nontender. Positive bowel sounds. EXTREMITIES: No edema, bilateral lower extremities. Mild bruising. symmetrical strength b/l. Left lower extremity seems to be slightly weaker than the right. Patient does have a left fibular fracture. cranial nerves II-XII grossly intact. ASSESSMENT AND PLAN: This is an 88-year-old female with underlying medical history of multiple strokes, moderate to severe bilateral carotid artery disease. Has a history of refusing carotid endarterectomy. Status post recent right-sided carotid endarterectomy. Also with chronic systolic congestive heart failure (CHF), atrial fibrillation, on Eliquis, chronic obstructive pulmonary disease (COPD), on 2 liters oxygen, hypertension, cerebrovascular accident (CVA), peripheral vascular disease, hypothyroidism, history of pulmonary embolism (PE). Was in acute rehabilitation after carotid endarterectomy. Developed acute slurred speech as well as right-sided weakness. 1. Slurred speech and right-sided weakness, possibly secondary to transient ischemic attack (TIA). CT head done. CT angiogram of the head and neck. Consulted neurology. Patient already on Plavix and Eliquis. Monitor blood pressure. Continue Zetia. Continue statin. Further recommendations as per neurology and physical therapy (PT)/occupational therapy (OT). Speech and swallow has been ordered. d/w vascular recent left carotid endarterectomy, patient likely benefit from left carotid endarterectomy. further surgery as per vascular 2. right facial pain. recent surgery. ct appreciated. Vascular surgery consulted. 3. Acute blood loss anemia in the setting of carotid surgery as well as hematuria. Transfusion as needed. Will monitor. 4. Right forearm hematoma. Ultrasound appreciated during the last admission. Currently resolving. 5. History of urinary tract infection (UTI). Will complete course of cefdinir. 5. Hematuria. CT scan shows stent to be in good position. Monitor urine. Urology consulted. Followup urology as outpatient. Patient will need stent to be changed in May. 7. Coronary artery disease with coronary artery bypass graft (CABG). Outpatient followup with cardiology. Cardiology was consulted prior to left carotid artery endarterectomy, on Plavix and statin. Patient on Eliquis. Monitor blood pressure. 8. Chronic systolic heart failure. Oxygen supplementation. Monitor fluid status. restart lasix 9. Atrial fibrillation. Continue diltiazem and Eliquis. Monitor on telemetry. 10. COPD with chronic hypoxia. Oxygen supplementation. Currently not having any wheeze. Continue to monitor. 11. History of PE. Continue Eliquis. 12. Hypothyroidism. Continue levothyroxine. 13. Type 2 diabetes. Basal bolus insulin. Monitor fingersticks. 14. Depression. Continue current medication. 15. Chronic kidney disease (CKD), stage III. Monitor BUN and creatinine. 16. Gastroesophageal reflux disease (GERD). Continue proton pump inhibitor (PPI). 17. Left fibular fracture. Cam boot. Orthopedics recommended 50% weightbearing Continue physical therapy (PT)/occupational therapy (OT). 18. Deep vein thrombosis (DVT) prophylaxis. Patient on Eliquis. DISPOSITION: Pending further workup. vascular intervention , ARU screen VS,Radha, I+O VS, Radha, I+O Laboratory Tests 05/16/18 04:49 Red Blood Count 3.01 L, Mean Corpuscular Volume 95.0, Mean Corpuscular Hemoglobin 30.9, Mean Corpuscular Hemoglobin Concent 32.5, Red Cell Distribution Width 17.6 H, Calcium Level 7.7 L, Aspartate Amino Transf (AST/SGOT) 19, Alanine Aminotransferase (ALT/SGPT) 13, Alkaline Phosphatase 97, Total Bilirubin 0.3, Total Protein 5.3 L, Albumin 2.6 L Vital Signs Date Time Temp Pulse Resp B/P (MAP) Pulse Ox O2 Delivery O2 Flow Rate FiO2 05/16/18 13:05 70 113/57 05/16/18 08:00 96.9 22 99 Room Air I&O- Last 24 Hours up to 6 AM 05/16/18 06:00 Intake Total 720 ml Output Total 2125 ml Balance -1405 ml SHARRON LAL MD May 16, 2018 17:04
[2018-05-16] MEDS: PRAVASTATIN 10 MG TAB PO SCH (20:34)
[2018-05-17] VITALS (26 sets, daily range): BP systolic 82–147; BP diastolic 38–64; O2SAT 95–99
[2018-05-17] MEDS: SODIUM CHLORIDE 0.9% INJ 10 ML SYR IV SCH ×2 (06:10→18:05)
[2018-05-17] MEDS: LEVOTHYROXINE 50MCG TABLET (0.05MG) PO SCH (06:10)
[2018-05-17 06:45] LABS: HEMATOCRIT 31.9 % (36.0-47.0); HEMOGLOBIN 10.3 g/dl (12.0-15.5); MEAN CORPUSCULAR HEMOGLOBIN 31.3 pg (27.0-33.0); MEAN CORPUSCULAR HGB CONC 32.3 g/dl (32.0-36.5); PLATELET COUNT, AUTOMATED 371 10^3/uL (150-450); RED BLOOD COUNT 3.29 10^6/uL (4.00-5.40); WHITE BLOOD COUNT 7.7 10^3/uL (4.0-10.0)
[2018-05-17 07:05] LABS: ALBUMIN 2.6 GM/DL (3.2-5.2); BILIRUBIN,TOTAL 0.4 MG/DL (0.2-1.0); CALCIUM LEVEL 8.1 MG/DL (8.8-10.2); CREATININE FOR GFR 0.96 MG/DL (0.55-1.30); GLOMERULAR FILTRATION RATE 58.4 (>32); POTASSIUM SERUM 4.4 MEQ/L (3.5-5.1); TOTAL PROTEIN 5.5 GM/DL (6.4-8.2)
[2018-05-17 09:06] LABS: C REACTIVE PROTEIN QUANTITATIV 1.15 MG/DL (0.00-0.30)
[2018-05-17] MEDS: HumuLIN (NovoLIN)70/30 INSULIN INJ PER UNIT SC SCH ×2 (09:46→21:00)
[2018-05-17] MEDS: SENOKOT S TAB PO SCH ×2 (09:47→21:11)
[2018-05-17] MEDS: VITAMIN D 1,000 INTERNATIONAL UNITS TABLET PO SCH (09:47)
[2018-05-17] MEDS: ESCITALOPRAM OXALATE 10 MG TAB (LEXAPRO) PO SCH (09:47)
[2018-05-17] MEDS: FERROUS SULFATE 325MG TAB PO SCH (09:47)
[2018-05-17] MEDS: FUROSEMIDE 40 MG TAB PO SCH (09:47)
[2018-05-17] MEDS: NYSTATIN 100,000 UNITS/GM TOPICAL PWD 15 GM TOP SCH ×2 (09:47→21:12)
[2018-05-17] MEDS: MIRALAX *UNIT DOSE* 17GM PACKET PO SCH (09:47)
[2018-05-17] MEDS: APIXABAN 5 MG TAB (ELIQUIS) PO SCH ×2 (09:48→21:11)
[2018-05-17] MEDS: CLOPIDOGREL 75 MG TAB PO SCH (09:48)
[2018-05-17] MEDS: PANTOPRAZOLE 40MG TAB (PROTONIX) PO SCH (09:48)
[2018-05-17] MEDS: LISINOPRIL *2.5 MG* TAB PO SCH (09:48)
[2018-05-17] MEDS: EZETIMIBE 10 MG TAB (ZETIA) PO SCH (09:48)
--- NOTE | 2018-05-17 11:24 | REP ---
CT Head without contrast HISTORY: TIA COMPARISON: 05/15/2017 Areas of decreased attenuation are present in the periventricular and subcortical white matter. This represents small-vessel ischemic disease. There is no intraparenchymal hemorrhage, acute infarct, mass or midline shift. The ventricular system and cortical sulci as well as subarachnoid space in the posterior fossa are dilated consistent with moderate volume loss. There is no extra cerebral collection. There is no fracture. The visualized sinuses are clear. IMPRESSION: 1. Small vessel ischemic disease. 2. Moderate volume loss. Electronically Signed by Hank Tovar MD 05/17/2018 11:16 A
[2018-05-17] MEDS: ERTAPENEM SODIUM 1 GM in NS MINI-BAG PLUS 50 ML IV SCH (11:40)
[2018-05-17] MEDS: ACETAMINOPHEN TAB 650MG DOSE (2X325MG) PO PRN ×2 (11:40→22:44)
[2018-05-17] MEDS: SODIUM CHLORIDE 0.9% INJ 10 ML SYR IV PRN (12:51)
--- NOTE | 2018-05-17 14:16 | IPNPDOC ---
Text Note Date of Service The patient was seen on 05/17/18. NOTE Subjective: Pt states her right extremities are weaker than the left, however has improved since yesterday. No other neuro deficits. Objective: Vitals: (see below) General: No acute distress, laying comfortably in bed. HEENT: Moist mucous membranes. Neck: No JVD or lymphadenopathy Cardiac: RRR, No murmurs Pulm: Clear to auscultation b/l. No wheezing, rhonchi Abd: NT/ND + BS Ext: No edema or cyanosis. Mild pain at the Left ankle with mild swelling. Neuro: Strength 3-4/5 RUE and 4/5 RLE. 5/5 LUE and LLE CN 2-12 intact. F to N intact Negative pronator drift. Negative Babinki. NIH 2 Labs (see below) Images: CTA head on 04/22/18 IMPRESSION: 1. There is no aneurysm or arteriovenous malformation. 2. Atherosclerotic disease as described above. CTA neck on 04/22/18 IMPRESSION: 1. Limited examination demonstrating severe stenosis of 85% of the right internal carotid artery at its origin. 2. Moderate stenosis of 65% of the left internal carotid artery at its origin. Assessment/Plan 1. CVA likely secondary to the patient's underlying severe carotid stenosis. Patient has had prior TIAs/CVA in the past, s/p right CEA with Dr. Elizondo, with plan for left CEA. We'll continue patient's home statin/zetia. On plavix/eliquis. Appreciate Dr. Coley and Dr. Elizondo's input. 2. UTI - with dysuria on presentation. ESBL. on Ertapenem. 3. CAD status post CABG continue home meds 4. Atrial fibrillation on Eliquis at home. Rate controlled. 5. History of multiple CVAs in the past 6. History of hypothyroidism continue meds 7. History of CKD stage III 8. Left Ankle fx - Ortho consulted. Recommendations for nonweightbearing per ortho. PT/OT 9. H/o COPD on O2 DVT prophy: Eliquis Prognosis guarded. VS,Fishbone, I+O VS, Fishbone, I+O Laboratory Tests 05/17/18 06:23 Red Blood Count 3.29 L, Mean Corpuscular Volume 97.0 H, Mean Corpuscular Hemoglobin 31.3, Mean Corpuscular Hemoglobin Concent 32.3, Red Cell Distribution Width 18.0 H, Calcium Level 8.1 L, Aspartate Amino Transf (AST/SGOT) 23, Alanine Aminotransferase (ALT/SGPT) 13, Alkaline Phosphatase 100, Total Bilirubin 0.4, Total Protein 5.5 L, Albumin 2.6 L Vital Signs Date Time Temp Pulse Resp B/P (MAP) Pulse Ox O2 Delivery O2 Flow Rate FiO2 05/17/18 12:51 78 144/63 05/17/18 12:00 97.3 19 100 Room Air I&O- Last 24 Hours up to 6 AM 05/17/18 06:00 Intake Total 1320 ml Output Total 2025 ml Balance -705 ml RAJWINDER CHOU MD May 17, 2018 14:16
[2018-05-17] MEDS ORDERED: NS 1,000 ML IV ONE (20:15)
[2018-05-17] MEDS: PRAVASTATIN 10 MG TAB PO SCH (21:11)
[2018-05-18] VITALS (25 sets, daily range): BP systolic 100–142; BP diastolic 45–60; O2SAT 96–100
[2018-05-18] MEDS: LEVOTHYROXINE 50MCG TABLET (0.05MG) PO SCH (05:57)
[2018-05-18] MEDS: SODIUM CHLORIDE 0.9% INJ 10 ML SYR IV SCH ×2 (05:57→18:00)
[2018-05-18 06:09] LABS: HEMATOCRIT 28.7 % (36.0-47.0); HEMOGLOBIN 9.2 g/dl (12.0-15.5); MEAN CORPUSCULAR HGB CONC 32.1 g/dl (32.0-36.5); MEAN CORPUSCULAR VOLUME 96.6 fl (80.0-96.0); PLATELET COUNT, AUTOMATED 334 10^3/uL (150-450); RED BLOOD COUNT 2.97 10^6/uL (4.00-5.40); WHITE BLOOD COUNT 6.8 10^3/uL (4.0-10.0)
[2018-05-18 06:39] LABS: ALBUMIN 2.5 GM/DL (3.2-5.2); ALT/SGPT 15 U/L (12-78); BILIRUBIN,TOTAL 0.3 MG/DL (0.2-1.0); BLOOD UREA NITROGEN 16 MG/DL (7-18); C REACTIVE PROTEIN QUANTITATIV 1.11 MG/DL (0.00-0.30); CALCIUM LEVEL 7.9 MG/DL (8.8-10.2); CARBON DIOXIDE LEVEL 30 MEQ/L (21-32); CHLORIDE LEVEL 101 MEQ/L (98-107); GLOMERULAR FILTRATION RATE > 60.0 (>32); GLUCOSE, FASTING 126 MG/DL (70-100); POTASSIUM SERUM 4.1 MEQ/L (3.5-5.1); SODIUM LEVEL 136 MEQ/L (136-145); TOTAL PROTEIN 5.6 GM/DL (6.4-8.2)
[2018-05-18] MEDS: NYSTATIN 100,000 UNITS/GM TOPICAL PWD 15 GM TOP SCH ×2 (10:06→20:55)
[2018-05-18] MEDS: SENOKOT S TAB PO SCH ×2 (10:06→20:55)
[2018-05-18] MEDS: CLOPIDOGREL 75 MG TAB PO SCH (10:06)
[2018-05-18] MEDS: ESCITALOPRAM OXALATE 10 MG TAB (LEXAPRO) PO SCH (10:07)
[2018-05-18] MEDS: MIRALAX *UNIT DOSE* 17GM PACKET PO SCH (10:07)
[2018-05-18] MEDS: FUROSEMIDE 40 MG TAB PO SCH (10:07)
[2018-05-18] MEDS: VITAMIN D 1,000 INTERNATIONAL UNITS TABLET PO SCH (10:08)
[2018-05-18] MEDS: APIXABAN 5 MG TAB (ELIQUIS) PO SCH ×2 (10:08→20:54)
[2018-05-18] MEDS: FERROUS SULFATE 325MG TAB PO SCH (10:08)
[2018-05-18] MEDS: PANTOPRAZOLE 40MG TAB (PROTONIX) PO SCH (10:08)
[2018-05-18] MEDS: EZETIMIBE 10 MG TAB (ZETIA) PO SCH (10:11)
[2018-05-18] MEDS: HumuLIN (NovoLIN)70/30 INSULIN INJ PER UNIT SC SCH ×2 (10:11→20:54)
[2018-05-18] MEDS: LISINOPRIL *2.5 MG* TAB PO SCH (10:12)
[2018-05-18] MEDS: ERTAPENEM SODIUM 1 GM in NS MINI-BAG PLUS 50 ML IV SCH (10:21)
[2018-05-18] MEDS: SODIUM CHLORIDE 0.9% INJ 10 ML SYR IV PRN (11:25)
--- NOTE | 2018-05-18 11:55 | IPNPDOC ---
Text Note Date of Service The patient was seen on 05/18/18. NOTE CC: Pt c/o Rt forearm pain. Rt arm is weaker than Lt arm but getting better. No TIA. PE: VSS Gen: AAO x3 Neck: Rt incision healing well. Lt carotid bruit Lungs: CTAB Heart: RRR, Abd: BS nl, NT/ND Ext: large hematoma in Rt forearm, improving. otherwise no C/C/E Neuro: CN 2-12 sensation intact, motor 5/5 except RUE 4+/5 Plan: Continue current medical management as per hospital medicine Lt CEA by this week VS,Fishbone, I+O VS, Fishbone, I+O Laboratory Tests 05/18/18 05:40 Red Blood Count 2.97 L, Mean Corpuscular Volume 96.6 H, Mean Corpuscular Hemoglobin 31.0, Mean Corpuscular Hemoglobin Concent 32.1, Red Cell Distribution Width 17.6 H, Calcium Level 7.9 L, Aspartate Amino Transf (AST/SGOT) 20, Alanine Aminotransferase (ALT/SGPT) 15, Alkaline Phosphatase 89, Total Bilirubin 0.3, Total Protein 5.6 L, Albumin 2.5 L Vital Signs Date Time Temp Pulse Resp B/P (MAP) Pulse Ox O2 Delivery O2 Flow Rate FiO2 05/18/18 10:12 116/60 05/18/18 08:00 96.8 74 20 97 Nasal Cannula 2.0 I&O- Last 24 Hours up to 6 AM 05/18/18 06:00 Intake Total 1650 ml Output Total 801 ml Balance 849 ml JESUS ALBERTO GUERRA PA-C May 18, 2018 11:55
--- NOTE | 2018-05-18 15:07 | IPNPDOC ---
Text Note Date of Service The patient was seen on 05/18/18. NOTE Subjective: Pt states her right extremities is swollen today. RUE weaker than the left. No other neuro deficits. Objective: Vitals: (see below) General: No acute distress, laying comfortably in bed. HEENT: Moist mucous membranes. Neck: No JVD or lymphadenopathy Cardiac: RRR, No murmurs Pulm: Clear to auscultation b/l. No wheezing, rhonchi Abd: NT/ND + BS Ext: No edema or cyanosis. Mild pain at the Left ankle with mild swelling. Neuro: Strength 3/5 RUE with swelling. Distal pulses intact. Cap refill <2 sed. 4-5/5 RLE. 5/5 LUE and LLE CN 2-12 intact. F to N intact Negative pronator drift. Negative Babinki. NIH 2 Labs (see below) Images: CTA head on 04/22/18 IMPRESSION: 1. There is no aneurysm or arteriovenous malformation. 2. Atherosclerotic disease as described above. CTA neck on 04/22/18 IMPRESSION: 1. Limited examination demonstrating severe stenosis of 85% of the right internal carotid artery at its origin. 2. Moderate stenosis of 65% of the left internal carotid artery at its origin. Assessment/Plan 1. CVA likely secondary to the patient's underlying severe carotid stenosis. Patient has had prior TIAs/CVA in the past, s/p right CEA with Dr. Elizondo, with plan for left CEA. We'll continue patient's home statin/zetia. On plavix/eliquis. Appreciate Dr. Coley and Dr. Elizondo's input. 2. UTI - with dysuria on presentation. ESBL. on Ertapenem. 3. CAD status post CABG continue home meds 4. Atrial fibrillation on Eliquis at home. Rate controlled. 5. History of multiple CVAs in the past 6. History of hypothyroidism continue meds 7. History of CKD stage III 8. Left Ankle fx - Ortho consulted. Recommendations for nonweightbearing per ortho. PT/OT 9. H/o COPD on O2 10. RUE hematoma - repeat u/s to evaluate size/extension. DVT prophy: Eliquis Prognosis guarded. VS,Fishbone, I+O VS, Fishbone, I+O Laboratory Tests 05/18/18 05:40 Red Blood Count 2.97 L, Mean Corpuscular Volume 96.6 H, Mean Corpuscular Hemoglobin 31.0, Mean Corpuscular Hemoglobin Concent 32.1, Red Cell Distribution Width 17.6 H, Calcium Level 7.9 L, Aspartate Amino Transf (AST/SGOT) 20, Alanine Aminotransferase (ALT/SGPT) 15, Alkaline Phosphatase 89, Total Bilirubin 0.3, Total Protein 5.6 L, Albumin 2.5 L Vital Signs Date Time Temp Pulse Resp B/P (MAP) Pulse Ox O2 Delivery O2 Flow Rate FiO2 05/18/18 10:12 116/60 05/18/18 08:00 96.8 74 20 97 Nasal Cannula 2.0 I&O- Last 24 Hours up to 6 AM 05/18/18 06:00 Intake Total 1650 ml Output Total 801 ml Balance 849 ml RAJWINDER CHOU MD May 18, 2018 15:07
--- NOTE | 2018-05-18 15:43 | REP ---
Clinical: Right upper extremity pain and swelling. Technique: Real time perry scale and color Doppler evaluation using linear high frequency and curved array transducers. Findings: 2.7 x 4.8 x 1.9 cm suspected hematoma along the right side of the neck. Findings are consistent with a history of recent endarterectomy. Doppler evaluation appears normal and there is no evidence for thrombosis. A PICC line is identified extending from the basilic vein to the subclavian vein. The palpable mass at the level of the mid forearm medial to the cephalic vein corresponds to partially thrombosed pseudoaneurysm measuring roughly 21 x 9 x 9 mm. A feeding arterial vessel appears to be a branch extending from the right ulnar artery, but further evaluation is limited due to swelling. Impression: 1. Palpable mass in the forearm appears to correspond to partially thrombosed pseudoaneurysm which is otherwise poorly evaluated due to surrounding swelling. A feeding branch appears to be coming from the right ulnar artery. 2. No evidence for deep venous thrombosis. PICC line identified via the basilic vein. 3. Hematoma in the neck likely related to recent endarterectomy. Electronically Signed by Puneet Sommers MD 05/18/2018 03:35 P
[2018-05-18] MEDS ORDERED: ISOVUE-370 76% 100ML VIAL (Q9967) As Ordered ONE (18:08)
--- NOTE | 2018-05-18 18:49 | REP ---
CT cervical spine with contrast HISTORY: Carotid endarterectomy Contrast: Isovue 70 75 ml COMPARISON: 01/02/2018 There is no acute fracture or subluxation. Disc bulges are present at the C3-4 through C5-6 levels. There is minimal narrowing of the spinal canal. Facet hypertrophy is present at the C2-3 through C4-5 levels. This produces minimal narrowing of the neural foramina. The intervertebral discs s and vertebral bodies are normal in height. There are 2 mm of anterior subluxation of C3-4. Edema and/or hematoma is present in the right carotid space. This extends from the level of the tonsils inferior to the thyroid gland. There is minimal mass effect on the rosaline and hypopharynx. IMPRESSION: 1. There is no acute fracture or subluxation. 2. There is cervical spondylosis at the C2-3 through C5-6 levels. 3. There is edema and/or hematoma in the right carotid space with minimal mass effect on the rosaline and hypopharynx. Electronically Signed by Hank Tovar MD 05/18/2018 06:41 P
[2018-05-18] MEDS: PRAVASTATIN 10 MG TAB PO SCH (20:54)
[2018-05-18] MEDS: ACETAMINOPHEN TAB 650MG DOSE (2X325MG) PO PRN (21:36)
[2018-05-19] VITALS (24 sets, daily range): BP systolic 100–133; BP diastolic 52–65; O2SAT 95–99
[2018-05-19] MEDS: SODIUM CHLORIDE 0.9% INJ 10 ML SYR IV SCH ×2 (05:24→18:00)
[2018-05-19] MEDS: LEVOTHYROXINE 50MCG TABLET (0.05MG) PO SCH (06:08)
[2018-05-19 07:18] LABS: HEMATOCRIT 32.3 % (36.0-47.0); HEMOGLOBIN 10.2 g/dl (12.0-15.5); MEAN CORPUSCULAR HEMOGLOBIN 30.8 pg (27.0-33.0); MEAN CORPUSCULAR HGB CONC 31.6 g/dl (32.0-36.5); MEAN CORPUSCULAR VOLUME 97.6 fl (80.0-96.0); PLATELET COUNT, AUTOMATED 369 10^3/uL (150-450); RED BLOOD COUNT 3.31 10^6/uL (4.00-5.40); WHITE BLOOD COUNT 8.7 10^3/uL (4.0-10.0)
[2018-05-19 07:47] LABS: ALBUMIN 2.6 GM/DL (3.2-5.2); BILIRUBIN,TOTAL 0.3 MG/DL (0.2-1.0); C REACTIVE PROTEIN QUANTITATIV 0.72 MG/DL (0.00-0.30); CALCIUM LEVEL 8.3 MG/DL (8.8-10.2); GLOMERULAR FILTRATION RATE 55.7 (>32); POTASSIUM SERUM 3.9 MEQ/L (3.5-5.1); TOTAL PROTEIN 6.2 GM/DL (6.4-8.2)
--- NOTE | 2018-05-19 09:07 | IPNPDOC ---
Subjective Date Seen The patient was seen on 05/19/18. Subjective Chief Complaint/HPI Feeling better, inquired the schedule for Lt CEA. Objective Physical Examination General Exam: Positive: Alert, Cooperative, Mild Distress Eye Exam: Positive: PERRLA, EOMI ENT Exam: Positive: Atraumatic Neck Exam: Positive: Supple, Other (Rt neck incision healing well, small hematoma improved) Chest Exam: Positive: Clear to auscultation, Normal air movement; Negative: Rales, Rhonchi, Wheezing, Diminished, Other Heart Exam: Positive: Rate Normal, Regular Rhythm, Normal S1, Normal S2; Negative: Irregular Rhythm, Gallops, Murmurs, Rubs, Other Abdomen Exam: Positive: Normal bowel sounds, Soft; Negative: Tenderness, Mass Extremity Exam: Positive: Normal pulses, Other (hematoma Rt forearm improved); Negative: Clubbing, Cyanosis, Edema, Tenderness, Swelling Neuro Exam: Positive: Normal Speech, Strength at 5/5 X4 ext (RUE 5/5), Cranial Nerves 3-12 NL; Negative: Normal Tone, Sensation Intact Psych Exam: Positive: Mental status NL, Mood NL, Oriented x 3 Assessment /Plan Assessment 1. CVA with RUE weakness resolved. 2. Lt carotid stenosis. Plan/VTE VTE Prophylaxis Ordered?: Yes Plan 1. Continue Plavix and Eliquis as directed. 2. Plan to proceed with Lt CEA tomorrow. 3. NPO after midnight. VS, I&O, 24H, Fishbone Vital Signs/I&O Vital Signs Date Time Temp Pulse Resp B/P (MAP) Pulse Ox O2 Delivery O2 Flow Rate FiO2 05/19/18 06:00 102/58 05/19/18 06:00 97 Room Air 05/19/18 04:00 96.7 66 18 05/18/18 08:00 2.0 I&O- Last 24 Hours up to 6 AM 05/19/18 06:00 Intake Total 580 ml Output Total 1825 ml Balance -1245 ml Laboratory Data 24H LABS Laboratory Tests 2 05/18/18 20:43: Bedside Glucose (Misc Panel) 201H 05/19/18 06:55: Nucleated Red Blood Cells % (auto) 0.0, Anion Gap 6L, Glomerular Filtration Rate 55.7, Blood Urea Nitrogen 16, Creatinine 1.00, Sodium Level 137, Potassium Level 3.9, Chloride Level 102, Carbon Dioxide Level 29, Calcium Level 8.3L, Aspartate Amino Transf (AST/SGOT) 19, Alanine Aminotransferase (ALT/SGPT) 13, Alkaline Phosphatase 94, Total Bilirubin 0.3, Total Protein 6.2L, Albumin 2.6L, C- Reactive Protein, Quantitative 0.72H, Albumin/Globulin Ratio 0.72L CBC/BMP Laboratory Tests 05/19/18 06:55 Red Blood Count 3.31 L, Mean Corpuscular Volume 97.6 H, Mean Corpuscular Hemoglobin 30.8, Mean Corpuscular Hemoglobin Concent 31.6 L, Red Cell Distribution Width 17.3 H, Calcium Level 8.3 L, Aspartate Amino Transf (AST/SGOT) 19, Alanine Aminotransferase (ALT/SGPT) 13, Alkaline Phosphatase 94, Total Bilirubin 0.3, Total Protein 6.2 L, Albumin 2.6 L Microbiology Microbiology 05/18/18 Blood Culture, Received Pending 05/18/18 Blood Culture, Received Pending 05/15/18 Urine Culture - Preliminary, Resulted E.coli Esbl JESUS ALBERTO GUERRA PA-C May 19, 2018 09:07
[2018-05-19] MEDS: ERTAPENEM SODIUM 1 GM in NS MINI-BAG PLUS 50 ML IV SCH (09:30)
[2018-05-19] MEDS: VITAMIN D 1,000 INTERNATIONAL UNITS TABLET PO SCH (09:31)
[2018-05-19] MEDS: APIXABAN 5 MG TAB (ELIQUIS) PO SCH ×2 (09:31→21:30)
[2018-05-19] MEDS: FERROUS SULFATE 325MG TAB PO SCH (09:31)
[2018-05-19] MEDS: ESCITALOPRAM OXALATE 10 MG TAB (LEXAPRO) PO SCH (09:31)
[2018-05-19] MEDS: CLOPIDOGREL 75 MG TAB PO SCH (09:31)
[2018-05-19] MEDS: PANTOPRAZOLE 40MG TAB (PROTONIX) PO SCH (09:31)
[2018-05-19] MEDS: SENOKOT S TAB PO SCH ×2 (09:32→21:30)
[2018-05-19] MEDS: NYSTATIN 100,000 UNITS/GM TOPICAL PWD 15 GM TOP SCH ×2 (09:32→21:31)
[2018-05-19] MEDS: EZETIMIBE 10 MG TAB (ZETIA) PO SCH (09:32)
[2018-05-19] MEDS: MIRALAX *UNIT DOSE* 17GM PACKET PO SCH (09:32)
[2018-05-19] MEDS: FUROSEMIDE 40 MG TAB PO SCH (09:33)
[2018-05-19] MEDS: LISINOPRIL *2.5 MG* TAB PO SCH (09:34)
[2018-05-19] MEDS: HumuLIN (NovoLIN)70/30 INSULIN INJ PER UNIT SC SCH ×2 (11:18→21:34)
[2018-05-19] MEDS: ACETAMINOPHEN TAB 650MG DOSE (2X325MG) PO PRN (14:39)
--- NOTE | 2018-05-19 16:06 | IPNPDOC ---
Text Note Date of Service The patient was seen on 05/19/18. NOTE Subjective: Pt notes mild improvement of RUE. No other neuro deficits. Objective: Vitals: (see below) General: No acute distress, laying comfortably in bed. HEENT: Moist mucous membranes. Neck: No JVD or lymphadenopathy Cardiac: RRR, No murmurs Pulm: Clear to auscultation b/l. No wheezing, rhonchi Abd: NT/ND + BS Ext: No edema or cyanosis. Distal pulses intact. Neuro: Strength 3-4/5 RUE with swelling. Distal pulses intact. Cap refill <2 sed. 4-5/5 RLE. 5/5 LUE and LLE CN 2-12 intact. F to N intact Negative pronator drift. Negative Babinki. Labs (see below) Images: CTA head on 04/22/18 IMPRESSION: 1. There is no aneurysm or arteriovenous malformation. 2. Atherosclerotic disease as described above. CTA neck on 04/22/18 IMPRESSION: 1. Limited examination demonstrating severe stenosis of 85% of the right internal carotid artery at its origin. 2. Moderate stenosis of 65% of the left internal carotid artery at its origin. Right upper extremity ultrasound 05/18/18 Impression: 1. Palpable mass in the forearm appears to correspond to partially thrombosed pseudoaneurysm which is otherwise poorly evaluated due to surrounding swelling. A feeding branch appears to be coming from the right ulnar artery. 2. No evidence for deep venous thrombosis. PICC line identified via the basilic vein. 3. Hematoma in the neck likely related to recent endarterectomy. Assessment/Plan 1. CVA likely secondary to the patient's underlying severe carotid stenosis. Patient has had prior TIAs/CVA in the past, s/p right CEA with Dr. Elizondo, with plan for left CEA. We'll continue patient's home statin/zetia. On plavix/eliquis. Appreciate Dr. Coley and Dr. Elizondo's input. 2. UTI - with dysuria on presentation. ESBL. on Ertapenem. 3. RUE U/s with pseudoaneurysm and neck hematoma- hep discussed these findings in detail with Dr. Elizondo who recommends continuing plavix/eliquis, and that he will review the images and examine the patient's to further evaluate management and plan. 4. Atrial fibrillation on Eliquis at home. Rate controlled. 5. History of multiple CVAs in the past 6. History of hypothyroidism continue meds 7. History of CKD stage III 8. Left Ankle fx - Ortho consulted. Recommendations for nonweightbearing per ortho. PT/OT 9. H/o COPD on O2 10. CAD status post CABG continue home meds DVT prophy: Eliquis Prognosis guarded. VS,Fishbone, I+O VS, Fishbone, I+O Laboratory Tests 05/19/18 06:55 Red Blood Count 3.31 L, Mean Corpuscular Volume 97.6 H, Mean Corpuscular Hemoglobin 30.8, Mean Corpuscular Hemoglobin Concent 31.6 L, Red Cell Distribution Width 17.3 H, Calcium Level 8.3 L, Aspartate Amino Transf (AST/SGOT) 19, Alanine Aminotransferase (ALT/SGPT) 13, Alkaline Phosphatase 94, Total Bilirubin 0.3, Total Protein 6.2 L, Albumin 2.6 L Vital Signs Date Time Temp Pulse Resp B/P (MAP) Pulse Ox O2 Delivery O2 Flow Rate FiO2 05/19/18 12:00 98.0 102 20 102/56 (71) 56 Room Air 05/18/18 08:00 2.0 I&O- Last 24 Hours up to 6 AM 05/19/18 06:00 Intake Total 580 ml Output Total 1825 ml Balance -1245 ml RAJWINDER CHOU MD May 19, 2018 16:06
[2018-05-19] MEDS: PRAVASTATIN 10 MG TAB PO SCH (21:30)
[2018-05-20] VITALS (18 sets, daily range): BP systolic 92–127; BP diastolic 44–60; O2SAT 96–99
[2018-05-20] MEDS: SODIUM CHLORIDE 0.9% INJ 10 ML SYR IV SCH ×2 (05:42→19:01)
[2018-05-20] MEDS: LEVOTHYROXINE 50MCG TABLET (0.05MG) PO SCH (05:42)
[2018-05-20 06:12] LABS: HEMATOCRIT 32.3 % (36.0-47.0); HEMOGLOBIN 10.2 g/dl (12.0-15.5); MEAN CORPUSCULAR HEMOGLOBIN 30.9 pg (27.0-33.0); MEAN CORPUSCULAR HGB CONC 31.6 g/dl (32.0-36.5); MEAN CORPUSCULAR VOLUME 97.9 fl (80.0-96.0); PLATELET COUNT, AUTOMATED 334 10^3/uL (150-450); WHITE BLOOD COUNT 8.5 10^3/uL (4.0-10.0)
[2018-05-20 06:45] LABS: ALBUMIN 2.4 GM/DL (3.2-5.2); BILIRUBIN,TOTAL 0.2 MG/DL (0.2-1.0); C REACTIVE PROTEIN QUANTITATIV 1.04 MG/DL (0.00-0.30); CALCIUM LEVEL 8.4 MG/DL (8.8-10.2); CREATININE FOR GFR 0.99 MG/DL (0.55-1.30); GLOMERULAR FILTRATION RATE 56.4 (>32); POTASSIUM SERUM 4.3 MEQ/L (3.5-5.1)
--- NOTE | 2018-05-20 08:58 | IPNPDOC ---
Subjective Date Seen The patient was seen on 05/20/18. Subjective Chief Complaint/HPI Feeling good, NPO since midnight, no c/o Sx TIA, reported low BP 96/44 this am. Objective Physical Examination General Exam: Positive: Alert, Cooperative, Mild Distress Eye Exam: Positive: PERRLA, EOMI ENT Exam: Positive: Atraumatic Neck Exam: Positive: Supple, Other (Rt neck incision healing well, small hematoma improved) Chest Exam: Positive: Clear to auscultation, Normal air movement; Negative: Rales, Rhonchi, Wheezing, Diminished, Other Heart Exam: Positive: Rate Normal, Regular Rhythm, Normal S1, Normal S2; Negative: Irregular Rhythm, Gallops, Murmurs, Rubs, Other Abdomen Exam: Positive: Normal bowel sounds, Soft; Negative: Tenderness, Mass Extremity Exam: Positive: Normal pulses, Other (hematoma Rt forearm improved); Negative: Clubbing, Cyanosis, Edema, Tenderness, Swelling Neuro Exam: Positive: Normal Speech, Strength at 5/5 X4 ext (RUE 5/5), Cranial Nerves 3-12 NL; Negative: Normal Tone, Sensation Intact Psych Exam: Positive: Mental status NL, Mood NL, Oriented x 3 Assessment /Plan Assessment 1. CVA with RUE weakness resolved 2. Lt carotid stenosis 65% Plan/VTE VTE Prophylaxis Ordered?: Yes Plan Continue Plavix and Eliquis Keep NPO IVF [id number] 50 mls/hr, monitor BP change Insulin sliding scale, monitor FBS change Will proceed with Lt CEA this pm VS, I&O, 24H, Fishbone Vital Signs/I&O Vital Signs Date Time Temp Pulse Resp B/P (MAP) Pulse Ox O2 Delivery O2 Flow Rate FiO2 05/20/18 08:00 97.0 70 18 96/44 (61) 99 Room Air 05/18/18 08:00 2.0 I&O- Last 24 Hours up to 6 AM 05/20/18 05:59 Intake Total 850 ml Output Total 1375 ml Balance -525 ml Laboratory Data 24H LABS Laboratory Tests 2 05/19/18 21:36: Bedside Glucose (Misc Panel) 133H 05/20/18 06:03: Nucleated Red Blood Cells % (auto) 0.2H, Anion Gap 7L, Glomerular Filtration Rate 56.4, Blood Urea Nitrogen 16, Creatinine 0.99, Sodium Level 136, Potassium Level 4.3, Chloride Level 102, Carbon Dioxide Level 27, Calcium Level 8.4L, Aspartate Amino Transf (AST/SGOT) 24, Alanine Aminotransferase (ALT/SGPT) 12, Alkaline Phosphatase 88, Total Bilirubin 0.2, Total Protein 6.0L, Albumin 2.4L, C-Reactive Protein, Quantitative 1.04H, Albumin/Globulin Ratio 0.67L CBC/BMP Laboratory Tests 05/20/18 06:03 Red Blood Count 3.30 L, Mean Corpuscular Volume 97.9 H, Mean Corpuscular Hemoglobin 30.9, Mean Corpuscular Hemoglobin Concent 31.6 L, Red Cell Distribution Width 17.2 H, Calcium Level 8.4 L, Aspartate Amino Transf (AST/SGOT) 24, Alanine Aminotransferase (ALT/SGPT) 12, Alkaline Phosphatase 88, Total Bilirubin 0.2, Total Protein 6.0 L, Albumin 2.4 L Microbiology Microbiology 05/18/18 Blood Culture - Preliminary, Resulted No growth after 24 hours . All specim... 05/18/18 Blood Culture - Preliminary, Resulted No growth after 24 hours . All specim... 05/15/18 Urine Culture - Final, Complete E.coli Esbl JESUS ALBERTO GUERRA PA-C May 20, 2018 08:58
[2018-05-20] MEDS ORDERED: LR 1,000 ML IV SCH (09:00)
[2018-05-20] MEDS: HumuLIN (NovoLIN)70/30 INSULIN INJ PER UNIT SC SCH (09:00)
[2018-05-20] MEDS: FUROSEMIDE 40 MG TAB PO SCH (09:00)
[2018-05-20] MEDS: SENOKOT S TAB PO SCH ×2 (09:00→21:10)
[2018-05-20] MEDS: EZETIMIBE 10 MG TAB (ZETIA) PO SCH (09:00)
[2018-05-20] MEDS: NYSTATIN 100,000 UNITS/GM TOPICAL PWD 15 GM TOP SCH ×2 (09:00→21:11)
[2018-05-20] MEDS ORDERED: GLUCAGON FOR INJ 1 MG VIAL (J1610) SC PRN ×2 (09:45→13:30)
[2018-05-20] MEDS ORDERED: GLUCOSE 4 GM CHEW TABLET PO PRN ×2 (09:45→13:30)
[2018-05-20] MEDS ORDERED: D5W/LR 1,000 ML IV SCH (10:00)
[2018-05-20] MEDS: PANTOPRAZOLE 40MG TAB (PROTONIX) PO SCH (10:10)
[2018-05-20] MEDS: CLOPIDOGREL 75 MG TAB PO SCH (10:10)
[2018-05-20] MEDS: APIXABAN 5 MG TAB (ELIQUIS) PO SCH ×2 (10:10→21:10)
[2018-05-20] MEDS: ERTAPENEM SODIUM 1 GM in NS MINI-BAG PLUS 50 ML IV SCH (10:10)
[2018-05-20] MEDS: ACETAMINOPHEN TAB 650MG DOSE (2X325MG) PO PRN ×2 (10:46→21:10)
[2018-05-20] MEDS: D5W/LR 1,000 ML IV SCH (10:46)
[2018-05-20] MEDS: HumaLOG INSULIN (NovoLOG) PER UNIT SC SCH ×2 (12:00→18:00)
[2018-05-20] MEDS ORDERED: DEXTROSE 50% 50 ML SYRINGE IV PRN (13:30)
--- NOTE | 2018-05-20 14:50 | IPNPDOC ---
Text Note Date of Service The patient was seen on 05/20/18. NOTE Subjective: No acute changes overnight. No other neuro deficits. Objective: Vitals: (see below) General: No acute distress, laying comfortably in bed. HEENT: Moist mucous membranes. Neck: No JVD or lymphadenopathy Cardiac: RRR, No murmurs Pulm: Clear to auscultation b/l. No wheezing, rhonchi Abd: NT/ND + BS Ext: No edema or cyanosis. Distal pulses intact. Neuro: Strength 3-4/5 RUE with swelling. Distal pulses intact. Cap refill <2 sed. 4-5/5 RLE. 5/5 LUE and LLE CN 2-12 intact. F to N intact Negative pronator drift. Negative Babinki. Labs (see below) Images: CTA head on 04/22/18 IMPRESSION: 1. There is no aneurysm or arteriovenous malformation. 2. Atherosclerotic disease as described above. CTA neck on 04/22/18 IMPRESSION: 1. Limited examination demonstrating severe stenosis of 85% of the right internal carotid artery at its origin. 2. Moderate stenosis of 65% of the left internal carotid artery at its origin. Right upper extremity ultrasound 05/18/18 Impression: 1. Palpable mass in the forearm appears to correspond to partially thrombosed pseudoaneurysm which is otherwise poorly evaluated due to surrounding swelling. A feeding branch appears to be coming from the right ulnar artery. 2. No evidence for deep venous thrombosis. PICC line identified via the basilic vein. 3. Hematoma in the neck likely related to recent endarterectomy. Assessment/Plan 1. CVA likely secondary to the patient's underlying severe carotid stenosis. Patient has had prior TIAs/CVA in the past, s/p right CEA with Dr. Elizondo, with plan for left CEA. We'll continue patient's home statin/zetia. On plavix/eliquis. Appreciate Dr. Coley and Dr. Elizondo's input. 2. UTI - with dysuria on presentation. ESBL. on Ertapenem. 3. RUE U/s with pseudoaneurysm and neck hematoma- hep discussed these findings in detail with Dr. Elizondo who recommends continuing plavix/eliquis, and that he will review the images and examine the patient's to further evaluate management and plan. 4. Atrial fibrillation on Eliquis at home. Rate controlled. 5. History of multiple CVAs in the past 6. History of hypothyroidism continue meds 7. History of CKD stage III 8. Left Ankle fx - Ortho consulted. Recommendations for nonweightbearing per ortho. PT/OT 9. H/o COPD on O2 10. CAD status post CABG continue home meds DVT prophy: Eliquis Prognosis guarded. VS,Fishbone, I+O VS, Fishbone, I+O Laboratory Tests 05/20/18 06:03 Red Blood Count 3.30 L, Mean Corpuscular Volume 97.9 H, Mean Corpuscular Hemoglobin 30.9, Mean Corpuscular Hemoglobin Concent 31.6 L, Red Cell Distribution Width 17.2 H, Calcium Level 8.4 L, Aspartate Amino Transf (AST/SGOT) 24, Alanine Aminotransferase (ALT/SGPT) 12, Alkaline Phosphatase 88, Total Bilirubin 0.2, Total Protein 6.0 L, Albumin 2.4 L Vital Signs Date Time Temp Pulse Resp B/P (MAP) Pulse Ox O2 Delivery O2 Flow Rate FiO2 05/20/18 12:00 99.3 70 22 127/59 (81) 99 Room Air 05/18/18 08:00 2.0 I&O- Last 24 Hours up to 6 AM 05/20/18 06:00 Intake Total 850 ml Output Total 1225 ml Balance -375 ml RAJWINDER CHOU MD May 20, 2018 14:50
[2018-05-20] MEDS: FERROUS SULFATE 325MG TAB PO SCH (17:06)
[2018-05-20] MEDS: ESCITALOPRAM OXALATE 10 MG TAB (LEXAPRO) PO SCH (17:07)
[2018-05-20] MEDS: VITAMIN D 1,000 INTERNATIONAL UNITS TABLET PO SCH (17:07)
[2018-05-20] MEDS: PRAVASTATIN 10 MG TAB PO SCH (21:10)
[2018-05-21] VITALS (34 sets, daily range): BP systolic 79–138; BP diastolic 38–65; O2SAT 100
[2018-05-21] MEDS: HumaLOG INSULIN (NovoLOG) PER UNIT SC SCH ×3 (00:25→12:00)
[2018-05-21] MEDS: D5W/LR 1,000 ML IV SCH ×2 (00:25→15:06)
[2018-05-21 05:03] LABS: HEMATOCRIT 32.1 % (36.0-47.0); HEMOGLOBIN 10.1 g/dl (12.0-15.5); MEAN CORPUSCULAR HEMOGLOBIN 30.5 pg (27.0-33.0); MEAN CORPUSCULAR HGB CONC 31.5 g/dl (32.0-36.5); PLATELET COUNT, AUTOMATED 315 10^3/uL (150-450); RED BLOOD COUNT 3.31 10^6/uL (4.00-5.40); WHITE BLOOD COUNT 7.3 10^3/uL (4.0-10.0)
[2018-05-21 05:31] LABS: ALBUMIN 2.4 GM/DL (3.2-5.2); BILIRUBIN,TOTAL 0.2 MG/DL (0.2-1.0); C REACTIVE PROTEIN QUANTITATIV 1.38 MG/DL (0.00-0.30); CALCIUM LEVEL 8.1 MG/DL (8.8-10.2); CREATININE FOR GFR 0.96 MG/DL (0.55-1.30); GLOMERULAR FILTRATION RATE 58.4 (>32)
[2018-05-21] MEDS: SODIUM CHLORIDE 0.9% INJ 10 ML SYR IV SCH ×2 (05:56→17:03)
[2018-05-21] MEDS: LEVOTHYROXINE 50MCG TABLET (0.05MG) PO SCH (05:57)
[2018-05-21] MEDS ORDERED: ONDANSETRON 4MG/2ML VIAL (J2405) As Ordered ONE (08:00)
[2018-05-21] MEDS ORDERED: dexameTHASONE 4 MG/ML 1ML VIAL (J1100) As Ordered ONE (08:00)
[2018-05-21] MEDS ORDERED: PROPOFOL 200 MG/20 ML VIAL As Ordered ONE (08:00)
[2018-05-21] MEDS ORDERED: ROCURONIUM BROMIDE 50 MG/5 ML VIAL As Ordered ONE (08:00)
[2018-05-21] MEDS ORDERED: LIDOCAINE 2% INJ 100 MG/5 ML SDV (FOR ANES.) As Ordered ONE (08:00)
[2018-05-21] MEDS ORDERED: fentaNYL 100 MCG/2 ML INJECTION (J3010) As Ordered ONE ×2 (08:01→12:14)
[2018-05-21] MEDS ORDERED: MIDAZOLAM INJ 2 MG/2 ML VIAL (J2250) As Ordered ONE (08:01)
[2018-05-21] MEDS ORDERED: THROMBIN SOLN 20,000 UNITS KIT As Ordered ONE (08:04)
[2018-05-21] MEDS ORDERED: LIDOCAINE 1% SDV INJ 30 ML VIAL As Ordered ONE (08:04)
[2018-05-21] MEDS ORDERED: HEPARIN SOD (PORCINE) 5000 UNITS/ML VIAL As Ordered ONE ×2 (08:05→10:37)
[2018-05-21] MEDS ORDERED: BUPIVACAINE HCL 0.5% 30 ML VIAL As Ordered ONE (08:05)
[2018-05-21] MEDS ORDERED: METOCLOPRAMIDE INJ 10MG/2ML VIAL (J2765) As Ordered ONE (08:07)
[2018-05-21] MEDS: SENOKOT S TAB PO SCH ×2 (09:00→20:11)
[2018-05-21] MEDS: FUROSEMIDE 40 MG TAB PO SCH (09:00)
[2018-05-21] MEDS: HumuLIN (NovoLIN)70/30 INSULIN INJ PER UNIT SC SCH ×2 (09:00→20:12)
[2018-05-21] MEDS: LISINOPRIL *2.5 MG* TAB PO SCH (09:00)
[2018-05-21] MEDS: NYSTATIN 100,000 UNITS/GM TOPICAL PWD 15 GM TOP SCH ×2 (09:00→20:12)
[2018-05-21] MEDS ORDERED: ceFAZolin 2 GM/D5W 50 ML IV BAG (J0690 PER 500MG) As Ordered ONE (10:01)
[2018-05-21] MEDS ORDERED: VASOPRESSIN INJ 20 UNITS/ML VIAL As Ordered ONE (10:07)
[2018-05-21] MEDS ORDERED: PROTAMINE SULF INJ 50 MG/5 ML VIAL (J2720) As Ordered ONE (11:27)
[2018-05-21] MEDS ORDERED: NEOSTIGMINE 10 MG/10 ML VIAL (J2710) As Ordered ONE (11:49)
[2018-05-21] MEDS ORDERED: GLYCOPYRROLATE INJ 0.2 MG/ML 2 ML VIAL As Ordered ONE (11:49)
[2018-05-21] MEDS: fentaNYL 100 MCG/2 ML INJECTION (J3010) IV PRN ×4 (12:15→12:50)
[2018-05-21] MEDS ORDERED: ONDANSETRON 4MG/2ML VIAL (J2405) IV PRN (12:30)
[2018-05-21] MEDS ORDERED: LR 1,000 ML IV SCH (12:30)
[2018-05-21] MEDS ORDERED: METOCLOPRAMIDE INJ 10MG/2ML VIAL (J2765) IV PRN (12:30)
[2018-05-21] MEDS ORDERED: LABETALOL HCL 100 MG/20 ML VIAL IV PRN (12:30)
[2018-05-21] MEDS ORDERED: PERCOCET 5MG/325MG TAB PO PRN (12:30)
[2018-05-21] MEDS ORDERED: PERCOCET 5MG/325MG TAB As Ordered ONE (12:43)
[2018-05-21] MEDS ORDERED: NS 250 ML IV ONE (14:15)
--- NOTE | 2018-05-21 14:34 | IPNPDOC ---
Text Note Date of Service The patient was seen on 05/21/18. NOTE Subjective: Patient has just come back from the OR, and notes some discomfort on the left side of her neck however her pain is controlled. Denies any chest pain or palpitations. Objective: Vitals: (see below) General: No acute distress, laying comfortably in bed. HEENT: Moist mucous membranes. Neck: No JVD or lymphadenopathy. Left neck with LAURYN drain serosang drainage. B andage intact; clean and dry. Cardiac: RRR, No murmurs Pulm: Clear to auscultation b/l. No wheezing, rhonchi Abd: NT/ND + BS Ext: No edema or cyanosis. Distal pulses intact. Neuro: Strength 3-4/5 RUE with swelling. Distal pulses intact. Cap refill <2 sed. 4-5/5 RLE. 5/5 LUE and LLE CN 2-12 intact. F to N intact Negative pronator drift. Negative Babinki. Labs (see below) Images: CTA head on 04/22/18 IMPRESSION: 1. There is no aneurysm or arteriovenous malformation. 2. Atherosclerotic disease as described above. CTA neck on 04/22/18 IMPRESSION: 1. Limited examination demonstrating severe stenosis of 85% of the right internal carotid artery at its origin. 2. Moderate stenosis of 65% of the left internal carotid artery at its origin. Right upper extremity ultrasound 05/18/18 Impression: 1. Palpable mass in the forearm appears to correspond to partially thrombosed pseudoaneurysm which is otherwise poorly evaluated due to surrounding swelling. A feeding branch appears to be coming from the right ulnar artery. 2. No evidence for deep venous thrombosis. PICC line identified via the basilic vein. 3. Hematoma in the neck likely related to recent endarterectomy. Assessment/Plan 1. Carotid stenosis, s/p CEA 05/21. LAURYN drain intact. Management per Dr. Elizondo 2. s/p CVA likely secondary to the patient's underlying severe carotid stenosis. Patient has had prior TIAs/CVA in the past, s/p right CEA with Dr. Elizondo, with plan for left CEA. We'll continue patient's home statin/zetia. On plavix/eliquis. 2. UTI - with dysuria on presentation. ESBL. on Ertapenem. 3. RUE U/s with pseudoaneurysm and neck hematoma- [facility] discussed these findings in detail with Dr. Elizondo who recommends continuing plavix/eliquis, and that he will review the images and examine the patient's to further evaluate management and plan. 4. Atrial fibrillation on Eliquis at home. Rate controlled. 5. History of multiple CVAs in the past 6. History of hypothyroidism continue meds 7. History of CKD stage III 8. Left Ankle fx - Ortho consulted. Recommendations for nonweightbearing per ortho. PT/OT 9. H/o COPD on O2 10. CAD status post CABG continue home meds DVT prophy: Eliquis Prognosis guarded. VS,Fishbone, I+O VS, Fishbone, I+O Laboratory Tests 05/21/18 04:42 Red Blood Count 3.31 L, Mean Corpuscular Volume 97.0 H, Mean Corpuscular Hemoglobin 30.5, Mean Corpuscular Hemoglobin Concent 31.5 L, Red Cell Distribution Width 17.0 H, Calcium Level 8.1 L, Aspartate Amino Transf (AST/SGOT) 25, Alanine Aminotransferase (ALT/SGPT) 11 L, Alkaline Phosphatase 93, Total Bilirubin 0.2, Total Protein 6.0 L, Albumin 2.4 L Vital Signs Date Time Temp Pulse Resp B/P (MAP) Pulse Ox O2 Delivery O2 Flow Rate FiO2 05/21/18 13:56 2.0 05/21/18 13:05 97.7 69 16 108/53 (71) 100 Nasal Cannula I&O- Last 24 Hours up to 6 AM 05/21/18 06:00 Intake Total 890 ml Output Total 700 ml Balance 190 ml RAJWINDER CHOU MD May 21, 2018 14:34
[2018-05-21 14:49] LABS: HEMATOCRIT 30.4 % (36.0-47.0); HEMOGLOBIN 9.6 g/dl (12.0-15.5); MEAN CORPUSCULAR HEMOGLOBIN 31.2 pg (27.0-33.0); MEAN CORPUSCULAR HGB CONC 31.6 g/dl (32.0-36.5); MEAN CORPUSCULAR VOLUME 98.7 fl (80.0-96.0); PLATELET COUNT, AUTOMATED 290 10^3/uL (150-450); RED BLOOD COUNT 3.08 10^6/uL (4.00-5.40); WHITE BLOOD COUNT 14.6 10^3/uL (4.0-10.0)
[2018-05-21] MEDS: CLOPIDOGREL 75 MG TAB PO SCH (15:02)
[2018-05-21] MEDS: FERROUS SULFATE 325MG TAB PO SCH (15:02)
[2018-05-21] MEDS: VITAMIN D 1,000 INTERNATIONAL UNITS TABLET PO SCH (15:02)
[2018-05-21] MEDS: APIXABAN 5 MG TAB (ELIQUIS) PO SCH ×2 (15:02→20:11)
[2018-05-21] MEDS: ESCITALOPRAM OXALATE 10 MG TAB (LEXAPRO) PO SCH (15:03)
[2018-05-21] MEDS: PANTOPRAZOLE 40MG TAB (PROTONIX) PO SCH (15:03)
[2018-05-21] MEDS: EZETIMIBE 10 MG TAB (ZETIA) PO SCH ×2 (15:03→15:06)
[2018-05-21] MEDS: MIRALAX *UNIT DOSE* 17GM PACKET PO SCH (15:03)
[2018-05-21] MEDS: ERTAPENEM SODIUM 1 GM in NS MINI-BAG PLUS 50 ML IV SCH (15:04)
[2018-05-21 15:10] LABS: CALCIUM LEVEL 8.1 MG/DL (8.8-10.2); CREATININE FOR GFR 0.96 MG/DL (0.55-1.30); GLOMERULAR FILTRATION RATE 58.4 (>32); POTASSIUM SERUM 4.3 MEQ/L (3.5-5.1)
[2018-05-21] MEDS ORDERED: HumuLIN (NovoLIN)70/30 INSULIN INJ PER UNIT SC ONE (15:15)
[2018-05-21] MEDS: PHENYLEPHRINE HCL INJ 50 MG in D5W 495 ML IV SCH (16:02)
[2018-05-21] MEDS: PRAVASTATIN 10 MG TAB PO SCH (20:11)
[2018-05-21] MEDS: ACETAMINOPHEN TAB 650MG DOSE (2X325MG) PO PRN (20:11)
--- NOTE | 2018-05-21 23:10 | ROOPDOC ---
Augustus Elizondo MD May 21, 2018 23:10
[2018-05-21 23:31] LABS: HEMATOCRIT 27.1 % (36.0-47.0); HEMOGLOBIN 8.5 g/dl (12.0-15.5); MEAN CORPUSCULAR HEMOGLOBIN 31.1 pg (27.0-33.0); MEAN CORPUSCULAR HGB CONC 31.4 g/dl (32.0-36.5); MEAN CORPUSCULAR VOLUME 99.3 fl (80.0-96.0); PLATELET COUNT, AUTOMATED 294 10^3/uL (150-450); RED BLOOD COUNT 2.73 10^6/uL (4.00-5.40); WHITE BLOOD COUNT 9.6 10^3/uL (4.0-10.0)
[2018-05-22] VITALS (47 sets, daily range): BP systolic 86–143; BP diastolic 41–63; O2SAT 92–100
[2018-05-22] MEDS: ACETAMINOPHEN TAB 650MG DOSE (2X325MG) PO PRN ×3 (02:10→19:33)
[2018-05-22 02:57] LABS: HEMATOCRIT 26.7 % (36.0-47.0); HEMOGLOBIN 8.3 g/dl (12.0-15.5)
[2018-05-22] MEDS: LEVOTHYROXINE 50MCG TABLET (0.05MG) PO SCH (05:50)
[2018-05-22] MEDS: SODIUM CHLORIDE 0.9% INJ 10 ML SYR IV SCH ×2 (05:50→17:15)
[2018-05-22 06:40] LABS: BLOOD UREA NITROGEN 13 MG/DL (7-18); C REACTIVE PROTEIN QUANTITATIV 1.72 MG/DL (0.00-0.30); CALCIUM LEVEL 7.6 MG/DL (8.8-10.2); CARBON DIOXIDE LEVEL 30 MEQ/L (21-32); CHLORIDE LEVEL 104 MEQ/L (98-107); CREATININE FOR GFR 0.87 MG/DL (0.55-1.30); GLOMERULAR FILTRATION RATE > 60.0 (>32); GLUCOSE, FASTING 85 MG/DL (70-100); POTASSIUM SERUM 4.1 MEQ/L (3.5-5.1); SODIUM LEVEL 140 MEQ/L (136-145)
[2018-05-22 07:03] LABS: HEMATOCRIT 27.2 % (36.0-47.0); HEMOGLOBIN 8.3 g/dl (12.0-15.5); MEAN CORPUSCULAR HEMOGLOBIN 30.4 pg (27.0-33.0); MEAN CORPUSCULAR HGB CONC 30.5 g/dl (32.0-36.5); MEAN CORPUSCULAR VOLUME 99.6 fl (80.0-96.0); PLATELET COUNT, AUTOMATED 297 10^3/uL (150-450); RED BLOOD COUNT 2.73 10^6/uL (4.00-5.40)
[2018-05-22 07:06] LABS: MAGNESIUM LEVEL 2.2 MG/DL (1.8-2.4)
[2018-05-22] MEDS: HumuLIN (NovoLIN)70/30 INSULIN INJ PER UNIT SC SCH ×2 (09:00→19:34)
[2018-05-22] MEDS: LISINOPRIL *2.5 MG* TAB PO SCH (09:00)
[2018-05-22] MEDS: SENOKOT S TAB PO SCH ×2 (09:00→19:34)
[2018-05-22] MEDS: APIXABAN 5 MG TAB (ELIQUIS) PO SCH ×2 (10:27→19:34)
[2018-05-22] MEDS: VITAMIN D 1,000 INTERNATIONAL UNITS TABLET PO SCH (10:28)
[2018-05-22] MEDS: CLOPIDOGREL 75 MG TAB PO SCH (10:28)
[2018-05-22] MEDS: PANTOPRAZOLE 40MG TAB (PROTONIX) PO SCH (10:28)
[2018-05-22] MEDS: FUROSEMIDE 40 MG TAB PO SCH (10:28)
[2018-05-22] MEDS: EZETIMIBE 10 MG TAB (ZETIA) PO SCH (10:28)
[2018-05-22] MEDS: ESCITALOPRAM OXALATE 10 MG TAB (LEXAPRO) PO SCH (10:28)
[2018-05-22] MEDS: FERROUS SULFATE 325MG TAB PO SCH (10:28)
[2018-05-22] MEDS: ERTAPENEM SODIUM 1 GM in NS MINI-BAG PLUS 50 ML IV SCH (10:29)
[2018-05-22] MEDS: MIRALAX *UNIT DOSE* 17GM PACKET PO SCH (10:29)
[2018-05-22] MEDS: NYSTATIN 100,000 UNITS/GM TOPICAL PWD 15 GM TOP SCH ×2 (10:30→19:34)
--- NOTE | 2018-05-22 12:22 | IPNPDOC ---
Text Note Date of Service The patient was seen on 05/22/18. NOTE Subjective: Feels well. No Neck pain. No CP. No new weakness/numbness. Had re ceived phenylephrine yesterday given hypotension post surg, and is being weaned off today. Objective: Vitals: (see below) General: No acute distress, laying comfortably in bed. HEENT: Moist mucous membranes. Neck: No JVD or lymphadenopathy. Left neck with LAURYN drain serosang drainage, clearing. Bandage intact; clean and dry. Cardiac: RRR, No murmurs Pulm: Clear to auscultation b/l. No wheezing, rhonchi Abd: NT/ND + BS Ext: No edema or cyanosis. Distal pulses intact. Neuro: Strength 3-4/5 RUE with swelling. Distal pulses intact. Cap refill <2 sed. 4-5/5 RLE. 5/5 LUE and LLE CN 2-12 intact. F to N intact Negative pronator drift. Negative Babinki. Labs (see below) Images: CTA head on 04/22/18 IMPRESSION: 1. There is no aneurysm or arteriovenous malformation. 2. Atherosclerotic disease as described above. CTA neck on 04/22/18 IMPRESSION: 1. Limited examination demonstrating severe stenosis of 85% of the right internal carotid artery at its origin. 2. Moderate stenosis of 65% of the left internal carotid artery at its origin. Right upper extremity ultrasound 05/18/18 Impression: 1. Palpable mass in the forearm appears to correspond to partially thrombosed pseudoaneurysm which is otherwise poorly evaluated due to surrounding swelling. A feeding branch appears to be coming from the right ulnar artery. 2. No evidence for deep venous thrombosis. PICC line identified via the basilic vein. 3. Hematoma in the neck likely related to recent endarterectomy. Assessment/Plan 1. Carotid stenosis, s/p CEA 05/21. LAURYN drain intact. Management per Dr. Elizondo 2. s/p CVA likely secondary to the patient's underlying severe carotid stenosis. Patient has had prior TIAs/CVA in the past, s/p right CEA with Dr. Elizondo, with plan for left CEA. We'll continue patient's home statin/zetia. On plavix/eliquis. 3. Acute on chronic anemia s/p surg - will give 1 U PRBC. 4. Atrial fibrillation on Eliquis at home. Rate controlled. 5. History of multiple CVAs in the past 6. History of hypothyroidism continue meds 7. History of CKD stage III 8. Left Ankle fx - Ortho consulted. Recommendations for nonweightbearing per ortho. PT/OT 9. H/o COPD on O2 10. CAD status post CABG continue home meds 11. UTI - with dysuria on presentation. ESBL. on Ertapenem. 12. RUE U/s with pseudoaneurysm and neck hematoma- [facility] discussed these findings in detail with Dr. Elizondo who recommends continuing plavix/eliquis, and that he will review the images and examine the patient's to further evaluate management and plan. DVT prophy: Eliquis Prognosis guarded. VS,Fishbone, I+O VS, Fishbone, I+O Laboratory Tests 05/21/18 14:41 Red Blood Count 3.08 L, Mean Corpuscular Volume 98.7 H, Mean Corpuscular Hemoglobin 31.2, Mean Corpuscular Hemoglobin Concent 31.6 L, Red Cell Distribution Width 17.0 H, Calcium Level 8.1 L 05/21/18 23:15 Red Blood Count 2.73 L, Mean Corpuscular Volume 99.3 H, Mean Corpuscular Hemoglobin 31.1, Mean Corpuscular Hemoglobin Concent 31.4 L, Red Cell Distribution Width 17.0 H 05/22/18 02:36 05/22/18 05:54 Calcium Level 7.6 L 05/22/18 06:07 Red Blood Count 2.73 L, Mean Corpuscular Volume 99.6 H, Mean Corpuscular Hemoglobin 30.4, Mean Corpuscular Hemoglobin Concent 30.5 L, Red Cell Distribution Width 17.1 H Vital Signs Date Time Temp Pulse Resp B/P (MAP) Pulse Ox O2 Delivery O2 Flow Rate FiO2 05/22/18 08:00 2.0 05/22/18 06:00 69 100/51 (67) 100 Nasal Cannula 05/22/18 04:00 99.1 15 I&O- Last 24 Hours up to 6 AM 05/22/18 06:00 Intake Total 1935.8 ml Output Total 350 ml Balance 1585.8 ml RAJWINDER CHOU MD May 22, 2018 12:22
[2018-05-22] MEDS: PHENYLEPHRINE HCL INJ 50 MG in D5W 495 ML IV SCH (16:00)
[2018-05-22] MEDS: PRAVASTATIN 10 MG TAB PO SCH (19:34)
[2018-05-22] MEDS: PERCOCET 5MG/325MG TAB PO PRN (20:12)
[2018-05-22] MEDS: D5W/LR 1,000 ML IV SCH (22:00)
[2018-05-23] VITALS (12 sets, daily range): BP systolic 103–135; BP diastolic 48–91
[2018-05-23] MEDS: LEVOTHYROXINE 50MCG TABLET (0.05MG) PO SCH (05:41)
[2018-05-23] MEDS: SODIUM CHLORIDE 0.9% INJ 10 ML SYR IV SCH ×2 (05:41→18:30)
[2018-05-23 06:02] LABS: HEMATOCRIT 30.5 % (36.0-47.0); HEMOGLOBIN 9.8 g/dl (12.0-15.5); MEAN CORPUSCULAR HGB CONC 32.1 g/dl (32.0-36.5); MEAN CORPUSCULAR VOLUME 96.5 fl (80.0-96.0); PLATELET COUNT, AUTOMATED 230 10^3/uL (150-450); RED BLOOD COUNT 3.16 10^6/uL (4.00-5.40); WHITE BLOOD COUNT 6.6 10^3/uL (4.0-10.0)
[2018-05-23 06:22] LABS: BLOOD UREA NITROGEN 9 MG/DL (7-18); C REACTIVE PROTEIN QUANTITATIV 2.23 MG/DL (0.00-0.30); CALCIUM LEVEL 7.8 MG/DL (8.8-10.2); CARBON DIOXIDE LEVEL 30 MEQ/L (21-32); CHLORIDE LEVEL 105 MEQ/L (98-107); GLOMERULAR FILTRATION RATE > 60.0 (>32); GLUCOSE, FASTING 108 MG/DL (70-100); MAGNESIUM LEVEL 2.6 MG/DL (1.8-2.4); POTASSIUM SERUM 4.2 MEQ/L (3.5-5.1); SODIUM LEVEL 141 MEQ/L (136-145)
[2018-05-23] MEDS: LISINOPRIL *2.5 MG* TAB PO SCH (09:00)
[2018-05-23] MEDS: MIRALAX *UNIT DOSE* 17GM PACKET PO SCH (09:05)
[2018-05-23] MEDS: APIXABAN 5 MG TAB (ELIQUIS) PO SCH ×2 (09:07→19:59)
[2018-05-23] MEDS: CLOPIDOGREL 75 MG TAB PO SCH (09:07)
[2018-05-23] MEDS: EZETIMIBE 10 MG TAB (ZETIA) PO SCH (09:07)
[2018-05-23] MEDS: HumuLIN (NovoLIN)70/30 INSULIN INJ PER UNIT SC SCH ×2 (09:07→20:03)
[2018-05-23] MEDS: PANTOPRAZOLE 40MG TAB (PROTONIX) PO SCH (09:07)
[2018-05-23] MEDS: FUROSEMIDE 40 MG TAB PO SCH (09:07)
[2018-05-23] MEDS: VITAMIN D 1,000 INTERNATIONAL UNITS TABLET PO SCH (09:08)
[2018-05-23] MEDS: FERROUS SULFATE 325MG TAB PO SCH (09:08)
[2018-05-23] MEDS: SENOKOT S TAB PO SCH ×2 (09:08→19:59)
[2018-05-23] MEDS: ESCITALOPRAM OXALATE 10 MG TAB (LEXAPRO) PO SCH (09:08)
[2018-05-23] MEDS: NYSTATIN 100,000 UNITS/GM TOPICAL PWD 15 GM TOP SCH ×2 (09:09→20:00)
--- NOTE | 2018-05-23 12:24 | IPNPDOC ---
Text Note Date of Service The patient was seen on 05/23/18. NOTE Subjective: Mild swelling left neck. No bleeding. LAURYN has since been removed. Feeling well today Objective: Vitals: (see below) General: No acute distress, laying comfortably in bed. HEENT: Moist mucous membranes. Neck: No JVD or lymphadenopathy. Left neck with mild swelling. Bandage intact; clean and dry. No bleeding Cardiac: RRR, No murmurs Pulm: Clear to auscultation b/l. No wheezing, rhonchi Abd: NT/ND + BS Ext: No edema or cyanosis. Distal pulses intact. Neuro: Strength 3-4/5 RUE with swelling. Distal pulses intact. Cap refill <2 sed. 4-5/5 RLE. 5/5 LUE and LLE CN 2-12 intact. F to N intact Negative pronator drift. Negative Babinki. Labs (see below) Images: CTA head on 04/22/18 IMPRESSION: 1. There is no aneurysm or arteriovenous malformation. 2. Atherosclerotic disease as described above. CTA neck on 04/22/18 IMPRESSION: 1. Limited examination demonstrating severe stenosis of 85% of the right internal carotid artery at its origin. 2. Moderate stenosis of 65% of the left internal carotid artery at its origin. Right upper extremity ultrasound 05/18/18 Impression: 1. Palpable mass in the forearm appears to correspond to partially thrombosed pseudoaneurysm which is otherwise poorly evaluated due to surrounding swelling. A feeding branch appears to be coming from the right ulnar artery. 2. No evidence for deep venous thrombosis. PICC line identified via the basilic vein. 3. Hematoma in the neck likely related to recent endarterectomy. Assessment/Plan 1. Carotid stenosis, s/p CEA 05/21. LAURYN drain intact. Management per Dr. Elizondo. s /p removal of LAURYN drain. 2. s/p CVA likely secondary to the patient's underlying severe carotid stenosis. Patient has had prior TIAs/CVA in the past, s/p right CEA with Dr. Elizondo, with plan for left CEA. We'll continue patient's home statin/zetia. On plavix/eliquis. 3. Acute on chronic anemia s/p surg - s/p 1 U PRBC. Hb stable today. 4. Atrial fibrillation on Eliquis at home. Rate controlled. 5. History of multiple CVAs in the past 6. History of hypothyroidism continue meds 7. History of CKD stage III 8. Left Ankle fx - Ortho consulted. Recommendations for nonweightbearing per ortho. PT/OT 9. H/o COPD on O2 10. CAD status post CABG continue home meds 11. UTI - with dysuria on presentation. ESBL. on Ertapenem. 12. RUE U/s with pseudoaneurysm and neck hematoma- hep discussed these findings in detail with Dr. Elizondo who recommends continuing plavix/eliquis, and that he will review the images and examine the patient's to further evaluate management and plan. DVT prophy: Eliquis Prognosis guarded. VS,Fishbone, I+O VS, Fishbone, I+O Laboratory Tests 05/23/18 05:42 Red Blood Count 3.16 L, Mean Corpuscular Volume 96.5 H, Mean Corpuscular Hemoglobin 31.0, Mean Corpuscular Hemoglobin Concent 32.1, Red Cell Distribution Width 16.9 H, Calcium Level 7.8 L Vital Signs Date Time Temp Pulse Resp B/P (MAP) Pulse Ox O2 Delivery O2 Flow Rate FiO2 05/23/18 10:00 69 18 116/54 (74) 100 Nasal Cannula 1.0 05/23/18 08:00 97.9 I&O- Last 24 Hours up to 6 AM 05/23/18 05:59 Intake Total 3033 ml Output Total 1480 ml Balance 1553 ml RAJWINDER CHOU MD May 23, 2018 12:24
[2018-05-23] MEDS: PERCOCET 5MG/325MG TAB PO PRN ×2 (14:19→19:59)
--- NOTE | 2018-05-23 14:33 | IPNPDOC ---
Subjective Date Seen The patient was seen on 05/23/18. Subjective Chief Complaint/HPI Lt neck soreness, tolerable. Otherwise feels good. No weakness of extremity or slurred speech. Objective Physical Examination General Exam: Positive: Alert, Cooperative, No Acute Distress Eye Exam: Positive: PERRLA, Conjunctiva & lids normal, EOMI ENT Exam: Positive: Atraumatic Neck Exam: Positive: Supple, Other (Lt neck incision c/d/i, drain removed yesterday.) Chest Exam: Positive: Clear to auscultation, Normal air movement; Negative: Rales, Rhonchi, Wheezing, Diminished, Other Heart Exam: Positive: Rate Normal, Regular Rhythm, Normal S1, Normal S2; Negative: Irregular Rhythm, Gallops, Murmurs, Rubs, Other Abdomen Exam: Positive: Normal bowel sounds, Soft; Negative: Tenderness, Mass Extremity Exam: Positive: Normal pulses, Other (hematoma Rt forearm improved); Negative: Clubbing, Cyanosis, Edema, Tenderness, Swelling Neuro Exam: Positive: Normal Speech, Strength at 5/5 X4 ext (RUE 5/5), Cranial Nerves 3-12 NL; Negative: Normal Tone, Sensation Intact Psych Exam: Positive: Mental status NL, Mood NL, Oriented x 3 Assessment /Plan Assessment POD #2, Lt CEA. pt doing well. no TIA /CVA. S/p DC Phenylephrine > 24 hrs, SBP stable 100s-120s. Plan/VTE VTE Prophylaxis Ordered?: Yes Plan 1. Continue current management as per hospitalist. 2. Monitor BP change. 3. Continue to hold antihypertensives unless BP above normal range. 4. PT 5. Good to transfer to PCU VS, I&O, 24H, Radha Vital Signs/I&O Vital Signs Date Time Temp Pulse Resp B/P (MAP) Pulse Ox O2 Delivery O2 Flow Rate FiO2 05/23/18 13:00 69 18 100 Room Air 05/23/18 12:00 97.4 115/50 (71) 05/23/18 12:00 1.0 I&O- Last 24 Hours up to 6 AM 05/23/18 06:00 Intake Total 2515 ml Output Total 1600 ml Balance 915 ml Laboratory Data 24H LABS Laboratory Tests 2 05/22/18 18:37: Bedside Glucose (Misc Panel) 166H 05/23/18 01:39: Bedside Glucose (Misc Panel) 101 12/3/18 05:42: Nucleated Red Blood Cells % (auto) 0.0, Anion Gap 6L, Glomerular Filtration Rate > 60.0, Blood Urea Nitrogen 9, Creatinine 0.90, Sodium Level 141, Potassium Level 4.2, Chloride Level 105, Carbon Dioxide Level 30, Calcium Level 7.8L, Mag nesium Level 2.6H, C-Reactive Protein, Quantitative 2.23H 05/23/18 05:48: Bedside Glucose (Misc Panel) 112H 05/23/18 12:02: Bedside Glucose (Misc Panel) 99 CBC/BMP Laboratory Tests 05/23/18 05:42 Red Blood Count 3.16 L, Mean Corpuscular Volume 96.5 H, Mean Corpuscular Hemoglobin 31.0, Mean Corpuscular Hemoglobin Concent 32.1, Red Cell Distribution Width 16.9 H, Calcium Level 7.8 L Microbiology Microbiology 05/18/18 Blood Culture - Final, Complete NO GROWTH AFTER 5 DAYS 05/18/18 Blood Culture - Final, Complete NO GROWTH AFTER 5 DAYS 05/15/18 Urine Culture - Final, Complete E.coli Esbl JESUS ALBERTO GUERRA PA-C May 23, 2018 14:33
[2018-05-23] MEDS: D5W/LR 1,000 ML IV SCH (18:31)
[2018-05-23] MEDS: PRAVASTATIN 10 MG TAB PO SCH (19:59)
[2018-05-24] VITALS (8 sets, daily range): BP systolic 102–148; BP diastolic 47–66
[2018-05-24] MEDS: PERCOCET 5MG/325MG TAB PO PRN ×3 (04:15→13:47)
[2018-05-24 05:03] LABS: HEMATOCRIT 31.5 % (36.0-47.0); HEMOGLOBIN 9.7 g/dl (12.0-15.5); MEAN CORPUSCULAR HEMOGLOBIN 30.6 pg (27.0-33.0); MEAN CORPUSCULAR HGB CONC 30.8 g/dl (32.0-36.5); MEAN CORPUSCULAR VOLUME 99.4 fl (80.0-96.0); PLATELET COUNT, AUTOMATED 213 10^3/uL (150-450); RED BLOOD COUNT 3.17 10^6/uL (4.00-5.40); WHITE BLOOD COUNT 7.2 10^3/uL (4.0-10.0)
[2018-05-24 06:04] LABS: BLOOD UREA NITROGEN 10 MG/DL (7-18); C REACTIVE PROTEIN QUANTITATIV 2.44 MG/DL (0.00-0.30); CALCIUM LEVEL 7.6 MG/DL (8.8-10.2); CARBON DIOXIDE LEVEL 30 MEQ/L (21-32); CHLORIDE LEVEL 105 MEQ/L (98-107); CREATININE FOR GFR 0.93 MG/DL (0.55-1.30); GLOMERULAR FILTRATION RATE > 60.0 (>32); GLUCOSE, FASTING 317 MG/DL (70-100); MAGNESIUM LEVEL 1.8 MG/DL (1.8-2.4); POTASSIUM SERUM 3.7 MEQ/L (3.5-5.1); SODIUM LEVEL 142 MEQ/L (136-145)
[2018-05-24] MEDS: LEVOTHYROXINE 50MCG TABLET (0.05MG) PO SCH (06:04)
[2018-05-24] MEDS: SODIUM CHLORIDE 0.9% INJ 10 ML SYR IV SCH ×2 (06:04→18:35)
[2018-05-24] MEDS: ESCITALOPRAM OXALATE 10 MG TAB (LEXAPRO) PO SCH (08:45)
[2018-05-24] MEDS: PANTOPRAZOLE 40MG TAB (PROTONIX) PO SCH (08:45)
[2018-05-24] MEDS: APIXABAN 5 MG TAB (ELIQUIS) PO SCH ×2 (08:45→20:32)
[2018-05-24] MEDS: CLOPIDOGREL 75 MG TAB PO SCH (08:45)
[2018-05-24] MEDS: SENOKOT S TAB PO SCH ×2 (08:45→20:32)
[2018-05-24] MEDS: VITAMIN D 1,000 INTERNATIONAL UNITS TABLET PO SCH (08:46)
[2018-05-24] MEDS: FERROUS SULFATE 325MG TAB PO SCH (08:46)
[2018-05-24] MEDS: EZETIMIBE 10 MG TAB (ZETIA) PO SCH (08:46)
[2018-05-24] MEDS: FUROSEMIDE 40 MG TAB PO SCH (08:47)
[2018-05-24] MEDS: NYSTATIN 100,000 UNITS/GM TOPICAL PWD 15 GM TOP SCH ×2 (08:48→20:33)
[2018-05-24] MEDS: HumuLIN (NovoLIN)70/30 INSULIN INJ PER UNIT SC SCH ×2 (08:48→20:32)
[2018-05-24] MEDS: MIRALAX *UNIT DOSE* 17GM PACKET PO SCH (08:48)
[2018-05-24] MEDS: LISINOPRIL *2.5 MG* TAB PO SCH (09:00)
--- NOTE | 2018-05-24 11:15 | IPNPDOC ---
Subjective Date Seen The patient was seen on 05/24/18. Subjective Chief Complaint/HPI Feeling better, good appetite, no dysphagia /TIA, reported disorientated last pm, OOB yesterday. Objective Physical Examination General Exam: Positive: Alert, Cooperative, No Acute Distress Eye Exam: Positive: PERRLA, Conjunctiva & lids normal, EOMI ENT Exam: Positive: Atraumatic Neck Exam: Positive: Supple, Other (Lt neck incision c/d/i.) Chest Exam: Positive: Clear to auscultation, Normal air movement; Negative: Rales, Rhonchi, Wheezing, Diminished, Other Heart Exam: Positive: Rate Normal, Regular Rhythm, Normal S1, Normal S2; Negative: Irregular Rhythm, Gallops, Murmurs, Rubs, Other Abdomen Exam: Positive: Normal bowel sounds, Soft; Negative: Tenderness, Mass Extremity Exam: Positive: Normal pulses, Other (large hematoma/pseudoaneurysm Rt forearm continually improved); Negative: Clubbing, Cyanosis, Edema, Tenderness, Swelling Neuro Exam: Positive: Normal Speech, Strength at 5/5 X4 ext (RUE 5/5), Cranial Nerves 3-12 NL; Negative: Normal Tone, Sensation Intact Psych Exam: Positive: Mental status NL, Mood NL, Memory Intact; Negative: Oriented x 3 (AAO x2, disoritented to time) Assessment /Plan Assessment 1. POD #3, s/p Lt CEA w/o TIA/CVA Wound healing well w/o concern. SBP stable. Disoriented since last pm and improving this am. 2. Rt forearm hematoma /pseudoaneurysm Continually improved. Plan/VTE VTE Prophylaxis Ordered?: Yes Plan 1. Continue current management as per critical medicine. 2. Increase PT as able. 3. Continue to follow peripherally. VS, I&O, 24H, Fishbone Vital Signs/I&O Vital Signs Date Time Temp Pulse Resp B/P (MAP) Pulse Ox O2 Delivery O2 Flow Rate FiO2 05/24/18 09:00 103/48 05/24/18 08:00 98.0 69 16 98 Room Air 05/24/18 04:00 2.0 I&O- Last 24 Hours up to 6 AM 05/24/18 06:00 Intake Total 2120 ml Output Total 2795 ml Balance -675 ml Laboratory Data 24H LABS Laboratory Tests 2 05/23/18 12:02: Bedside Glucose (Misc Panel) 99 05/23/18 17:03: Bedside Glucose (Misc Panel) 98 05/24/18 04:50: Nucleated Red Blood Cells % (auto) 0.0, Anion Gap 7L, Glomerular Filtration Rate > 60.0, Blood Urea Nitrogen 10, Creatinine 0.93, Sodium Level 142, Potassium Level 3.7, Chloride Level 105, Carbon Dioxide Level 30, Calcium Level 7.6L, Magnesium Level 1.8, C-Reactive Protein, Quantitative 2.44H 05/24/18 06:21: Bedside Glucose (Misc Panel) 93 CBC/BMP Laboratory Tests 05/24/18 04:50 Red Blood Count 3.17 L, Mean Corpuscular Volume 99.4 H, Mean Corpuscular Hemoglobin 30.6, Mean Corpuscular Hemoglobin Concent 30.8 L, Red Cell Distribution Width 16.7 H, Calcium Level 7.6 L Microbiology Microbiology 05/18/18 Blood Culture - Final, Complete NO GROWTH AFTER 5 DAYS 05/18/18 Blood Culture - Final, Complete NO GROWTH AFTER 5 DAYS 05/15/18 Urine Culture - Final, Complete E.coli Esbl JESUS ALBERTO GUERRA PA-C May 24, 2018 11:15
[2018-05-24] MEDS: D5W/LR 1,000 ML IV SCH (14:40)
[2018-05-24] MEDS: HumaLOG INSULIN (NovoLOG) PER UNIT SC SCH (20:32)
[2018-05-24] MEDS: ACETAMINOPHEN TAB 650MG DOSE (2X325MG) PO PRN (20:32)
[2018-05-24] MEDS: PRAVASTATIN 10 MG TAB PO SCH (20:32)
--- NOTE | 2018-05-24 20:34 | IPN ---
DATE: 05/24/2018 Patient seen and examined. No acute events overnight. Denies any chest pain, pressure, or discomfort. Reported left-sided neck swelling that has been improving. Denies any chest pain, pressure, discomfort, shortness of breath, fevers, or chills. VITAL SIGNS: Temperature 97.6, pulse 70, respirations 20, blood pressure 121/56, pulse oximetry 95% on room air. LABORATORY DATA: WBC 7.2, hemoglobin and hematocrit 9.7/31.5, platelets 213. Chemistry: Sodium 142, potassium 3.7, chloride 105, bicarbonate 30, BUN 10, creatinine 0.93. PHYSICAL EXAMINATION: GENERAL: Patient alert, comfortable, in no acute distress. HEENT: Normocephalic, atraumatic. NECK: Right-sided neck is well healing. Left side of neck mildly swollen but seems to be healing well. Minimal bruising. PULMONARY: Bilaterally clear. CARDIAC: Regular, S1, S2. ABDOMEN: Soft, nontender. Positive bowel sounds. EXTREMITIES: No clubbing, cyanosis, or edema. ASSESSMENT AND PLAN: This is an 88-year-old female patient with underlying medical history of multiple strokes, moderate to severe bilateral carotid artery disease, has refused carotid endarterectomy in the past, status post recent right-sided carotid endarterectomy, also with chronic systolic congestive heart failure, atrial fibrillation on Eliquis, chronic obstructive pulmonary disease (COPD) on 2 liters oxygen, hypertension, CVA, peripheral vascular disease, hypothyroidism, history of pulmonary embolism (PE), who was readmitted for acute rehabilitation with acute slurred speech and right-sided weakness status post left-sided carotid endarterectomy this time. PROBLEMS: 1. Transient ischemic attacks (TIA) with slurred speech and right-sided weakness status post left-sided carotid endarterectomy by vascular surgery. Wound care as per vascular surgery. Currently on Plavix and Eliquis and neurologic checks as ordered. Physical therapy (PT) and repeat CT appreciated. CT angiogram of the neck has also been appreciated. 2. Acute on chronic anemia status post surgery. Transfuse 1 unit packed red blood cells (PRBCs). 3. Atrial fibrillation, on Eliquis, currently rate controlled. 4. Dyslipidemia. Continue statin. 5. Hypothyroidism. Continue Synthroid. 6. Diabetes. Continue basal and mealtime insulin. 7. Hypertension. Continue Lasix, lisinopril. 8. Chronic kidney disease (CKD) stage III, currently at baseline. Will continue to monitor. 9. Left ankle fracture. Orthopedics consulted. Weightbearing status as per orthopedics. PT/occupational therapy (OT). 10. Chronic obstructive pulmonary disease, on home oxygen. Continue monitoring. 11. Coronary arterial disease. History of coronary artery bypass graft (CABG). Continue statin. Continue Plavix. Continue Eliquis, lisinopril. 12. Urinary tract infection with extended-spectrum beta-lactamase (ESBL). Completing ertapenem. 13. Right upper extremity ultrasound with pseudoaneurysm and neck hematoma. Further management as per vascular. 14. Deep venous thrombosis (DVT) prophylaxis. Continue Eliquis. 15. Hematuria. Patient has stents with frequent urinary tract infections (UTIs). Will need to followup with urology upon discharge. Urology was consulted during this admission. Recommend treating UTI with antibiotics, supportive care. Need to switch stent in May. PROGNOSIS: Guarded. DISPOSITION: Pending physical therapy. Likely will need short-term rehabilitation. Edited: [facility] 05/24/2018 [id number]
[2018-05-25] VITALS (14 sets, daily range): BP systolic 98–158; BP diastolic 48–69; O2SAT 87–95
[2018-05-25 05:15] LABS: HEMATOCRIT 32.7 % (36.0-47.0); HEMOGLOBIN 10.3 g/dl (12.0-15.5); MEAN CORPUSCULAR HEMOGLOBIN 30.6 pg (27.0-33.0); MEAN CORPUSCULAR HGB CONC 31.5 g/dl (32.0-36.5); PLATELET COUNT, AUTOMATED 238 10^3/uL (150-450); RED BLOOD COUNT 3.37 10^6/uL (4.00-5.40); WHITE BLOOD COUNT 7.2 10^3/uL (4.0-10.0)
[2018-05-25 05:40] LABS: BLOOD UREA NITROGEN 10 MG/DL (7-18); CARBON DIOXIDE LEVEL 34 MEQ/L (21-32); CHLORIDE LEVEL 103 MEQ/L (98-107); CREATININE FOR GFR 0.83 MG/DL (0.55-1.30); GLOMERULAR FILTRATION RATE > 60.0 (>32); GLUCOSE, FASTING 58 MG/DL (70-100); MAGNESIUM LEVEL 1.8 MG/DL (1.8-2.4); POTASSIUM SERUM 3.3 MEQ/L (3.5-5.1); SODIUM LEVEL 142 MEQ/L (136-145)
[2018-05-25] MEDS: SODIUM CHLORIDE 0.9% INJ 10 ML SYR IV SCH ×2 (05:57→17:12)
[2018-05-25] MEDS: LEVOTHYROXINE 50MCG TABLET (0.05MG) PO SCH (05:57)
[2018-05-25] MEDS: DEXTROSE 50% 50 ML SYRINGE IV PRN ×2 (05:59→11:54)
[2018-05-25] MEDS: HumaLOG INSULIN (NovoLOG) PER UNIT SC SCH ×4 (07:13→21:00)
[2018-05-25] MEDS: FERROUS SULFATE 325MG TAB PO SCH (08:01)
[2018-05-25] MEDS: VITAMIN D 1,000 INTERNATIONAL UNITS TABLET PO SCH (08:01)
[2018-05-25] MEDS: FUROSEMIDE 40 MG TAB PO SCH (08:01)
[2018-05-25] MEDS: PANTOPRAZOLE 40MG TAB (PROTONIX) PO SCH (08:01)
[2018-05-25] MEDS: APIXABAN 5 MG TAB (ELIQUIS) PO SCH ×2 (08:01→21:39)
[2018-05-25] MEDS: MIRALAX *UNIT DOSE* 17GM PACKET PO SCH (08:02)
[2018-05-25] MEDS: LISINOPRIL *2.5 MG* TAB PO SCH (08:02)
[2018-05-25] MEDS: EZETIMIBE 10 MG TAB (ZETIA) PO SCH (08:02)
[2018-05-25] MEDS: HumuLIN (NovoLIN)70/30 INSULIN INJ PER UNIT SC SCH ×2 (08:02→21:00)
[2018-05-25] MEDS: SENOKOT S TAB PO SCH ×2 (08:02→21:39)
[2018-05-25] MEDS: CLOPIDOGREL 75 MG TAB PO SCH (08:02)
[2018-05-25] MEDS: NYSTATIN 100,000 UNITS/GM TOPICAL PWD 15 GM TOP SCH ×2 (08:03→21:39)
[2018-05-25] MEDS: ESCITALOPRAM OXALATE 10 MG TAB (LEXAPRO) PO SCH (08:03)
[2018-05-25] MEDS: ACETAMINOPHEN TAB 650MG DOSE (2X325MG) PO PRN ×2 (08:08→21:36)
[2018-05-25 08:33] LABS: C REACTIVE PROTEIN QUANTITATIV 2.95 MG/DL (0.00-0.30)
[2018-05-25] MEDS ORDERED: POTASSIUM CHLORIDE 10 MEQ SR TABLET PO ONE (09:00)
--- NOTE | 2018-05-25 18:08 | IPNPDOC ---
Text Note Date of Service The patient was seen on 05/25/18. NOTE Patient seen and examined. No acute events overnight. Denies any chest pain, pressure, or discomfort. Reported left-sided neck swelling that has been improving. Denies any chest pain, pressure, discomfort, shortness of breath, fevers, or chills. PHYSICAL EXAMINATION: GENERAL: Patient alert, comfortable, in no acute distress. HEENT: Normocephalic, atraumatic. NECK: Right-sided neck is well healing. Left side of neck mildly swollen but seems to be healing well. Minimal bruising. PULMONARY: Bilaterally clear. CARDIAC: Regular, S1, S2. ABDOMEN: Soft, nontender. Positive bowel sounds. EXTREMITIES: No clubbing, cyanosis, or edema. ASSESSMENT AND PLAN: This is an 88-year-old female patient with underlying medical history of multiple strokes, moderate to severe bilateral carotid artery disease, has refused carotid endarterectomy in the past, status post recent right-sided carotid endarterectomy, also with chronic systolic congestive heart failure, atrial fibrillation on Eliquis, chronic obstructive pulmonary disease (COPD) on 2 liters oxygen, hypertension, CVA, peripheral vascular disease, hypothyroidism, history of pulmonary embolism (PE), who was readmitted for acute rehabilitation with acute slurred speech and right-sided weakness status post left-sided carotid endarterectomy this time. PROBLEMS: 1. Transient ischemic attacks (TIA) with slurred speech and right-sided weakness status post left-sided carotid endarterectomy by vascular surgery. Wound care as per vascular surgery. Currently on Plavix and Eliquis and neurologic checks as ordered. Physical therapy (PT) and repeat CT appreciated. CT angiogram of the neck has also been appreciated. 2. Acute on chronic anemia status post surgery. Transfuse 1 unit packed red blood cells (PRBCs). 3. Atrial fibrillation, on Eliquis, currently rate controlled. 4. Dyslipidemia. Continue statin. 5. Hypothyroidism. Continue Synthroid. 6. Diabetes. Continue basal and mealtime insulin. 7. Hypertension. Continue Lasix, lisinopril. 8. Chronic kidney disease (CKD) stage III, currently at baseline. Will continue to monitor. 9. Left ankle fracture. Orthopedics consulted. Weightbearing status as per orthopedics. PT/occupational therapy (OT). 10. Chronic obstructive pulmonary disease, on home oxygen. Continue monitoring. 11. Coronary arterial disease. History of coronary artery bypass graft (CABG). Continue statin. Continue Plavix. Continue Eliquis, lisinopril. 12. Urinary tract infection with extended-spectrum beta-lactamase (ESBL). Completing ertapenem. repeat culture as per Dr Loza 13. Right upper extremity ultrasound with pseudoaneurysm and neck hematoma. Further management as per vascular. 14. Hematuria. Patient has stents with frequent urinary tract infections (UTIs). Will need to followup with urology upon discharge. Urology was consulted during this admission. Recommend treating UTI with antibiotics, supportive care. Need to switch stent in May. d/w Dr Loza 15. Deep venous thrombosis (DVT) prophylaxis. Continue Eliquis. PROGNOSIS: Guarded. DISPOSITION: Pending physical therapy. Likely will need short-term rehabilitation. VS,Fishbone, I+O VS, Fishbone, I+O Laboratory Tests 05/25/18 05:00 Red Blood Count 3.37 L, Mean Corpuscular Volume 97.0 H, Mean Corpuscular Hemoglobin 30.6, Mean Corpuscular Hemoglobin Concent 31.5 L, Red Cell Distribution Width 16.0 H, Calcium Level 8.0 L Vital Signs Date Time Temp Pulse Resp B/P (MAP) Pulse Ox O2 Delivery O2 Flow Rate FiO2 05/25/18 16:00 92 Room Air 05/25/18 14:01 69 117/55 05/25/18 12:01 98.1 18 05/24/18 04:00 2.0 I&O- Last 24 Hours up to 6 AM 05/25/18 05:59 Intake Total 2095 ml Output Total 2055 ml Balance 40 ml SHARRON LAL MD May 25, 2018 18:08
[2018-05-25] MEDS: PRAVASTATIN 10 MG TAB PO SCH (21:39)
[2018-05-26] VITALS (22 sets, daily range): BP systolic 94–144; BP diastolic 44–67; O2SAT 93–98
[2018-05-26] MEDS: SODIUM CHLORIDE 0.9% INJ 10 ML SYR IV SCH ×2 (05:59→16:57)
[2018-05-26] MEDS: LEVOTHYROXINE 50MCG TABLET (0.05MG) PO SCH (06:00)
[2018-05-26 06:21] LABS: HEMATOCRIT 32.8 % (36.0-47.0); HEMOGLOBIN 10.3 g/dl (12.0-15.5); MEAN CORPUSCULAR HEMOGLOBIN 31.3 pg (27.0-33.0); MEAN CORPUSCULAR HGB CONC 31.4 g/dl (32.0-36.5); MEAN CORPUSCULAR VOLUME 99.7 fl (80.0-96.0); PLATELET COUNT, AUTOMATED 227 10^3/uL (150-450); RED BLOOD COUNT 3.29 10^6/uL (4.00-5.40); WHITE BLOOD COUNT 6.2 10^3/uL (4.0-10.0)
[2018-05-26 06:48] LABS: C REACTIVE PROTEIN QUANTITATIV 2.53 MG/DL (0.00-0.30); CALCIUM LEVEL 8.1 MG/DL (8.8-10.2); CREATININE FOR GFR 0.95 MG/DL (0.55-1.30); GLOMERULAR FILTRATION RATE 59.1 (>32); POTASSIUM SERUM 4.2 MEQ/L (3.5-5.1)
[2018-05-26] MEDS: HumaLOG INSULIN (NovoLOG) PER UNIT SC SCH ×4 (08:35→21:00)
[2018-05-26] MEDS: MIRALAX *UNIT DOSE* 17GM PACKET PO SCH (08:35)
[2018-05-26] MEDS: ESCITALOPRAM OXALATE 10 MG TAB (LEXAPRO) PO SCH (08:36)
[2018-05-26] MEDS: FERROUS SULFATE 325MG TAB PO SCH (08:36)
[2018-05-26] MEDS: HumuLIN (NovoLIN)70/30 INSULIN INJ PER UNIT SC SCH ×2 (08:36→21:00)
[2018-05-26] MEDS: LISINOPRIL *2.5 MG* TAB PO SCH (08:36)
[2018-05-26] MEDS: SENOKOT S TAB PO SCH ×2 (08:36→21:54)
[2018-05-26] MEDS: VITAMIN D 1,000 INTERNATIONAL UNITS TABLET PO SCH (08:36)
[2018-05-26] MEDS: CLOPIDOGREL 75 MG TAB PO SCH (08:37)
[2018-05-26] MEDS: PANTOPRAZOLE 40MG TAB (PROTONIX) PO SCH (08:37)
[2018-05-26] MEDS: APIXABAN 5 MG TAB (ELIQUIS) PO SCH ×2 (08:37→21:54)
[2018-05-26] MEDS: NYSTATIN 100,000 UNITS/GM TOPICAL PWD 15 GM TOP SCH ×2 (08:37→21:00)
[2018-05-26] MEDS: EZETIMIBE 10 MG TAB (ZETIA) PO SCH (08:37)
[2018-05-26] MEDS: FUROSEMIDE 40 MG TAB PO SCH (08:37)
--- NOTE | 2018-05-26 11:27 | IPNPDOC ---
Subjective Date Seen The patient was seen on 05/26/18. Subjective Chief Complaint/HPI Pt is confused and disorientated, didn't answer my questions. Genitourinary: Reports: Hematuria Objective Physical Examination General Exam: Positive: Alert, No Acute Distress Eye Exam: Positive: PERRLA, Conjunctiva & lids normal, EOMI ENT Exam: Positive: Atraumatic Neck Exam: Positive: Supple, Other (Lt neck incision c/d/i. no hematoma) Chest Exam: Positive: Clear to auscultation, Normal air movement; Negative: Rales, Rhonchi, Wheezing, Diminished, Other Heart Exam: Positive: Rate Normal, Regular Rhythm, Normal S1, Normal S2; Negative: Irregular Rhythm, Gallops, Murmurs, Rubs, Other Abdomen Exam: Positive: Normal bowel sounds, Soft; Negative: Tenderness, Mass Female Exam: Positive: Discharge (hematuira) Extremity Exam: Positive: Normal pulses, Other (large hematoma/pseudoaneurysm Rt forearm continually improved); Negative: Clubbing, Cyanosis, Edema, Tenderness, Swelling Neuro Exam: Positive: Normal Speech, Strength at 5/5 X4 ext (RUE 5/5), Cranial Nerves 3-12 NL; Negative: Normal Tone, Sensation Intact Psych Exam: Positive: Mood NL; Negative: Mental status NL, Anxiety, Oriented x 3 (confused and disorientated ), Other Assessment /Plan Assessment 1. Delirium of unclear cause. FBS 58 last am, 120 this am. It might be secondary to the cerebral hemodynamic change after CEAs. 2. TIA with slurred speech and RUE weakness resolved 3. S/p b/l CEA, Lt incision healing well w/o concern 4. Hematuria with left sided stent for ureteral stricture, due for change Plan/VTE VTE Prophylaxis Ordered?: Yes Plan 1. Continue current management as per hospital medicine. 2. Continue Plavix and Eliquis. 3. Carotid duplex US. 4. Head CT w/contrast. 4. Plan to replace the Lt ureteral stent as per urology consult. 5. Plan to DC to ARU in 24 hrs as per hospitalist VS, I&O, 24H, Radha Vital Signs/I&O Vital Signs Date Time Temp Pulse Resp B/P (MAP) Pulse Ox O2 Delivery O2 Flow Rate FiO2 05/26/18 11:00 97 Room Air 12/6/18 08:36 117/46 05/26/18 08:00 98.0 70 20 05/24/18 04:00 2.0 I&O- Last 24 Hours up to 6 AM 05/26/18 06:00 Intake Total 660 ml Output Total 1450 ml Balance -790 ml Laboratory Data 24H LABS Laboratory Tests 2 05/25/18 11:31: Bedside Glucose (Misc Panel) 54L 05/25/18 11:51: Bedside Glucose (Misc Panel) 60L 05/25/18 12:35: Bedside Glucose (Misc Panel) 129H 05/25/18 16:50: Bedside Glucose (Misc Panel) 101 05/25/18 20:25: Bedside Glucose (Misc Panel) 98 05/26/18 06:11: Nucleated Red Blood Cells % (auto) 0.0, Anion Gap 6L, Glomerular Filtration Rate 59.1, Blood Urea Nitrogen 11, Creatinine 0.95, Sodium Level 142, Potassium Level 4.2#, Chloride Level 104, Carbon Dioxide Level 32, Calcium Level 8.1L, Magnesium Level 2.0, C-Reactive Protein, Quantitative 2.53H CBC/BMP Laboratory Tests 05/26/18 06:11 Red Blood Count 3.29 L, Mean Corpuscular Volume 99.7 H, Mean Corpuscular Hemoglobin 31.3, Mean Corpuscular Hemoglobin Concent 31.4 L, Red Cell Distribution Width 16.0 H, Calcium Level 8.1 L Microbiology Microbiology 05/18/18 Blood Culture - Final, Complete NO GROWTH AFTER 5 DAYS 05/18/18 Blood Culture - Final, Complete NO GROWTH AFTER 5 DAYS 05/25/18 Urine Culture, Received Pending JESUS ALBERTO GUERRA PA-C May 26, 2018 11:27
[2018-05-26] MEDS ORDERED: ISOVUE-370 76% 100ML VIAL (Q9967) As Ordered ONE (13:10)
--- NOTE | 2018-05-26 14:33 | REP ---
CT brain without and with IV contrast: History: Delirium. Status post carotid endarterectomy. Comparison CT study May 15, 2018. Contrast enhancement dose is 75 mL of intravenous Isovue 370. Findings: Bone window settings demonstrate an intact bony calvarium. There is fairly heavy vascular calcification in the distal vertebral and distal carotid arteries bilaterally. Visualized paranasal sinuses are clear. No intraorbital abnormality is seen. There is diffuse moderate cerebral atrophy. Small vessel atherosclerotic changes are seen in the periventricular white matter of the supratentorial brain bilaterally as before. There is no evidence of intracranial hemorrhage. No infarct, mass, extra-axial fluid collection or midline shift is seen. Contrast enhanced exam shows enhancement in normal vasculature. No abnormal contrast enhancement is appreciated. Impression: Diffuse atrophy, vascular calcification, small vessel changes. No acute intracranial abnormality. Electronically Signed by Anthony Pena MD 05/26/2018 03:33 P
--- NOTE | 2018-05-26 15:30 | IPNPDOC ---
Text Note Date of Service The patient was seen on 05/26/18. NOTE Patient seen and examined. No acute events overnight. Denies any chest pain, pressure, or discomfort. confused. Poor historian. asked when her family will arrive PHYSICAL EXAMINATION: GENERAL: Patient alert, comfortable, in no acute distress. HEENT: Normocephalic, atraumatic. NECK: Right-sided neck is well healing. Left side of neck mildly swollen but seems to be healing well. Minimal bruising. PULMONARY: Bilaterally clear. CARDIAC: Regular, S1, S2. ABDOMEN: Soft, nontender. Positive bowel sounds. EXTREMITIES: No clubbing, cyanosis, or edema. ASSESSMENT AND PLAN: This is an 88-year-old female patient with underlying medical history of multiple strokes, moderate to severe bilateral carotid artery disease, has refused carotid endarterectomy in the past, status post recent right-sided carotid endarterectomy, also with chronic systolic congestive heart failure, atrial fibrillation on Eliquis, chronic obstructive pulmonary disease (COPD) on 2 liters oxygen, hypertension, CVA, peripheral vascular disease, hypothyroidism, history of pulmonary embolism (PE), who was readmitted for acute rehabilitation with acute slurred speech and right-sided weakness status post left-sided carotid endarterectomy this time. PROBLEMS: 1. Transient ischemic attacks (TIA) with slurred speech and right-sided weakness status post left-sided carotid endarterectomy by vascular surgery. Wound care as per vascular surgery. Currently on Plavix and Eliquis and neurologic checks as ordered. Physical therapy (PT) and repeat CT appreciated. CT angiogram of the neck has also been appreciated. 2. Acute on chronic anemia status post surgery. Transfuse 1 unit packed red blood cells (PRBCs). 3. delirium supportive care. repeat ct head appreciated. 4. Atrial fibrillation, on Eliquis, currently rate controlled. 5. Dyslipidemia. Continue statin. 6. Hypothyroidism. Continue Synthroid. 7. Diabetes. Continue basal and mealtime insulin. 8. Hypertension. Continue Lasix, lisinopril. 9. Chronic kidney disease (CKD) stage III, currently at baseline. Will continue to monitor. 10. Left ankle fracture. Orthopedics consulted. Weightbearing status as per orthopedics. PT/occupational therapy (OT). 11. Chronic obstructive pulmonary disease, on home oxygen. Continue monitoring. 12. Coronary arterial disease. History of coronary artery bypass graft (CABG). Continue statin. Continue Plavix. Continue Eliquis, lisinopril. 13. Urinary tract infection with extended-spectrum beta-lactamase (ESBL). Completing ertapenem. repeat culture as per Dr Loza 14. Right upper extremity ultrasound with pseudoaneurysm and neck hematoma. Further management as per vascular. 15. Hematuria. Patient has stents with frequent urinary tract infections (UTIs). Will need to followup with urology upon discharge. Urology was consulted during this admission. Recommend treating UTI with antibiotics, supportive care. Need to switch stent in May. d/w Dr Loza repeat UC 16. Deep venous thrombosis (DVT) prophylaxis. Continue Eliquis. PROGNOSIS: Guarded. DISPOSITION: Pending physical therapy. Likely will need short-term rehabilitation. VS,Fishbone, I+O VS, Fishbone, I+O Laboratory Tests 05/26/18 06:11 Red Blood Count 3.29 L, Mean Corpuscular Volume 99.7 H, Mean Corpuscular Hemoglobin 31.3, Mean Corpuscular Hemoglobin Concent 31.4 L, Red Cell Distribution Width 16.0 H, Calcium Level 8.1 L Vital Signs Date Time Temp Pulse Resp B/P (MAP) Pulse Ox O2 Delivery O2 Flow Rate FiO2 05/26/18 14:07 88 124/58 05/26/18 14:04 96 Room Air 05/26/18 08:00 98.0 20 05/24/18 04:00 2.0 I&O- Last 24 Hours up to 6 AM 05/26/18 05:59 Intake Total 660 ml Output Total 1385 ml Balance -725 ml SHARRON LAL MD May 26, 2018 15:30
--- NOTE | 2018-05-26 16:47 | REP ---
Duplex carotid sonography: History: Delirium, status post bilateral carotid endarterectomy. Comparison CT study is from May 18, 2018. Sonographic findings: Antegrade flow was observed in the right vertebral artery. The left vertebral artery is not seen. Right carotid: The right common carotid artery is unremarkable. There is mild mixed plaquing in the distal CCA. Color flow and spectral Doppler interrogation are unremarkable on the right. Incidental note is made of a 0.5 cm cyst in the right lobe of the thyroid. There is a right perivascular anterior neck fluid collection consistent with hematoma seroma at the operative site. This measures 6.1 x 1.6 x 3.6 cm. This corresponds with the recent CT findings. Velocity chart right carotid: CCA PSV 51 cm/s ICA PSV 95 cm/s ICA EDV 19 cm/s ECA PSV 90 cm/s Right ICA/CCA ratio normal 1.9. Impression: No significant plaquing. Hematoma seroma fluid collection seen on the right. Left carotid: Left carotid could not be scanned due to patient inability to cooperate and bandaging. Electronically Signed by Anthony Pena MD 05/26/2018 04:53 P
[2018-05-26] MEDS: PRAVASTATIN 10 MG TAB PO SCH (21:54)
[2018-05-27] VITALS (12 sets, daily range): BP systolic 98–125; BP diastolic 50–62; O2SAT 95–97
[2018-05-27] MEDS: DEXTROSE 50% 50 ML SYRINGE IV PRN (04:03)
[2018-05-27] MEDS: SODIUM CHLORIDE 0.9% INJ 10 ML SYR IV SCH ×2 (05:04→17:41)
[2018-05-27] MEDS: LEVOTHYROXINE 50MCG TABLET (0.05MG) PO SCH (05:25)
[2018-05-27 05:30] LABS: HEMATOCRIT 32.7 % (36.0-47.0); HEMOGLOBIN 10.2 g/dl (12.0-15.5); MEAN CORPUSCULAR HEMOGLOBIN 30.4 pg (27.0-33.0); MEAN CORPUSCULAR HGB CONC 31.2 g/dl (32.0-36.5); MEAN CORPUSCULAR VOLUME 97.3 fl (80.0-96.0); PLATELET COUNT, AUTOMATED 254 10^3/uL (150-450); RED BLOOD COUNT 3.36 10^6/uL (4.00-5.40); WHITE BLOOD COUNT 7.3 10^3/uL (4.0-10.0)
[2018-05-27] MEDS: HumaLOG INSULIN (NovoLOG) PER UNIT SC SCH ×4 (07:30→21:00)
[2018-05-27] MEDS: NYSTATIN 100,000 UNITS/GM TOPICAL PWD 15 GM TOP SCH ×2 (08:03→22:09)
[2018-05-27] MEDS: FUROSEMIDE 40 MG TAB PO SCH (08:03)
[2018-05-27] MEDS: FERROUS SULFATE 325MG TAB PO SCH (08:03)
[2018-05-27] MEDS: EZETIMIBE 10 MG TAB (ZETIA) PO SCH (08:03)
[2018-05-27] MEDS: PANTOPRAZOLE 40MG TAB (PROTONIX) PO SCH (08:03)
[2018-05-27] MEDS: CLOPIDOGREL 75 MG TAB PO SCH (08:03)
[2018-05-27] MEDS: APIXABAN 5 MG TAB (ELIQUIS) PO SCH ×2 (08:03→22:09)
[2018-05-27] MEDS: VITAMIN D 1,000 INTERNATIONAL UNITS TABLET PO SCH (08:03)
[2018-05-27] MEDS: SENOKOT S TAB PO SCH ×2 (08:04→22:09)
[2018-05-27] MEDS: MIRALAX *UNIT DOSE* 17GM PACKET PO SCH (08:04)
[2018-05-27] MEDS: ESCITALOPRAM OXALATE 10 MG TAB (LEXAPRO) PO SCH (08:04)
[2018-05-27] MEDS: LISINOPRIL *2.5 MG* TAB PO SCH (08:04)
[2018-05-27] MEDS: HumuLIN (NovoLIN)70/30 INSULIN INJ PER UNIT SC SCH ×2 (08:34→21:00)
[2018-05-27 08:38] LABS: CALCIUM LEVEL 8.2 MG/DL (8.8-10.2); CREATININE FOR GFR 0.96 MG/DL (0.55-1.30); GLOMERULAR FILTRATION RATE 58.4 (>32); MAGNESIUM LEVEL 2.1 MG/DL (1.8-2.4); POTASSIUM SERUM 3.5 MEQ/L (3.5-5.1)
--- NOTE | 2018-05-27 13:35 | SMCUROLCON ---
Urology Consultation General Date of Consultation 05/27/18 Reason For Consultation This patient is seen for CVA. History of Present Illness This is an 88 y/o F w/ a left ureteral stricture, managed w/ chronic left ureteral stenting (last changed 03/04/18), admitted to the hospital a few weeks ago for a CVA (now s/p left carotid endarterectomy by vascular surgery). She is due for another left ureteral stent exchange this month. Urology is consulted to arrange for it to be done prior to her being discharged. She recently completed treatment for an ESBL E coli UTI. She currently has a catheter in and this has been draining pink urine. Past Medical History Medical History left ureteral stricture, CVD, DM2, HTN, CHF, HL, COPD, CAD Surgical Hstory left ureteral stenting, left CEA, appendectomy, cholecystectomy, CABG Medications Current Medications Current Medications Acetaminophen (Tylenol Tab) 650 mg Q4H PRN PO PAIN / FEVER Last administered on 05/25/18at 21:36; Start 05/14/18 at 12:15 Albuterol Sulfate (Proventil, Ventolin Hfa) 2 puff Q4H PRN INH SOB/WHEEZING; Start 05/14/18 at 12:15 Apixaban (Eliquis) 5 mg BID PO Last administered on 05/27/18at 08:03; Start 05/14/18 at 21:00 Cefdinir (Omnicef) 300 mg BID PO Last administered on 05/16/18at 09:42; Start 05/14/18 at 21:00; Stop 05/16/18 at 20:59; Status DC Clopidogrel Bisulfate (PLAVix) 75 mg DAILY PO Last administered on 05/27/18at 08:03; Start 05/15/18 at 09:00 Dextrose (Dextrose 50%) 25 ml ASDIRECTED PRN IV SEE LABEL COMMENTS Last administered on 05/27/18at 04:03; Start 05/20/18 at 09:45 Dextrose (Dextrose 50%) 25 ml ASDIRECTED PRN IV SEE LABEL COMMENTS; Start 05/20/18 at 13:30; Status UNV Dextrose/Lactated Ringer's 1,000 ml @ 50 mls/hr Q20H IV ; Start 05/20/18 at 10:00; Stop 05/20/18 at 13:27; Status DC Dextrose/Lactated Ringer's 1,000 ml @ 50 mls/hr Q20H IV Last administered on 05/24/18at 14:40; Start 05/20/18 at 10:00; Stop 05/24/18 at 19:04; Status DC Diltiazem HCl (Cardizem) 30 mg Q12H PO Last administered on 05/20/18at 05:44; Start 05/18/18 at 18:00; Stop 05/21/18 at 07:59; Status DC Diltiazem HCl (Cardizem) 30 mg Q6H PO Last administered on 05/18/18at 05:57; Start 05/14/18 at 12:00; Stop 05/18/18 at 07:43; Status DC Diltiazem HCl (Cardizem) 30 mg Q8H PO Last administered on 05/27/18at 05:26; Start 05/24/18 at 22:00 Ertapenem 1 gm/ Sodium Chloride 50 ml @ 100 mls/hr Q24H IV Last administered on 05/22/18at 10:29; Start 05/17/18 at 10:00; Stop 05/23/18 at 08:13; Status DC Ertapenem 1 gm/ Sodium Chloride 50 ml @ 100 mls/hr Q24H IV ; Start 05/27/18 at 15:00 Escitalopram Oxalate (Lexapro) 10 mg DAILY PO Last administered on 05/27/18at 08:04; Start 05/15/18 at 09:00 EZETIMIBE (Zetia) 10 mg DAILY PO Last administered on 05/27/18at 08:03; Start 05/15/18 at 09:00; Status Future hold Fentanyl Citrate (Sublimaze) 25 mcg Q5MP PRN IV MODERATE PAIN (PS 4-7) Last administered on 05/21/18at 12:50; Start 05/21/18 at 12:30; Stop 05/27/18 at 12:30; Status DC Ferrous Sulfate (Ferrous Sulfate) 650 mg DAILY PO Last administered on 05/27/18at 08:03; Start 05/15/18 at 09:00 Furosemide (Lasix) 40 mg DAILY PO Last administered on 05/27/18at 08:03; Start 05/15/18 at 09:00; Status Future hold Glucagon (Glucagon) 1 mg ASDIRECTED PRN SC SEE LABEL COMMENTS; Start 05/20/18 at 09:45 Glucagon (Glucagon) 1 mg ASDIRECTED PRN SC SEE LABEL COMMENTS; Start 05/20/18 at 13:30; Status UNV Glucose (Glucose) 16 GM ASDIRECTED PRN PO SEE LABEL COMMENTS; Start 05/20/18 at 09:45 Glucose (Glucose) 16 GM ASDIRECTED PRN PO SEE LABEL COMMENTS; Start 05/20/18 at 13:30; Status UNV Heparin Sodium (Heparin (Flush)) 200 units ASDIRECTED PRN IV SEE LABEL COMMENTS Last administered on 05/18/18at 11:25; Start 05/14/18 at 21:15 Heparin Sodium (Heparin (Flush)) 200 units PICC IV Last administered on 05/27/18at 05:03; Start 05/15/18 at 06:00 Insulin Human Isoph/Insulin Regular (HumuLIN 70/30 INSULIN) 10 units BID SC Last administered on 05/27/18at 08:34; Start 05/14/18 at 21:00; Status Future hold Insulin Human Lispro (HumaLOG INSULIN) SEE PROTOCOL TABLE AC SC Last adminis tered on 05/26/18at 11:47; Start 05/25/18 at 07:30 Insulin Human Lispro (HumaLOG INSULIN) SEE PROTOCOL TABLE Q6H SC Last administered on 05/21/18at 05:56; Start 05/20/18 at 12:00; Stop 05/21/18 at 16: 33; Status DC Insulin Human Lispro (HumaLOG INSULIN) SEE PROTOCOL TABLE QHS SC ; Start 05/24/18 at 21:00 Labetalol HCl (Normodyne, Trandate) 5 mg Q5M PRN IV TITRATE FOR SBP <160; Start 05/21/18 at 12:30; Stop 05/21/18 at 14:00; Status DC Lactated Ringer's 1,000 ml @ 75 mls/hr [id number] IV ; Start 05/20/18 at 09:00; Status Cancel Lactated Ringer's 1,000 ml @ 75 mls/hr [id number] IV ; Start 05/21/18 at 12:30; Stop 05/21/18 at 13:30; Status DC Levothyroxine Sodium (Synthroid) 50 mcg DAILY@0600 PO Last administered on 05/27/18at 05:25; Start 05/15/18 at 06:00 Lisinopril (Prinivil) 2.5 mg DAILY PO Last administered on 05/27/18at 08:04; Start 05/15/18 at 09:00; Status Future hold Metoclopramide HCl (REGLAN INJection) 10 mg Q6HP PRN IV NAUSEA OR VOMITING; Start 05/21/18 at 12:30; Stop 05/21/18 at 13:30; Status DC Miscellaneous (Unresolved Clarification Entry) SEE LABEL COMMENTS DAILY XX ; Start 05/25/18 at 09:00; Stop 05/25/18 at 13:30; Status DC Nystatin (Mycostatin Powder, Nystop) UNDER BREASTS BID TOP Last administered on 05/27/18at 08:03; Start 05/14/18 at 21:00 Ondansetron HCl (ZOFRAN INJection) 4 mg Q4HP PRN IV NAUSEA OR VOMITING; Start 05/21/18 at 12:30; Stop 05/21/18 at 13:30; Status DC Oxycodone/ Acetaminophen (Percocet 5mg/ 325mg Tablet) 1 tab ASDIRECTED PRN PO MILD/MODERATE PAIN (PS 1-7) Last administered on 05/21/18at 12:45; Start 05/21/18 at 12:30; Stop 05/21/18 at 13:30; Status DC Oxycodone/ Acetaminophen (Percocet 5mg/ 325mg Tablet) 1 tab Q4HP PRN PO MIL D/MODERATE PAIN (PS 1-7) Last administered on 05/24/18at 12:43; Start 05/22/18 at 20:00 Pantoprazole Sodium (Protonix) 40 mg DAILY PO Last administered on 05/27/18at 08:03; Start 05/15/18 at 09:00 Phenylephrine HCl 50 mg/Dextrose 500 ml @ 12 mls/hr Q24H IV Last administered on 05/21/18at 16:02; Start 05/21/18 at 16:00; Stop 05/23/18 at 14:00; Status DC Polyethylene Glycol (Miralax) 1 pkt DAILY PO Last administered on 05/27/18at 08:04; Start 05/15/18 at 09:00; Status Future hold Pravastatin Sodium (Pravachol) 10 mg QHS PO Last administered on 05/26/18at 21:54; Start 05/14/18 at 21:00 Senna/Docusate Sodium (Senokot S) 1 tab BID PO Last administered on 05/27/18at 08:04; Start 05/14/18 at 21:00 Sodium Chloride (Saline Lock Flush) 10 ml ASDIRECTED PRN IV SEE LABEL COMMENTS Last administered on 05/18/18at 11:25; Start 05/14/18 at 21:15 Sodium Chloride (Saline Lock Flush) 10 ml PICC IV Last administered on 05/27/18at 05:04; Start 05/15/18 at 06:00 Vitamin D (Vitamin D) 1,000 units DAILY PO Last administered on 05/27/18at 08:03; Start 05/15/18 at 09:00 Allergies Allergies: Coded Allergies: Pentazocine (Verified Adverse Reaction, Intermediate, FAINT FEELING, CONFUSION, 02/18/18) Promethazine (Verified Adverse Reaction, Intermediate, CONFUSION, 11/23/17) Sulfa Drugs (Verified Adverse Reaction, Intermediate, CONFUSION, 11/23/17) Review of Systems General: Denies: Chills, Night Sweats, Other Symptoms Constitutional: Denies: Fever Pulmonary: Denies: Dyspnea, Cough Cardiovascular: Denies Chest Pain, Denies Palpitations Gastrointestinal: Denies: Nausea, Vomiting, Abdominal Pain Genitourinary: Reports: Hematuria Psych: Reports: Mood Normal Physical Examination General Exam: Alert, Cooperative, No Acute Distress Chest Exam: Clear to auscultation Heart Exam: Rate Normal Abdomen Exam: Soft Female Exam catheter in place, draining light pink urine Skin Exam: Nl turgor and temperature Neuro Exam: Normal Speech Psych Exam: Mental status NL, Mood NL Vital Signs/I&O Vital Signs Date Time Temp Pulse Resp B/P (MAP) Pulse Ox O2 Delivery O2 Flow Rate FiO2 05/27/18 08:04 121/56 05/27/18 08:00 97.2 80 18 96 05/27/18 04:00 Room Air 05/24/18 04:00 2.0 I&O- Last 24 Hours up to 6 AM0 05/27/18 05:59 Intake Total 840 ml Output Total 1500 ml Balance -660 ml Laboratory Data 24H Labs Laboratory Tests 2 05/26/18 16:15: Bedside Glucose (Misc Panel) 67L 12/6/18 17:00: Bedside Glucose (Misc Panel) 95 05/26/18 20:41: Bedside Glucose (Misc Panel) 189H 05/27/18 03:44: Bedside Glucose (Misc Panel) 48L 05/27/18 04:00: Bedside Glucose (Misc Panel) 58L 05/27/18 04:23: Bedside Glucose (Misc Panel) 129H 05/27/18 04:55: Nucleated Red Blood Cells % (auto) 0.0, Anion Gap 8, Glomerular Filtration Rate 58.4, Blood Urea Nitrogen 12, Creatinine 0.96, Sodium Level 142, Potassium Level 3.5, Chloride Level 102, Carbon Dioxide Level 32, Calcium Level 8.2L, Magnesium Level 2.1 05/27/18 05:38: Bedside Glucose (Misc Panel) 95 05/27/18 06:21: Bedside Glucose (Misc Panel) 99 05/27/18 12:30: Bedside Glucose (Misc Panel) 174H CBC/BMP Laboratory Tests 05/27/18 04:55 Red Blood Count 3.36 L, Mean Corpuscular Volume 97.3 H, Mean Corpuscular Hemoglobin 30.4, Mean Corpuscular Hemoglobin Concent 31.2 L, Red Cell Distribution Width 15.7 H, Calcium Level 8.2 L Microbiology Microbiology 05/18/18 Blood Culture - Final, Complete NO GROWTH AFTER 5 DAYS 05/18/18 Blood Culture - Final, Complete NO GROWTH AFTER 5 DAYS 05/25/18 Urine Culture, Received Pending Assessment This is an 80 y/o F w/ a left ureteral stricture managed w/ chronic left ureteral stenting, admitted for a CVA. We will plan on taking her for cystoscopy w/ left ureteral stent exchange on Wednesday. After a discussion of the risks and benefits informed consent was signed. Plan - patient's urine culture is still pending - discussed w/ micro lab and there are low counts of 2 organisms growing - final results will not be in before Wednesday - recommend starting patient on broad spectrum antibiotic that will at least cover her most recent positive culture - discussed w/ hospitalist service and will start ertapenem - no need to hold antiplatelet or anticoag for her stent exchange - NPO at midnight Wednesday evening - plan for cysto w/ left ureteral stent exchange on Wednesday MCKINLEY PANCHAL MD 7, 2018 13:34
[2018-05-27] MEDS ORDERED: ERTAPENEM SODIUM 1 GM in NS MINI-BAG PLUS 50 ML IV SCH (15:00)
[2018-05-27] MEDS: ACETAMINOPHEN TAB 650MG DOSE (2X325MG) PO PRN (15:39)
--- NOTE | 2018-05-27 16:30 | IPNPDOC ---
Text Note Date of Service The patient was seen on 05/27/18. NOTE Patient seen and examined. No acute events overnight. Denies any chest pain, pressure, or discomfort. confused. Poor historian. PHYSICAL EXAMINATION: GENERAL: Patient alert, comfortable, in no acute distress. HEENT: Normocephalic, atraumatic. NECK: Right-sided neck is well healing. Left side of neck mildly swollen but seems to be healing well. Minimal bruising. PULMONARY: Bilaterally clear. CARDIAC: Regular, S1, S2. ABDOMEN: Soft, nontender. Positive bowel sounds. EXTREMITIES: No clubbing, cyanosis, or edema. ASSESSMENT AND PLAN: This is an 88-year-old female patient with underlying medical history of multiple strokes, moderate to severe bilateral carotid artery disease, has refused carotid endarterectomy in the past, status post recent right-sided carotid endarterectomy, also with chronic systolic congestive heart failure, atrial fibrillation on Eliquis, chronic obstructive pulmonary disease (COPD) on 2 liters oxygen, hypertension, CVA, peripheral vascular disease, hypothyroidism, history of pulmonary embolism (PE), who was readmitted for acute rehabilitation with acute slurred speech and right-sided weakness status post left-sided carotid endarterectomy this time. PROBLEMS: 1. Transient ischemic attacks (TIA) with slurred speech and right-sided weakness status post left-sided carotid endarterectomy by vascular surgery. Wound care as per vascular surgery. Currently on Plavix and Eliquis and neurologic checks as ordered. Physical therapy (PT) and repeat CT appreciated. CT angiogram of the neck has also been appreciated. 2. Acute on chronic anemia status post surgery. Transfuse 1 unit packed red blood cells (PRBCs). 3. delirium supportive care. repeat ct head appreciated. 4. Atrial fibrillation, on Eliquis, currently rate controlled. 5. Dyslipidemia. Continue statin. 6. Hypothyroidism. Continue Synthroid. 7. Diabetes. Continue basal and mealtime insulin. 8. Hypertension. Continue Lasix, lisinopril. 9. Chronic kidney disease (CKD) stage III, currently at baseline. Will continue to monitor. 10. Left ankle fracture. Orthopedics consulted. Weightbearing status as per orthopedics. PT/occupational therapy (OT). 11. Chronic obstructive pulmonary disease, on home oxygen. Continue monitoring. 12. Coronary arterial disease. History of coronary artery bypass graft (CABG). Continue statin. Continue Plavix. Continue Eliquis, lisinopril. 13. Urinary tract infection with extended-spectrum beta-lactamase (ESBL). repeat culture as per Dr Loza prelim positive, restart ertapenem 14. Right upper extremity ultrasound with pseudoaneurysm and neck hematoma. Further management as per vascular. 15. Hematuria. Patient has stents with frequent urinary tract infections (UTIs). Urology was consulted during this admission. Recommend treating UTI with antibiotics, supportive care.stent change schedule for Wednesday. Ertapenem given UC prelim Positive 16. Deep venous thrombosis (DVT) prophylaxis. Continue Eliquis. PROGNOSIS: Guarded. DISPOSITION: Pending physical therapy. ARU VS,Radha, I+O VS, Radha, I+O Laboratory Tests 05/27/18 04:55 Red Blood Count 3.36 L, Mean Corpuscular Volume 97.3 H, Mean Corpuscular Hemoglobin 30.4, Mean Corpuscular Hemoglobin Concent 31.2 L, Red Cell Distribution Width 15.7 H, Calcium Level 8.2 L Vital Signs Date Time Temp Pulse Resp B/P (MAP) Pulse Ox O2 Delivery O2 Flow Rate FiO2 05/27/18 15:23 80 121/56 05/27/18 08:00 97.2 18 96 05/27/18 04:00 Room Air 05/24/18 04:00 2.0 I&O- Last 24 Hours up to 6 AM 05/27/18 05:59 Intake Total 840 ml Output Total 1500 ml Balance -660 ml SHARRON LAL MD May 27, 2018 16:30
[2018-05-27] MEDS: PRAVASTATIN 10 MG TAB PO SCH (22:09)
[2018-05-27] MEDS ORDERED: HumuLIN (NovoLIN)70/30 INSULIN INJ PER UNIT SC ONE (22:45)
[2018-05-28] VITALS (7 sets, daily range): BP systolic 101–129; BP diastolic 49–59; O2SAT 94–96
[2018-05-28] MEDS: LEVOTHYROXINE 50MCG TABLET (0.05MG) PO SCH (05:46)
[2018-05-28 05:49] LABS: HEMATOCRIT 32.7 % (36.0-47.0); HEMOGLOBIN 10.3 g/dl (12.0-15.5); MEAN CORPUSCULAR HEMOGLOBIN 30.6 pg (27.0-33.0); MEAN CORPUSCULAR HGB CONC 31.5 g/dl (32.0-36.5); PLATELET COUNT, AUTOMATED 252 10^3/uL (150-450); RED BLOOD COUNT 3.37 10^6/uL (4.00-5.40); WHITE BLOOD COUNT 6.6 10^3/uL (4.0-10.0)
[2018-05-28] MEDS: SODIUM CHLORIDE 0.9% INJ 10 ML SYR IV SCH ×2 (06:00→18:33)
[2018-05-28 06:24] LABS: BLOOD UREA NITROGEN 12 MG/DL (7-18); CALCIUM LEVEL 7.9 MG/DL (8.8-10.2); CARBON DIOXIDE LEVEL 32 MEQ/L (21-32); CHLORIDE LEVEL 103 MEQ/L (98-107); GLOMERULAR FILTRATION RATE > 60.0 (>32); GLUCOSE, FASTING 77 MG/DL (70-100); MAGNESIUM LEVEL 2.3 MG/DL (1.8-2.4); POTASSIUM SERUM 3.9 MEQ/L (3.5-5.1); SODIUM LEVEL 143 MEQ/L (136-145)
[2018-05-28] MEDS: HumaLOG INSULIN (NovoLOG) PER UNIT SC SCH ×4 (07:30→21:00)
[2018-05-28] MEDS: LISINOPRIL *2.5 MG* TAB PO SCH (09:00)
[2018-05-28] MEDS: APIXABAN 5 MG TAB (ELIQUIS) PO SCH ×2 (09:58→21:34)
[2018-05-28] MEDS: PANTOPRAZOLE 40MG TAB (PROTONIX) PO SCH (09:58)
[2018-05-28] MEDS: FERROUS SULFATE 325MG TAB PO SCH (09:58)
[2018-05-28] MEDS: SENOKOT S TAB PO SCH ×2 (09:59→21:33)
[2018-05-28] MEDS: FUROSEMIDE 40 MG TAB PO SCH (09:59)
[2018-05-28] MEDS: VITAMIN D 1,000 INTERNATIONAL UNITS TABLET PO SCH (09:59)
[2018-05-28] MEDS: EZETIMIBE 10 MG TAB (ZETIA) PO SCH (09:59)
[2018-05-28] MEDS: ESCITALOPRAM OXALATE 10 MG TAB (LEXAPRO) PO SCH (09:59)
[2018-05-28] MEDS: MIRALAX *UNIT DOSE* 17GM PACKET PO SCH (09:59)
[2018-05-28] MEDS: CLOPIDOGREL 75 MG TAB PO SCH (09:59)
[2018-05-28] MEDS: NYSTATIN 100,000 UNITS/GM TOPICAL PWD 15 GM TOP SCH ×2 (10:00→21:33)
[2018-05-28] MEDS: HumuLIN (NovoLIN)70/30 INSULIN INJ PER UNIT SC SCH ×2 (10:11→21:35)
--- NOTE | 2018-05-28 14:17 | IPNPDOC ---
Text Note Date of Service The patient was seen on 05/28/18. NOTE Patient seen and examined. No acute events overnight. Denies any chest pain, pressure, or discomfort. Poor historian. Reported feeling stronger PHYSICAL EXAMINATION: GENERAL: Patient alert, comfortable, in no acute distress. HEENT: Normocephalic, atraumatic. NECK: b/l surgical wound well healed PULMONARY: Bilaterally clear. CARDIAC: Regular, S1, S2. ABDOMEN: Soft, nontender. Positive bowel sounds. EXTREMITIES: No clubbing, cyanosis, or edema. ASSESSMENT AND PLAN: This is an 88-year-old female patient with underlying medical history of multiple strokes, moderate to severe bilateral carotid artery disease, has refused carotid endarterectomy in the past, status post recent right-sided carotid endarterectomy, also with chronic systolic congestive heart failure, atrial fibrillation on Eliquis, chronic obstructive pulmonary disease (COPD) on 2 liters oxygen, hypertension, CVA, peripheral vascular disease, hypothyroidism, history of pulmonary embolism (PE), who was readmitted from acute rehabilitation with acute slurred speech and right-sided weakness status post left-sided carotid endarterectomy this time. PROBLEMS: 1. Transient ischemic attacks (TIA) with slurred speech and right-sided weakness status post left-sided carotid endarterectomy by vascular surgery. Wound care as per vascular surgery. Currently on Plavix and Eliquis and neurologic checks as ordered. Physical therapy (PT) and repeat CT appreciated. CT angiogram of the neck has also been appreciated. 2. Acute on chronic anemia status post surgery. Transfuse 1 unit packed red blood cells (PRBCs). 3. delirium supportive care. repeat ct head appreciated. 4. Atrial fibrillation, on Eliquis, currently rate controlled. 5. Dyslipidemia. Continue statin. 6. Hypothyroidism. Continue Synthroid. 7. Diabetes. Continue basal and mealtime insulin. 8. Hypertension. Continue Lasix, lisinopril. 9. Chronic kidney disease (CKD) stage III, currently at baseline. Will continue to monitor. 10. Left ankle fracture. Orthopedics consulted. Weightbearing status as per orthopedics. PT/occupational therapy (OT). 11. Chronic obstructive pulmonary disease, on home oxygen. Continue monitoring. 12. Coronary arterial disease. History of coronary artery bypass graft (CABG). Continue statin. Continue Plavix. Continue Eliquis, lisinopril. 13. Urinary tract infection with extended-spectrum beta-lactamase (ESBL). treated with ertapenem, Candiduria started Diflucan kedar Loza 14. Right upper extremity ultrasound with pseudoaneurysm and neck hematoma. Further management as per vascular. 15. Hematuria. Patient has stents with frequent urinary tract infections (UTIs). Urology was consulted during this admission. UTI and candiduria treated, supportive care. stent change scheduled for Wednesday. 16. Deep venous thrombosis (DVT) prophylaxis. Continue Eliquis. PROGNOSIS: Guarded. DISPOSITION: Pending physical therapy. ARU, urology stent change VS,Radha, I+O VS, Radha, I+O Laboratory Tests 05/28/18 05:37 Red Blood Count 3.37 L, Mean Corpuscular Volume 97.0 H, Mean Corpuscular Hemoglobin 30.6, Mean Corpuscular Hemoglobin Concent 31.5 L, Red Cell Distribution Width 15.3 H, Calcium Level 7.9 L Vital Signs Date Time Temp Pulse Resp B/P (MAP) Pulse Ox O2 Delivery O2 Flow Rate FiO2 05/28/18 12:00 98.4 74 18 129/59 (82) 97 Room Air 05/24/18 04:00 2.0 I&O- Last 24 Hours up to 6 AM 05/28/18 06:00 Intake Total 1080 ml Output Total 925 ml Balance 155 ml SHARRON LAL MD May 28, 2018 14:17
[2018-05-28] MEDS: FLUCONAZOLE 200 MG in APPROPRIATE DILUENT 1 EA IV SCH (16:45)
[2018-05-28] MEDS: PRAVASTATIN 10 MG TAB PO SCH (21:33)
[2018-05-29] VITALS (14 sets, daily range): BP systolic 90–138; BP diastolic 44–82; O2SAT 95–97
[2018-05-29] MEDS: LEVOTHYROXINE 50MCG TABLET (0.05MG) PO SCH (05:36)
[2018-05-29] MEDS: SODIUM CHLORIDE 0.9% INJ 10 ML SYR IV SCH ×2 (05:37→18:52)
[2018-05-29] MEDS: SODIUM CHLORIDE 0.9% INJ 10 ML SYR IV PRN (05:37)
[2018-05-29 06:02] LABS: HEMATOCRIT 32.8 % (36.0-47.0); HEMOGLOBIN 10.4 g/dl (12.0-15.5); MEAN CORPUSCULAR HEMOGLOBIN 30.8 pg (27.0-33.0); MEAN CORPUSCULAR HGB CONC 31.7 g/dl (32.0-36.5); PLATELET COUNT, AUTOMATED 268 10^3/uL (150-450); RED BLOOD COUNT 3.38 10^6/uL (4.00-5.40); WHITE BLOOD COUNT 8.3 10^3/uL (4.0-10.0)
[2018-05-29 06:57] LABS: MAGNESIUM LEVEL 2.1 MG/DL (1.8-2.4)
[2018-05-29] MEDS: HumaLOG INSULIN (NovoLOG) PER UNIT SC SCH ×4 (07:30→20:49)
[2018-05-29 07:57] LABS: BLOOD UREA NITROGEN 12 MG/DL (7-18); CARBON DIOXIDE LEVEL 30 MEQ/L (21-32); CHLORIDE LEVEL 104 MEQ/L (98-107); CREATININE FOR GFR 0.91 MG/DL (0.55-1.30); GLOMERULAR FILTRATION RATE > 60.0 (>32); GLUCOSE, FASTING 77 MG/DL (70-100); SODIUM LEVEL 142 MEQ/L (136-145)
[2018-05-29] MEDS: HumuLIN (NovoLIN)70/30 INSULIN INJ PER UNIT SC SCH ×2 (09:39→21:15)
[2018-05-29] MEDS: MIRALAX *UNIT DOSE* 17GM PACKET PO SCH (09:39)
[2018-05-29] MEDS: LISINOPRIL *2.5 MG* TAB PO SCH (09:40)
[2018-05-29] MEDS: CLOPIDOGREL 75 MG TAB PO SCH (09:40)
[2018-05-29] MEDS: ESCITALOPRAM OXALATE 10 MG TAB (LEXAPRO) PO SCH (09:40)
[2018-05-29] MEDS: APIXABAN 5 MG TAB (ELIQUIS) PO SCH ×2 (09:40→21:15)
[2018-05-29] MEDS: EZETIMIBE 10 MG TAB (ZETIA) PO SCH (09:40)
[2018-05-29] MEDS: FUROSEMIDE 40 MG TAB PO SCH (09:40)
[2018-05-29] MEDS: SENOKOT S TAB PO SCH ×2 (09:40→21:14)
[2018-05-29] MEDS: VITAMIN D 1,000 INTERNATIONAL UNITS TABLET PO SCH (09:41)
[2018-05-29] MEDS: PANTOPRAZOLE 40MG TAB (PROTONIX) PO SCH (09:41)
[2018-05-29] MEDS: NYSTATIN 100,000 UNITS/GM TOPICAL PWD 15 GM TOP SCH ×2 (09:41→21:14)
[2018-05-29] MEDS: FERROUS SULFATE 325MG TAB PO SCH (09:41)
[2018-05-29] MEDS: ACETAMINOPHEN TAB 650MG DOSE (2X325MG) PO PRN ×2 (12:34→21:14)
--- NOTE | 2018-05-29 15:22 | IPNPDOC ---
Text Note Date of Service The patient was seen on 05/29/18. NOTE Patient seen and examined. No acute events overnight. Denies any chest pain, pressure, or discomfort. Poor historian. Reported feeling stronger PHYSICAL EXAMINATION: GENERAL: Patient alert, comfortable, in no acute distress. HEENT: Normocephalic, atraumatic. NECK: b/l surgical wound well healed PULMONARY: Bilaterally clear. CARDIAC: Regular, S1, S2. ABDOMEN: Soft, nontender. Positive bowel sounds. EXTREMITIES: No clubbing, cyanosis, or edema. ASSESSMENT AND PLAN: This is an 88-year-old female patient with underlying medical history of multiple strokes, moderate to severe bilateral carotid artery disease, has refused carotid endarterectomy in the past, status post recent right-sided carotid endarterectomy, also with chronic systolic congestive heart failure, atrial fibrillation on Eliquis, chronic obstructive pulmonary disease (COPD) on 2 liters oxygen, hypertension, CVA, peripheral vascular disease, hypothyroidism, history of pulmonary embolism (PE), who was readmitted from acute rehabilitation with acute slurred speech and right-sided weakness status post left-sided carotid endarterectomy this time. PROBLEMS: 1. Transient ischemic attacks (TIA) with slurred speech and right-sided weakness status post left-sided carotid endarterectomy by vascular surgery. Wound care as per vascular surgery. Currently on Plavix and Eliquis and neurologic checks as ordered. Physical therapy (PT) and CTs appreciated. 2. Acute on chronic anemia status post surgery. Transfuse 1 unit packed red blood cells (PRBCs). 3. delirium supportive care. repeat ct head appreciated. 4. Atrial fibrillation, on Eliquis, currently rate controlled. 5. Dyslipidemia. Continue statin. 6. Hypothyroidism. Continue Synthroid. 7. Diabetes. Continue basal and mealtime insulin. 8. Hypertension. Continue Lasix, lisinopril. 9. Chronic kidney disease (CKD) stage III, currently at baseline. Will continue to monitor. 10. Left ankle fracture. Orthopedics consulted. Weightbearing status as per orthopedics. PT/occupational therapy (OT). 11. Chronic obstructive pulmonary disease, on home oxygen. Continue monitoring. 12. Coronary arterial disease. History of coronary artery bypass graft (CABG). Continue statin. Continue Plavix. Continue Eliquis, lisinopril. 13. Urinary tract infection with extended-spectrum beta-lactamase (ESBL). treated with ertapenem, Candiduria started Diflucan dw Dr Loza 14. Right upper extremity ultrasound with pseudoaneurysm and neck hematoma. Further management as per vascular. 15. Hematuria. Patient has stents with frequent urinary tract infections (UTIs). Urology was consulted during this admission. UTI and candiduria treated, supportive care. stent change scheduled for Wednesday. 16. Deep venous thrombosis (DVT) prophylaxis. Continue Eliquis. PROGNOSIS: Guarded. DISPOSITION: Pending physical therapy. ARU, urology stent change VS,Radha, I+O VS, Radha, I+O Laboratory Tests 05/29/18 05:44 Red Blood Count 3.38 L, Mean Corpuscular Volume 97.0 H, Mean Corpuscular Hemog lobin 30.8, Mean Corpuscular Hemoglobin Concent 31.7 L, Red Cell Distribution Width 15.2 H, Calcium Level 8.0 L Vital Signs Date Time Temp Pulse Resp B/P (MAP) Pulse Ox O2 Delivery O2 Flow Rate FiO2 05/29/18 12:00 97.7 69 18 138/65 (89) 97 Room Air 05/24/18 04:00 2.0 I&O- Last 24 Hours up to 6 AM 05/29/18 06:00 Intake Total 280 ml Output Total 1875 ml Balance -1595 ml SHARRON LAL MD May 29, 2018 15:22
[2018-05-29] MEDS: FLUCONAZOLE 200 MG in APPROPRIATE DILUENT 1 EA IV SCH (15:36)
[2018-05-29] MEDS: PRAVASTATIN 10 MG TAB PO SCH (21:15)
[2018-05-30] VITALS (24 sets, daily range): BP systolic 80–139; BP diastolic 44–70; O2SAT 95–99
[2018-05-30] MEDS: SODIUM CHLORIDE 0.9% INJ 10 ML SYR IV SCH ×2 (05:08→17:25)
[2018-05-30] MEDS: LEVOTHYROXINE 50MCG TABLET (0.05MG) PO SCH (05:08)
[2018-05-30] MEDS: SODIUM CHLORIDE 0.9% INJ 10 ML SYR IV PRN (05:08)
[2018-05-30 05:26] LABS: HEMATOCRIT 32.2 % (36.0-47.0); HEMOGLOBIN 10.1 g/dl (12.0-15.5); MEAN CORPUSCULAR HEMOGLOBIN 30.7 pg (27.0-33.0); MEAN CORPUSCULAR HGB CONC 31.4 g/dl (32.0-36.5); MEAN CORPUSCULAR VOLUME 97.9 fl (80.0-96.0); PLATELET COUNT, AUTOMATED 263 10^3/uL (150-450); RED BLOOD COUNT 3.29 10^6/uL (4.00-5.40); WHITE BLOOD COUNT 6.8 10^3/uL (4.0-10.0)
[2018-05-30 06:02] LABS: CREATININE FOR GFR 0.97 MG/DL (0.55-1.30); GLOMERULAR FILTRATION RATE 57.7 (>32); MAGNESIUM LEVEL 2.1 MG/DL (1.8-2.4); POTASSIUM SERUM 3.9 MEQ/L (3.5-5.1)
[2018-05-30] MEDS: DEXTROSE 50% 50 ML SYRINGE IV PRN (06:16)
[2018-05-30] MEDS: HumaLOG INSULIN (NovoLOG) PER UNIT SC SCH ×4 (07:30→21:00)
[2018-05-30] MEDS: LISINOPRIL *2.5 MG* TAB PO SCH (08:43)
[2018-05-30] MEDS: NYSTATIN 100,000 UNITS/GM TOPICAL PWD 15 GM TOP SCH ×2 (08:45→21:19)
[2018-05-30] MEDS ORDERED: NS 500 ML IV ONE (08:45)
[2018-05-30] MEDS: MIRALAX *UNIT DOSE* 17GM PACKET PO SCH (09:00)
[2018-05-30] MEDS: HumuLIN (NovoLIN)70/30 INSULIN INJ PER UNIT SC SCH ×2 (09:00→21:19)
[2018-05-30] MEDS: PANTOPRAZOLE 40MG TAB (PROTONIX) PO SCH (09:11)
[2018-05-30] MEDS: EZETIMIBE 10 MG TAB (ZETIA) PO SCH (09:11)
[2018-05-30] MEDS: CLOPIDOGREL 75 MG TAB PO SCH (09:11)
[2018-05-30] MEDS: FERROUS SULFATE 325MG TAB PO SCH (09:12)
[2018-05-30] MEDS: VITAMIN D 1,000 INTERNATIONAL UNITS TABLET PO SCH (09:12)
[2018-05-30] MEDS: APIXABAN 5 MG TAB (ELIQUIS) PO SCH ×2 (09:12→21:21)
[2018-05-30] MEDS: SENOKOT S TAB PO SCH ×2 (09:12→21:21)
[2018-05-30] MEDS: ESCITALOPRAM OXALATE 10 MG TAB (LEXAPRO) PO SCH (09:12)
--- NOTE | 2018-05-30 10:32 | IPNPDOC ---
Assessment/Plan Date Seen The patient was seen on 05/30/18. Patient Summary This is an 80 y/o F w/ a left ureteral stricture managed w/ chronic left ureteral stenting, admitted for a CVA. Plan/VTE VTE Prophylaxis Ordered?: Yes VTE Exclusion Mechanical Proph: N/A:VTE Prophy Ordered Plan - OR today for cystoscopy, left ureteral stent exchange - ancef 2g IV preop - NPO Subjective Review oF Systems Chief Complaint The patient is a 88-year-old female admitted with a reason for visit of CVA. Events since Last Encounter No acute events o/n. Denies pain. No f/c/ns. Objective Physical Examination General Exam: Alert, Cooperative, No Acute Distress Chest Exam: Normal air movement Heart Exam: Positive: Rate Normal, Regular Rhythm, Normal S2 ABDOMEN EXAM: Soft Skin Exam: Nl turgor and temperature Neuro Exam: Normal Speech Psych Exam: Mental status NL, Mood NL Vital Signs/I&O Vital Signs Date Time Temp Pulse Resp B/P (MAP) Pulse Ox O2 Delivery O2 Flow Rate FiO2 05/30/18 09:19 104/70 (81) 05/30/18 08:05 97.8 72 18 98 Room Air 05/24/18 04:00 2.0 I&O- Last 24 Hours up to 6 AM 05/30/18 06:00 Intake Total 220 ml Output Total 1150 ml Balance -930 ml Laboratory Data Labs 24H Laboratory Tests 2 05/29/18 12:28: Bedside Glucose (Misc Panel) 153H 05/29/18 16:49: Bedside Glucose (Misc Panel) 65L 05/29/18 17:57: Bedside Glucose (Misc Panel) 117H 05/29/18 20:46: Bedside Glucose (Misc Panel) 164H 05/30/18 05:07: Nucleated Red Blood Cells % (auto) 0.0, Anion Gap 6L, Glomerular Filtration Rate 57.7, Blood Urea Nitrogen 15, Creatinine 0.97, Sodium Level 142, Potassium Level 3.9, Chloride Level 104, Carbon Dioxide Level 32, Calcium Level 8.0L, Magnesium Level 2.1 05/30/18 06:22: Bedside Glucose (Misc Panel) 165H CBC/BMP Laboratory Tests 05/30/18 05:07 Red Blood Count 3.29 L, Mean Corpuscular Volume 97.9 H, Mean Corpuscular Hemoglobin 30.7, Mean Corpuscular Hemoglobin Concent 31.4 L, Red Cell Distribution Width 15.2 H, Calcium Level 8.0 L FSBS Laboratory Tests Test 05/29/18 12:28 05/29/18 16:49 05/29/18 17:57 05/29/18 20:46 Range/Units Bedside Glucose (Misc Panel) 153 65 117 164 83-110 MG/DL Test 05/30/18 06:22 Range/Units Bedside Glucose (Misc Panel) 165 83-110 MG/DL Microbiology Microbiology 05/25/18 Urine Culture - Final, Complete Yeast Like Organism MCKINLEY PANCHAL MD May 30, 2018 10:32
[2018-05-30] MEDS ORDERED: ceFAZolin 2 GM/D5W 50 ML IV BAG (J0690 PER 500MG) As Ordered ONE (10:41)
--- NOTE | 2018-05-30 11:34 | REP ---
Retrograde pyelogram: Two views. History: CVA. 8 seconds of fluoroscopy time is reported. Findings: A sequence of two last image hold fluoroscopically obtained spot radiographs of the abdomen document ureteral cannulation, contrast injection, and stent placement. No laterality markers are visible. Electronically Signed by Anthony Pena MD 05/30/2018 04:53 P
--- NOTE | 2018-05-30 11:42 | ROOPDOC ---
[facility] Report Of Operation Report of Operation DATE OF PROCEDURE: 05/30/18 PREPROCEDURE DIAGNOSIS: Left ureteral stricture. POSTPROCEDURE DIAGNOSIS: Left ureteral stricture. PROCEDURE: Cystoscopy, left ureteral stent exchange, left retrograde pyelogram with intraoperative interpretation of images. SURGEON: Mckinley Panchal MD OPERATING ROOM RN: None. ANESTHESIA: MAC. INDICATIONS: The patient is an 88-year-old female with a left ureteral stricture and the need for chronic left ureteral stenting. She is here for routine stent exchange. DESCRIPTION OF PROCEDURE: The patient was brought to the operating room where MAC anesthesia was accomplished. Culture specific antibiotics were infused. She was then placed in the dorsal lithotomy position, prepped and draped in the usual sterile fashion. A rigid cystoscope was inserted through the urethral meatus and advanced into the bladder. The bladder was thoroughly examined and no bladder lesions were seen. There was a small amount of bleeding coming from the left ureteral orifice. The previously placed stent was then grasped and withdrawn until the distal end was protruding from the urethral meatus. A guidewire was advanced up the stent into the left collecting system. The left ureteral stent was then removed intact from the left collecting system. I then advanced the open ended ureteral catheter over the wire up into the left collecting system. The wire was then removed and a retrograde pyelogram was performed. It was notable for mild left sided hydronephrosis with no extravasation. At this point, the wire was advanced back up the left col lecting system and the open ended ureteral catheter was removed. Wire was then utilized to advance a new #7 [place] x 22-32 cm JJ ureteral stent up into the left collecting system. The wire was then removed and there were adequate curls of the stent in the left renal pelvis and in the bladder. An 18Fr Griffiths catheter was then inserted into the bladder and the balloon was filled with 10mL of sterile water. The catheter was connected to gravity drainage and this marked conclusion of the procedure. The patient was then taken out of dorsal lithotomy position, awakened from anesthesia and transferred to the recovery room in stable condition. ESTIMATED BLOOD LOSS: 5 mL. COMPLICATIONS: None. SPECIMENS: None. PLAN: The patient will followup in the clinic in approximately 2 months to get her set up for her next stent exchange, which should be approximately 3 months from now. MCKINLEY PANCHAL MD May 30, 2018 11:42
[2018-05-30] MEDS ORDERED: ONDANSETRON 4MG/2ML VIAL (J2405) IV PRN (12:00)
[2018-05-30] MEDS ORDERED: fentaNYL 100 MCG/2 ML INJECTION (J3010) IV PRN (12:00)
[2018-05-30] MEDS ORDERED: NS 1,000 ML IV SCH (12:00)
[2018-05-30] MEDS: FLUCONAZOLE 200 MG in APPROPRIATE DILUENT 1 EA IV SCH (15:11)
[2018-05-30] MEDS: ACETAMINOPHEN TAB 650MG DOSE (2X325MG) PO PRN ×2 (16:05→21:20)
[2018-05-30] MEDS ORDERED: HUMU70IN SC (16:41)
[2018-05-30] MEDS ORDERED: DIFL200T PO (16:41)
[2018-05-30] MEDS ORDERED: CARD120C3 PO (17:09)
[2018-05-30] MEDS: PRAVASTATIN 10 MG TAB PO SCH (21:21)
--- NOTE | 2018-05-30 23:54 | DSES ---
DATE OF ADMISSION: 05/14/2018 DATE OF DISCHARGE: 05/31/2018 UROLOGIST: Dann Loza MD VASCULAR SURGERY: Scot Elizondo MD NEUROLOGIST: Kwan Cisneros MD FINAL DIAGNOSES: 1. Transient ischemic attack (TIA) secondary to severe carotid artery disease. 2. Carotid artery disease. 3. Acute on chronic anemia. 4. Acute blood loss anemia secondary to surgery. 5 Delirium. 6. Atrial fibrillation. 7. Dyslipidemia. 8. Hypothyroidism. 9. Diabetes. 10. Hypertension. 11. Chronic kidney disease (CKD), stage III. 12. Left ankle fracture. 13. History of chronic obstructive pulmonary disease (COPD). 14. Coronary arterial disease. 15. History of urinary tract infection (UTI) with aysha urea 16. History of obstructive uropathy 17. Hematuria. HISTORY OF PRESENT ILLNESS: This is an 88-year-old with underlying medical history of multiple strokes, moderate to severe bilaterally carotid artery stenosis. Recently on May 06, 2018, the patient had a right-sided carotid endarterectomy by Dr. Elizondo. The patient was later transferred to acute rehabilitation. The patient previously refused carotid endarterectomy and has history of congestive heart failure, atrial fibrillation on Eliquis, chronic obstructive pulmonary disease (COPD) on 2 liters oxygen at home, hypertension, cerebrovascular accident (CVA), peripheral artery disease, hypothyroidism, also history of pulmonary embolus (PE), type 2 diabetes, depression, history of chronic kidney disease (CKD), gastroesophageal reflux disease (GERD), also with recent fall with left fibular fracture. The patient was in acute rehabilitation. In the morning of May 14, 2018, around 8:30 in the morning, the patient woke up with right upper extremity weakness and also slurred speech. Subsequently, stat CT of head was done. The patient has a pacemaker, unable to perform Magnetic Resonance Imaging (MRI). The patient was transferred to the PCU. Urology was consulted and vascular surgery was consulted. The patient denies any chest pain, pressure or discomfort. The patient's symptoms subsequently resolved over the course of the day. HOSPITAL COURSE: The patient's CT and CT angiogram were done. Vascular was consulted. It was determined that the reason of stroke is likely left carotid artery stenosis. Subsequently, vascular was consulted. The patient underwent carotid endarterectomy. Urology was also consulted given the patient is due for a stent change. Physical therapy has been ordered. Acute rehabilitation screening was ordered again. The patient currently is feeling comfortable starting physical therapy. Antibiotics were started and initially was empirically started per recommendation of Dr. Loza on ertapenem, but when cultures return to be yeast, the patient was started on Diflucan for aysha urea. The patient is currently status post urological stenting and is ready for acute rehabilitation. Discharge pending until rehabilitation transfer. VITAL SIGNS: Temperature 97.8, pulse 73, respirations 20, blood pressure 102/52, pulse oximetry 90% on room air. LABORATORY: White blood count (WBC) 6.8, hemoglobin and hematocrit 10.1/32.2, platelets 263. Chemistry: Sodium 142, potassium 3.9, chloride 104, bicarbonate 32, BUN 14, creatinine 0.97. PHYSICAL EXAMINATION: The patient is alert, comfortable, in no acute distress. HEENT: Normocephalic, atraumatic. PULMONARY: Bilateral clear. NECK; Bilateral surgical wound well healed. CARDIAC: Regular S1, S2. ABDOMEN: Soft, nontender. Positive bowel sounds. EXTREMITIES: No clubbing, cyanosis or edema. Right upper extremity with hematoma that has been getting better. ASSESSMENT AND PLAN: This is an 88-year-old female patient with underlying medical history of multiple stroke, moderate to severe bilateral carotid artery disease, has refused carotid endarterectomy in the past, status post recent right-sided carotid endarterectomy. Also with chronic systolic congestive heart failure, atrial fibrillation on Eliquis, chronic obstructive pulmonary disease (COPD) on 2 liter oxygen, hypertension, cerebrovascular accident (CVA), peripheral vascular disease, hypothyroidism, history of pulmonary embolus (PE) was re-admitted for acute rehabilitation slurred speech and right-sided weakness, status post left-sided carotid endarterectomy. PROBLEM: 1. Transient ischemic attack (TIA). The patient with slurred speech and right-sided weakness, status post left carotid endarterectomy per vascular surgery, currently on Plavix, Eliquis for the management as per vascular. Followup with vascular and neuro check as ordered. Physical therapy (PT) and occupational therapy (OT). CT scan has been appreciated. 2. Acute on chronic anemia. Acute blood loss anemia secondary to surgery. Transfuse one unit of packed red blood cells (PRBC). 3. Delirium. Supportive care. 4. Atrial fibrillation. Continue Eliquis. The patient is currently rate controlled. 5. Dyslipidemia. Continue statin. 6. Hypothyroidism. Continue Synthroid. 7. Diabetes. Basal Bolus insulin. 8. Hypertension. Continue Lasix; lisinopril on hold. 9. History of congestive heart failure, currently euvolemic, continue Lasix. 10. Chronic kidney disease (CKD), stage III, currently at baseline, will monitor. 11. Left ankle fracture. Orthopedic consultation appreciated. Weight bearing as per orthopedics, physical therapy (PT)/occupational therapy. 12. Chronic obstructive pulmonary disease (COPD). Supportive care continue to monitor on home oxygen. 13. Coronary arterial disease. Continue Plavix and Eliquis. Lisinopril has been on hold given borderline blood pressure. Continue statin. Continue Plavix and Eliquis. 14. History of coronary artery bypass graft (CABG). 15. Aysha urea and history of urinary tract infection (UTI), currently on Diflucan, status post stent change. 16. Hematuria. Urology consulted. Further management per urology, status post stent change. 17. Deep vein thrombosis (DVT) prophylaxis. The patient is on Eliquis. DISPOSITION: Pending transfer to acute rehabilitation in the next 24 hours. DISCHARGE MEDICATION: - Diflucan 200 mg by mouth daily for three more days - acetaminophen 650 mg by mouth every 4 hours as needed - Ventolin inhalers every 4 hours as needed - Eliquis 5 mg by mouth twice a day - vitamin D 1000 units by mouth daily - Plavix 75 mg by mouth daily - senna plus one tablet by mouth twice a day - Lexapro 10 mg by mouth daily - Zetia 10 mg by mouth daily - ferrous sulfate 650 mg by mouth daily - Lasix 40 mg by mouth daily - Humalog AC as directed - Synthroid 50 mcg by mouth daily - sublingual nitroglycerine 0.4 mg sublingual as needed - nystatin topical twice a day - Protonix 40 mg by mouth daily - MiraLAX by mouth daily as needed - pravastatin 10 mg by mouth at bedtime (q.h.s.) - propafenone 225 mg by mouth twice a day - 70/30 insulin, 10 units subcutaneous twice a day - cortisone reduced to 120 mg by mouth daily, controlled release. DISCHARGE INSTRUCTIONS: Please followup with primary care provider in 7 days after discharge. Please see shore man in 14 days after discharge and vascular surgery in 14 days after discharge. Please followup with orthopedic surgery 7 days after discharge. Further care as per acute rehabilitation provider. Return to the hospital if symptoms worsen.
[2018-05-31] VITALS (10 sets, daily range): BP systolic 104–139; BP diastolic 56–65; O2SAT 94–96
[2018-05-31] MEDS: LEVOTHYROXINE 50MCG TABLET (0.05MG) PO SCH (05:04)
[2018-05-31] MEDS: SODIUM CHLORIDE 0.9% INJ 10 ML SYR IV SCH (05:04)
[2018-05-31 05:29] LABS: HEMATOCRIT 31.1 % (36.0-47.0); HEMOGLOBIN 9.8 g/dl (12.0-15.5); MEAN CORPUSCULAR HEMOGLOBIN 31.5 pg (27.0-33.0); MEAN CORPUSCULAR HGB CONC 31.5 g/dl (32.0-36.5); PLATELET COUNT, AUTOMATED 248 10^3/uL (150-450); RED BLOOD COUNT 3.11 10^6/uL (4.00-5.40); WHITE BLOOD COUNT 6.3 10^3/uL (4.0-10.0)
[2018-05-31] MEDS: HumaLOG INSULIN (NovoLOG) PER UNIT SC SCH ×2 (07:30→12:00)
[2018-05-31] MEDS: SENOKOT S TAB PO SCH (09:00)
[2018-05-31] MEDS: MIRALAX *UNIT DOSE* 17GM PACKET PO SCH (09:00)
[2018-05-31] MEDS ORDERED: FUROSEMIDE 40 MG TAB PO SCH (09:00)
[2018-05-31] MEDS: HumuLIN (NovoLIN)70/30 INSULIN INJ PER UNIT SC SCH (09:09)
[2018-05-31] MEDS: APIXABAN 5 MG TAB (ELIQUIS) PO SCH (09:10)
[2018-05-31] MEDS: CLOPIDOGREL 75 MG TAB PO SCH (09:10)
[2018-05-31] MEDS: ESCITALOPRAM OXALATE 10 MG TAB (LEXAPRO) PO SCH (09:10)
[2018-05-31] MEDS: EZETIMIBE 10 MG TAB (ZETIA) PO SCH (09:10)
[2018-05-31] MEDS: FERROUS SULFATE 325MG TAB PO SCH (09:10)
[2018-05-31] MEDS: NYSTATIN 100,000 UNITS/GM TOPICAL PWD 15 GM TOP SCH (09:10)
[2018-05-31] MEDS: VITAMIN D 1,000 INTERNATIONAL UNITS TABLET PO SCH (09:10)
[2018-05-31] MEDS: PANTOPRAZOLE 40MG TAB (PROTONIX) PO SCH (09:10)
[2018-05-31 10:01] LABS: CALCIUM LEVEL 7.9 MG/DL (8.8-10.2); CREATININE FOR GFR 0.94 MG/DL (0.55-1.30); GLOMERULAR FILTRATION RATE 59.8 (>32); MAGNESIUM LEVEL 2.1 MG/DL (1.8-2.4); POTASSIUM SERUM 4.3 MEQ/L (3.5-5.1)
[2018-05-31] MEDS: PERCOCET 5MG/325MG TAB PO PRN (11:21)
--- NOTE | 2018-06-08 14:18 | RO ---
DATE OF PROCEDURE: 05/21/2018 PREOPERATIVE DIAGNOSES: Dysarthria. Transient ischemic attack (TIA). Left carotid artery stenosis, greater than 60%. Status post right carotid endarterectomy with patch angioplasty. History of multiple cerebrovascular accidents. POSTOPERATIVE DIAGNOSES: Dysarthria. Transient ischemic attack (TIA). Left carotid artery stenosis, greater than 60%. Status post right carotid endarterectomy with patch angioplasty. History of multiple cerebrovascular accidents. PROCEDURE: Left carotid endarterectomy with patch angioplasty with XenoSure Biologic patch and usage of a shunt. ATTENDING SURGEON: Rush Elizondo MD EQUINE BREEDER: Erin Arana PA-C ANESTHESIA: Gen. endotracheal INDICATION: The patient is an 88-year-old female with multiple bilateral cerebrovascular accidents and high grade stenosis on the right with subsequent carotid endarterectomy who now presents with right upper extremity weakness and dysarthria and approximately 60 and 70% stenosis in her left internal carotid artery. The patient was on Eliquis and antiplatelet therapy with Plavix with symptoms resolving on anticoagulation and antiplatelet therapy. The patient was evaluated and options were discussed with the patient and the patient wishes to proceed with a left carotid endarterectomy. Risks, benefits and alternative treatment options were discussed with the patient. ANESTHESIA: General endotracheal ESTIMATED BLOOD LOSS: 100 mL. IV FLUIDS: 100 mL. HEPARIN: 5000 units. PROTAMINE: 50 mg. SPECIMENS: Left carotid artery plaque. DRAINS: #10 LAURYN. COMPLICATIONS: None. IMPLANTS: XenoSure Biologic patch to close the arteriotomy in the left carotid artery. PROCEDURE: The patient was taken to the operating room, placed supine on the operating room table and then prepped and draped in a standard surgical fashion. Incision was made along the anterior border of the left sternocleidomastoid muscle with a scalpel. This was carried down through the subcutaneous tissue and platysma using Bovie electrocautery. The sternocleidomastoid muscle was dissected off of the carotid sheath sharply and retracted laterally. Carotid sheath was opened exposing the internal jugular vein, which was sharply dissected proximally and distally. The facial vein was identified, dissected proximally and distally, tied with #0 silk suture proximally and distally and then ligated. The internal jugular vein was dissected off carotid artery and retracted laterally. The common carotid artery was sharply dissected free encircled with vessel loop. The superior thyroid and external carotid arteries were sharply dissected free and encircled with vessel loops. The patient was given 5000 units of heparin after which the common carotid artery was clamped as well as the superior thyroid and external carotid artery. The internal carotid artery was then sharply dissected free and encircled with vessel loop and clamped with a profunda clamp. An arteriotomy was then made with an 11 blade scalpel, elongated with Cardenas scissors from the common carotid artery through the plaque and into the internal carotid artery. The shunt was inserted into the internal carotid artery after the internal carotid artery was flushed retrograde and noted to have good backbleeding. The shunt was flushed retrograde. A clamp was placed on the shunt and the common carotid artery was flushed antegrade and the shunt was inserted into the common carotid artery with ease. The shunt was flushed again. The clamp was removed and flow was established through the shunt and confirmed using continuous wave Doppler ultrasound. The endarterectomy was performed including an inversion endarterectomy of the superior thyroid and external carotid artery. The arteriotomy was then closed using XenoSure Biologic patch and #6-0 Prolene suture in a running continuous fashion. Prior to completing the arteriotomy closure, she shunt was removed from the internal carotid artery which was flushed retrograde and then clamped with a profunda clamp. The superior thyroid and external carotid arteries were retrograde flushed and clamped using the vessel loops. The common carotid artery was flushed antegrade after removal of the shunt and then clamped using the vessel loop. The arteriotomy closure was completed after which the internal carotid artery remained clamped and flow was established from the common carotid artery into the superior thyroid and external carotid artery and lastly into the internal carotid artery. Flow was confirmed with continuous wave Doppler ultrasound showing good flow through the common carotid artery into the superior thyroid, external carotid and internal carotid arteries. Hemostasis was obtained with thrombin and Gelfoam a #10 LAURYN was placed in the wound and the platysma was then approximated using #2-0 Vicryl suture in an interrupted fashion with the #10 LAURYN exiting through the inferior aspect of the incision. Skin was then closed using #3-0 Monocryl in running subcuticular fashion. Steri-Strips and dressings were applied. The patient tolerated the procedure well. All instrument, sponge, and needle counts were correct at the end of the case. There were no complications. Dr. Elizondo was present for and directed the entire case. The patient was awakened and extubated in the operating room, noted to be fully neurologically intact with no focal deficits. The patient was transferred to the recovery room awake, alert, extubated and in stable condition. MAG
[2018-06-10] MEDS ORDERED: ESCI10TA2 PO (10:29)
[2018-06-10] MEDS ORDERED: PANT40TA3 PO (10:29)
[2018-06-10] MEDS ORDERED: PRAV10TA3 PO (10:29)
[2018-06-10] MEDS ORDERED: EZET10TA PO (10:29)
[2018-06-10] MEDS ORDERED: CLOP75TA2 PO (10:29)
[2018-06-10] MEDS ORDERED: ELIQ5TAB PO (10:29)
[2018-06-10] MEDS ORDERED: FURO40TA2 PO (10:29)
[2018-06-10] MEDS ORDERED: INSUDET SC (10:29)
[2018-06-10] MEDS ORDERED: VENTAER INH (10:29)
[2018-06-10] MEDS ORDERED: LEVO50TA5 PO (10:29)
[2018-06-10] MEDS ORDERED: DILT30TA PO (10:29)
[2018-06-10] MEDS ORDERED: FERR32TA PO (10:29)
[2018-06-10] MEDS ORDERED: PERCOCET PO (11:15)
== END 2018-05-31 15:48 | DRG 41 ==
LOC: M PCU 12:16 → M ICU 05-21 13:29 → M PCU 05-25 14:50
PROVIDERS: ADMIT Hospitalist; ATTEND Hospitalist
PROC: 06H03DZ Insertion of Intraluminal Device into Inferior Vena Cava, Percutaneous Approach (ICD-10-PCS; principal; 2018-05-21 08:00)
PROC: 30233N1 Transfusion of Nonautologous Red Blood Cells into Peripheral Vein, Percutaneous Approach (ICD-10-PCS; 2018-05-22)
PROC: 0T778DZ Dilation of Left Ureter with Intraluminal Device, Via Natural or Artificial Opening Endoscopic (ICD-10-PCS; 2018-05-30)
DX: I65.23 Occlusion and stenosis of bilateral carotid arteries (principal); D62 Acute posthemorrhagic anemia; I50.22 Chronic systolic (congestive) heart failure; I13.0 Hypertensive heart and chronic kidney disease with heart failure and stage 1 through stage 4 chronic kidney disease, or unspecified chronic kidney disease; N39.0 Urinary tract infection, site not specified; R41.0 Disorientation, unspecified; I25.10 Atherosclerotic heart disease of native coronary artery without angina pectoris; G45.9 Transient cerebral ischemic attack, unspecified; N18.3 Chronic kidney disease, stage 3 (moderate); I48.91 Unspecified atrial fibrillation; E78.5 Hyperlipidemia, unspecified; E03.9 Hypothyroidism, unspecified; E11.51 Type 2 diabetes mellitus with diabetic peripheral angiopathy without gangrene; J44.9 Chronic obstructive pulmonary disease, unspecified; R31.9 Hematuria, unspecified; Z79.01 Long term (current) use of anticoagulants; K21.9 Gastro-esophageal reflux disease without esophagitis; Z95.0 Presence of cardiac pacemaker; Z95.1 Presence of aortocoronary bypass graft; Z79.899 Other long term (current) drug therapy; Z86.711 Personal history of pulmonary embolism; F32.9 Major depressive disorder, single episode, unspecified; Z99.81 Dependence on supplemental oxygen; Z79.4 Long term (current) use of insulin; Z88.2 Allergy status to sulfonamides; Z88.8 Allergy status to other drugs, medicaments and biological substances; Z96.651 Presence of right artificial knee joint; Z96.652 Presence of left artificial knee joint; I72.1 Aneurysm of artery of upper extremity; N13.5 Crossing vessel and stricture of ureter without hydronephrosis

== ENCOUNTER 2018-08-07 15:20 | Inpatient (IN) | payer MEDICARE ==
[~2018-08-07] VITALS: Ht 157.5 cm; Wt 81.3 kg
[~2018-08-07 15:20] MED LIST changes: +CARD120C3 PO; +DILT30TA PO; +EZET10TA PO; +FERR32TA PO
[2018-08-07 15:55] LABS: BASO # 0.1 10^3/uL (0.0-0.2); BASO % 0.8 % (0.0-1.0); EOS # 0.2 10^3/uL (0.0-0.50); EOS % 1.9 % (0.0-3.0); HEMATOCRIT 34.2 % (36.0-47.0); HEMOGLOBIN 10.8 g/dl (12.0-15.5); LYMPH # 1.6 10^3/uL (1.5-4.5); LYMPH % 16.5 % (24.0-44.0); MEAN CORPUSCULAR HEMOGLOBIN 29.8 pg (27.0-33.0); MEAN CORPUSCULAR HGB CONC 31.6 g/dl (32.0-36.5); MEAN CORPUSCULAR VOLUME 94.2 fl (80.0-96.0); MONO # 0.8 10^3/uL (0.0-0.8); MONO % 7.9 % (0.0-5.0); NEUTROPHILS % 72.6 % (36.0-66.0); PLATELET COUNT, AUTOMATED 290 10^3/uL (150-450); RED BLOOD COUNT 3.63 10^6/uL (4.00-5.40); WHITE BLOOD COUNT 9.7 10^3/uL (4.0-10.0)
[2018-08-07 16:43] LABS: BILIRUBIN, URINE MANUAL NEGATIVE (NEGATIVE); GLUCOSE, URINE (UA) MANUAL 1+(100 MG/DL) mg/dL (NEGATIVE); KETONE, URINE MANUAL NEGATIVE (NEGATIVE); UROBILINOGEN, URINE MANUAL NORMAL (NORMAL)
[2018-08-07 16:44] LABS: BACTERIA, URINE NONE SEEN; HYALINE CAST, URINE NONE SEEN /lpf (0-1); RBC, URINE TNTC /hpf (0-3); SQUAMOUS EPITHELIAL CELL URINE NONE SEEN /hpf (SMALL AMT)
--- NOTE | 2018-08-07 16:45 | ECGEPIP ---
Stationary ECG Study [facility] - ED Test Date: 2018-08-07 Pat Name: JUDITH WEST Department: Room: - Gender: F Master Data Analyst: TC : 1930 Requested By: VINAYAK Deal Order Number: [id number] Reading MD: Crystal Plata Measurements Intervals May Rate: 69 P: WV: 0 QRS: 150 QRSD: 220 T: -13 QT: 551 QTc: 594 Interpretive Statements ELECTRONIC VENTRICULAR PACEMAKER ABNORMAL RHYTHM ECG SIMILAR 04/22/18 Electronically Signed On 08-07-2018 16:45:17 EST by Crystal Plata
[2018-08-07 17:20] LABS: INR 1.56; PROTHROMBIN TIME 18.9 SECONDS (12.1-14.4)
[2018-08-07] MEDS ORDERED: MIRA33504 PO (17:28)
[2018-08-07] MEDS ORDERED: PROP225C13 PO (17:29)
[2018-08-07 17:40] LABS: BLOOD UREA NITROGEN 69 MG/DL (7-18); CALCIUM LEVEL 8.5 MG/DL (8.8-10.2); CARBON DIOXIDE LEVEL 24 MEQ/L (21-32); CHLORIDE LEVEL 100 MEQ/L (98-107); CPK CREATINE PHOSPHOKINASE 63 U/L (26-192); GLOMERULAR FILTRATION RATE 12.3 (>32); GLUCOSE, FASTING 200 MG/DL (70-100); MB/CK RELATIVE INDEX 3.33 (< OR =4); POTASSIUM SERUM 5.3 MEQ/L (3.5-5.1); SODIUM LEVEL 135 MEQ/L (136-145); TROPONIN I < 0.02 NG/ML (< 0.10)
[2018-08-07] MEDS ORDERED: LISI2.5T5 PO (17:41)
[2018-08-07] MEDS ORDERED: HUMU70IN SC (17:41)
[2018-08-07] MEDS ORDERED: POTA1TAB23 PO (17:41)
[2018-08-07] MEDS ORDERED: ASPI1TAB PO (17:47)
[2018-08-07] MEDS: NS 1,000 ML IV SCH (17:47)
[2018-08-07] MEDS ORDERED: NYSTATIN 100,000 UNITS/GM TOPICAL PWD 15 GM TOP PRN (18:00)
[2018-08-07] MEDS ORDERED: GLUCAGON FOR INJ 1 MG VIAL (J1610) SC PRN (18:00)
[2018-08-07] MEDS ORDERED: GLUCOSE 4 GM CHEW TABLET PO PRN (18:00)
--- NOTE | 2018-08-07 18:47 | REPVR ---
EXAM: US Retroperitoneal Limited, Kidneys EXAM DATE/TIME: 08/07/2018 6:01 PM CLINICAL HISTORY: 88 years old, female; Signs and symptoms; Other: Hematuria; Additional info: Hematuria known stents R/O obstruction TECHNIQUE: Real-time ultrasound of the retroperitoneum with image documentation. Examination was focused on the kidneys. COMPARISON: RENAL US 11/13/2014 6:28 PM FINDINGS: Pancreas: Because of gas and body habitus complete visualization of the kidneys was impossible. Right kidney: There is no evidence of hydronephrosis on the right. The right kidney measures 11.6 CM in length. Left kidney: There is mild hydronephrosis left collecting system. The left kidney measures 10.5 CM in length. Bladder: There is layered sediment within the dependent portion of the urinary bladder. The urinary bladder is incompletely filled and unable to be completely evaluated. Correlation with a CT scan would be helpful. IMPRESSION: 1. Mild hydronephrosis of the left collecting system. 2. Prominent sediment in the dependent portion of the urinary bladder. Suggest correlation with CT. Electronically signed by: Herbert Wright On 08/07/2018 18:47:17 PM
[2018-08-07] MEDS ORDERED: NITROGLYCERIN 0.4 MG SUBL TABLET SL PRN (19:00)
[2018-08-07] MEDS ORDERED: CIPROFLOXACIN 400 MG in APPROPRIATE DILUENT 1 EA IV ONE (20:00)
--- NOTE | 2018-08-07 20:26 | HPE ---
DATE OF ADMISSION: 08/07/2018 88-year-old female with a past medical history of hypertension, diabetes, hyperlipidemia, coronary artery disease status post coronary artery bypass graft (CABG), history of multiple TIAs, presents to the emergency room with expression aphasia that occurred after lunch this afternoon. The patient had a recent endarterectomy back on 05/06/2018, first on the right and then on 05/11/2018 had an endarterectomy on the left carotid. By the time that I saw her, she had a CT scan that was negative for intracranial bleed, and she was able to express herself much better than she did at home, according to the family. Unfortunately, we cannot do a MRI to localize this new stroke due to the fact that she has a pacemaker. The emergency room attending spoke with Dr. Cisneros, who will be on consult, and the recommendation is to continue current medical therapy and he will be on consult with us. PAST MEDICAL HISTORY: 1. Hypertension. 2. Diabetes. 3. Hyperlipidemia. 4. Coronary artery disease, status post CABG. 5. History of multiple TIAs. 6. Hypothyroidism. 7. History of bilateral carotid artery stenosis, status post right endarterectomy 05/06/2018 and left endarterectomy 05/14/2018. 8. History of obstructive uropathy with left ureteral stent placement 05/30/[address] Loza. 9. Atrial fibrillation. 10. Congestive heart failure (CHF). ALLERGIES: She has drug allergies to: PENTAZOCINE PROMETHAZINE SULFA DRUGS FAMILY HISTORY: Noncontributory. SOCIAL HISTORY: The patient denies tobacco, alcohol or illicit drugs. MEDICATIONS: At home: - Tylenol 650 mg by mouth every 4 hours as needed - albuterol sulfate as needed - Apixaban 5 mg orally twice a day - cholecalciferol 1000 units orally daily - diltiazem 30 mg by mouth every 8 hours - citalopram 10 mg by mouth daily - azosemide 10 mg by mouth daily - ferrous gluconate 324 mg by mouth twice a day - Lasix 40 mg by mouth daily - Synthroid 50 mcg by mouth daily - Lisinopril 2.5 mg by mouth daily - pantoprazole 40 mg by mouth daily - polyethylene glycol as needed - pravastatin 10 mg by mouth at bedtime REVIEW OF SYSTEMS: Negative for all ten major systems except what is mentioned in the history of present illness. VITAL SIGNS: Blood pressure 153/68, heart rate is 70 and regular, respiratory rate 18, temperature 97.7, oxygen saturation is 100% on room air. PHYSICAL EXAMINATION: Head is atraumatic, normocephalic. Neck is supple with no jugular venous distention (JVD). Lungs are clear to auscultation. S1, S2 audible. No murmurs appreciated. Abdomen is soft. Positive bowel sounds. No pedal edema. Skin is intact. Neurologic examination: +4 strength bilateral upper extremities, +3 strength lower extremities bilaterally. No Babinski. +2 reflexes bilaterally in upper and lower extremities. Cranial nerves grossly intact. The patient is awake, alert and oriented times three. LABORATORIES: WBC 9.7, hemoglobin 10.8, hematocrit 34.2, platelets 290,000. Sodium 135, potassium 5.3, chloride 100, CO2 of 24, BUN 69, creatinine 3.7, troponin less than 0.02. Urinalysis is strongly positive for urinary tract infection (UTI), as well as hematuria. CT of the head was negative for bleed. IMPRESSION: 1. Acute CVA with aphasia. 2. Urinary tract infection (UTI). PLAN: The patient is to be admitted to the medical/surgical floor with telemetry. We will have speech pathology see the patient in the morning for her expressive aphasia. Neurology has already been consulted. We will continue all of her preadmission medications. She is medically optimized at this time with stroke prophylaxis and prevention. Again, unfortunately, we cannot do the MRI due to the pacemaker. I am going to start her on IV Cipro 400 mg IV every 12 hours for her UTI and we will do a renal ultrasound since she has a history of left ureteral stents and to make sure that she has no obstruction. We will continue following her care in the medical/surgical floor.
[2018-08-07] MEDS: APIXABAN 5 MG TAB (ELIQUIS) PO SCH (20:45)
[2018-08-07 21:02] LABS: CREATININE FOR GFR 3.67 MG/DL (0.55-1.30); GLOMERULAR FILTRATION RATE 12.4 (>32); POTASSIUM SERUM 5.2 MEQ/L (3.5-5.1)
[2018-08-07] MEDS: FERROUS GLUCONATE 324 MG TAB PO SCH (22:00)
[2018-08-07] MEDS: PRAVASTATIN 10 MG TAB PO SCH (22:00)
[2018-08-07 23:15] VITALS: BP 118/56
[2018-08-08] MEDS: ACETAMINOPHEN TAB 650MG DOSE (2X325MG) PO PRN ×3 (01:14→21:54)
[2018-08-08] MEDS: LEVOTHYROXINE 50MCG TABLET (0.05MG) PO SCH (05:25)
[2018-08-08] MEDS: NS 1,000 ML IV SCH ×2 (05:26→13:21)
[2018-08-08 05:53] LABS: BASO # 0.1 10^3/uL (0.0-0.2); BASO % 0.7 % (0.0-1.0); EOS # 0.2 10^3/uL (0.0-0.50); EOS % 2.2 % (0.0-3.0); HEMATOCRIT 28.9 % (36.0-47.0); HEMOGLOBIN 9.2 g/dl (12.0-15.5); MEAN CORPUSCULAR HEMOGLOBIN 29.8 pg (27.0-33.0); MEAN CORPUSCULAR HGB CONC 31.8 g/dl (32.0-36.5); MEAN CORPUSCULAR VOLUME 93.5 fl (80.0-96.0); MONO # 0.6 10^3/uL (0.0-0.8); MONO % 8.6 % (0.0-5.0); NEUTROPHILS % 73.1 % (36.0-66.0); PLATELET COUNT, AUTOMATED 221 10^3/uL (150-450); RED BLOOD COUNT 3.09 10^6/uL (4.00-5.40); WHITE BLOOD COUNT 6.8 10^3/uL (4.0-10.0)
[2018-08-08 06:00] VITALS: BP 120/62
[2018-08-08 06:14] LABS: BLOOD UREA NITROGEN 69 MG/DL (7-18); CALCIUM LEVEL 7.7 MG/DL (8.8-10.2); CARBON DIOXIDE LEVEL 25 MEQ/L (21-32); CHLORIDE LEVEL 102 MEQ/L (98-107); CREATININE FOR GFR 3.69 MG/DL (0.55-1.30); GLOMERULAR FILTRATION RATE 12.3 (>32); GLUCOSE, FASTING 163 MG/DL (70-100); SODIUM LEVEL 137 MEQ/L (136-145)
--- NOTE | 2018-08-08 07:00 | REP ---
CT BRAIN WITHOUT CONTRAST: 08/07/2018. Clinical history: CVA symptoms. Comparison: 05/17/2018, 04/22/2018. Findings: Noncontrast images with soft tissue and bone windows for each slice level provided. Lateral ventricles are midline, symmetric, mildly dilated with the third and fourth ventricle proportionate. Cerebral atrophy is diffuse and proportionate to this degree of ventricular size, stable. Low density changes in the basal ganglia suggests old lacunar infarct. I see extensive periventricular, deep central and subcortical low density white matter in the bilateral hemispheres consistent with small-vessel ischemic changes. No new or acute infarct, intracranial hemorrhage, mass or mass effect. No extra-axial fluid collection. Cortical stripe shows significant atrophy. Brainstem intact. Cerebellum shows atrophy. No posterior fossa hemorrhage. Basal cisterns are intact. Atherosclerotic calcifications in the vertebral basilar and carotid arteries consistent with advanced atherosclerotic disease and unchanged. Mastoids, visualized sinuses, skull base and calvarium show no acute finding. Impression: 1. Ventriculomegaly and atrophy diffuse, proportionate and unchanged. 2. Extensive chronic small vessel white matter disease and old lacunar infarct. Basal ganglia without evidence of acute infarct, intracranial hemorrhage, mass, mass effect or extra-axial fluid collection. 3. Brainstem intact. Cerebellum with low density atrophy but no posterior fossa hemorrhage or mass. 4. Sinuses and mastoids visible along with calvarium and skull base without acute finding. Stable examination. Electronically Signed by Wilder Madrigal MD 08/08/2018 09:20 A
--- NOTE | 2018-08-08 07:08 | REP ---
AP PORTABLE CHEST: 08/07/2018. Clinical history: CVA. Comparison: Lung windows from CT abdomen 05/14/2018, portable chest 05/06/2018. Findings: Sternotomy wires and multilead pacer again seen and unchanged. Patient is slightly rotated towards the right. Fullness both hilar regions. There is elevation of the right diaphragm further than the April 2018 study. Some underlying interstitial fibrotic changes are noted. The right-sided PICC line has been removed since the previous study. The elevated diaphragm could obscure extensive consolidation or effusion. CP angle on the left sharply defined but a small effusion could be obscured. Some indistinctness of vessel margins present which may be related to some mild interstitial edema or respiratory motion. No definite consolidation. Lung apices obscured by the mandible. Impression: 1. Elevated diaphragm with haziness to the markings in the lung rueda. This could reflect some mild interstitial edema. There is underlying fibrosis. 2. Prominence of the central pulmonary arteries and sylvia unchanged. This may be due to pulmonary artery hypertension. 3. Heart size unchanged and multilead pacer and sternotomy wires again seen. Electronically Signed by Wilder Madrigal MD 08/08/2018 09:21 A
[2018-08-08] MEDS: FERROUS GLUCONATE 324 MG TAB PO SCH ×2 (08:43→20:03)
[2018-08-08] MEDS: HumaLOG INSULIN (NovoLOG) PER UNIT SC SCH ×3 (08:43→18:02)
[2018-08-08] MEDS: VITAMIN D 1,000 INTERNATIONAL UNITS TABLET PO SCH (08:44)
[2018-08-08] MEDS: PANTOPRAZOLE 40MG TAB (PROTONIX) PO SCH (08:44)
[2018-08-08] MEDS: ESCITALOPRAM OXALATE 10 MG TAB (LEXAPRO) PO SCH (08:44)
[2018-08-08] MEDS: EZETIMIBE 10 MG TAB (ZETIA) PO SCH (08:44)
[2018-08-08] MEDS: APIXABAN 5 MG TAB (ELIQUIS) PO SCH ×2 (08:45→20:03)
[2018-08-08] MEDS ORDERED: LISINOPRIL *2.5 MG* TAB PO SCH (09:00)
[2018-08-08] MEDS ORDERED: FUROSEMIDE 40 MG TAB PO SCH (09:00)
[2018-08-08] MEDS ORDERED: ASPIRIN 325 MG TAB PO SCH (09:00)
[2018-08-08] MEDS: **hydrALAZINE** 10 MG TAB PO SCH (09:45)
[2018-08-08 10:09] LABS: CHOLESTEROL LEVEL 89 MG/DL (<200); CHOLESTEROL RISK RATIO 3.296 (<5); CPK CREATINE PHOSPHOKINASE 53 U/L (26-192); HDL CHOLESTEROL 27 MG/DL (>40); LDL CHOLESTEROL 23 MG/DL (<100); MAGNESIUM LEVEL 2.6 MG/DL (1.8-2.4); MB/CK RELATIVE INDEX 2.83 (< OR =4); NON-HDL-C 62 MG/DL; TRIGLYCERIDES LEVEL 193 MG/DL (<150); TROPONIN I < 0.02 NG/ML (< 0.10)
--- NOTE | 2018-08-08 13:48 | REP ---
CT Head without contrast HISTORY: Neurologic deficit COMPARISON: 08/07/2018 Areas of decreased attenuation are present in the periventricular and subcortical white matter. This represents small-vessel ischemic disease. There is no intraparenchymal hemorrhage, acute infarct, mass or midline shift. The ventricular system and cortical sulci are dilated consistent with moderate volume loss. There is no extra cerebral collection. There is no fracture. The visualized sinuses are clear. IMPRESSION: 1. Small vessel ischemic disease. 2. Moderate volume loss. Electronically Signed by Hank Tovar MD 08/08/2018 01:39 P
[2018-08-08 14:00] VITALS: BP 144/67
--- NOTE | 2018-08-08 14:04 | IPNPDOC ---
Text Note Date of Service The patient was seen on 08/08/18. NOTE S: Patient examined at bedside. She states she felt sudden onset of confusion, difficulty finding words, and left-sided paresthesias of the face, hand, and leg while she was sitting as a passenger in the car yesterday. She states it felt similar to her previous episodes of TIA. Denies any blurred vision or slurred speech. This morning, she states she feels slightly improved, but not baseline. No other complaints. PE: General: Alert and cooperative, A&O 3, NAD Eye exam: PERRLA, EOMI, anicteric sclera ENT: Atraumatic, normocephalic, mucous membranes moist Neck: Supple, no JVD Cardiac: irregular rhythm, rate is controlled-hx of Afib, normal S1 & S2, no murmurs Respiratory: CTAB, good air exchange, no wheezing, rhonchi, or rales Abdomen: obese, soft, NT, ND normoactive bowel sounds Extremity: 2+ radial pulses, no edema, clubbing, cyanosis, or tenderness Skin: [place], warm, dry, no visible rash or lesions, no jaundice Neuro: Strength 5/5 x4, normal tone, sensation intact, normal speech, tongue deviation to the right. Gwkvnw-wz-fjno-overreaches to the right. MOISES intact & equal. No slurred speech or facial droop. No ptosis. Equal septic technician strength b/l. Negative Babinski b/l. A/P: 80-year-old female with history of TIAs and bilateral carotid endarterectomy, presented for acute onset of expressive aphasia, confusion, left-sided paresthesias. CVA With a previous history of multiple TIAs & s/p b/l carotid endarterectomy in 04/2018. Patient unable to tolerate MRI due to pacemaker. Initial CT negative for acute stroke. Neurology consulted, appreciate input. Per neuro recommendations, repeat CT head today. Will continue neuro checks and fall precautions. Echo pending. Will check lipid panel and TSH. She is already on aspirin and statin. Will await further neuro recommendations regarding increasing statin/ASA versus starting Plavix. UTI Continue IV Cipro started 08/07. Urine culture pending. Patient has history of obstructive uropathy, S/P left ureteral stent placement 05/2018. Renal ultrasound reveals hydronephrosis on the left with recommendation for CT. Imaging pending. Possible stent occlusion vs nephrolithiasis. HUYEN on CKD III It appears her baseline creatinine is 0.8-0.9, but is a 3.6 today. May be 2/2 UTI vs obstruction, as hydronephrosis noted on renal ultrasound, and she has a history of obstructive uropathy with left ureteral stent. Will hold home nephrotoxins including Lisinopril & Lasix. She is on IV hydration. Pending CT of abdomen and pelvis to better visualize kidney versus possible nephrolithiasis. If no improvement in renal fxn, consider nephro consult. Hypertension-home regimen on hold given HUYEN. Will add hydralazine temporarily [id number], consistent carb diet HLD-on Ezetimibe and pravastatin CAD-S/P CABG. On ASA, statin Hypothyroidism-continue home Synthroid. TSH level pending A. fib-chronically on Eliquis, Diltiazem, Propafenone CHF-Lasix and lisinopril on hold given HUYEN. Monitor fluid status Depression-stable on lexapro GERD-po Protonix DVT prophylaxis: Chronic Eliquis Disposition: Pending clinical improvement, imaging, PT/OT. To be seen by neuro. VS,Radha, I+O VS, Radha, I+O Laboratory Tests 08/07/18 15:42 Red Blood Count 3.63 L, Mean Corpuscular Volume 94.2, Mean Corpuscular Hemoglobin 29.8, Mean Corpuscular Hemoglobin Concent 31.6 L, Red Cell Distribution Width 13.5, Neutrophils (%) (Auto) 72.6 H, Lymphocytes (%) (Auto) 16.5 L, Monocytes (%) (Auto) 7.9 H, Eosinophils (%) (Auto) 1.9, Basophils (%) (Auto) 0.8, Neutrophils # (Auto) 7.0, Lymphocytes # (Auto) 1.6, Monocytes # (Auto) 0.8, Eosinophils # (Auto) 0.2, Basophils # (Auto) 0.1 08/07/18 17:03 Calcium Level 8.5 L, Total Creatine Kinase 63 08/07/18 20:33 Calcium Level 8.0 L 08/08/18 05:22 Red Blood Count 3.09 L, Mean Corpuscular Volume 93.5, Mean Corpuscular Hemoglobin 29.8, Mean Corpuscular Hemoglobin Concent 31.8 L, Red Cell Distribution Width 13.2, Neutrophils (%) (Auto) 73.1 H, Lymphocytes (%) (Auto) 15.0 L, Monocytes (%) (Auto) 8.6 H, Eosinophils (%) (Auto) 2.2, Basophils (%) (Auto) 0.7, Neutrophils # (Auto) 5.0, Lymphocytes # (Auto) 1.0 L, Monocytes # (Auto) 0.6, Eosinophils # (Auto) 0.2, Basophils # (Auto) 0.1 Vital Signs Date Time Temp Pulse Resp B/P (MAP) Pulse Ox O2 Delivery O2 Flow Rate FiO2 08/08/18 08:43 118/62 08/08/18 06:00 96.6 70 16 96 08/07/18 23:09 Room Air I&O- Last 24 Hours up to 6 AM 08/08/18 06:00 Intake Total 500 ml Output Total 150 ml Balance 350 ml GME ATTESTATION GME ATTESTATION My faculty preceptor for this patient encounter was physically present during the encounter and was fully available. All aspects of the patient interview, examination, medical decision making process, and medical care plan development were reviewed and approved by the faculty preceptor. The faculty preceptor is aware and concurs with the plan as stated in the body of this note and will attest to such by his/her cosignature. YANELI GUTIERREZ DO Aug 08, 2018 14:04
[2018-08-08 14:25] LABS: FREE T4 0.67 NG/DL (0.76-1.46)
[2018-08-08] MEDS ORDERED: PROPAFENONE 150 MG TAB PO SCH (15:00)
--- NOTE | 2018-08-08 15:08 | REP ---
CT ABDOMEN PELVIS WITHOUT CONTRAST: 08/08/2018. Comparison: 05/14/2018. Clinical history: HUYEN, hydronephrosis. Findings: Noncontrast protocol was followed. Coronal and sagittal reconstructions provided. CT abdomen: There are small bilateral effusions, trace on the left, small on the right. There is cardiomegaly, coronary artery calcifications, sternotomy wires with mediastinal clips, dual lead pacer, unchanged. Elevation of the right diaphragm again seen. Aortic aneurysm. Adrenal glands unremarkable. Stomach without hiatal hernia and with some retained food. There is a midline ventral supraumbilical hernia with transverse colon herniated within, moderate stool throughout the visualized colon. Small bowel loops fluid-filled but not abnormally dilated. Lung window review of all CT slices shows no perforation or free air. Right kidney shows some mild hydronephrosis. There are calcifications in arteries in the hilum as well as some small pyramidal calcification suggested. Extrarenal pelvis on the right without ureteral dilatation or stone clearly defined. The right kidney is atrophic with grade 3 hydronephrosis and a prominent extrarenal pelvis. There is a double pigtail stent coiled in the extrarenal pelvis. The stent courses down the ureter to the bladder without definite stone adjacent to it. Some vascular calcifications are also seen in the renal sinus and hilum on the left. Degree of hydronephrosis, unchanged from the previous CT with maximum AP diameter 2.9 cm, previously 2.8 cm. unchanged. Bone windows show extensive spondylosis L2-3 and L3-4 with vacuum phenomenon at L4-5 and narrowing at L5-S1. All these changes are stable. No acute compression fractures. Facet arthropathy without spondylolysis. Visualized ribs intact. CT pelvis: Bones demineralized. No sacral fractures. No destructive lesions, iliac bones, acetabuli, hips and ischia show degenerative change without fracture. The ureteral stent courses to the bladder coiled in the bladder without stones along the ureteral course or in that bladder. Small amount of air in the bladder that may be related to catheter insertion or infection with air producing organism. No evidence for colovesical fistula. There are pelvic phleboliths. Vaginal cuff intact. Uterus absent. Stool and gas scattered throughout the colon without colitis or diverticulitis. Small bowel loops unremarkable. Cecum without acute finding. There is no ventral or inguinal hernia in the pelvis. Impression: 1. Moderate hydronephrosis grade 3 in the left kidney with an filling double pigtail ureteral stent unchanged. AP diameter of the renal pelvis 2.9 cm today, 2.8 cm in April. Not much changed. 2. Left ureteral stent coiled in the bladder without bladder stone or mass. Some air in the bladder from catheterization or gas-forming organism, I do not see evidence for colovesical fistula. 3. Bones demineralized. Degenerative changes throughout as described. 4. Supraumbilical midline ventral hernia with incarcerated but not strangulated transverse colon unchanged. 5. Extensive atherosclerotic calcifications aorta and branches including distal renal branches in the renal sinus fat and hepatic artery branches deep into the liver. 6. Small bilateral effusions right greater than left with some compressive/dependent atelectatic changes right greater than left. Electronically Signed by Wilder Madrigal MD 08/08/2018 06:00 P
[2018-08-08] MEDS: PROPAFENONE 150 MG TAB PO SCH ×2 (16:21→21:53)
--- NOTE | 2018-08-08 19:17 | ECHO ---
DATE OF STUDY: 08/08/2018 REFERRING PHYSICIAN: Dr. Saul INDICATION: Cerebrovascular accident. HEIGHT: 62 inches. WEIGHT: 79 kg DIMENSIONS: IVS 1.0 LV 4.7 LVPW 0.9 Aorta 3.0 IVC 2.2 Mitral E wave velocity 128 E prime septal 3.7 E prime lateral 7.4 Left atrial volume index 31 mL/sq m FINDINGS: The study is of fair technical quality with difficult visualization. The patient appears to be in atrial fibrillation with ventricular paced rhythm. Left ventricle is of normal size. It was relatively poorly seen, but there appears to be septal wall motion abnormality. Overall left ventricular systolic function is normal or mildly reduced. Right ventricle appears grossly normal size and systolic function. Subjectively, there appears to be severe biatrial enlargement, but calculated left atrial volume index was only 31 mL/sq m, which would indicate mild left atrial enlargement. Aortic valve is sclerotic. It has three leaflets, but mobility seems to be reasonably preserved. There are also degenerative abnormalities of mitral valve with mitral annular calcifications. Tricuspid and pulmonic valves appear normal. No pericardial effusion is noted. Inferior vena cava is dilated, and there is no appreciable collapse with respiration indicative of high central venous pressure. Aortic root is normal. Aortic arch and abdominal aorta were not well seen. Doppler interrogation reveals no aortic stenosis or insufficiency. There is trace mitral insufficiency and approximately moderate tricuspid insufficiency. Calculated pulmonary artery pressure at minimum in high 40s corresponding to moderate pulmonary hypertension. Pulmonic valve exhibits trace insufficiency. Evaluation of diastolic function is inconclusive due to pacemaker-driven rhythm. FINDINGS: 1. Study is of fair technical quality. 2. Normal left ventricle (LV) size with septal wall motion abnormality and overall probably normal or mildly reduced left ventricular systolic function. Unable to estimate diastolic function. 3. Aortic sclerosis but no significant stenosis or insufficiency. 4. Degenerative abnormalities of mitral valve with trace mitral insufficiency. 5. Moderate tricuspid insufficiency. 6. Elevated central venous pressure and at least moderate pulmonary hypertension. 7. Severe biatrial enlargement. 8. Pacemaker lead artifact apparent in right-sided heart chambers. COMMENT: Subacute bacterial endocarditis (SBE) prophylaxis is not recommended. It appears that septal wall motion abnormality is probably related to underlying ventricular pacing. [facility]
[2018-08-08 20:00] VITALS: BP 121/56
[2018-08-08] MEDS: CLOPIDOGREL 75 MG TAB PO SCH (20:03)
[2018-08-08] MEDS: PRAVASTATIN 10 MG TAB PO SCH (20:03)
[2018-08-08] MEDS ORDERED: CIPROFLOXACIN 400 MG in APPROPRIATE DILUENT 1 EA IV SCH (21:00)
[2018-08-09] MEDS: NS 1,000 ML IV SCH ×2 (00:34→19:08)
[2018-08-09] MEDS ORDERED: FUROSEMIDE 40 MG/4 ML VIAL (J1940) IV ONE (01:45)
--- NOTE | 2018-08-09 02:28 | REPVR ---
EXAM: CT Head Without Contrast EXAM DATE/TIME: 08/09/2018 1:59 AM CLINICAL HISTORY: 88 years old, female; Signs and symptoms; Speech disturbance; Other: Newly developed garbled speech TECHNIQUE: Axial computed tomography images of the head/brain without contrast. All CT scans at this facility use at least one of these dose optimization techniques: automated exposure control; mA and/or kV adjustment per patient size (includes targeted exams where dose is matched to clinical indication); or iterative reconstruction. STROKE PROTOCOL was implemented. COMPARISON: CT Head without contrast 08/08/2018 1:08 PM FINDINGS: Brain: There is moderate patchy low attenuation of deep white matter. There is mild prominence of the peripheral sulci. Ventricles: There is slight prominence of the central ventricular system. Bones/joints: Unremarkable. No acute fracture. Sinuses: Visualized sinuses are unremarkable. No acute sinusitis. Mastoid air cells: Visualized mastoid air cells are unremarkable. No mastoid effusion. Soft tissues: Unremarkable. IMPRESSION: 1. There has been no change from 08/08/2018. No acute interval intracranial process is identified. 2. Moderate chronic ischemic white matter change and mild atrophy. 3. Osteen Stroke Program Early CT Score (ASPECTS) = 10/10. Electronically signed by: Francisco Hudson On 08/09/2018 02:28:39 AM
[2018-08-09] MEDS ORDERED: FUROSEMIDE 20 MG/2 ML VIAL (J1940) IV ONE (03:00)
[2018-08-09] MEDS: ACETAMINOPHEN TAB 650MG DOSE (2X325MG) PO PRN ×3 (03:12→20:09)
[2018-08-09 03:26] LABS: BLOOD UREA NITROGEN 66 MG/DL (7-18); CALCIUM LEVEL 7.7 MG/DL (8.8-10.2); CARBON DIOXIDE LEVEL 23 MEQ/L (21-32); CHLORIDE LEVEL 102 MEQ/L (98-107); CREATININE FOR GFR 3.57 MG/DL (0.55-1.30); GLOMERULAR FILTRATION RATE 12.8 (>32); GLUCOSE, FASTING 194 MG/DL (70-100); POTASSIUM SERUM 5.8 MEQ/L (3.5-5.1); SODIUM LEVEL 133 MEQ/L (136-145); TROPONIN I < 0.02 NG/ML (< 0.10)
[2018-08-09] MEDS ORDERED: DEXTROSE 50% 50 ML SYRINGE IV STA ×2 (03:39→13:48)
[2018-08-09] MEDS ORDERED: HumaLOG INSULIN (NovoLOG) PER UNIT SC ONE (03:45)
[2018-08-09] MEDS ORDERED: PATIROMER SORBITEX CALCIUM 8.4 GM POWDER PACKET (VELTASSA) PO ONE (03:45)
[2018-08-09 04:22] LABS: APPEARANCE, URINE TURBID (CLEAR); BACTERIA, URINE AUTO 3+ (NEGATIVE); BILIRUBIN, URINE AUTO NEGATIVE (NEGATIVE); BLOOD, URINE BLOOD 2+ (NEGATIVE); GLUCOSE, URINE (UA) AUTO 1+ mg/dL (NEGATIVE); KETONE, URINE AUTO NEGATIVE (NEGATIVE); LEUKOCYTE ESTERASE, URINE AUTO 1+ (NEGATIVE); NITRITE, URINE AUTO NEGATIVE (NEGATIVE); PROTEIN, URINE AUTO 2+ mg/dL (NEGATIVE); RBC, URINE AUTO TNTC /HPF (0-3); SPECIFIC GRAVITY URINE AUTO 1.009 (1.002-1.035); SQUAMOUS EPITHELIAL CELL UR AU 40 /HPF (0-6); UROBILINOGEN, URINE AUTO 0.2 mg/dL (0.0-2.0); WBC, URINE AUTO 63 /HPF (0-3)
[2018-08-09 04:41] LABS: COLOR, URINE RED (YELLOW)
[2018-08-09 05:16] LABS: HEMATOCRIT 30.8 % (36.0-47.0); HEMOGLOBIN 9.7 g/dl (12.0-15.5); MEAN CORPUSCULAR HEMOGLOBIN 29.7 pg (27.0-33.0); MEAN CORPUSCULAR HGB CONC 31.5 g/dl (32.0-36.5); MEAN CORPUSCULAR VOLUME 94.2 fl (80.0-96.0); PLATELET COUNT, AUTOMATED 241 10^3/uL (150-450); RED BLOOD COUNT 3.27 10^6/uL (4.00-5.40); WHITE BLOOD COUNT 9.1 10^3/uL (4.0-10.0)
[2018-08-09 06:00] VITALS: BP 115/56
[2018-08-09] MEDS: LEVOTHYROXINE 50MCG TABLET (0.05MG) PO SCH (06:10)
[2018-08-09] MEDS: PROPAFENONE 150 MG TAB PO SCH ×3 (06:11→22:47)
[2018-08-09 06:21] LABS: CALCIUM LEVEL 7.6 MG/DL (8.8-10.2); CREATININE FOR GFR 3.7 MG/DL (0.55-1.30); GLOMERULAR FILTRATION RATE 12.3 (>32); MAGNESIUM LEVEL 2.4 MG/DL (1.8-2.4); POTASSIUM SERUM 5.2 MEQ/L (3.5-5.1)
[2018-08-09] MEDS: HumaLOG INSULIN (NovoLOG) PER UNIT SC SCH ×2 (08:23→11:47)
--- NOTE | 2018-08-09 08:36 | REP ---
Chest one-view HISTORY: Shortness of breath Comparison: 08/07/2018 There is elevation of the right hemidiaphragm. Linear density is present in the right lower lobe consistent with atelectasis or scar. An increase in interstitial markings is present in the lungs consistent with chronic interstitial change. The cardiac silhouette is enlarged. The heart is normal in size. The pulmonary vasculature is normal in appearance. A cardiac pacemaker is present. Impression: 1. Right lower lobe atelectasis or scar. 2. Chronic interstitial change. 3. Cardiomegaly. Electronically Signed by Hank Tovar MD 08/09/2018 08:27 A
[2018-08-09 09:18] VITALS: BP 164/71
[2018-08-09] MEDS: FERROUS GLUCONATE 324 MG TAB PO SCH (09:31)
[2018-08-09] MEDS: **hydrALAZINE** 10 MG TAB PO SCH (09:31)
[2018-08-09] MEDS: PANTOPRAZOLE 40MG TAB (PROTONIX) PO SCH (09:32)
[2018-08-09] MEDS: EZETIMIBE 10 MG TAB (ZETIA) PO SCH (09:32)
[2018-08-09] MEDS: VITAMIN D 1,000 INTERNATIONAL UNITS TABLET PO SCH (09:32)
[2018-08-09] MEDS: ESCITALOPRAM OXALATE 10 MG TAB (LEXAPRO) PO SCH (09:32)
[2018-08-09] MEDS: CLOPIDOGREL 75 MG TAB PO SCH ×2 (09:32→11:37)
[2018-08-09] MEDS ORDERED: NS 1,000 ML IV SCH (10:00)
[2018-08-09] MEDS: DEXTROSE 50% 50 ML SYRINGE IV PRN ×3 (10:18→12:56)
[2018-08-09] MEDS ORDERED: ERTAPENEM SODIUM 0.5 GM in NS 50 ML IV SCH (11:00)
--- NOTE | 2018-08-09 11:00 | CR ---
DATE OF CONSULTATION: 08/09/2018 REASON FOR CONSULTATION: Suspected transient ischemic attack (TIA). Estrella Paniagua is an 88-year-old female with the past medical history significant for hypertension, diabetes, hyperlipidemia, coronary artery disease status post coronary artery bypass graft, history of multiple TIAs at least 6-7 within the past year, history of carotid artery disease status post endarterectomy. The patient presented with transient aphasia, difficulty getting her words out with slurring of her speech. The patient's symptoms had resolved on their own. The patient has the history of bilateral carotid endarterectomies. The patient was supposed to be on Plavix 75 mg every day, as she was discharged from the rehabilitation unit with a 30-day supply. The patient took it and ran out. She instead, of calling her primary care provider for continuation of the medication, decided to just take low-dose 81 mg aspirin in addition to her Eliquis. The patient has now been asked to resume her Plavix and discontinue the aspirin and continuation of Eliquis for her chronic atrial fibrillation has been recommended. The patient is at extremely high risk of developing recurring TIAs and ischemic stroke and should remain on both anticoagulation and antiplatelet therapy lifelong if possible. She denies any episodes of bleeding. The patient states that she has residual weakness in her left arm and left leg from her prior strokes. She has recovered reasonably in strength on her right side, she states. She denies any slurred speech or difficulty with language at the present time. REVIEW OF SYSTEMS: 14-point review of systems obtained and is negative except as per history of present illness (HPI). PAST MEDICAL HISTORY: Hypertension, diabetes, hyperlipidemia, coronary artery disease, history of multiple TIAs, hypothyroidism, history of a prior cerebrovascular accident (CVA), history of bilateral carotid artery disease, history of obstructive uropathy, atrial fibrillation on anticoagulation, congestive heart failure. ALLERGIES: PENTAZOSIN, PROMETHAZINE, SULFA DRUGS. FAMILY HISTORY: Noncontributory. SOCIAL HISTORY: The patient denies use of any tobacco, alcohol, or illicit drugs. HOME MEDICATIONS: - Tylenol - albuterol - apixaban 5 mg by mouth twice a day - cholecalciferol - diltiazem - citalopram - azosemide - ferrous gluconate - Lasix 40 mg - Synthroid 50 mcg - lisinopril 2.5 mg - pantoprazole 40 mg - polyethylene glycol - pravastatin 10 mg (the patient is using aspirin 81 mg daily at home, the patient knows that she was supposed to be on Plavix instead but ran out of her 30-day supply after the last discharge from the rehabilitation unit) PHYSICAL EXAMINATION Blood pressure is 144/67, pulse rate 70, respiratory rate is 16, temperature is 97.7 degrees Fahrenheit, oxygenation 91% on room air. The patient is awake, alert, oriented to person, place, and time. Speech, language, comprehension, and repetition are intact. There is no aphasia. There is no dysarthria. Current height 5 feet 2 inches, current weight is 78 kg. The patient has mild weakness in the left triceps. Otherwise 5/5 in the biceps bilaterally. She has 4+ weakness in bilateral deltoids. She has 4+ weakness in bilateral iliopsoas. Quadriceps are 5/5 tibialis anterior 5/5 today. Sensory is intact to light touch in all four extremities. Deep tendon reflexes are reduced throughout. Deep tendon reflexes are absent in the lower extremities. Gait not tested. ASSESSMENT: Recurring episodes of transient ischemic attack in the presence of noncompliance of recommended antiplatelet therapy. The patient should resume Plavix 75 mg daily. Avoid use of aspirin and continue Eliquis 5 mg twice a day for chronic atrial fibrillation. Recommend physical therapy (PT) and occupational therapy (OT) evaluation. Continue medical care as per primary team. The patient is high risk for recurring episodes of TIA, stroke. Recommend continuation of antiplatelet therapy and anticoagulation lifelong. Optimize management of hypertension, diabetes, hyperlipidemia. Continue telemetry monitoring.
[2018-08-09] MEDS ORDERED: D5W/0.45% SODIUM CHLORIDE 1,000 ML IV SCH (12:00)
[2018-08-09 13:31] LABS: HEMATOCRIT 30.9 % (36.0-47.0); HEMOGLOBIN 9.7 g/dl (12.0-15.5)
[2018-08-09 14:15] LABS: HEMOGLOBIN A1c 7.2 %
[2018-08-09 14:19] VITALS: BP 131/62
[2018-08-09] MEDS ORDERED: HEPARIN SOD (PORCINE) 5000 UNITS/ML VIAL IV ONE (15:15)
[2018-08-09] MEDS ORDERED: HEPARIN SOD (PORCINE) 5000 UNITS/ML VIAL IV PRN (15:15)
--- NOTE | 2018-08-09 16:32 | NUR ---
Pt seen 06/02/18 for clinical bedside swallow eval to assess tolerance of current diet following admission to ED. [facility] exam revealed decreased lingual ROM and strength. Pt trialed thin liquids, mechanical soft solids, and crunchy cracker w/peanut butter. Slow mastication observed with cracker. Rec: Mechanical Soft (NDD Level 3) solids and regular/thin liquids. Rx: continue whole with thin/regular liquids. OOB for all meals. Small meals for energy conservation. Addendum: 08/09/18 at 1634 by [facility] Amended: Links added.
[2018-08-09] MEDS: HEPARIN DRIP 25,000 UNITS in APPROPRIATE DILUENT 1 EA IV SCH (17:10)
--- NOTE | 2018-08-09 18:07 | SMCUROLCON ---
Urology Consultation General Date of Consultation 08/09/18 Reason For Consultation This patient is seen for Stroke,Uti. History of Present Illness This is an 88 y/o F w/ multiple medical problems and a left ureteral stricture managed w/ chronic ureteral stenting, admitted to the hospital for a CVA, HUYEN, and a UTI. A CT A/P was obtained yesterday and was notable for her left ureteral stent in place w/ moderate left hydronephrosis. Her Cr on this admission has remained around 3.7 (from a baseline of 0.9) despite hydration. We have been consulted to consider a stent exchange. Her stent was last changed 05/30/18. On admission a urine culture was obtained and returned positive for ESBL E coli. Her WBC has remained normal and she has been afebrile. In addition, the patient notes that she has had hematuria for the past 4 wks. She is normally on eliquis at home, but was started on plavix on this admission as well. Her last dose of eliquis appears to have been on the . She received a dose of plavix this morning. Her urine continues to be dark red. Her Hb has remained stable around 9.7. Past Medical History Medical History CHF, a fib, glaucoma, HTN, DM2, CAD, CVD, left ureteral stricture, recurrent UTIs Surgical Hstory cholecystectomy, CABG, hysterectomy, pacemaker placement, ESWL, left ureteral stent exchanges Medications Current Medications Current Medications Acetaminophen (Tylenol Tab) 650 mg Q4H PRN PO PAIN / FEVER Last administered on 08/09/18at 11:38; Start 08/07/18 at 18:00 Albuterol Sulfate (Proventil, Ventolin Hfa) 2 puff Q4H PRN INH SOB/WHEEZING; Start 08/07/18 at 18:00 Apixaban (Eliquis) 2.5 mg BID PO ; Start 08/09/18 at 21:00; Stop 08/09/18 at 21: 00; Status DC Apixaban (Eliquis) 5 mg BID PO Last administered on 08/08/18at 20:03; Start 08/07/18 at 21:00; Stop 08/09/18 at 02:51; Status DC Aspirin (Aspirin) 81 mg DAILY PO Last administered on 08/08/18at 08:44; Start 08/08/18 at 09:00; Stop 08/08/18 at 18:58; Status DC Ciprofloxacin 400 mg/IV Miscellaneous Supplies 200 ml @ 200 mls/hr Q24H IV Last administered on 08/08/18at 20:03; Start 08/08/18 at 21:00; Stop 08/09/18 at 09:28; Status DC Clopidogrel Bisulfate (PLAVix) 75 mg DAILY PO Last administered on 08/09/18at 11:37; Start 08/08/18 at 21:00 Dextrose (Dextrose 50%) 25 ml ASDIRECTED PRN IV SEE LABEL COMMENTS Last administered on 08/09/18at 12:56; Start 08/07/18 at 18:00 Dextrose (Dextrose 50%) 25 ml STAT STAT IV Last administered on 08/09/18at 13:54; Start 08/09/18 at 13:48; Stop 08/09/18 at 13:50; Status DC Dextrose (Dextrose 50%) 50 ml STAT STAT IV Last administered on 08/09/18at 03:57; Start 08/09/18 at 03:39; Stop 08/09/18 at 03:46; Status DC Dextrose/Sodium Chloride 1,000 ml @ 100 mls/hr Q10H IV Last administered on 08/09/18at 12:56; Start 08/09/18 at 12:00 Diltiazem HCl (Cardizem Cd) 120 mg DAILY PO ; Start 08/10/18 at 09:00 Diltiazem HCl (Cardizem) 30 mg Q8H PO Last administered on 08/09/18at 06:11; Start 08/07/18 at 22:00; Stop 08/09/18 at 09:49; Status DC Ertapenem 0.5 gm/ Sodium Chloride 50 ml @ 100 mls/hr Q24H IV Last administered on 08/09/18at 11:38; Start 08/09/18 at 11:00 Escitalopram Oxalate (Lexapro) 10 mg DAILY PO Last administered on 08/09/18at 09:32; Start 08/08/18 at 09:00 EZETIMIBE (Zetia) 10 mg DAILY PO Last administered on 08/09/18at 09:32; Start 08/08/18 at 09:00; Stop 08/09/18 at 09:49; Status DC Ferrous Gluconate (Fergon) 324 mg BID PO Last administered on 08/09/18at 09:31; Start 08/07/18 at 21:00; Stop 08/09/18 at 09:49; Status DC Furosemide (Lasix) 40 mg DAILY PO Last administered on 08/08/18at 08:44; Start 08/08/18 at 09:00; Stop 08/08/18 at 09:18; Status DC Glucagon (Glucagon) 1 mg ASDIRECTED PRN SC SEE LABEL COMMENTS; Start 08/07/18 at 18:00 Glucose (Glucose) 16 GM ASDIRECTED PRN PO SEE LABEL COMMENTS; Start 08/07/18 at 18:00 Heparin Sodium (Porcine) (Heparin) ASDIRECTED PRN IV SEE LABEL COMMENTS; Start 08/09/18 at 15:15 Heparin Sodium (Porcine) 02855 units/IV Miscellaneous Supplies 250 ml @ 12 mls/hr [id number] IV Last administered on 08/09/18at 17:10; Start 08/09/18 at 15:30 Home Med (Med Rec Complete!) ASDIRECTED XX ; Start 08/07/18 at 18:00; Stop 08/07/18 at 18:54; Status DC Hydralazine HCl (Apresoline) 10 mg DAILY PO Last administered on 08/09/18at 09:31; Start 08/08/18 at 09:00; Stop 08/09/18 at 09:49; Status DC Insulin Human Lispro (HumaLOG INSULIN) SEE PROTOCOL TABLE AC SC Last administ ered on 08/09/18at 08:23; Start 08/08/18 at 07:30; Stop 08/09/18 at 13:50; Status DC Levothyroxine Sodium (Synthroid) 50 mcg DAILY@0600 PO Last administered on 08/09/18at 06:10; Start 08/08/18 at 06:00 Lisinopril (Prinivil) 2.5 mg DAILY PO Last administered on 08/08/18at 08:43; Start 08/08/18 at 09:00; Stop 08/08/18 at 09:18; Status DC Nitroglycerin (Nitrostat (1/ 150)) 0.4 mg Q5MP PRN SL CHEST PAIN; Start 08/07/18 at 19:00 Non-Formulary Medication (Heparin Iv Rate Change Documentation ml/ Hr) ASDIRECTED XX ; Start 08/09/18 at 15:15; Stop 08/14/18 at 15:14 Nystatin (Mycostatin Powder, Nystop) 1 dose BID PRN TOP RASH; Start 08/07/18 at 18:00 Pantoprazole Sodium (Protonix) 40 mg DAILY PO Last administered on 08/09/18 09:32; Start 08/08/18 at 09:00 Polyethylene Glycol (Miralax) 1 pkt DAILY PRN PO CONSTIPATION; Start 08/07/18 at 18:00 Pravastatin Sodium (Pravachol) 10 mg QHS PO Last administered on 08/08/18at 20:03; Start 08/07/18 at 21:00 Propafenone HCl (Rythmol) 150 mg Q8H PO Last administered on 08/09/18at 14:00; Start 08/08/18 at 14:00 Propafenone HCl (Rythmol) 225 mg BID PO ; Start 08/08/18 at 15:00; Stop 08/08/18 at 15:00; Status DC Sodium Chloride 1,000 ml @ 100 mls/hr Q10H IV Last administered on 08/09/18at 00:34; Start 08/07/18 at 17:47; Stop 08/09/18 at 07:48; Status DC Sodium Chloride 1,000 ml @ 100 mls/hr Q10H IV Last administered on 08/09/18at 11:16; Start 08/09/18 at 10:00; Stop 08/09/18 at 12:18; Status DC Vitamin D (Vitamin D) 1,000 units DAILY PO Last administered on 08/09/18at 09:32; Start 08/08/18 at 09:00 Allergies Allergies: Coded Allergies: Pentazocine (Verified Adverse Reaction, Intermediate, FAINT FEELING, CONFUSION, 02/18/18) Promethazine (Verified Adverse Reaction, Intermediate, CONFUSION, 11/23/17) Sulfa Drugs (Verified Adverse Reaction, Intermediate, CONFUSION, 11/23/17) Review of Systems Constitutional: Denies: Fever, Chills Skin: Denies: Rash, Lesions, Nail Changes Pulmonary: Denies: Cough Cardiovascular: Denies Chest Pain, Denies Palpitations Gastrointestinal: Denies: Nausea, Vomiting, Abdominal Pain Genitourinary: Reports: Hematuria Psych: Reports: Mood Normal Physical Examination General Exam: Cooperative, No Acute Distress Chest Exam: Normal air movement Heart Exam: Rate Normal Abdomen Exam: Soft Female Exam catheter in place w/ dark brownish red urine draining Skin Exam: Nl turgor and temperature Psych Exam: Mental status NL Vital Signs/I&O Vital Signs Date Time Temp Pulse Resp B/P (MAP) Pulse Ox O2 Delivery O2 Flow Rate FiO2 08/09/18 14:19 69 128/60 08/09/18 14:19 96.7 20 96 08/07/18 23:09 Room Air I&O- Last 24 Hours up to 6 AM 08/09/18 05:59 Intake Total 1780 ml Output Total 1255 ml Balance 525 ml Laboratory Data 24H Labs Laboratory Tests 2 08/08/18 20:33: Bedside Glucose (Misc Panel) 120H 08/08/18 23:09: Bedside Glucose (Misc Panel) 124H 08/09/18 01:58: D-Dimer, Quantitative 978.21H 08/09/18 02:51: Nucleated Red Blood Cells % (auto) 0.0 08/09/18 02:55: Anion Gap 8, Glomerular Filtration Rate 12.8L, Blood Urea Nitrogen 66H, Creatinine 3.57H, Sodium Level 133L, Potassium Level 5.8H, Chloride Level 102, Carbon Dioxide Level 23, Calcium Level 7.7L, Troponin I < 0.02 08/09/18 04:06: Urine Appearance TURBIDH, Urine Color REDH, Urine pH 5.0, Urine Specific [place] 1.009, Urine Protein 2+H, Urine Glucose (UA) 1+H, Urine Ketones NEGATIVE, Urine Urobilinogen 0.2, Urine Bilirubin NEGATIVE, Urine Leukocyte Esterase 1+H, Urine Blood 2+H, Urine Nitrite NEGATIVE, Urine WBC (Auto) 63H, Urine RBC (Auto) TNTCH, Urine Hyaline Casts (Auto) 0, Urine Bacteria (Auto) 3+H, Urine Squamous Epithelial Cells 40, Urine Sperm (Auto) 08/09/18 05:16: Anion Gap 8, Glomerular Filtration Rate 12.3L, Blood Urea Nitrogen 66H, Creatinine 3.70H, Sodium Level 133L, Potassium Level 5.2H, Chloride Level 100, Carbon Dioxide Level 25, Calcium Level 7.6L, Magnesium Level 2.4 08/09/18 10:13: Bedside Glucose (Misc Panel) 41L 08/09/18 10:32: Bedside Glucose (Misc Panel) 114H 08/09/18 10:46: Bedside Glucose Confirm (Misc) 90 08/09/18 11:20: Bedside Glucose (Misc Panel) 43L 08/09/18 11:56: Bedside Glucose (Misc Panel) 92 08/09/18 12:48: Bedside Glucose (Misc Panel) 53L 08/09/18 13:23: Bedside Glucose (Misc Panel) 88 08/09/18 13:39: Bedside Glucose Confirm (Misc) 89, Estimated Mean Plasma Glucose 160H, Hemoglobin A1c 7.2 08/09/18 15:47: Bedside Glucose (Misc Panel) 154H 08/09/18 16:10: Activated Partial Thromboplast Time 39.8H 08/09/18 16:43: Bedside Glucose (Misc Panel) 128H CBC/BMP Laboratory Tests 08/09/18 02:51 Red Blood Count 3.27 L, Mean Corpuscular Volume 94.2, Mean Corpuscular Hemoglobin 29.7, Mean Corpuscular Hemoglobin Concent 31.5 L, Red Cell Distribution Width 13.2 08/09/18 02:55 Calcium Level 7.7 L 08/09/18 05:16 Calcium Level 7.6 L 08/09/18 12:59 Microbiology Microbiology 08/07/18 Urine Culture - Preliminary, Resulted E.coli Esbl Assessment This is an 88 y/o F admitted for a CVA, HUYEN, and an ESBL E coli UTI. She had moderate left hydro on CT yesterday and I suspect this was due to reflux of urine up the stent as her bladder was distended. I recommend repeating a renal US (ordered) now that she has a catheter in place. If there is moderate to sev ere hydro seen on the repeat renal US, I would recommend percutaneous nephrostomy tube placement, as this finding would indicate that another stent would also likely fail after a month or so. I suspect her HUYEN is unrelated to the hydro as she has a normally functioning right kidney and even if the left kidney was obstructed, the right kidney should function well enough that her Cr does not go up to 3.7. I suspect her HUYEN is either due to a prerenal or intrinsic renal cause. Regarding her hematuria, this is likely due to bleeding from the bladder from an indwelling stent, irritated mucosa from a UTI, and her being on anticoagulation and antiplatelet therapy. Her Hb has remained stable and she has not had any issues w/ the catheter clotting off. Plan - repeat renal US tomorrow - if moderate or severe hydro is found in the left kidney on US, I would recommend left percutaneous nephrostomy tube placement (would recommend holding plavix until after the US in case this is needed) - monitor the hematuria for now as Hb has remained stable and the catheter has not been obstructed w/ clots - hopefully this will improve some w/ treatment of her UTI MCKINLEY PANCHAL MD Aug 09, 2018 18:07
[2018-08-09] MEDS ORDERED: IPRATROPIUM 0.5MG/ALBUTEROL 2.5MG INH SOL UD 3ML (DUONEB)(J7620) NEB ONE (18:15)
--- NOTE | 2018-08-09 19:03 | IPNPDOC ---
Text Note Date of Service The patient was seen on 08/09/18. NOTE S: Patient examined at bedside. Noted to have an episode of confusion and slurred speech overnight, head CT was negative. Also was noted to be short of breath-EKG, cardiac markers, and vitals were WNL. Of note, patient was found to be hyperkalemic at 5.8, which improved with 1 dose of Valtessa, 60mg IV lasix, and 10 units insulin. Potassium is 5.2 this a.m. She has had some episodes of hypoglycemia this morning with blood sugars in the 40s after given insulin doses, and responded well to fluids with sugars now in 100s. Of note, she was also noted to have dark hematuria overnight and Griffiths was inserted. However, patient states this is normal for her given her history of ureteral stent. Her H&H remain stable, however her renal function is not improving. Regarding her neuro deficits, she states her overall improving she is regaining her strength. PE: General: Alert and cooperative, A&O 3, NAD Eye exam: PERRLA, EOMI, anicteric sclera ENT: Atraumatic, normocephalic, mucous membranes moist Neck: Supple, no JVD Cardiac: irregular rhythm, rate is controlled-hx of Afib, normal S1 & S2, no murmurs Respiratory: CTAB, good air exchange, no wheezing, rhonchi, or rales Abdomen: obese, soft, NT, ND normoactive bowel sounds Extremity: 2+ radial pulses, no edema, clubbing, cyanosis, or tenderness Skin: [place], warm, dry, no visible rash or lesions, no jaundice Neuro: no focal deficits. 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 No decline from yesterday. Sensation intact, no slurred speech or facial droop. No ptosis. A/P: 80-year-old female with history of TIAs and bilateral carotid endarterectomy, presented for acute onset of expressive aphasia, confusion, left-sided paresthesias. TIA Pt has hx of multiple TIAs & s/p b/l carotid endarterectomy in 04/2018. Imaging negative for acute stroke, and unable to tolerate MRI due to pacemaker. Currently, she no longer appears to have left-sided deficits that she had presented with initially and is beginning to improve neurologically. Neurology consulted, appreciate input. It appears patient was noncompliant with her Plavix since she was discharged from rehabilitation in May 2018. Per neuro, she has been switched from her aspirin to Plavix, and recommend to continue on her Eliquis. Will continue neuro checks and fall precautions. Echo reveals no acute thrombus, however has elevated CVP and pulm HTN, likely 2/2 intermediate uncontrolled bp. She also has abnormal lipid panel, and hypothyroidism not controlled on her current regimen. Will adjust statin and Synthroid, and optimize blood pressure. There are also concerns for aspiration given her current status, and will obtain swallow eval and place on aspiration precautions. Continue PT/OT. HUYEN on CKD III Renal function still not improving despite withholding nephrotoxins and IV fluids. Nephro consulted, appreciate Dr. Schwarz's input. Baseline creatinine is 0.8-0.9, but remains at 3.7. May be 2/2 UTI vs obstruction. Hydronephrosis noted on renal ultrasound, and she has a history of obstructive uropathy with left ureteral stent. Hold nephrotoxins, continue gentle IV hydration given CHF. CT of abdomen and pelvis confirms moderate hydronephrosis of the left kidney in the left ureteral stent without bladder stone or mass. Per nephro, avoid diuretics. Stent to be further assessed by urology. Gross Hematuria Patient has history of obstructive uropathy, S/P left ureteral stent placement 05/2018. She states hematuria is normal for her. H&H remain stable. Urology has been consulted, appreciate Dr. Loza's input. There is concern for possible ureteral stent obstruction versus dislodgment versus trauma. Per urology, okay to continue anticoagulation and antiplatelet. Will switch from Eliquis to heparin drip and make nothing by mouth after midnight in anticipation for possib le procedure tomorrow. UTI Urine culture +ESBL Escherichia coli. Will switch from IV Cipro to ertapenem per sensitivities. On antibiotics since 08/07. Hypoglycemia in setting of IDDM2 Blood sugars in the 40s this morning, likely 2/2 insulin received overnight and decreased po intake. Sugars are now improved after D5/half NS. Continue ISS, consistent carb diet Hyperkalemia 5.8 overnight, improved to 5.2 this a.m. S/P Valtessa and Lasix. Likely 2/2 HUYEN. Pt asymptomatic, monitor HTN home regimen on hold given HUYEN. Diltiazem dose adjusted per nephro. HLD-on pravastatin. Ezetamibe discontinued by nephro CAD-S/P CABG. On ASA, statin Hypothyroidism-continue Synthroid A. fib-chronically on Eliquis, Diltiazem, Propafenone CHF-Lasix and lisinopril on hold given HUYEN. Monitor fluid status Depression-stable on lexapro GERD-po Protonix DVT prophylaxis: chronic Eliquis changed to heparin ggt Disposition: Pending clinical improvement. VS,Fishbone, I+O VS, Fishbone, I+O Laboratory Tests 08/09/18 02:51 Red Blood Count 3.27 L, Mean Corpuscular Volume 94.2, Mean Corpuscular Hemoglobin 29.7, Mean Corpuscular Hemoglobin Concent 31.5 L, Red Cell Distr ibution Width 13.2 08/09/18 02:55 Calcium Level 7.7 L 08/09/18 05:16 Calcium Level 7.6 L 08/09/18 12:59 Vital Signs Date Time Temp Pulse Resp B/P (MAP) Pulse Ox O2 Delivery O2 Flow Rate FiO2 08/09/18 14:19 69 128/60 08/09/18 14:19 96.7 20 96 08/07/18 23:09 Room Air I&O- Last 24 Hours up to 6 AM 08/09/18 06:00 Intake Total 1780 ml Output Total 1805 ml Balance -25 ml GME ATTESTATION GME ATTESTATION My faculty preceptor for this patient encounter was physically present during the encounter and was fully available. All aspects of the patient interview, examination, medical decision making process, and medical care plan development were reviewed and approved by the faculty preceptor. The faculty preceptor is aware and concurs with the plan as stated in the body of this note and will attest to such by his/her cosignature. YANELI UGTIERREZ DO Aug 09, 2018 19:03
[2018-08-09] MEDS: MIRALAX *UNIT DOSE* 17GM PACKET PO PRN (19:08)
[2018-08-09] MEDS: PRAVASTATIN 10 MG TAB PO SCH (20:09)
--- NOTE | 2018-08-09 20:35 | CR ---
DATE OF CONSULTATION: 08/09/2018 CONSULTATION REPORT FOR: Gaby Rodriguez DO REASON FOR CONSULTATION: Acute renal failure superimposed on chronic kidney disease. HISTORY OF PRESENT ILLNESS: Mrs. Paniagua is an 88-year-old female with multiple chronic medical problems including hypertension, diabetes, hyperlipidemia, coronary artery disease, carotid artery disease, status post bilateral carotid endarterectomies and a history of recurrent transient ischemic attack (TIA). She also has history of atrial fibrillation for which she has been on anticoagulation. Apparently she had some issues with her antiplatelet therapy and stop taking her Plavix. She was admitted to [facility] a couple of days ago with expressive aphasia and felt to have another TIA. She has developed worsening kidney function and gross hematuria. A nephrology consultation was requested this morning and the patient is seen. She has history of left ureteral stent due to obstruction and hydronephrosis with a history of kidney stones. PAST MEDICAL AND SURGICAL HISTORY: Significant for: 1. Longstanding hypertension. 2. Type 2 diabetes. 3. Hyperlipidemia. 4. Coronary artery disease, status post coronary artery bypass graft (CABG). 5. Bilateral carotid artery stenosis, status post bilateral carotid endarterectomies. 6. History of multiple TIAs. 7. History of chronic kidney disease. 8. History of left hydronephrosis with ureteral stent. 9. History of atrial fibrillation. 10. History of congestive heart failure. ALLERGIES: She has allergy to PROMETHAZINE, SULFA DRUGS and PENTAZOCINE. HOME MEDICATIONS: Her home medications included: - Tylenol - albuterol inhaler - Eliquis - vitamin D - diltiazem - citalopram - ferrous sulfate - Lasix - Synthroid - lisinopril - pantoprazole - MiraLax - pravastatin PERSONAL AND SOCIAL HISTORY: Patient has no history of alcohol or tobacco or drug use. FAMILY HISTORY: Noncontributory and negative for end-stage renal disease. REVIEW OF SYSTEMS: The patient has expressive aphasia and still not able to talk normal. She is not feeling well today. Head and neck is significant for recurrent TIA. She denies any sinus or nose problems. She has difficulty swallowing. Cardiovascular system significant for atrial fibrillation and congestive heart failure. She has shortness of breath but no chest pain. Respiratory system is significant for cough without any hemoptysis. She denies any pleuritic type of chest pain. Gastrointestinal (GI) system is significant for difficulty swallowing and poor oral intake. She has no vomiting or diarrhea. Genitourinary () system is significant for gross hematuria with a Griffiths catheter in place. She has history of obstructive uropathy with left ureteral stent. Musculoskeletal system is significant for chronic degenerative arthritis and difficulty ambulating. Endocrine system is significant for hypothyroidism, type 2 diabetes. Hematological system is significant for chronic anticoagulation for atrial fibrillation and recurrent TIA. She has gross hematuria in her Griffiths catheter. Psychosocial system is significant for depression. Neurological system is significant for recurrent TIA. She has expressive aphasia and difficulty talking right now. PHYSICAL EXAMINATION: Elderly female lying in the bed with head end elevated at about 75 degrees. Temperature is 96.9 degrees Fahrenheit, heart rate 70 per minute and respiratory rate 20 per minute. Blood pressure 164/70 mmHg and oxygen saturation 96%. Head is atraumatic. Pupils are equal and reactive to light and sclerae is anicteric. Neck is supple and jugular venous distention (JVD) is not abnormally elevated. She has no oral thrush or ulcers. Heart sounds are irregular in rhythm and lungs have crepitations on the right side. Abdomen is soft and nontender and bowel sounds are normal. Extremities have no cyanosis or clubbing. Neurologically she has difficulty talking with expressive aphasia. She is very weak and a complete neurological exam was not performed. LABORATORY DATA: Today's labs show WBC count 9.1, hemoglobin 9.7 and hematocrit 30.8. Platelets 241. Sodium is 133, potassium 5.2, CO2 25, BUN 66 and creatinine 3.7. Glucose 262 and calcium 7.6. Yesterday her sodium was 133 and potassium 5.8 while creatinine was 3.57. Urine is bloody in the Griffiths catheter. The urinalysis showed red and turbid appearance with 2+ protein and large amount of blood. She has too numerous to count RBCs and 63 WBCs. Her chest x-ray done this morning showed right lower lobe atelectasis and chronic interstitial changes with cardiomegaly. She had a CT scan of abdomen and pelvis done yesterday which did show a small pleural effusion on the right side. She was noticed to have left-sided hydronephrosis with ureteral stent and multiple calcifications in both kidneys. PROBLEMS: 1. Acute renal failure superimposed on chronic kidney disease. Probably it is multifactorial. She has hydronephrosis on the left side with a ureteral stent in place. She is also probably volume depleted due to poor oral intake. At this point I would recommend to continue with IV fluids and monitor her urine output. Will probably need to get urology involved for possibly ureteral stent contributing to her acute renal failure and hematuria. The patient needs long-term anticoagulation and we may need to remove her stent if it is the cause of her hematuria. 2. Hyperkalemia. She has mild hyperkalemia related to acute renal failure. She is not receiving any potassium supplement on angiotensin converting enzyme (RONI) inhibitor. I would suggest to continue with IV fluid which is likely to help with the correction of hyperkalemia. 3. Hypertension. Blood pressure is only slightly high but she is also somewhat uncomfortable at present. Her RONI inhibitor has already been stopped. I would suggest not to give her diuretic anymore. I am going to stop her unnecessary medications including hydralazine 10 mg daily. We should give her diltiazem only once a day with long acting preparation in order to decrease the number of pills for her. 4. Anemia. She has gross hematuria which is likely to cause worsening of her anemia. Unfortunately she cannot swallow too many pills. I am going to temporarily stop her iron supplement and we may have to transfuse her if her anemia gets worse. We will certainly need to look into the cause of her hematuria and try to correct it. Thank you for involving me in the care of Mrs. Paniagua. I will follow her along with you.
[2018-08-09] MEDS ORDERED: APIXABAN 2.5 MG TAB (ELIQUIS) PO SCH (21:00)
[2018-08-09 22:00] VITALS: BP 130/60
--- NOTE | 2018-08-09 22:00 | ECGEPIP ---
Stationary ECG Study [facility] Test Date: 2018-08-09 Pat Name: JUDITH WEST Department: Room: [place] [address] Gender: F Development Mgr: : 1930 Requested By: EDITH CHRISTOPHER Order Number: [id number] Reading MD: Antonio Jo Measurements Intervals [place] Rate: 69 P: -35 NC: 112 QRS: 208 QRSD: 120 T: -33 QT: 435 QTc: 469 Interpretive Statements Ventricular paced rhythm, difficult to discern underlying atrial activity. Electronically Signed On 08-09-2018 21:59:51 EST by Antonio Jo
[2018-08-10] MEDS: ACETAMINOPHEN TAB 650MG DOSE (2X325MG) PO PRN (02:48)
[2018-08-10 06:00] VITALS: BP_SYST 126; BP_SYST 127; BP_DIAS 60; BP_DIAS 79
[2018-08-10] MEDS: PROPAFENONE 150 MG TAB PO SCH ×3 (06:57→21:01)
[2018-08-10] MEDS: LEVOTHYROXINE 50MCG TABLET (0.05MG) PO SCH (06:57)
[2018-08-10] MEDS: NS 1,000 ML IV SCH ×2 (07:00→21:02)
[2018-08-10 07:35] LABS: HEMATOCRIT 27.5 % (36.0-47.0); HEMOGLOBIN 8.9 g/dl (12.0-15.5); MEAN CORPUSCULAR HEMOGLOBIN 30.1 pg (27.0-33.0); MEAN CORPUSCULAR HGB CONC 32.4 g/dl (32.0-36.5); MEAN CORPUSCULAR VOLUME 92.9 fl (80.0-96.0); PLATELET COUNT, AUTOMATED 232 10^3/uL (150-450); RED BLOOD COUNT 2.96 10^6/uL (4.00-5.40); WHITE BLOOD COUNT 7.2 10^3/uL (4.0-10.0)
[2018-08-10 07:54] LABS: CALCIUM LEVEL 7.8 MG/DL (8.8-10.2); CREATININE FOR GFR 3.55 MG/DL (0.55-1.30); GLOMERULAR FILTRATION RATE 12.9 (>32); MAGNESIUM LEVEL 2.2 MG/DL (1.8-2.4); POTASSIUM SERUM 4.8 MEQ/L (3.5-5.1)
[2018-08-10] MEDS: PANTOPRAZOLE 40MG TAB (PROTONIX) PO SCH (08:49)
[2018-08-10] MEDS: VITAMIN D 1,000 INTERNATIONAL UNITS TABLET PO SCH (08:49)
[2018-08-10] MEDS: ESCITALOPRAM OXALATE 10 MG TAB (LEXAPRO) PO SCH (08:49)
--- NOTE | 2018-08-10 09:31 | REP ---
BILATERAL RENAL ULTRASOUND: 08/09/2018. Comparison: CT 08/08/2018, renal ultrasound 08/07/2018. Clinical history: Reevaluate right hydronephrosis, indwelling stent. Findings: The right kidney is 10.9 x 4.5 x 4.8 cm. Cortical echogenicity and thickness are normal. There is no hydronephrosis, hydroureter, cyst, solid mass or perinephric fluid. The left kidney is 11.6 x 6.5 cm. Its cortical thickness and echogenicity remain normal. Some mild hydronephrosis present. Abdominal ureter cannot be seen. There is a pigtail stent in the renal pelvis. By my measurement the AP diameter of the renal pelvis is 2.5 cm, on the recent CT it was 2.9 cm so marginally decreased overall. No solid mass or cyst on that left side. No visible or dilated ureter evident. The bladder cannot be assessed as it is empty with a Griffiths catheter in place. A pigtail catheter is also present. Impression: 1. Minimally decreased hydronephrosis on the right with AP diameter 2.5 cm by my direct measurement, 2.[address] yesterday. 2. Normal cortical thickness and echogenicity. Right kidney without hydronephrosis. Bladder cannot be evaluated. Electronically Signed by Wilder Madrigal MD 08/10/2018 09:14 P
[2018-08-10 12:23] LABS: HEMATOCRIT 27.1 % (36.0-47.0); HEMOGLOBIN 8.6 g/dl (12.0-15.5)
[2018-08-10] MEDS ORDERED: LIDOCAINE 1% MDV 20ML VIAL As Ordered ONE (13:06)
[2018-08-10 14:00] VITALS: BP 152/70
--- NOTE | 2018-08-10 14:17 | IPNPDOC ---
Assessment/Plan Date Seen The patient was seen on 08/10/18. Patient Summary This is an 88 y/o F admitted for a CVA, HUYEN, and an ESBL E coli UTI. Her renal US from this morning still shows some hydro, not much improved from a few days ago. Given this, I have recommended that we set her up for a percutaneous nephrostomy tube placement in radiology. Since her last dose of plavix was yesterday, we will aim to have this done next Wednesday to give her 7 days off plavix. Once the nephrostomy tube is placed, I will set her up for stent rem oval in the OR. Removing the stent will likely decrease her hematuria as well. Plan/VTE VTE Prophylaxis Ordered?: Yes VTE Exclusion Mechanical Proph: N/A:VTE Prophy Ordered Plan/Urinary Catheter Urinary Catheter: Other Catheter: (continue catheter to monitor UOP) Plan - plan on left neph tube placement in radiology next Wednesday - will remove her ureteral stent after the nephrostomy tube is placed - please continue to hold plavix until the nephrostomy tube is placed - if eliquis is resumed, it will need to be held 2-3 days prior to nephrostomy tube placement as well - cont to monitor hematuria and H&H - recommend transfusing if H&H continues trend down or if patient becomes symptomatic - hopefully removal of the stent will decrease the amount of hematuria Subjective Review oF Systems Chief Complaint The patient is a 88-year-old female admitted with a reason for visit of Stroke,Uti. Events since Last Encounter No acute events o/n. She notes having increased left flank pain after her renal US was done. She also notes night sweats but denies fevers or chills. Objective Physical Examination General Exam: Alert, No Acute Distress Chest Exam: Normal air movement Heart Exam: Positive: Rate Normal Neuro Exam: Normal Speech Psych Exam: Mental status NL, Mood NL Other physical findings catheter in place, draining dark brownish red urine Vital Signs/I&O Vital Signs Date Time Temp Pulse Resp B/P (MAP) Pulse Ox O2 Delivery O2 Flow Rate FiO2 08/10/18 08:49 69 128/63 08/10/18 06:00 97.2 18 94 08/07/18 23:09 Room Air I&O- Last 24 Hours up to 6 AM 08/10/18 06:00 Intake Total 1682 ml Output Total 1250 ml Balance 432 ml Laboratory Data Labs 24H Laboratory Tests 2 08/09/18 15:47: Bedside Glucose (Misc Panel) 154H 08/09/18 16:10: Activated Partial Thromboplast Time 39.8H 08/09/18 16:43: Bedside Glucose (Misc Panel) 128H 08/09/18 19:50: Bedside Glucose (Misc Panel) 147H 08/09/18 22:55: Activated Partial Thromboplast Time > 240.0*H 08/10/18 07:16: Activated Partial Thromboplast Time 146.2*H, Nucleated Red Blood Cells % (auto) 0.0, Anion Gap 8, Glomerular Filtration Rate 12.9L, Blood Urea Nitrogen 61H, Creatinine 3.55H, Sodium Level 135L, Potassium Level 4.8, Chloride Level 104, Carbon Dioxide Level 23, Calcium Level 7.8L, Magnesium Level 2.2 08/10/18 11:41: Bedside Glucose (Misc Panel) 170H CBC/BMP Laboratory Tests 08/10/18 07:16 Red Blood Count 2.96 L, Mean Corpuscular Volume 92.9, Mean Corpuscular Hemoglobin 30.1, Mean Corpuscular Hemoglobin Concent 32.4, Red Cell Distribution Width 13.2, Calcium Level 7.8 L 08/10/18 12:09 FSBS Laboratory Tests Test 08/09/18 15:47 08/09/18 16:43 08/09/18 19:50 08/10/18 11:41 Range/Units Bedside Glucose (Misc Panel) 154 128 147 170 83-110 MG/DL Microbiology Microbiology 08/07/18 Urine Culture - Final, Complete E.coli Esbl MCKINLEY PANCHAL MD Aug 10, 2018 14:17
[2018-08-10] MEDS: traMADol 50 MG TAB PO PRN (14:38)
[2018-08-10 14:57] LABS: INR 1.4; PROTHROMBIN TIME 17.4 SECONDS (12.1-14.4)
[2018-08-10 14:59] LABS: PARTIAL THROMBOPLASTIN TIME 74.5 SECONDS (25.4-37.6)
[2018-08-10] MEDS: ERTAPENEM SODIUM 0.5 GM in NS 50 ML IV SCH (15:00)
[2018-08-10] MEDS: ALBUTEROL 90 MCG/ACT 8GM HFA INHALER INH PRN (15:05)
--- NOTE | 2018-08-10 15:50 | IPN ---
DATE: 08/10/2018 Mrs. Paniagua is seen this morning on her bed side. Her family was present in the room. The patient is feeling much better compared with yesterday. However, she does have a complaint of wheezing. She denies any nausea or vomiting. PHYSICAL EXAMINATION: Temperature 97.2 degrees Fahrenheit, heart rate is 70 per minute and respiratory rate 18 per minute. Blood pressure 126/60 mmHg and oxygen saturation 94% on room air. Intake and output records from yesterday showed total intake 1092 and output 1400 mL. Her head is atraumatic. Neck is supple and there is no JVD or thyroid enlargement. Heart sounds are irregular in rhythm and lungs have mild expiratory wheezing. Abdomen is soft and nontender and bowel sounds are normal. Extremities have no cyanosis or clubbing. Neurologically she is much more alert and able to have a conversation today. Skin has no rash or ulcers. LABORATORY DATA: Today's labs show WBC count 7.2, hemoglobin 8.9 and hematocrit 27.5. Platelets 232. Sodium 135, potassium 4.8, CO2 of 23, BUN 61 and creatinine 3.55. Glucose 164 and calcium 7.8. The patient had another renal ultrasound which showed a slight improvement in the hydronephrosis of her left kidney. She did not have any hydronephrosis on the right. Her ultrasound report has typing error. In any event, she still has gross hematuria in her Griffiths catheter and has dropped her hematocrit slightly. She is currently on IV heparin drip and her Eliquis has been stopped. PROBLEMS: 1. Acute kidney injury superimposed on chronic kidney disease most likely related to UTI and left hydronephrosis. At this point there is no significant change in her kidney function since admission. Urology has been consulted already and there is a discussion about possible nephrostomy tube placement in her left kidney. Her Eliquis has been stopped for this reason and she is currently on IV heparin drip. She does not have any urgent indication for dialysis at present and I will continue to monitor her closely. 2. Shortness of breath and wheezing. Clinically she does not look volume overloaded. She has no peripheral edema, neck veins or pulmonary rales. I believe her volume status is reasonably well-compensated and she should receive a nebulizer treatments at least three times a day. We will continue to monitor her closely. I would recommend to avoid diuretic use. 3. Hyperkalemia. Her potassium level has already corrected to normal range and at this point no other intervention is indicated. 4. Blood loss anemia. She has gross hematuria and most likely ureteral stent is the cause of her hematuria. Urology has already been consulted. There is no emergent need for a transfusion at this point, however, she is likely to require transfusion if her anemia continues to get worse due to ongoing blood loss.
[2018-08-10] MEDS: SODIUM CHLORIDE 0.9% INJ 10 ML SYR IV SCH (17:19)
[2018-08-10] MEDS: HEPARIN DRIP 25,000 UNITS in APPROPRIATE DILUENT 1 EA IV SCH (17:59)
[2018-08-10] MEDS ORDERED: ATORVASTATIN 20 MG TAB PO SCH (21:00)
[2018-08-10] MEDS: ROSUVASTATIN 10 MG TAB (CRESTOR) PO SCH (21:01)
--- NOTE | 2018-08-10 21:20 | REP ---
Procedure: Mid line catheter insertion with Site-Rittopher The procedure was performed under the direct supervision of Dr. Madrigal. The risks and benefits of the procedure were explained to the patient and informed consent was obtained. The right basilic vein was localized using ultrasound guidance. The skin was prepped and draped in a sterile fashion. 1% lidocaine was used as a local anesthetic. Using ultrasound guidance the basilic vein was cannulated and a 0.018 guidewire was inserted. The needle was removed and a 10 5.5 Anguillan dilator and peel-away sheath was inserted over the guide wire. A 5.5 Anguillan dual lumen catheter was cut to length of 16.5 cm. The dilator was removed and the catheter was inserted over the guide wire. The peel-away sheath was removed and the catheter was flushed with heparinized saline as per Hospital protocol. The catheter was affixed to the skin and a sterile dressing was applied. The patient tolerated the procedure well and there were no immediate complications. Reviewed by MARIANNE Medina 08/10/2018 05:31 P Electronically Signed by Wilder Madrigal MD 08/10/2018 09:10 P
[2018-08-10 22:00] VITALS: BP 133/59
--- NOTE | 2018-08-10 22:42 | IPNPDOC ---
Text Note Date of Service The patient was seen on 08/10/18. NOTE S: Patient examined at bedside. Continues to have hematuria. H&H decreased slightly overnight, but pt overall feels improved. At this point, her neuro deficits have resolved, but flank pain, hematuria, and HUYEN persist. Nephro & Urology are following. PE: General: Alert and cooperative, A&O 3, NAD Eye exam: PERRLA, EOMI, anicteric sclera ENT: Atraumatic, normocephalic, mucous membranes moist Neck: Supple, no JVD Cardiac: irregular rhythm, rate is controlled-hx of Afib, normal S1 & S2, no murmurs Respiratory: CTAB, good air exchange, no wheezing, rhonchi, or rales Abdomen: obese, soft, NT, ND normoactive bowel sounds Extremity: 2+ radial pulses, no edema, clubbing, cyanosis, or tenderness Skin: [place], warm, dry, no visible rash or lesions, no jaundice Neuro: no focal deficits. 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 No focal deficits today : Griffiths in place with dark red-brown output A/P: 80-year-old female with history of TIAs and bilateral carotid endarterectomy, presented for acute onset of expressive aphasia, confusion, left-sided paresthesias. Gross Hematuria -Persists to this am. -Pt regularly undergoes left ureteral stent exchange [id number] for stricture, and was initially due 08/28/18, but concern for possible stent occlusion vs dislodgement vs trauma. -Repeat US yesterday reveals left hydronephrosis still present. -Urology is consulted, appreciate Dr. Loza's input--recommend nephrostomy tube after she is off Plavix for 1 week (last dose 08/09), and remove stent thereafter. -H&H has slightly declined this am, but continues to remain >8. Transfuse if falls below 8-consent in chart. -Plavix & eliquis have been placed on hold, switched to heparin drip for possible procedure. Risks and benefit of restarting and withholding Plavix were again discussed with pt and her sisters in room today, including risks of further bleeding and anemia, vs recurrent CVA. All qs answered. Pt agreeable to continue on heparin drip and withhold remaining blood-thinners. HUYEN on CKD III -Renal function slightly improved from 3.7 to 3.5 today. Baseline creatinine is 0.8-0.9. Likely multifactorial: UTI vs hydronephrosis vs pre/intra-renal -Continue withholding nephrotoxins and resume on gentle IV fluids given hx of CHF. Nephro consulted, appreciate Dr. Schwarz's input. -Still making adequate urine. Monitor Griffiths o/p TIA -left-sided deficits have resolved. Appreciate Neuro input--recommend long-term continuation on Plavix & Eliquis. Initial deficits likely 2/2 noncompliance to PLavix prior to admission -will continue holding both, as pt is temporarily on heparin drip due to her hematuria and anticipation of possible procedure. Once medically improved and nearing discharge, plan to resume them -s/p multiple TIAs & b/l carotid endarterectomy in 04/2018. Stable -given uncontrolled hypothyroidism and HLD, Synthroid dose increased, and transitioned to Crestor from Pravastatin -Continue PT/OT as tolerated UTI -Urine culture +ESBL Escherichia coli -Continue ertapenem, on antibiotics since 08/07. Hypoglycemia in setting of IDDM2 -resolved with IVF and po intake -Continue ISS, consistent carb diet Hyperkalemia -resolved with IVF, likely 2/2 HUYEN. Pt asymptomatic, monitor HTN -home regimen on hold given HUYEN. Diltiazem dose adjusted per nephro. HLD-switched to Crestor. Ezetamibe discontinued by nephro CAD-S/P CABG. On ASA-on hold, & statin Hypothyroidism-continue Synthroid-dose adjusted A. fib-chronically on Eliquis-on hold, Diltiazem, Propafenone Systolic CHF-Lasix and lisinopril on hold given HUYEN. Euvolemic. Monitor fluid status Depression-stable on lexapro GERD-po Protonix DVT prophylaxis: heparin ggt Disposition: Pending clinical improvement & nephrostomy tube placement. VS,Fishbone, I+O VS, Fishbone, I+O Laboratory Tests 08/10/18 07:16 Red Blood Count 2.96 L, Mean Corpuscular Volume 92.9, Mean Corpuscular Hemoglobin 30.1, Mean Corpuscular Hemoglobin Concent 32.4, Red Cell Distribution Width 13.2, Calcium Level 7.8 L 08/10/18 12:09 Vital Signs Date Time Temp Pulse Resp B/P (MAP) Pulse Ox O2 Delivery O2 Flow Rate FiO2 08/10/18 15:08 17 08/10/18 14:00 96.8 74 152/70 (97) 97 08/07/18 23:09 Room Air I&O- Last 24 Hours up to 6 AM 08/10/18 06:00 Intake Total 1682 ml Output Total 1250 ml Balance 432 ml GME ATTESTATION GME ATTESTATION My faculty preceptor for this patient encounter was physically present during the encounter and was fully available. All aspects of the patient interview, examination, medical decision making process, and medical care plan development were reviewed and approved by the faculty preceptor. The faculty preceptor is aware and concurs with the plan as stated in the body of this note and will attest to such by his/her cosignature. YANELI GUTIERREZ DO Aug 10, 2018 22:42
[2018-08-10 23:06] LABS: HEMATOCRIT 27.3 % (36.0-47.0); HEMOGLOBIN 8.6 g/dl (12.0-15.5)
[2018-08-11] MEDS: traMADol 50 MG TAB PO PRN (02:27)
[2018-08-11] MEDS: ACETAMINOPHEN TAB 650MG DOSE (2X325MG) PO PRN ×2 (05:39→10:03)
[2018-08-11] MEDS: SODIUM CHLORIDE 0.9% INJ 10 ML SYR IV SCH ×3 (05:39→18:35)
[2018-08-11] MEDS: LEVOTHYROXINE PO SCH (05:39)
[2018-08-11] MEDS: PROPAFENONE 150 MG TAB PO SCH ×3 (05:39→21:55)
[2018-08-11 06:00] VITALS: BP 135/63
[2018-08-11 06:20] LABS: HEMATOCRIT 26.8 % (36.0-47.0); HEMOGLOBIN 8.4 g/dl (12.0-15.5); MEAN CORPUSCULAR HEMOGLOBIN 29.5 pg (27.0-33.0); MEAN CORPUSCULAR HGB CONC 31.3 g/dl (32.0-36.5); PLATELET COUNT, AUTOMATED 233 10^3/uL (150-450); RED BLOOD COUNT 2.85 10^6/uL (4.00-5.40); WHITE BLOOD COUNT 7.3 10^3/uL (4.0-10.0)
[2018-08-11 06:41] LABS: CREATININE FOR GFR 3.38 MG/DL (0.55-1.30); GLOMERULAR FILTRATION RATE 13.7 (>32); MAGNESIUM LEVEL 2.3 MG/DL (1.8-2.4); POTASSIUM SERUM 5.6 MEQ/L (3.5-5.1)
[2018-08-11 08:00] VITALS: BP 128/60
[2018-08-11] MEDS ORDERED: PATIROMER SORBITEX CALCIUM 8.4 GM POWDER PACKET (VELTASSA) PO ONE (09:00)
[2018-08-11] MEDS: ESCITALOPRAM OXALATE 10 MG TAB (LEXAPRO) PO SCH (09:09)
[2018-08-11] MEDS: VITAMIN D 1,000 INTERNATIONAL UNITS TABLET PO SCH (09:09)
[2018-08-11] MEDS: PANTOPRAZOLE 40MG TAB (PROTONIX) PO SCH (09:11)
[2018-08-11] MEDS: NS 1,000 ML IV SCH (09:11)
[2018-08-11] MEDS: ERTAPENEM SODIUM 0.5 GM in NS 50 ML IV SCH (13:32)
[2018-08-11] MEDS: ONDANSETRON 4MG/2ML VIAL (J2405) IV SCH ×2 (13:32→18:34)
[2018-08-11 14:00] VITALS: BP 124/55
[2018-08-11] MEDS: PERCOCET 5MG/325MG TAB PO PRN ×2 (15:12→23:43)
--- NOTE | 2018-08-11 16:07 | IPN ---
DATE: 08/11/2018 Mrs. Paniagua is seen this morning on her bedside. She reports that she did not feel well and could not sleep well last night. She is tired and also reports poor appetite. She has no fever or chills. She continues to have gross hematuria in her Griffiths catheter. PHYSICAL EXAMINATION: Temperature 97.0 degrees Fahrenheit, heart rate 70 per minute and respiratory rate 20 per minute. Blood pressure 128/60 mmHg and oxygen saturation 95% on room air. Intake and output records from yesterday showed total intake 2068 and output 1550 mL. Her head is atraumatic. Neck is supple and jugular venous distention (JVD) is about 8 cm above sternal angle. Heart sounds are irregular in rhythm and lungs with few basilar rales and expiratory wheezing. Abdomen soft and nontender. Bowel sounds are normal. Extremities without any cyanosis or clubbing. Neurologically she is awake and able to answer all questions appropriately. Today's labs showed WBC count 7.3, hemoglobin 8.4 and hematocrit 26.8. Platelets 233. Sodium 137, potassium 5.6, CO2 21, BUN 60 and creatinine 3.38. Glucose 173 and calcium 8.0. PROBLEMS: 1. Acute renal failure superimposed on chronic kidney disease. Most likely her kidney function is worsened due to left-sided hydronephrosis with possible blocking of the stent. At this point she is scheduled for a nephrostomy tube placement next week. She is very well-hydrated and in fact today she seems to be over hydrated. I am going to stop her IV fluids and we will monitor for next 24 hours. 2. Hyperkalemia related to obstructive uropathy and advanced renal failure. The patient will be treated with one dose of Veltassa 16.8 grams and her electrolytes will be checked again tomorrow morning. 3. Acute blood loss anemia. She has gross hematuria and her anemia is gradually worsening. She is likely to require transfusion. She is also on heparin drip due to recurrent transient ischemic attack (TIA) and stroke. Her Eliquis has been on hold. Other issues are being addressed by the hospitalist service.
--- NOTE | 2018-08-11 19:32 | IPNPDOC ---
Text Note Date of Service The patient was seen on 08/11/18. NOTE S: Patient examined at bedside. Feeling slightly better today, but still having "pain in my kidneys" and gorss hematuria continues. She feels tired and decreased appetite today. PE: General: Alert and cooperative, visibly fatigued, A&O 3 Eye exam: PERRLA, EOMI, anicteric sclera HEENT: Atraumatic, normocephalic, mucous membranes moist Cardiac: irregular rhythm, rate is controlled-hx of Afib, normal S1 & S2, no murmurs Respiratory: CTAB, good air exchange, no wheezing, rhonchi, or rales Abdomen: obese, soft, NT, ND normoactive bowel sounds Extremity: 2+ radial pulses, no edema, clubbing, cyanosis, or tenderness Skin: [place], warm, dry, no visible rash or lesions, no jaundice Neuro: no focal deficits. Has normal tone and equal investigator strength b/l : Griffiths in place with mustafa-dark red output A/P: 80-year-old female with history of TIAs and bilateral carotid endarterectomy, presented for acute onset of expressive aphasia, confusion, left-sided paresthesias, found to also have HUYEN and hematuria. Gross Hematuria -Persists to this am. H&H remain stable. Continue monitoring and transfuse as needed to maintain Hgb>8. 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 -Urology consulted. Per Dr. Loza, nephrostomy tube after she is off Plavix for 1 week (last dose 08/09), and remove stent thereafter. -Plavix & eliquis on hold, switched to heparin drip for possible procedure. Percocet prn pain HUYEN on CKD III -Mild improvement with Cr at 3.38 today. Baseline creatinine is 0.8-0.9. Likely multifactorial: UTI vs hydronephrosis vs pre/intra-renal -Continue withholding nephrotoxins and resume on gentle IV fluids given hx of CHF. Nephro consulted, appreciate Dr. Schwarz's input. -Still making adequate urine. Monitor Griffiths o/p TIA -left-sided deficits have resolved. Per Neuro recs: long-term continuation on Plavix & Eliquis. Initial deficits likely 2/2 noncompliance to Plavix prior to admission -will continue holding both, as pt is temporarily on heparin drip due to hematuria and possible procedure. Once medically improved and nearing discharge, plan to resume -s/p multiple TIAs & b/l carotid endarterectomy in 04/2018. Monitor -Synthroid and statin have been adjusted -Continue PT/OT as tolerated UTI -Urine culture +ESBL Escherichia coli -Continue ertapenem, on antibiotics since 08/07. Hyperkalemia -likely 2/2 HUYEN. Valtess per Nephro HTN -home regimen on hold given HUYEN. Diltiazem dose adjusted per nephro. Tolerating well IDDM2-ISS, consistent carb HLD-switched to Crestor. Ezetamibe discontinued by nephro CAD-S/P CABG. On ASA-on hold, & statin Hypothyroidism-continue Synthroid-dose adjusted A. fib-chronically on Eliquis-on hold, Diltiazem, Propafenone Systolic CHF-Lasix and lisinopril on hold given HUYEN. Monitor fluid status Depression-stable on lexapro GERD-po Protonix DVT prophylaxis: heparin ggt Disposition: Pending clinical improvement & nephrostomy tube placement next week. VS,Fishbone, I+O VS, Fishbone, I+O Laboratory Tests 08/10/18 22:59 08/11/18 05:55 Red Blood Count 2.85 L, Mean Corpuscular Volume 94.0, Mean Corpuscular Hemoglobin 29.5, Mean Corpuscular Hemoglobin Concent 31.3 L, Red Cell Distribution Width 13.2, Calcium Level 8.0 L Vital Signs Date Time Temp Pulse Resp B/P (MAP) Pulse Ox O2 Delivery O2 Flow Rate FiO2 08/11/18 16:23 18 08/11/18 14:00 96.9 70 124/55 (78) 96 08/07/18 23:09 Room Air I&O- Last 24 Hours up to 6 AM 08/11/18 06:00 Intake Total 1886 ml Output Total 1550 ml Balance 336 ml GME ATTESTATION GME ATTESTATION My faculty preceptor for this patient encounter was physically present during the encounter and was fully available. All aspects of the patient interview, examination, medical decision making process, and medical care plan development were reviewed and approved by the faculty preceptor. The faculty preceptor is aware and concurs with the plan as stated in the body of this note and will attest to such by his/her cosignature. YANELI GUTIERREZ DO Aug 11, 2018 19:32
[2018-08-11] MEDS: HEPARIN DRIP 25,000 UNITS in APPROPRIATE DILUENT 1 EA IV SCH (19:59)
[2018-08-11] MEDS: ROSUVASTATIN 10 MG TAB (CRESTOR) PO SCH (20:01)
[2018-08-11 22:00] VITALS: BP 136/65
[2018-08-12] MEDS: ONDANSETRON 4MG/2ML VIAL (J2405) IV SCH ×4 (00:35→18:59)
[2018-08-12 06:00] VITALS: BP 124/57
[2018-08-12] MEDS: HEPARIN DRIP 25,000 UNITS in APPROPRIATE DILUENT 1 EA IV SCH ×2 (06:00→12:26)
[2018-08-12] MEDS: LEVOTHYROXINE PO SCH (06:17)
[2018-08-12] MEDS: PROPAFENONE 150 MG TAB PO SCH ×3 (06:17→21:09)
[2018-08-12] MEDS: SODIUM CHLORIDE 0.9% INJ 10 ML SYR IV PRN ×2 (06:18→09:10)
[2018-08-12 06:38] LABS: HEMATOCRIT 23.9 % (36.0-47.0); HEMOGLOBIN 7.5 g/dl (12.0-15.5); MEAN CORPUSCULAR HEMOGLOBIN 29.6 pg (27.0-33.0); MEAN CORPUSCULAR HGB CONC 31.4 g/dl (32.0-36.5); MEAN CORPUSCULAR VOLUME 94.5 fl (80.0-96.0); PLATELET COUNT, AUTOMATED 228 10^3/uL (150-450); RED BLOOD COUNT 2.53 10^6/uL (4.00-5.40); WHITE BLOOD COUNT 8.1 10^3/uL (4.0-10.0)
[2018-08-12 07:01] LABS: CALCIUM LEVEL 8.4 MG/DL (8.8-10.2); CREATININE FOR GFR 3.3 MG/DL (0.55-1.30); MAGNESIUM LEVEL 2.3 MG/DL (1.8-2.4); POTASSIUM SERUM 5.4 MEQ/L (3.5-5.1)
[2018-08-12] MEDS: PERCOCET 5MG/325MG TAB PO PRN ×2 (09:08→19:59)
[2018-08-12] MEDS: VITAMIN D 1,000 INTERNATIONAL UNITS TABLET PO SCH (09:09)
[2018-08-12] MEDS: ESCITALOPRAM OXALATE 10 MG TAB (LEXAPRO) PO SCH (09:09)
[2018-08-12] MEDS: PANTOPRAZOLE 40MG TAB (PROTONIX) PO SCH (09:09)
--- NOTE | 2018-08-12 10:13 | NUR ---
Pt seen for Modified Barium Swallow Study to r/o silent aspiration d/t frequent hospitalizations with shortness of breath. Pt presented with thin liquids, puree, mixed consistency, soft solid and crunchy cookie. Slow mastication with solids and delay transfer but adequate. Exam was unremarkable for aspiration/penetration. Recommend: Regular solids and regular thin liquids. Addendum: 08/12/18 at 1015 by SHANTA PATTERSON [facility] SP Amended: Links added.
--- NOTE | 2018-08-12 10:30 | IPNPDOC ---
Text Note Date of Service The patient was seen on 08/12/18. NOTE S: Patient examined at bedside. Feeling slightly better today and pain is better controlled. No reported issues overnight. Hematuria persists and H&H has dropped to 7.5 today. Pt agreeable to transfusion and consent in chart. She continues on Heparin drip and awaiting nephrostomy tube next week. PE: General: Alert and cooperative, A&O 3 Eye exam: PERRLA, EOMI, anicteric sclera HEENT: Atraumatic, normocephalic, mucous membranes moist Cardiac: irregular rhythm, rate is controlled-hx of Afib, normal S1 & S2, no murmurs Respiratory: CTAB, mild rhonchi, no wheezing or rales Abdomen: obese, soft, ND normoactive bowel sounds. Tender to deep palpation on left flank Extremity: 2+ radial pulses, no edema, clubbing, cyanosis, or tenderness Skin: [place], warm, dry, no visible rash or lesions, no jaundice Neuro: no focal deficits. Has normal tone and equal exterminator termite strength b/l : Griffiths in place with dark red-brown output A/P: 80-year-old female with history of TIAs and bilateral carotid endarterectomy, presented for acute onset of expressive aphasia, confusion, left-sided paresthesias, found to also have HUYEN and hematuria. Gross Hematuria -Persists to this am. H&H down to 7.5 this am. Consented for transfusion. Will recheck level afterwards and transfuse as needed to maintain Hgb>8. Trend daily H&H and continue on Heparin drip in lieu of Eliquis and Plavix as we await nephrostomy tube by IR next week (after she is off Plavix for 1 week-last dose 08/09) -Pt regularly undergoes left ureteral stent exchange [id number] for stricture, and was initially due 08/28/18, but concern for possible stent occlusion vs dislodgement vs trauma. -Urology consulted. Per Dr. Loza, nephrostomy tube by IR, and remove stent thereafter. -Plavix & eliquis on hold, switched to heparin drip for possible procedure. Percocet prn pain HUYEN on CKD III -Mild improvement with Cr at 3.3 today. Baseline creatinine is 0.8-0.9. Likely multifactorial: UTI vs hydronephrosis vs pre/intra-renal -Continue withholding nephrotoxins. No longer on IVF per Nephro. Monitor fluid status, given hx of CHF. -Still making adequate urine. Monitor Griffiths o/p TIA -left-sided deficits resolved. Per Neuro recs: long-term continuation on Plavix & Eliquis. Initial deficits likely 2/2 noncompliance to Plavix prior to admission -will continue holding both, as pt is temporarily on heparin drip due to hematu caleb and possible procedure. Once medically improved and nearing discharge, plan to resume -s/p multiple TIAs & b/l carotid endarterectomy in 04/2018. Monitor -Synthroid and statin have been adjusted -Continue PT/OT as tolerated UTI -Urine culture +ESBL Escherichia coli -Continue ertapenem, on antibiotics since 08/07. Hyperkalemia -likely 2/2 HUYEN. Valtessa per Nephro HTN -home regimen on hold given HUYEN. Diltiazem dose adjusted per nephro. Tolerating well IDDM2-ISS, consistent carb HLD-switched to Crestor. Ezetamibe discontinued by nephro CAD-S/P CABG. On ASA-on hold, & statin Hypothyroidism-continue Synthroid-dose adjusted A. fib-chronically on Eliquis-on hold, Diltiazem, Propafenone Systolic CHF-Lasix and lisinopril on hold given HUYEN. Monitor fluid status Depression-stable on lexapro GERD-po Protonix DVT prophylaxis: heparin ggt Disposition: Pending clinical improvement & nephrostomy tube placement next week. VS,Fishbone, I+O VS, Fishbone, I+O Laboratory Tests 08/12/18 06:17 Red Blood Count 2.53 L, Mean Corpuscular Volume 94.5, Mean Corpuscular Hemoglobin 29.6, Mean Corpuscular Hemoglobin Concent 31.4 L, Red Cell Distribution Width 13.4 08/12/18 06:18 Calcium Level 8.4 L Vital Signs Date Time Temp Pulse Resp B/P (MAP) Pulse Ox O2 Delivery O2 Flow Rate FiO2 08/12/18 09:09 70 124/57 08/12/18 09:08 20 08/12/18 06:00 96.5 94 08/07/18 23:09 Room Air I&O- Last 24 Hours up to 6 AM 08/12/18 06:00 Intake Total 1060 ml Output Total 1150 ml Balance -90 ml GME ATTESTATION GME ATTESTATION My faculty preceptor for this patient encounter was physically present during the encounter and was fully available. All aspects of the patient interview, examination, medical decision making process, and medical care plan development were reviewed and approved by the faculty preceptor. The faculty preceptor is aware and concurs with the plan as stated in the body of this note and will attest to such by his/her cosignature. YANELI GUTIERREZ DO Aug 12, 2018 10:30
[2018-08-12] MEDS: PATIROMER SORBITEX CALCIUM 8.4 GM POWDER PACKET (VELTASSA) PO SCH (12:26)
[2018-08-12 14:00] VITALS: BP 97/45
--- NOTE | 2018-08-12 15:02 | IPN ---
DATE: 08/12/2018 Mrs. Paniagua is seen this morning on her bedside. She has a complaint of pain in her left flank area. She has known history of hydronephrosis and has a stent in her left kidney. She has gross hematuria which persisted. She remains on IV heparin drip due to recurrent transient ischemic attacks (TIAs) as her anticoagulation and antiplatelet therapy is on hold at present due to need for a procedure. She needs to have a nephrostomy tube placed in the left kidney and removal of her stent which is most likely the cause of her hematuria. PHYSICAL EXAMINATION: Temperature 96.5 degrees Fahrenheit, heart rate 70 per minute and respiratory rate 20 per minute. Blood pressure 124/57 mmHg and oxygen saturation 94%. Head is atraumatic. Neck is supple and jugular venous distention (JVD) is mildly elevated. Heart sounds are irregular. Lungs with few basilar crackles. Abdomen is soft and nontender. Bowel sounds are present. Extremities have no cyanosis or clubbing. She has tenderness in her left flank area. Neurologically. she is awake and at her baseline mentation. LABORATORY DATA: Today's laboratories show WBC count 8.1, hemoglobin 7.5 and hematocrit 23.9. Platelets 228. Sodium 138, potassium 5.4, CO2 23, BUN 60 and creatinine 3.3. Calcium level is 8.4. PROBLEMS: 1. Acute renal failure superimposed on chronic kidney disease. She has slight improvement in her kidney function since yesterday and we will continue to monitor closely. She does not seem to have any uremic symptoms. She has left hydronephrosis which is most likely the cause of her worsening kidney function at this point. She is going to have a nephrostomy tube placed early next week and then urology will remove her ureteral stent. 2. Hyperkalemia. Slight improvement since yesterday. She received a dose of Veltassa 16.8 grams yesterday and we are going to give her Veltassa 8.4 grams daily starting today. 3. Left hydronephrosis with likely blocked ureteral stent. The patient is going to have a nephrostomy tube placed next week and then her ureteral stent will be removed. She was on anticoagulation and antiplatelet therapy due to recurrent transient ischemic attacks (TIAs) which has been on hold now for a few days. 4. Acute blood loss anemia related to her gross hematuria for a few days. I am concerned about the possibility of blood clots in her bladder. She will have a cystoscopy next week for ureteral stent removal and we will see if she has any blood clots. In any event, at this point, she should be transfused at least two units of packed red blood cells (RBCs) today and then continue monitoring her complete blood count (CBC) on a daily basis.
--- NOTE | 2018-08-12 16:55 | REP ---
MODIFIED BARIUM SWALLOW: 08/12/2018. Clinical history: Difficulty swallowing. Findings: Examination was conducted with Nilda Heath of the speech pathology department. The exam began with thin liquid and concluded with different solid consistencies. The patient is edentulous. Bolus formation was more prolonged with a solid foods but eventually the bolus transfer accomplished without laryngeal penetration or aspiration. Minimal pooling cleared with secondary swallow. Please see speech pathology report for full assessment and recommendations. Fluoroscopy time: 1.9 minutes. Electronically Signed by Wilder Madrigal MD 08/12/2018 07:55 P
[2018-08-12] MEDS: SODIUM CHLORIDE 0.9% INJ 10 ML SYR IV SCH (17:13)
[2018-08-12] MEDS: ERTAPENEM SODIUM 0.5 GM in NS 50 ML IV SCH (17:14)
[2018-08-12] MEDS: ALBUTEROL 90 MCG/ACT 8GM HFA INHALER INH PRN (17:28)
[2018-08-12 18:57] LABS: HEMATOCRIT 28.3 % (36.0-47.0); HEMOGLOBIN 8.8 g/dl (12.0-15.5)
[2018-08-12] MEDS: HEPARIN SOD (PORCINE) 5000 UNITS/ML VIAL IV PRN (20:00)
[2018-08-12] MEDS: ROSUVASTATIN 10 MG TAB (CRESTOR) PO SCH (21:10)
[2018-08-12 22:00] VITALS: BP 137/63
[2018-08-13] MEDS: ONDANSETRON 4MG/2ML VIAL (J2405) IV SCH ×4 (00:10→18:01)
[2018-08-13] MEDS: SODIUM CHLORIDE 0.9% INJ 10 ML SYR IV SCH ×2 (02:07→18:01)
[2018-08-13 06:00] VITALS: BP 140/65
[2018-08-13] MEDS: PROPAFENONE 150 MG TAB PO SCH ×3 (06:15→22:04)
[2018-08-13] MEDS: LEVOTHYROXINE PO SCH (06:15)
[2018-08-13 06:31] LABS: HEMATOCRIT 27.3 % (36.0-47.0); HEMOGLOBIN 8.6 g/dl (12.0-15.5); MEAN CORPUSCULAR HEMOGLOBIN 29.8 pg (27.0-33.0); MEAN CORPUSCULAR HGB CONC 31.5 g/dl (32.0-36.5); MEAN CORPUSCULAR VOLUME 94.5 fl (80.0-96.0); PLATELET COUNT, AUTOMATED 226 10^3/uL (150-450); RED BLOOD COUNT 2.89 10^6/uL (4.00-5.40); WHITE BLOOD COUNT 10.1 10^3/uL (4.0-10.0)
[2018-08-13 07:02] LABS: CALCIUM LEVEL 8.4 MG/DL (8.8-10.2); CREATININE FOR GFR 3.31 MG/DL (0.55-1.30); MAGNESIUM LEVEL 2.2 MG/DL (1.8-2.4); POTASSIUM SERUM 5.5 MEQ/L (3.5-5.1)
[2018-08-13 08:41] VITALS: BP 140/59
[2018-08-13] MEDS: PERCOCET 5MG/325MG TAB PO PRN ×2 (09:30→15:43)
[2018-08-13] MEDS: VITAMIN D 1,000 INTERNATIONAL UNITS TABLET PO SCH (09:38)
[2018-08-13] MEDS: ESCITALOPRAM OXALATE 10 MG TAB (LEXAPRO) PO SCH (09:38)
[2018-08-13] MEDS: PANTOPRAZOLE 40MG TAB (PROTONIX) PO SCH (09:38)
--- NOTE | 2018-08-13 09:45 | IPNPDOC ---
Text Note Date of Service The patient was seen on 08/13/18. NOTE S: Patient examined at bedside. Is s/p 1 unit blood transfusion yesterday, to lerated well. H&H stable as of this morning. Awaiting nephrostomy tube scheduled for 08/15/2018. No other complaints or issues overnight. PE: General: Alert and cooperative, A&O 3 Eye exam: PERRLA, EOMI, anicteric sclera HEENT: Atraumatic, normocephalic, mucous membranes moist Cardiac: irregular rhythm, rate is controlled-hx of Afib, normal S1 & S2, no murmurs Respiratory: CTAB, mild rhonchi, no wheezing or rales Abdomen: obese, soft, ND normoactive bowel sounds. Tender to deep palpation on l eft flank Extremity: 2+ radial pulses, no edema, clubbing, cyanosis, or tenderness Skin: [place], warm, dry, no visible rash or lesions, no jaundice Neuro: no focal deficits. Has normal tone and equal dividend deposit entry clerk strength b/l : Griffiths in place with dark red-brown output A/P: 80-year-old female with history of TIAs and bilateral carotid endarterectomy, presented for acute onset of expressive aphasia, confusion, left-sided paresthesias, found to also have HUYEN and hematuria. Gross Hematuria -Persists to this am. H&H responded well to 1 unit PRBC transfused yesterday. Up to 8.6 this a.m. Transfuse as needed to maintain Hgb > 8. -Pt regularly undergoes left ureteral stent exchange [id number] for stricture, and was initially due 08/28/18, but concern for possible stent occlusion vs dislodgement vs trauma. -I spoke with interventional radiology yesterday, who will move her up on the schedule from Wednesday previously, now to Wednesday, 08/15 at 11:30am for her nephrostomy tube. They will require heparin drip to be held 4 hours prior to procedure, and nothing by mouth after midnight into Wednesday morning. Patient updated about plans - Trend daily H&H and continue on Heparin drip in lieu of Eliquis and Plavix as we await nephrostomy tube placement on Wednesday. Per urology, Dr. Loza plans on stent removal afterwards HUYEN on CKD III -Not much improvement over the past few days. Creatinine remains around 3.3. Baseline is 0.8-0.9. Likely multifactorial: UTI vs hydronephrosis vs pre/intra- renal -Continue withholding nephrotoxins. No longer on IVF per Nephro. Monitor fluid status, given hx of CHF. -Still making adequate urine. Monitor Griffiths o/p TIA -left-sided deficits resolved. Per Neuro recs: long-term continuation on Plavix & Eliquis. Initial deficits likely 2/2 noncompliance to Plavix prior to admission -will continue holding both, as pt is temporarily on heparin drip due to hematuria and possible procedure. Once medically improved and nearing discharge, plan to resume. Patient has been educated on risks and benefits of continuing anticoagulation, and alternative options discussed. Patient is agreeable to continuing on anticoagulation with close monitoring of blood levels. -s/p multiple TIAs & b/l carotid endarterectomy in 04/2018. Monitor -Synthroid and statin have been adjusted -Continue PT/OT as tolerated UTI -Urine culture +ESBL Escherichia coli -Continue ertapenem, on antibiotics since 08/07. Continue for 2 weeks Hyperkalemia -likely 2/2 HUYEN. Valtessa per Nephro HTN -home regimen on hold given HUYEN. Diltiazem dose adjusted per nephro. Tolerating well IDDM2-ISS, consistent carb HLD-switched to Crestor. Ezetamibe discontinued by nephro CAD-S/P CABG. On ASA-on hold, & statin Hypothyroidism-continue Synthroid-dose adjusted A. fib-chronically on Eliquis-on hold, Diltiazem, Propafenone Systolic CHF-Lasix and lisinopril on hold given HUYEN. Monitor fluid status Depression-stable on lexapro GERD-po Protonix DVT prophylaxis: heparin ggt Disposition: Pending clinical improvement & nephrostomy tube 08/15. VS,Fishbone, I+O VS, Fishbone, I+O Laboratory Tests 08/12/18 18:40 08/13/18 06:19 Red Blood Count 2.89 L, Mean Corpuscular Volume 94.5, Mean Corpuscular Hemoglobin 29.8, Mean Corpuscular Hemoglobin Concent 31.5 L, Red Cell Distribution Width 14.6 H, Calcium Level 8.4 L Vital Signs Date Time Temp Pulse Resp B/P (MAP) Pulse Ox O2 Delivery O2 Flow Rate FiO2 2/23/19 09:30 20 08/13/18 08:41 96.9 75 140/59 (86) 96 08/07/18 23:09 Room Air l I&O- Last 24 Hours up to 6 AM 08/13/18 06:00 Intake Total 962 ml Output Total 1000 ml Balance -38 ml GME ATTESTATION GME ATTESTATION My faculty preceptor for this patient encounter was physically present during the encounter and was fully available. All aspects of the patient interview, examination, medical decision making process, and medical care plan development were reviewed and approved by the faculty preceptor. The faculty preceptor is aware and concurs with the plan as stated in the body of this note and will atte st to such by his/her cosignature. YANELI GUTIERREZ DO Aug 13, 2018 09:45
[2018-08-13] MEDS ORDERED: PATIROMER SORBITEX CALCIUM 8.4 GM POWDER PACKET (VELTASSA) PO ONE (12:00)
[2018-08-13] MEDS: NYSTATIN 100,000 UNITS/GM TOPICAL PWD 15 GM TOP PRN (13:21)
[2018-08-13] MEDS: PATIROMER SORBITEX CALCIUM 8.4 GM POWDER PACKET (VELTASSA) PO SCH (13:22)
[2018-08-13 14:30] VITALS: BP 105/66
[2018-08-13] MEDS: ERTAPENEM SODIUM 0.5 GM in NS 50 ML IV SCH (15:43)
[2018-08-13] MEDS: HEPARIN DRIP 25,000 UNITS in APPROPRIATE DILUENT 1 EA IV SCH (16:44)
[2018-08-13] MEDS: HEPARIN SOD (PORCINE) 5000 UNITS/ML VIAL IV PRN (20:13)
[2018-08-13] MEDS: ROSUVASTATIN 10 MG TAB (CRESTOR) PO SCH (20:22)
[2018-08-13 22:00] VITALS: BP 130/60
--- NOTE | 2018-08-13 22:57 | IPN ---
DATE: 08/13/2018 Ms. Paniagua is seen this morning on her bedside. There is complaint of throbbing pain in her left kidney. She denies any fever or chills but does feel nauseated. She has been receiving Percocet for pain control. She is scheduled for a nephrostomy tube placement on Wednesday and her anticoagulation has been switched to intravenous heparin drip. She also has a left ureteral stent in place and urology plans to remove that once a nephrostomy tube is placed. The patient has advanced renal disease with worsening kidney function which is felt to be related to obstructive uropathy caused by left ureteral stent. She has gross hematuria which is felt to be related to also ureteral stent. She has been transfused due to worsening anemia. PHYSICAL EXAMINATION: VITAL SIGNS: Temperature 96.9 degrees Fahrenheit, heart rate 76 per minute and respiratory rate 20 per minute. Blood pressure 140/59 mmHg and oxygen saturation 96%. HEENT: Head is atraumatic. Neck is supple and jugular venous distention (JVD) is mildly elevated. HEART: Sounds are irregular. LUNGS: Lungs with slightly diminished breath sounds at bases. She has bibasilar crackles. ABDOMEN: Soft and tender in the left flank area. Bowel sounds are normal. EXTREMITIES: Extremities have no cyanosis or clubbing. NEUROLOGICAL: Neurologically she is awake, alert and at her baseline mentation. LABORATORIES: Today's laboratories show white blood cell (WBC) count 10.1, hemoglobin 8.6 and hematocrit 27.3. Platelets 226. Sodium 141, potassium 5.5, CO2 of 22, BUN 67 and creatinine 3.31. Calcium level is 8.4. PROBLEMS: 1. Acute renal failure superimposed on chronic kidney disease most likely related to obstructive uropathy and is likely to improve with left nephrostomy placement. She is scheduled for nephrostomy on Wednesday. At this point she does not have any overt uremic symptoms and we are going to watch her until the nephrostomy tube is placed. I have explained to the patient and her family that if her kidney function does not improve after nephrostomy placement then she is likely to require dialysis. The dialysis issue will be discussed further next week if needed. 2. Hyperkalemia. She has persistent hyperkalemia despite a daily dose of Veltassa and today we are going to give her double dose with 16.8 grams Veltassa by mouth. Electrolytes will be checked again tomorrow. 3. Acute blood loss anemia. She has gross hematuria which continues and she has a Griffiths catheter in place. We feel that her gross hematuria is related to ureteral stent. Urology is planning to remove the stent after she had a nephrostomy tube placed. She remains on intravenous (IV) heparin drip due to recurrent transient ischemic attacks (TIAs). Her antiplatelet and anticoagulation therapy is currently on hold.
[2018-08-14] MEDS: SODIUM CHLORIDE 0.9% INJ 10 ML SYR IV PRN ×2 (00:35→23:16)
[2018-08-14] MEDS: ONDANSETRON 4MG/2ML VIAL (J2405) IV SCH ×2 (00:35→06:23)
[2018-08-14] MEDS: PERCOCET 5MG/325MG TAB PO PRN ×3 (00:36→18:59)
[2018-08-14 06:00] VITALS: BP 119/55
[2018-08-14 06:22] LABS: HEMATOCRIT 25.8 % (36.0-47.0); MEAN CORPUSCULAR HEMOGLOBIN 29.7 pg (27.0-33.0); MEAN CORPUSCULAR VOLUME 95.9 fl (80.0-96.0); PLATELET COUNT, AUTOMATED 228 10^3/uL (150-450); RED BLOOD COUNT 2.69 10^6/uL (4.00-5.40); WHITE BLOOD COUNT 9.3 10^3/uL (4.0-10.0)
[2018-08-14] MEDS: PROPAFENONE 150 MG TAB PO SCH ×3 (06:23→21:22)
[2018-08-14] MEDS: SODIUM CHLORIDE 0.9% INJ 10 ML SYR IV SCH ×2 (06:23→18:58)
[2018-08-14] MEDS: LEVOTHYROXINE PO SCH (06:30)
[2018-08-14 06:35] LABS: CALCIUM LEVEL 8.3 MG/DL (8.8-10.2); CREATININE FOR GFR 3.35 MG/DL (0.55-1.30); GLOMERULAR FILTRATION RATE 13.8 (>32); MAGNESIUM LEVEL 2.2 MG/DL (1.8-2.4); POTASSIUM SERUM 5.3 MEQ/L (3.5-5.1)
[2018-08-14] MEDS: ESCITALOPRAM OXALATE 10 MG TAB (LEXAPRO) PO SCH (10:33)
[2018-08-14] MEDS: ONDANSETRON 4MG/2ML VIAL (J2405) IV PRN ×2 (10:33→23:15)
[2018-08-14] MEDS: PANTOPRAZOLE 40MG TAB (PROTONIX) PO SCH (10:33)
[2018-08-14] MEDS: VITAMIN D 1,000 INTERNATIONAL UNITS TABLET PO SCH (10:33)
--- NOTE | 2018-08-14 11:02 | IPNPDOC ---
Subjective Date Seen The patient was seen on 08/14/18. Subjective Chief Complaint/HPI Patient seen and examined at bedside. She reports that her nausea has improved overall over the last several days. She tells me that she was able to tolerate some diet yesterday. However, she continues to have left-sided flank pain where her left ureteral stent is. She is tentatively scheduled for a nephrostomy tube placement tomorrow with IR. Otherwise, no acute overnight events noted. Objective Physical Examination General Exam: Positive: Alert, Cooperative, No Acute Distress ENT Exam: Positive: Atraumatic, Mucous membr. moist/pink Neck Exam: Negative: JVD Chest Exam: Positive: Diminished Heart Exam: Positive: Rate Normal, Normal S1, Normal S2 Abdomen Exam: Positive: Soft; Negative: Tenderness Extremity Exam: Negative: Tenderness Psych Exam: Positive: Oriented x 3 Assessment /Plan Plan/VTE VTE Prophylaxis Ordered?: Yes VTE Exclusion Mechanical Proph: N/A:VTE Prophy Ordered Plan/Urinary Catheter Urinary Catheter: Other Catheter: (continue catheter to monitor UOP) Plan Gross Hematuria possibly 2/2 Left Ureteral Stent Patient scheduled for Nephrostomy tomorrow with IR, and will subsequently have her Left Ureteral Stent removed thereafter as per Urology We will D/C Heparin gtt tomorrow morning, and keep the patient NPO After Midnight We will monitor H&H and transfuse the patient for a Hgb <8.0 HUYEN on CKD III Serum Creatinine remains around 3.3. Baseline is 0.8-0.9. Likely multifactorial: UTI vs hydronephrosis from left ureteral stent We will continue withholding nephrotoxins. Cont to monitor I/O's Nephro on board--patient may require dialysis in the future if her renal function does not improve following nephrostomy placement TIA Left-sided deficits resolved. Appreciate Neuro input; long-term continuation on Plavix & Eliquis. Initial deficits possibly 2/2 noncompliance to Plavix prior to admission Patient on Heparin gtt for now given the need for Nephrostomy placement Risks, benefits, and alternative options regarding withholding Eliquis and Plavix discussed at length with the patient and her daughters at the bedside. They verbalized understanding of the same and agree with the plan moving forward. Hx of B/L Carotid Stenosis s/p b/l carotid endarterectomy in 04/2018 Hypothyroidism Synthroid Dyslipidemia Cont Statin UTI Urine culture +ESBL Escherichia coli Continue ertapenem for now Hyperkalemia likely 2/2 Acute Renal Failure Valtessa per Nephro HTN Cont Current Regimen IDDM2 consistent carb diet CAD-S/P CABG. Plavix on hold, Cont statin Hx of A. fib Cont on Diltiazem, Propafenone On Heparin gtt for AC at this time Systolic CHF, compensated Lasix and lisinopril on hold given Acute Renal Failure Depression Cont Lexapro GERD Protonix DVT prophylaxis: Heparin gtt (to be stopped at 4 am on 08/15/18 for procedure) Disposition: Pending clinical improvement & nephrostomy tube placement tomorrow. VS, I&O, 24H, Fishbone Vital Signs/I&O Vital Signs Date Time Temp Pulse Resp B/P (MAP) Pulse Ox O2 Delivery O2 Flow Rate FiO2 08/14/18 10:42 15 08/14/18 10:36 70 132/75 08/14/18 06:00 96.4 95 I&O- Last 24 Hours up to 6 AM 08/14/18 06:00 Intake Total 1697 ml Output Total 1375 ml Balance 322 ml Laboratory Data 24H LABS Laboratory Tests 2 08/13/18 17:08: Bedside Glucose (Misc Panel) 153H 08/13/18 18:02: Activated Partial Thromboplast Time 233.6*H 08/13/18 19:17: Activated Partial Thromboplast Time 54.2H 08/13/18 20:48: Bedside Glucose (Misc Panel) 164H 08/14/18 02:16: Activated Partial Thromboplast Time 144.3*H 08/14/18 05:55: Nucleated Red Blood Cells % (auto) 0.6H, Anion Gap 7L, Glomerular Filtration Rate 13.8L, Blood Urea Nitrogen 64H, Creatinine 3.35H, Sodium Level 139, Potassium Level 5.3H, Chloride Level 108H, Carbon Dioxide Level 24, Calcium Level 8.3L, Magnesium Level 2.2 08/14/18 10:14: Activated Partial Thromboplast Time 62.0H CBC/BMP Laboratory Tests 08/14/18 05:55 Red Blood Count 2.69 L, Mean Corpuscular Volume 95.9, Mean Corpuscular Hemoglobin 29.7, Mean Corpuscular Hemoglobin Concent 31.0 L, Red Cell Distribut ion Width 14.5, Calcium Level 8.3 L Microbiology Microbiology 08/07/18 Urine Culture - Final, Complete E.coli Esbl RITIKA PRESCOTT MD Aug 14, 2018 11:02
[2018-08-14] MEDS: HEPARIN SOD (PORCINE) 5000 UNITS/ML VIAL IV PRN (11:28)
[2018-08-14 11:54] LABS: HEMATOCRIT 28.8 % (36.0-47.0); HEMOGLOBIN 8.8 g/dl (12.0-15.5)
[2018-08-14] MEDS: PATIROMER SORBITEX CALCIUM 8.4 GM POWDER PACKET (VELTASSA) PO SCH (13:04)
[2018-08-14 14:00] VITALS: BP 108/55
[2018-08-14] MEDS: ERTAPENEM SODIUM 0.5 GM in NS 50 ML IV SCH (17:44)
[2018-08-14] MEDS: HEPARIN DRIP 25,000 UNITS in APPROPRIATE DILUENT 1 EA IV SCH (18:56)
[2018-08-14 19:04] LABS: INR 1.27; PROTHROMBIN TIME 16.1 SECONDS (12.1-14.4)
[2018-08-14 19:20] LABS: PARTIAL THROMBOPLASTIN TIME 124.7 SECONDS (25.4-37.6)
[2018-08-14] MEDS: ROSUVASTATIN 10 MG TAB (CRESTOR) PO SCH (21:22)
[2018-08-14 22:00] VITALS: BP 110/64
[2018-08-15] VITALS (11 sets, daily range): BP systolic 104–132; BP diastolic 51–64
[2018-08-15] MEDS: SODIUM CHLORIDE 0.9% INJ 10 ML SYR IV PRN ×2 (03:29→18:04)
[2018-08-15] MEDS: PERCOCET 5MG/325MG TAB PO PRN ×2 (03:29→22:00)
[2018-08-15] MEDS: ONDANSETRON 4MG/2ML VIAL (J2405) IV PRN (03:29)
[2018-08-15 05:56] LABS: HEMOGLOBIN 8.4 g/dl (12.0-15.5); MEAN CORPUSCULAR HEMOGLOBIN 29.8 pg (27.0-33.0); MEAN CORPUSCULAR HGB CONC 31.1 g/dl (32.0-36.5); MEAN CORPUSCULAR VOLUME 95.7 fl (80.0-96.0); PLATELET COUNT, AUTOMATED 242 10^3/uL (150-450); RED BLOOD COUNT 2.82 10^6/uL (4.00-5.40); WHITE BLOOD COUNT 14.9 10^3/uL (4.0-10.0)
[2018-08-15] MEDS: PROPAFENONE 150 MG TAB PO SCH ×3 (06:23→21:58)
[2018-08-15] MEDS: LEVOTHYROXINE PO SCH (06:23)
[2018-08-15] MEDS: SODIUM CHLORIDE 0.9% INJ 10 ML SYR IV SCH ×2 (06:24→18:03)
--- NOTE | 2018-08-15 06:40 | IPN ---
DATE OF VISIT: 08/14/2018 HISTORY OF PRESENT ILLNESS: Mrs. Paniagua is seen this morning on her bedside. She reports feeling nauseated and also has left flank pain. She just took Percocet. She denies any fever or chills. She denies any dyspnea or chest pain. PHYSICAL EXAMINATION: Vital signs: Temperature 96.4 degrees Fahrenheit, heart rate 75 minute and respiratory rate 16 per minute. Blood pressure 132/75 mmHg and oxygen saturation 95% on room air. HEENT: Atraumatic. Neck is supple and without any thyroid enlargement. Jugular venous distention (JVD) seems mildly elevated. She has no oral thrush or ulcers. Heart: Sounds are irregular in rhythm. Lungs: Lungs sound clear to auscultation. Abdomen: Soft with tenderness in the left flank area. Bowel sounds are present. Extremities: Have no cyanosis or clubbing. Neurologically: She is awake, alert and at her baseline mentation. LABORATORY DATA: Today's labs show WBC count 9.3, hemoglobin 8.0 and hematocrit 25.8. Platelets 228. Sodium 139, potassium 5.3, CO2 24, BUN 64 and creatinine 3.35. Glucose 152 and calcium 8.3. PROBLEMS: 1. Acute renal failure superimposed on chronic kidney disease. No significant change in kidney function over the last several days. We anticipate improvement in her kidney function once she has a nephrostomy tube placed in her left kidney which is scheduled for tomorrow. At present there is no emergent need for dialysis. 2. Left-sided hydronephrosis and hematuria. The patient had a left ureteral stent in place which is nonfunctioning. Urology is planning to remove the ureteral stent once she has a nephrostomy tube placed. She is scheduled for that procedure tomorrow. 3. Hyperkalemia. Slight improvement with double dose of Veltassa given yesterday. She continues with Veltassa 8.4 grams daily. Will recheck her electrolytes tomorrow morning. 4. Acute blood loss anemia. The patient had significant hematuria and worsening anemia and required a transfusion a couple of days ago. Since then she is stable and hematuria has improved significantly. At this point there is no emergent indication for a transfusion today. I have discussed with the patient and her family about the potential need for dialysis if her kidney function does not improve with left nephrostomy tube placement. It remains to be seen how she does and then we will make the final decision.
[2018-08-15 06:57] LABS: CALCIUM LEVEL 8.6 MG/DL (8.8-10.2); CREATININE FOR GFR 3.45 MG/DL (0.55-1.30); GLOMERULAR FILTRATION RATE 13.3 (>32); MAGNESIUM LEVEL 2.1 MG/DL (1.8-2.4); POTASSIUM SERUM 5.4 MEQ/L (3.5-5.1)
[2018-08-15] MEDS: ESCITALOPRAM OXALATE 10 MG TAB (LEXAPRO) PO SCH (08:57)
[2018-08-15] MEDS: VITAMIN D 1,000 INTERNATIONAL UNITS TABLET PO SCH (08:57)
[2018-08-15] MEDS: PANTOPRAZOLE 40MG TAB (PROTONIX) PO SCH (08:57)
[2018-08-15] MEDS ORDERED: cefTRIAXone SOD 1 GM VIAL (J0696) As Ordered ONE (11:13)
[2018-08-15] MEDS ORDERED: LIDOCAINE 2% MDV 20 ML VIAL As Ordered ONE (11:13)
[2018-08-15] MEDS ORDERED: ISOVUE-300 61% 50ML VIAL (Q9967) As Ordered ONE (11:14)
[2018-08-15] MEDS ORDERED: fentaNYL 100 MCG/2 ML INJECTION (J3010) As Ordered ONE (11:54)
[2018-08-15] MEDS ORDERED: MIDAZOLAM INJ 2 MG/2 ML VIAL (J2250) As Ordered ONE (11:54)
[2018-08-15] MEDS ORDERED: ONDANSETRON 4MG/2ML VIAL (J2405) IV PRN (13:30)
[2018-08-15] MEDS ORDERED: fentaNYL 100 MCG/2 ML INJECTION (J3010) IV PRN (13:30)
--- NOTE | 2018-08-15 13:37 | IPNPDOC ---
Text Note Date of Service The patient was seen on 08/15/18. NOTE S: Patient examined at bedside. Scheduled for nephrostomy tube today. No other complaints or issues overnight. Still has tenderness in left flank where stent is. Hematuria persists, but H&H stable. PE: General: Alert and cooperative, A&O 3 Eye exam: PERRLA, EOMI, anicteric sclera HEENT: Atraumatic, normocephalic, mucous membranes moist Cardiac: irregular rhythm, rate is controlled-hx of Afib, normal S1 & S2, no murmurs Respiratory: CTAB, mild rhonchi, no wheezing or rales Abdomen: obese, soft, ND normoactive bowel sounds. Tender to deep palpation on left flank Extremity: 2+ radial pulses, no edema, clubbing, cyanosis, or tenderness Skin: Kite, warm, dry, no visible rash or lesions, no jaundice Neuro: no focal deficits. 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 Gross Hematuria -Patient scheduled to get left nephrostomy tube placement today. Dr. Loza plans on left ureteral stent removal on Wednesday. Per urology, there is a bleeding risk after nephrostomy tube is placed today and recommend holding anticoagulation for 24-48 hours. Given patient's high risk of TIAs and recurrent CVA history, will plan to resume heparin drip tomorrow afternoon. Continue monitoring H&H and transfuse as needed to maintain Hgb > 8. -will resume heparin drip tomorrow afternoon, and make nothing by mouth after end of tomorrow, Wednesday 12:01am -continue withholding Eliquis and Plavix as we await nephrostomy tube & stent removal HUYEN on CKD III -Not much improvement over the past few days. Creatinine remains around 3.3. Baseline is 0.8-0.9. Likely multifactorial: UTI vs hydronephrosis 2/2 left ureteral stent -Continue withholding nephrotoxins. Monitor fluid status, given hx of CHF. -Still making adequate urine. Monitor Griffiths o/p. Nephrology following: pt may require HD long-term if renal function does not improve after nephrostomy tube placement and stent removal TIA -left-sided deficits resolved. Per Neuro recs: long-term continuation on Plavix & Eliquis. Initial deficits likely 2/2 noncompliance to Plavix prior to admission -Before meals on hold given nephrostomy tube placement today. Will resume heparin drip tomorrow afternoon given her risk of bleeding postoperatively today. Once medically improved and nearing discharge, plan to resume. Patient updated on plan and is agreeable. -Synthroid and statin have been adjusted -Continue PT/OT as tolerated Hx of B/L Carotid Stenosis s/p b/l carotid endarterectomy in 04/2018 UTI -Urine culture +ESBL Escherichia coli -Continue ertapenem, on antibiotics since 08/07. Continue for 2 weeks Hyperkalemia -likely 2/2 HUYEN. Valtessa per Nephro HTN -home regimen on hold given HUYEN. Diltiazem dose adjusted per nephro. Tolerating well IDDM2-ISS, consistent carb HLD-switched to Crestor. Ezetamibe discontinued by nephro CAD-S/P CABG. On ASA-on hold, & statin Hypothyroidism-continue Synthroid-dose adjusted A. fib-chronically on Eliquis-on hold, Diltiazem, Propafenone Systolic CHF-Lasix and lisinopril on hold given HUYEN. Monitor fluid status Depression-stable on lexapro GERD-po Protonix DVT prophylaxis: heparin ggt Disposition: Pending clinical improvement & nephrostomy tube placement today, ureteral stent removal Wednesday. VS,Fishbone, I+O VS, Fishbone, I+O Laboratory Tests 08/15/18 05:31 Red Blood Count 2.82 L, Mean Corpuscular Volume 95.7, Mean Corpuscular Hemoglobin 29.8, Mean Corpuscular Hemoglobin Concent 31.1 L, Red Cell Distribution Width 14.2, Calcium Level 8.6 L Vital Signs Date Time Temp Pulse Resp B/P (MAP) Pulse Ox O2 Delivery O2 Flow Rate FiO2 08/15/18 08:57 70 105/51 08/15/18 06:00 96.7 18 96 I&O- Last 24 Hours up to 6 AM 08/15/18 06:00 Intake Total 381 ml Output Total 1200 ml Balance -819 ml GME ATTESTATION GME ATTESTATION My faculty preceptor for this patient encounter was physically present during the encounter and was fully available. All aspects of the patient interview, examination, medical decision making process, and medical care plan development were reviewed and approved by the faculty preceptor. The faculty preceptor is aware and concurs with the plan as stated in the body of this note and will attest to such by his/her cosignature. YANELI GUTIERREZ DO Aug 15, 2018 13:37
--- NOTE | 2018-08-15 15:14 | REP ---
A percutaneous nephrostomy tube placement left kidney. History: Longstanding left ureteral obstruction with longstanding indwelling left double pigtail ureteral stent placement. Hematuria. Procedure: The patient was interviewed in the presence of four members of her family and informed consent was obtained. We are grateful to the anesthesia department for deep conscious sedation provided during the examination and procedure. The patient was placed in a prone oblique position on the angiography table. Preliminary sonography confirms the presence of minimal hydronephrosis and a pigtail stent loop in the renal pelvis. The skin was marked at the intended puncture site. The patient safety time-out was articulated and agreed upon. Utilizing 10 mL of 1% lidocaine for local anesthetic, aseptic precautions, and real time sonographic visualization, a 21 gauge Chiba needle was passed into the renal collecting system without technical difficulty. Free flow of blood tinged urine was retrieved on the first needle pass. A guidewire was passed and coiled within the renal collecting system. Contrast was injected showing no evidence of extravasation. A 10-[place]ian multi side-hole string fixed pigtail catheter was passed over a guidewire uneventfully into the renal pelvis. The catheter was irrigated with saline and contrast was injected showing good position again without extravasation. 2.0 minutes of fluoroscopy time was utilized. A silk suture was utilized to affix the catheter at the skin. The catheter was connected to a gravity drainage bag. The patient tolerated the procedure well. Impression: 10-[place]ian multi side-hole string fixed pigtail catheter placed in the renal collecting system of the left kidney. Electronically Signed by Anthony Pena MD 08/15/2018 03:49 P
[2018-08-15] MEDS: PATIROMER SORBITEX CALCIUM 8.4 GM POWDER PACKET (VELTASSA) PO SCH (15:37)
[2018-08-15] MEDS: ERTAPENEM SODIUM 0.5 GM in NS 50 ML IV SCH (17:03)
[2018-08-15] MEDS: ROSUVASTATIN 10 MG TAB (CRESTOR) PO SCH (21:58)
[2018-08-16 02:00] VITALS: BP 121/73
[2018-08-16 05:38] LABS: HEMATOCRIT 25.3 % (36.0-47.0); HEMOGLOBIN 7.8 g/dl (12.0-15.5); MEAN CORPUSCULAR HEMOGLOBIN 29.5 pg (27.0-33.0); MEAN CORPUSCULAR HGB CONC 30.8 g/dl (32.0-36.5); MEAN CORPUSCULAR VOLUME 95.8 fl (80.0-96.0); PLATELET COUNT, AUTOMATED 223 10^3/uL (150-450); RED BLOOD COUNT 2.64 10^6/uL (4.00-5.40); WHITE BLOOD COUNT 9.7 10^3/uL (4.0-10.0)
[2018-08-16 06:00] LABS: CALCIUM LEVEL 8.8 MG/DL (8.8-10.2); CREATININE FOR GFR 3.28 MG/DL (0.55-1.30); GLOMERULAR FILTRATION RATE 14.1 (>32); POTASSIUM SERUM 5.3 MEQ/L (3.5-5.1)
[2018-08-16] MEDS: LEVOTHYROXINE PO SCH (06:04)
[2018-08-16] MEDS: PROPAFENONE 150 MG TAB PO SCH ×3 (06:04→22:38)
[2018-08-16] MEDS: SODIUM CHLORIDE 0.9% INJ 10 ML SYR IV SCH ×2 (06:05→19:49)
[2018-08-16] MEDS: PERCOCET 5MG/325MG TAB PO PRN ×2 (06:07→22:39)
--- NOTE | 2018-08-16 06:51 | IPN ---
DATE OF VISIT: 08/15/2018 SUBJECTIVE: The patient was seen and examined at the bedside this morning in interventional radiology. She was getting ready to go for a percutaneous nephrostomy tube placement. She is oriented times two. She was able to answer a few questions. The patient is still in renal failure. No signs of improvement of the renal function at this point. She is otherwise afebrile and hemodynamically stable. OBJECTIVE: VITAL SIGNS: Temperature 96.7 degrees Fahrenheit, blood pressure 105/51, pulse 70, respiratory rate 18, saturating 96% on room air. Intake and output: Urine output recorded 1200 mL yesterday, 675 mL so far today since overnight. Weight in the bed scale is not available today. PHYSICAL EXAMINATION: GENERAL: The patient is awake, alert and oriented times two. She is laying in bed in no apparent distress. HEAD/NECK EXAM: Extraocular muscles intact. Moist mucous membranes. Neck is supple. There is no jugular venous distention (JVD). CARDIOVASCULAR: SA1, S2. Regular rate. Midline sternotomy scar is visible. A left sided pacemaker is also visible. RESPIRATORY: Mildly decreased breath sounds at the bases. No active rales or rhonchi. ABDOMEN: Obese, old surgical scars are visible in the suprapubic region. No organomegaly was noted. GENITOURINARY: The patient has an indwelling Griffiths catheter. The urine in the bag is very dark in color. MUSCULOSKELETAL: No clubbing or cyanosis. Pulses are 2+. MANAGER BUSINESS PROCESS: The patient is oriented times two and she follows a few commands. F LABORATORY REVIEW: CBC shows WBC 14.9, hemoglobin 8.4, platelets 242. Basic metabolic panel (BMP) shows sodium 138, potassium 5.4, chloride 107, bicarbonate 22, BUN 63, creatinine 3.4, calcium 8.6, magnesium 2.1. Microbiology: Left sided nephrostomy tube culture is pending. CURRENT INPATIENT MEDICATIONS: The patient's medications were all reviewed by me. She continues to be on intravenous Invanz. No other change in her medications today as compared with yesterday. ASSESSMENT AND PLAN: 1. Acute renal failure superimposed on chronic kidney disease. The patient is known oliguric; however, there is no significant improvement in the renal function. Creatinine has been fluctuating at 3.3 - 3.4. The patient is going for a left sided percutaneous nephrostomy tube placement. Continue to monitor renal function. No urgent need of renal replacement therapy at this point. 2. Left sided hydronephrosis and hematuria. Left sided ureteral stent is not functioning at this point. The patient is going to have a left sided percutaneous nephrostomy tube placement today. The rest of the plan for left sided ureteral stent exchange is as per the urology service. 3. Hyperkalemia. The patient has persistent hyperkalemia in the setting of renal failure. She continues to get Veltassa 8.34 grams by mouth daily. 4. Blood loss anemia. The patient is status post one unit of packed red blood cell (PRBC) transfusion. Hemoglobin is 8.4 which is optimal at this point. 5. Extended spectrum beta lactamases (ESBL) Escherichia (E) coli urinary tract infection. She is currently getting Invanz. E coli is sensitive to Invanz. The dose is adequate for her renal failure. .
[2018-08-16] MEDS: ESCITALOPRAM OXALATE 10 MG TAB (LEXAPRO) PO SCH (09:24)
[2018-08-16] MEDS: VITAMIN D 1,000 INTERNATIONAL UNITS TABLET PO SCH (09:24)
[2018-08-16] MEDS: PANTOPRAZOLE 40MG TAB (PROTONIX) PO SCH (09:25)
[2018-08-16] MEDS: PATIROMER SORBITEX CALCIUM 8.4 GM POWDER PACKET (VELTASSA) PO SCH (13:00)
[2018-08-16 14:00] VITALS: BP 132/69
--- NOTE | 2018-08-16 17:16 | IPNPDOC ---
Assessment/Plan Date Seen The patient was seen on 08/16/18. Patient Summary This is an 88 y/o F admitted for a CVA, HUYEN, and an ESBL E coli UTI. A left neph tube was placed yesterday. Her Cr today is 3.3 from 3.5 yesterday. Her Hb came down to 7.8 from 8.4 and for that she was receiving 1u PRBC. Her heparin drip was resumed this morning. Given the amount of hematuria from her left neph tube and her bowers, I recommended putting it back on hold at least until after I remove her stent tomorrow. Plan/VTE VTE Prophylaxis Ordered?: Yes VTE Exclusion Mechanical Proph: N/A:VTE Prophy Ordered Plan/Urinary Catheter Urinary Catheter: Other Catheter: (continue catheter to monitor UOP) Plan - monitor output from the neph tube and the bowers - recommend holding anticoagulation and plavix for now - will plan on removing her stent tomorrow in the OR w/ the hope that this will lessen her hematuria - if she continues to have significant hematuria despite this we would have to consider either holding anticoagulation/antiplatelet therapy longer (which would increase her risk of another stroke) versus embolization of the left kidney (which given her current renal function might put her on dialysis) - please keep patient NPO at midnight for stent removal tomorrow - will obtain consent from her daughter tomorrow Subjective Review oF Systems Chief Complaint The patient is a 88-year-old female admitted with a reason for visit of Stroke,Uti, Retained Ureteral Stent. Events since Last Encounter Patient got her left neph tube placed yesterday. She seemed a little confused this morning but had not complaints about the neph tube. Objective Physical Examination General Exam: No Acute Distress Chest Exam: Normal air movement Heart Exam: Positive: Rate Normal, Normal S1, Normal S2 Neuro Exam: Normal Speech Other physical findings left neph tube draining dark red urine; bowers catheter draining dark red urine Vital Signs/I&O Vital Signs Date Time Temp Pulse Resp B/P (MAP) Pulse Ox O2 Delivery O2 Flow Rate FiO2 08/16/18 14:00 95.9 71 15 132/69 (90) 94 08/15/18 13:45 2 I&O- Last 24 Hours up to 6 AM 08/16/18 06:00 Intake Total 780 ml Output Total 1475 ml Balance -695 ml Laboratory Data Labs 24H Laboratory Tests 2 08/15/18 20:22: Bedside Glucose (Misc Panel) 169H 08/16/18 05:14: Nucleated Red Blood Cells % (auto) 0.5H, Anion Gap 4L, Glomerular Filtration Rate 14.1L, Blood Urea Nitrogen 60H, Creatinine 3.28H, Sodium Level 139, Potassium Level 5.3H, Chloride Level 110H, Carbon Dioxide Level 25, Calcium Level 8.8 08/16/18 11:28: Bedside Glucose (Misc Panel) 158H 08/16/18 16:48: Bedside Glucose (Misc Panel) 170H CBC/BMP Laboratory Tests 08/16/18 05:14 Red Blood Count 2.64 L, Mean Corpuscular Volume 95.8, Mean Corpuscular Hemoglobin 29.5, Mean Corpuscular Hemoglobin Concent 30.8 L, Red Cell Distribution Width 15.1 H, Calcium Level 8.8 FSBS Laboratory Tests Test 08/15/18 20:22 08/16/18 11:28 08/16/18 16:48 Range/Units Bedside Glucose (Misc Panel) 169 158 170 83-110 MG/DL Microbiology Microbiology 08/15/18 Anaerobic Culture, Received Pending 08/07/18 Urine Culture - Final, Complete E.coli Esbl 08/15/18 Gram Stain - Final, Resulted 08/15/18 Body Fluid Culture, Resulted Pending MCKINLEY PANCHAL MD Aug 16, 2018 17:16
[2018-08-16] MEDS: ERTAPENEM SODIUM 0.5 GM in NS 50 ML IV SCH (17:20)
--- NOTE | 2018-08-16 17:41 | IPNPDOC ---
Text Note Date of Service The patient was seen on 08/16/18. NOTE S: Patient examined at bedside. Is s/p left nephrostomy tube yesterday. Uyen ated well and states pain is well-controlled at time of exam. Noted to have mild drop in Hgb this am below 8. Hematuria persists. No other complaints or issues overnight. Is scheduled to undergo left ureteral stent removal tomorrow. PE: General: Alert and cooperative, A&O 3 Eye exam: PERRLA, EOMI, anicteric sclera HEENT: Atraumatic, normocephalic, mucous membranes moist Cardiac: regular rhythm, rate is controlled-hx of PAFib, normal S1 & S2, no murmurs Respiratory: CTAB, mild rhonchi, no wheezing or rales Abdomen: obese, soft, ND normoactive bowel sounds. Left nephrostomy tube in place with clean dry bandages Extremity: 2+ radial pulses, no edema, clubbing, cyanosis, or tenderness Skin: [place], warm, dry, no visible rash or lesions, no jaundice Neuro: no focal deficits. Has normal tone and equal silk top hat body maker strength b/l : Griffiths in place with dark red bloody output A/P: 80-year-old female with history of TIAs and bilateral carotid endarterectomy, presented for acute onset of expressive aphasia, confusion, left-sided paresthesias, found to also have HUYEN and hematuria. Gross Hematuria --continues this morning, possible bleeding sites are from nephrostomy tube vs ureteral stent vs UTI. --S/P left nephrostomy tube placement yesterday. Hemoglobin 7.8 today, patient to receive 1U PRBC and will recheck H&H after. Transfuse as needed to maintain Hgb > 8. --Patient is scheduled to undergo left ureteral stent removal tomorrow with Dr. Loza. Per urology, continue holding her anticoagulation, especially given her drop in H&H and risk of further bleeding with the procedures. This was discussed with neurology, given her high risk of recurrent TIAs: rec to follow as per urology and resume Plavix and Eliquis when tolerable. Increased risk of stroke discussed with patient, plan of care shared and all questions answered. Patient agreeable to plan. Currently, will continue holding anticoagulation pending stent removal tomorrow, and reassess bleeding and H&H after procedure. --Patient is to be nothing by mouth at midnight tonight UTI -Urine culture +ESBL Escherichia coli -Continue ertapenem, on antibiotics since 08/07. Continue for 2 weeks HUYEN on CKD III -No improvement. Creatinine remains around 3.3. Baseline is 0.8-0.9. Likely multifactorial: UTI vs hydronephrosis 2/2 left ureteral stent -Continue withholding nephrotoxins. Monitor fluid status, given hx of CHF. -Still making adequate urine. Monitor Griffiths o/p. Nephrology following: pt may require HD long-term if renal function does not improve after nephrostomy tube placement and stent removal TIA -left-sided deficits resolved. Per Neuro recs: long-term continuation on Plavix & Eliquis. Initial deficits likely 2/2 noncompliance to Plavix prior to admission -will resume AC after stent removal tomorrow. See plan above -Continue PT/OT as tolerated Hx of B/L Carotid Stenosis s/p b/l carotid endarterectomy in 04/2018 Hyperkalemia -likely 2/2 HUYEN. Valtessa per Nephro HTN -well-controlled Diltiazem IDDM2-ISS, consistent carb HLD-switched to Crestor. Ezetamibe discontinued by nephro CAD-S/P CABG. On ASA-on hold, & statin Hypothyroidism-continue Synthroid-dose adjusted Paroxysmal A. fib-chronically on Eliquis-on hold, Diltiazem, Propafenone Systolic CHF-Lasix and lisinopril on hold given HUYEN. Monitor fluid status Depression-stable on lexapro GERD-po Protonix DVT prophylaxis: AC on hold given acute bleed Disposition: Pending clinical improvement & ureteral stent removal tomorrow/ VS,Fishbone, I+O VS, Fishbone, I+O Laboratory Tests 08/16/18 05:14 Red Blood Count 2.64 L, Mean Corpuscular Volume 95.8, Mean Corpuscular Hemoglo bin 29.5, Mean Corpuscular Hemoglobin Concent 30.8 L, Red Cell Distribution Width 15.1 H, Calcium Level 8.8 Vital Signs Date Time Temp Pulse Resp B/P (MAP) Pulse Ox O2 Delivery O2 Flow Rate FiO2 08/16/18 14:00 95.9 71 15 132/69 (90) 94 08/15/18 13:45 2 I&O- Last 24 Hours up to 6 AM 08/16/18 06:00 Intake Total 780 ml Output Total 1475 ml Balance -695 ml GME ATTESTATION GME ATTESTATION My faculty preceptor for this patient encounter was physically present during the encounter and was fully available. All aspects of the patient interview, examination, medical decision making process, and medical care plan development were reviewed and approved by the faculty preceptor. The faculty preceptor is aware and concurs with the plan as stated in the body of this note and will attest to such by his/her cosignature. YANELI GUTIERREZ DO Aug 16, 2018 17:41
[2018-08-16 17:44] LABS: HEMOGLOBIN 9.5 g/dl (12.0-15.5)
[2018-08-16 22:00] VITALS: BP 101/58
[2018-08-16] MEDS: ROSUVASTATIN 10 MG TAB (CRESTOR) PO SCH (22:38)
[2018-08-16] MEDS: NYSTATIN 100,000 UNITS/GM TOPICAL PWD 15 GM TOP PRN (22:40)
--- NOTE | 2018-08-16 23:51 | IPN ---
DATE: 08/16/2018 SUBJECTIVE: The patient was seen and examined at the bedside today, morning. The patient was awake and alert. She is hemodynamically stable. There is a drop in her hemoglobin, which is down to 7.8 today. Leukocytosis is better today. She got left-sided percutaneous nephrostomy placed yesterday. She still has significant hematuria. There is slight improvement in the renal function. Creatinine is down to 3.2 today. OBJECTIVE: VITAL SIGNS: Temperature is 98.1 degrees Fahrenheit, blood pressure 121/73, pulse is 72, respiratory rate of 15, saturating 96% on room air. INTAKE/OUTPUT: Urine output recorded as 1.1 liters yesterday, 600 mL so far today since overnight. Weight on the bed scale is not available. PHYSICAL EXAMINATION: GENERAL: The patient is awake, alert, oriented times two, laying in bed, in no apparent distress. HEAD AND NECK EXAM: Extraocular muscles intact. Pupils equally round and reactive to light. Mucous membranes are moist. Neck is supple. There is no jugular venous distention (JVD). CARDIOVASCULAR: S1, S2, regular rate. A midline sternotomy scar is visible. Left-sided pacemaker is also noted. RESPIRATORY: Mildly decreased breath sounds at the bases, otherwise no active rales or rhonchi. ABDOMEN: Abdomen is soft, obese, positive bowel sounds. Old surgical scars are visible. GENITOURINARY: She has indwelling Griffiths catheter. Urine in the bag is red in color because of hematuria. MUSCULOSKELETAL: No clubbing or cyanosis. Pulses are 2+. CENTRAL NERVOUS SYSTEM (GYM INSTRUCTOR): Patient is oriented times two. She follows commands and moves her extremities. LAB REVIEW: CBC showed a WBC of 9.7, hemoglobin is 7.8, platelets are 223. BMP showed sodium 139, potassium 5.3, chloride 110, bicarbonate 25, BUN 60, creatinine is 3.2; it was 3.4 yesterday, calcium is 8.8. CURRENT INPATIENT MEDICATIONS: The patient's medications were all reviewed by me. She continues to be on intravenous (IV) ertapenem. There is no other change in the medications today as compared with yesterday. ASSESSMENT AND PLAN: 1. Acute renal failure superimposed on chronic kidney disease. There is very slight improvement in the creatinine today as compared with yesterday. She has a left-sided percutaneous nephrostomy now. No urgent need of renal replacement therapy. Acid-base status and volume status is optimized at this point. 2. Left-sided hydronephrosis and hematuria. Patient's anticoagulation has been stopped again. She continues to have persistent hematuria. Left-sided ureteral stent is going to be removed by urology. 3. Extended-spectrum beta-lactamase (ESBL) Escherichia (E) coli infection. Continue current dose of Invanz and dose is adequate for renal failure. 4. Hyperkalemia. She has persistent hyperkalemia. Continue current dose of Veltassa 8.4 grams by mouth daily. 5. Blood loss anemia. The patient is going to get packed red blood cell (PRBC) transfusion today.
[2018-08-17 05:47] LABS: HEMOGLOBIN 8.3 g/dl (12.0-15.5); MEAN CORPUSCULAR HEMOGLOBIN 30.2 pg (27.0-33.0); MEAN CORPUSCULAR HGB CONC 31.9 g/dl (32.0-36.5); MEAN CORPUSCULAR VOLUME 94.5 fl (80.0-96.0); PLATELET COUNT, AUTOMATED 200 10^3/uL (150-450); RED BLOOD COUNT 2.75 10^6/uL (4.00-5.40); WHITE BLOOD COUNT 9.9 10^3/uL (4.0-10.0)
[2018-08-17 06:00] VITALS: BP 106/46
[2018-08-17 06:03] LABS: CALCIUM LEVEL 8.5 MG/DL (8.8-10.2); CREATININE FOR GFR 3.09 MG/DL (0.55-1.30); GLOMERULAR FILTRATION RATE 15.2 (>32); POTASSIUM SERUM 5.1 MEQ/L (3.5-5.1)
[2018-08-17] MEDS: PROPAFENONE 150 MG TAB PO SCH ×3 (06:08→22:08)
[2018-08-17] MEDS: LEVOTHYROXINE PO SCH (06:08)
[2018-08-17] MEDS: SODIUM CHLORIDE 0.9% INJ 10 ML SYR IV SCH ×2 (06:09→16:33)
[2018-08-17] MEDS: PERCOCET 5MG/325MG TAB PO PRN (06:56)
[2018-08-17] MEDS: ESCITALOPRAM OXALATE 10 MG TAB (LEXAPRO) PO SCH (09:00)
[2018-08-17] MEDS: PANTOPRAZOLE 40MG TAB (PROTONIX) PO SCH (09:00)
[2018-08-17] MEDS: VITAMIN D 1,000 INTERNATIONAL UNITS TABLET PO SCH (09:00)
[2018-08-17 09:46] VITALS: BP 105/57
--- NOTE | 2018-08-17 10:05 | IPNPDOC ---
Text Note Date of Service The patient was seen on 08/17/18. NOTE S: Patient examined at bedside. No issues overnight. Tolerated 1U PRBC transf usion well yesterday, with adequate rise in Hgb from 7.8 to 9.5, but down again this am to 8.3 with persistent hematuria. Is scheduled to undergo left ureteral stent removal today. PE: General: Alert and cooperative, A&O Eye exam: PERRLA, EOMI, anicteric sclera HEENT: Atraumatic, normocephalic Cardiac: regular rhythm, rate is controlled-hx of PAFib, normal S1 & S2, no murmurs Respiratory: CTAB, mild rhonchi, no wheezing or rales Abdomen: obese, soft, ND normoactive bowel sounds. Left nephrostomy tube in place with clean dry bandages Extremity: 2+ radial pulses, no edema Skin: [place], warm, dry, no visible rash Neuro: no focal deficits : Griffiths in place with dark red bloody output A/P: 80-year-old female with history of TIAs and bilateral carotid endarterectomy, presented for acute onset of expressive aphasia, confusion, left-sided paresthesias, found to also have HUYEN and hematuria. Gross Hematuria --S/P 1 unit transfused yesterday, with adequate rise. However, Hgb dropped again to 8.3 this a.m. Follow H&H, transfuse as needed to maintain Hgb > 8. -She scheduled for left ureteral stent removal today with Dr. Loza. Continues as nothing by mouth. Anticoagulation on hold per Urology recommendations, given her persistent hematuria and left nephrostomy tube placed 08/15. Possible bleeding sites are from nephrostomy tube vs ureteral stent vs UTI. --Per neurology, given her high risk of recurrent TIAs: rec to follow as per urology and resume Plavix and Eliquis when tolerable. Increased risk of stroke discussed with patient, plan of care shared and all questions answered. Patient agreeable to plan. Currently, continue holding anticoagulation pending stent removal today, and reassess bleeding and H&H after procedure. UTI -Urine culture +ESBL Escherichia coli -Continue ertapenem, on antibiotics since 08/07. Continue for 2 weeks HUYEN on CKD III -Mild improvement in Cr from 3.7 on admission to 3.1 today likely 2/2 left nephrostomy tube placement on 08/15 and treating UTI. Baseline is 0.8-0.9. Continue following s/p left ureteral stent removal today -Continue withholding nephrotoxins. Monitor fluid status, given hx of CHF. -Still making adequate urine. Monitor Griffiths o/p. -Nephrology following, appreciate input TIA -left-sided deficits resolved. Per Neuro recs: long-term continuation on Plavix & Eliquis. Initial deficits likely 2/2 noncompliance to Plavix prior to admission -will resume AC after stent removal & stable H&H. See plan above -Continue PT/OT as tolerated Acute blood loss anemmia --pt is s/p 2U transfused this admission. Monitor H&H and transfuse as needed to maintain Hgb>8 Hyperkalemia -likely 2/2 HUYEN. Valtessa per Nephro Hx of B/L Carotid Stenosis s/p b/l carotid endarterectomy in 04/2018 HTN -well-controlled Diltiazem IDDM2-ISS, consistent carb HLD-switched to Crestor. Ezetamibe discontinued by nephro CAD-S/P CABG. On ASA-on hold, & statin Hypothyroidism-continue Synthroid-dose adjusted Paroxysmal A. fib-chronically on Eliquis-on hold, Diltiazem, Propafenone Systolic CHF-Lasix and lisinopril on hold given HUYEN. Monitor fluid status Depression-stable on lexapro GERD-po Protonix DVT prophylaxis: Mechanical. AC on hold given acute bleed & pending procedure. Disposition: Pending clinical improvement & ureteral stent removal today. VS,Fishbone, I+O VS, Fishbone, I+O Laboratory Tests 08/16/18 17:34 08/17/18 05:18 Red Blood Count 2.75 L, Mean Corpuscular Volume 94.5, Mean Corpuscular Hemoglobin 30.2, Mean Corpuscular Hemoglobin Concent 31.9 L, Red Cell Distribution Width 15.5 H, Calcium Level 8.5 L Vital Signs Date Time Temp Pulse Resp B/P (MAP) Pulse Ox O2 Delivery O2 Flow Rate FiO2 08/17/18 09:46 96.7 90 14 105/57 (73) 08/17/18 06:00 92 08/15/18 13:45 2 I&O- Last 24 Hours up to 6 AM 08/17/18 05:59 Intake Total 780 ml Output Total 1300 ml Balance -520 ml GME ATTESTATION GME ATTESTATION My faculty preceptor for this patient encounter was physically present during the encounter and was fully available. All aspects of the patient interview, examination, medical decision making process, and medical care plan development were reviewed and approved by the faculty preceptor. The faculty preceptor is aware and concurs with the plan as stated in the body of this note and will attest to such by his/her cosignature. YANELI GUTIERREZ DO Aug 17, 2018 10:05
--- NOTE | 2018-08-17 10:27 | REP ---
Clinical: Altered mental status and confusion. Comparison: 08/09/2018 . Findings: Age-related atrophy with periventricular leukomalacia and microvascular ischemic changes are appreciated. The ventricles and sulci are symmetric. Hubbard-white differentiation is maintained. There is no evidence for acute intracranial hemorrhage, mass/mass effect, pathology or infarction. No extra-axial fluid collection. Calvarium is intact. Paranasal sinuses and mastoid air cells are clear. Impression: Age related atrophy and microvascular ischemic changes. No acute intracranial hemorrhage, infarction, or mass/mass effect. Electronically Signed by Puneet Sommers MD 08/17/2018 10:18 A
[2018-08-17] MEDS ORDERED: D5W/0.45% SODIUM CHLORIDE 1,000 ML IV SCH (11:15)
[2018-08-17] MEDS: PATIROMER SORBITEX CALCIUM 8.4 GM POWDER PACKET (VELTASSA) PO SCH (12:00)
[2018-08-17] MEDS ORDERED: LIDOCAINE 2% 5ML JELLY UROJET As Ordered ONE (13:29)
[2018-08-17] MEDS ORDERED: LIDOCAINE 2% INJ 100 MG/5 ML SDV (FOR ANES.) As Ordered ONE (13:53)
[2018-08-17] MEDS ORDERED: PROPOFOL 200 MG/20 ML VIAL As Ordered ONE (13:53)
[2018-08-17] MEDS ORDERED: ePHEDrine SULFATE 25 MG/5 ML(5MG/ML) SYRINGE As Ordered ONE (13:56)
--- NOTE | 2018-08-17 14:33 | IPN ---
DATE: 08/17/2018 SUBJECTIVE: The patient was seen and examined at the bedside today morning. Patient is nothing by mouth at this point. She is drowsy and sleepy today. There is slight improvement in the renal function. Creatinine is down to 3 today. She continues to have hematuria from left sided percutaneous nephrostomy and from the Griffiths catheter as well. She is going to have left sided stent removal by urology today. OBJECTIVE: VITAL SIGNS: Temperature is 96.7 degrees Fahrenheit, blood pressure 105/57, pulse is 90, respiratory rate of 14, saturating 92% on room air. INTAKE AND OUTPUT: Urine output recorded is 875 mL yesterday and 175 mL so far today since overnight. Weight on the bed scale is not available. PHYSICAL EXAMINATION: GENERAL: Patient is sleepy and drowsy, follows very few commands. HEAD AND NECK EXAM: Pupils are equally round and reactive to light. Mucous membranes are dry. Neck is supple. There is no jugular venous distension (JVD). CARDIOVASCULAR: S1, S2 regular rate. Midline sternotomy scar is visible. Left sided pacemaker is also noted. No lower extremity edema. RESPIRATORY: Chest is clear to auscultation bilaterally. Bilateral equal air entry. No rales or rhonchi. ABDOMEN: Soft, obese. Positive bowel sounds. Old surgical scar. No organomegaly. GENITOURINARY (): She has an indwelling Griffiths catheter. Urine in the bag is blood tinged. She has a left sided percutaneous nephrostomy tube as well and urine in the percutaneous tube bag is also red in color because of hematuria. CENTRAL NERVOUS SYSTEM: The patient is drowsy, sleepy and obtunded. She moves her extremities and follows very few commands. She is arousable on loud commands. LAB REVIEW: CBC showed a WBC of 9.9, hemoglobin 8.3, platelets are 200. BMP showed sodium 142, potassium 5.1, chloride 112, bicarb is 22, BUN 57, creatinine is 3, calcium 8.5. Microbiology: Urine culture from left sided nephrostomy tube showing Enterococcus Faecium and yeastlike organisms. IMAGING: A CT scan of the head was done today which showed age related atrophy and microvascular ischemic changes. CURRENT INPATIENT MEDICATIONS: The patient's medications were all reviewed by me. She continues to be on IV ertapenem. I have started the patient on D5 half normal saline at 50 mL an hour because she is nothing by mouth for the procedure. No other change in the medications today as compared with yesterday. ASSESSMENT/PLAN: 1. Acute renal failure superimposed on chronic kidney disease. There is very slight improvement in the creatinine again today. Creatinine is down to 3. Her electrolytes are within the acceptable range. Acid base status is also acceptable. No significant signs or symptoms of uremia. No urgent need of hemodialysis at this point, however, patient is nothing by mouth. I am going to start the patient on gentle IV fluid hydration. 2. Left-sided hydronephrosis and hematuria. The patient is status post left sided percutaneous nephrostomy. She is still having hematuria from the nephrostomy and in the Griffiths catheter as well. She is going to have left sided ureteric stent removed by urology today. 3. Extended-spectrum beta-lactamase (ESBL) Escherichia (E) coli urinary tract infection and Enterococcus Faecium in the left sided percutaneous nephrostomy tube. Patient is on IV ertapenem at this point. Final culture and sensitivity from the nephrostomy tube is pending. 4. Hyperkalemia. Potassium level is controlled with daily VELTASSA. Continue the current dose. 5. Acute blood loss anemia. The patient's hemoglobin dropped again today from 9.5 to 8.3. She is going to get another unit packed red blood cell (PRBC) transfusion.
[2018-08-17 15:03] LABS: HEMATOCRIT 30.6 % (36.0-47.0); HEMOGLOBIN 9.7 g/dl (12.0-15.5); MEAN CORPUSCULAR HEMOGLOBIN 29.8 pg (27.0-33.0); MEAN CORPUSCULAR HGB CONC 31.7 g/dl (32.0-36.5); MEAN CORPUSCULAR VOLUME 94.2 fl (80.0-96.0); PLATELET COUNT, AUTOMATED 204 10^3/uL (150-450); RED BLOOD COUNT 3.25 10^6/uL (4.00-5.40); WHITE BLOOD COUNT 7.8 10^3/uL (4.0-10.0)
[2018-08-17 16:00] VITALS: BP 108/62
[2018-08-17] MEDS: ERTAPENEM SODIUM 0.5 GM in NS 50 ML IV SCH (16:34)
[2018-08-17 18:23] LABS: HEMATOCRIT 31.9 % (36.0-47.0); HEMOGLOBIN 10.2 g/dl (12.0-15.5)
[2018-08-17] MEDS: ACETAMINOPHEN TAB 650MG DOSE (2X325MG) PO PRN (18:59)
[2018-08-17 22:00] VITALS: BP 114/56
[2018-08-17] MEDS: ROSUVASTATIN 10 MG TAB (CRESTOR) PO SCH (22:09)
[2018-08-18] MEDS: PROPAFENONE 150 MG TAB PO SCH ×3 (05:28→20:14)
[2018-08-18] MEDS: LEVOTHYROXINE PO SCH (05:28)
[2018-08-18] MEDS: SODIUM CHLORIDE 0.9% INJ 10 ML SYR IV SCH ×2 (05:29→18:14)
[2018-08-18] MEDS: PERCOCET 5MG/325MG TAB PO PRN ×2 (05:30→14:27)
[2018-08-18 05:39] LABS: HEMATOCRIT 29.7 % (36.0-47.0); HEMOGLOBIN 9.6 g/dl (12.0-15.5); MEAN CORPUSCULAR HEMOGLOBIN 29.8 pg (27.0-33.0); MEAN CORPUSCULAR HGB CONC 32.3 g/dl (32.0-36.5); MEAN CORPUSCULAR VOLUME 92.2 fl (80.0-96.0); PLATELET COUNT, AUTOMATED 189 10^3/uL (150-450); RED BLOOD COUNT 3.22 10^6/uL (4.00-5.40); WHITE BLOOD COUNT 9.7 10^3/uL (4.0-10.0)
[2018-08-18 05:58] LABS: CALCIUM LEVEL 8.4 MG/DL (8.8-10.2); CREATININE FOR GFR 2.67 MG/DL (0.55-1.30); GLOMERULAR FILTRATION RATE 17.9 (>32); POTASSIUM SERUM 4.9 MEQ/L (3.5-5.1)
[2018-08-18 06:00] VITALS: BP 104/51
--- NOTE | 2018-08-18 07:53 | RO ---
DATE OF PROCEDURE: 08/17/2018 PREPROCEDURE DIAGNOSIS: Retained left ureteral stent. POSTPROCEDURE DIAGNOSIS: Retained left ureteral stent. PROCEDURE: Cystoscopy, removal of left ureteral stent. SURGEON: Dann Loza MD SUPERVISOR BOTTLE HOUSE CLEANERS: None. ANESTHESIA: Monitored anesthesia care (MAC). OPERATIVE INDICATIONS: This is an 88-year-old female with a history of a left ureteral stricture which was managed with chronic left ureteral stenting. She was recently admitted to the hospital and found to have left moderate hydronephrosis despite the stent being in place. This indicated that the stent was no longer draining her kidney adequately and therefore she had a nephrostomy tube placed. We brought her here today to remove her ureteral stent. DESCRIPTION OF PROCEDURE: The patient was brought to the operating room and MAC anesthesia was administered. Culture specific antibiotics had already been infused. She was then placed in dorsal lithotomy position, prepped and draped in the usual sterile fashion. A rigid cystoscope was inserted into the urethral meatus and advanced into the bladder. The bladder was then thoroughly examined and no lesions were seen inside the bladder. There was no bleeding inside the bladder. There were no clots inside the bladder. The previously placed stent was seen and then grasped. It was withdrawn until the entire stent was removed. The stent was removed and an 18 [place]ian Griffiths catheter was inserted into the bladder. The balloon was filled with 10 mL of sterile water. The catheter was then connected to gravity drainage and this marked the conclusion of the procedure. The patient was taken out or dorsal lithotomy position, awakened from anesthesia and transported to the recovery room in stable condition. ESTIMATED BLOOD LOSS: 0 mL. COMPLICATIONS: None. SPECIMENS: None. PLAN: The patient will be taken back up to her regular nursing floor. It is our hope that the hematuria she has been having with improve with the stent no longer in place. Her left ureteral stricture will be managed at this point with chronic nephrostomy tube placement.
--- NOTE | 2018-08-18 09:12 | IPNPDOC ---
Assessment/Plan Date Seen The patient was seen on 08/18/18. Patient Summary This is an 88 y/o F admitted for a CVA, HUYEN, hematuria, and a UTI, s/p left neph tube placement on 08/15/18 and left ureteral stent removal on 08/17/18. Her anticoagulation has been hold for 2 days. The urine in the catheter is clear and the urine from the left nephrostomy tube is improving. Her Hb is 9.6 this morning. Her Cr is slowly trending down, now 2.7 from 3.1 yesterday. Plan/VTE VTE Prophylaxis Ordered?: Yes VTE Exclusion Mechanical Proph: N/A:VTE Prophy Ordered Plan/Urinary Catheter Urinary Catheter: Other Catheter: (continue catheter to monitor UOP) Plan - cont to monitor UOP for hematuria - transfuse w/ pRBC as needed if Hb drops or if patient is symptomatic from anemia - since the urine is finally clearing, would recommend holding anticoagulation 1 more day - will follow up tomorrow Subjective Review oF Systems Chief Complaint The patient is a 88-year-old female admitted with a reason for visit of Stroke,Uti, Retained Ureteral Stent. Events since Last Encounter No acute events o/n. Patient notes some pain in her flank where the nephrostomy tube was inserted. Objective Physical Examination General Exam: No Acute Distress Heart Exam: Positive: Normal S1, Normal S2 Neuro Exam: Normal Speech Psych Exam: Mental status NL, Mood NL Other physical findings catheter draining clear urine; left nephrostomy tube draining red urine which is more serous today Vital Signs/I&O Vital Signs Date Time Temp Pulse Resp B/P (MAP) Pulse Ox O2 Delivery O2 Flow Rate FiO2 08/18/18 06:00 96.9 63 18 104/51 (68) 95 08/15/18 13:45 2 I&O- Last 24 Hours up to 6 AM 08/18/18 06:00 Intake Total 885 ml Output Total 1500 ml Balance -615 ml Laboratory Data Labs 24H Laboratory Tests 2 08/17/18 11:24: Bedside Glucose (Misc Panel) 130H 08/17/18 14:46: Nucleated Red Blood Cells % (auto) 0.8H 08/17/18 16:33: Bedside Glucose (Misc Panel) 167H 08/17/18 20:42: Bedside Glucose (Misc Panel) 209H 08/18/18 05:20: Nucleated Red Blood Cells % (auto) 0.4H, Anion Gap 6L, Glomerular Filtration Rate 17.9L, Blood Urea Nitrogen 50H, Creatinine 2.67H, Sodium Level 142, Potassium Level 4.9, Chloride Level 113H, Carbon Dioxide Level 23, Calcium Level 8.4L CBC/BMP Laboratory Tests 08/17/18 14:46 Red Blood Count 3.25 L, Mean Corpuscular Volume 94.2, Mean Corpuscular Hemoglobin 29.8, Mean Corpuscular Hemoglobin Concent 31.7 L, Red Cell Distribution Width 16.6 H 08/17/18 18:02 08/18/18 05:20 Red Blood Count 3.22 L, Mean Corpuscular Volume 92.2, Mean Corpuscular Hemoglobi n 29.8, Mean Corpuscular Hemoglobin Concent 32.3, Red Cell Distribution Width 17.4 H, Calcium Level 8.4 L FSBS Laboratory Tests Test 08/17/18 11:24 08/17/18 16:33 08/17/18 20:42 Range/Units Bedside Glucose (Misc Panel) 130 167 209 83-110 MG/DL Microbiology Microbiology 08/15/18 Anaerobic Culture, Received Pending 08/15/18 Gram Stain - Final, Resulted 08/15/18 Body Fluid Culture - Preliminary, Resulted Enterococcus Faecium Yeast Like Organism MCKINLEY PANCHAL MD Aug 18, 2018 09:12
[2018-08-18] MEDS: VITAMIN D 1,000 INTERNATIONAL UNITS TABLET PO SCH (09:39)
[2018-08-18] MEDS: ESCITALOPRAM OXALATE 10 MG TAB (LEXAPRO) PO SCH (09:39)
[2018-08-18] MEDS: PANTOPRAZOLE 40MG TAB (PROTONIX) PO SCH (09:39)
--- NOTE | 2018-08-18 11:01 | IPN ---
DATE: 08/18/2018 SUBJECTIVE: The patient was seen and examined at the bedside today morning. She was actually sitting on the sofa. She is afebrile. Hemodynamically stable. There is slight improvement in the renal function. Creatinine is down to 2.6 today. She got the left sided ureteral stent removed by urology yesterday. Urine in the Griffiths bag is much more clear today. She continues to have mild hematuria from the left sided percutaneous nephrostomy tube. Hemoglobin is stable at 9.6. OBJECTIVE: VITAL SIGNS: Temperature is 96.9 degrees Fahrenheit, blood pressure 104/51, pulse is 63, respiratory rate of 18, saturating 95% on room air. INTAKE AND OUTPUT: Urine output recorded is 775 mL yesterday and 250 mL so far today. Weight on the bed scale is not available. PHYSICAL EXAMINATION: GENERAL: Patient is awake, alert, oriented times two, sitting up on the sofa in no apparent distress. HEAD AND NECK EXAM: Extraocular muscles intact. Pupils equally round and reactive to light. Mucous membranes are moist. Neck is supple. There is no jugular venous distension (JVD). CARDIOVASCULAR: S1, S2. Midline sternotomy scar, left sided pacemaker. Very trace edema of the bilateral lower extremities. RESPIRATORY: Chest is clear to auscultation bilaterally. Bilateral equal air entry. No rales or rhonchi. ABDOMEN: Soft, obese. Positive bowel sounds. Old surgical scar. Left sided percutaneous nephrostomy is noted with a mild amount of hematuria in the bag. GENITOURINARY (): She has an indwelling Griffiths catheter. Urine in the bag is clear today with very few blood clots. CENTRAL NERVOUS SYSTEM: No focal deficits. She is much more awake and alert today. Power is 5/5 in bilateral upper extremities. LAB REVIEW: CBC showed a WBC of 9.7, hemoglobin 9.9, platelets 189. BMP showed sodium 142, potassium 4.9, chloride 113 bicarb is 23, BUN 50, creatinine is 2.6, it was 3.09 yesterday, calcium 8.4, magnesium is 2. CURRENT INPATIENT MEDICATIONS: The patient's medications were all reviewed by me. She continues to be on IV ertapenem. She was given a liter of D5 half normal saline yesterday while she was nothing by mouth. No other change in the medications today as compared with yesterday. ASSESSMENT/PLAN: 1. Acute renal failure superimposed on chronic kidney disease. The patient's renal function is gradually improving. Creatinine is down to 2.6 today. Continue to encourage oral hydration. She got left sided ureteral stent removed by urology yesterday. Continue to monitor intake and output. 2. Left-sided hydronephrosis and hematuria. The patient has hematuria from the left sided percutaneous nephrostomy tube. Hematuria from the Griffiths bag is much better now. Left sided ureteral stent was removed by urology. 3. Extended-spectrum beta-lactamase (ESBL) and Enterococcus Faecium UTI. Patient is currently on IV ertapenem. Dose is adequate for renal failure. 4. Hyperkalemia. Potassium level is improving. Potassium is down to 4.9. She continues to be on VELTASSA 8.4 grams by mouth daily. Continue low potassium diet. 5. Acute blood loss anemia. Patient has so far received 3 units of packed red blood cells (PRBC) transfusion during this hospitalization. Hemoglobin is 9.6, which is optimal at this point.
--- NOTE | 2018-08-18 11:28 | IPNPDOC ---
Text Note Date of Service The patient was seen on 08/18/18. NOTE S: Patient examined sitting up in chair. She is noted to be more alert and in better spirits today. There was some concern of altered mentation yesterday, however CT of the head was negative. Likely has some underlying delirium, as her mentation is normal today. Otherwise doing well, H&H are stable as morning. Renal function is gradually improving. She underwent left ureteral stent removal yesterday and had no issues overnight. PE: General: Alert and cooperative, A&O, fully conversant and energetic Eye exam: PERRLA, EOMI, anicteric sclera HEENT: Atraumatic, normocephalic Cardiac: regular rhythm, rate is controlled-hx of PAFib, normal S1 & S2, no murmurs Respiratory: CTAB, mild rhonchi, no wheezing or rales Abdomen: obese, soft, ND normoactive bowel sounds. Left nephrostomy tube in place with bloody output and clean dry bandages Extremity: 2+ radial pulses, no edema Skin: [place], warm, dry, no visible rash Neuro: no focal deficits : Griffiths in place with overall clear yellow o/p with small clots of blood A/P: 80-year-old female with history of TIAs and bilateral carotid endarterectomy, presented for acute onset of expressive aphasia, confusion, left-sided paresthesias, found to also have HUYEN and hematuria. Gross Hematuria --Is almost fully resolved as of this morning. Patient underwent left ureteral stent removal yesterday with Dr. Loza, tolerated procedure well. She still has a left nephrostomy tube in place from 08/15 which continues to drain bloody output. Her H&H remain stable at 9-10 this am, which appears to be around her baseline. Will continue trending H&H q6h and transfuse as needed to maintain Hgb > 8. Bleeding is likely multifactorial given her ureteral stent and UTI --Patient has been off of anticoagulants since morning of 08/15. After discussions with urology and neurology, will currently resume aspirin and monitor her bleeding. Will transition back to Plavix and Eliquis as per Urology recs --Patient updated regarding plan of care and anticoagulation, she is in agreement. All questions answered. UTI -Urine culture +ESBL Escherichia coli, and nephrostomy culture +E.Faecium & yeast, awaiting sensitivity -Continue ertapenem, on antibiotics since 08/07. Clinically improving. Continue abx for 2 weeks HUYEN on CKD III -Cr down to 2.67 this am from 3 yesterday. Likely 2/2 hydronephrosis for which pt underwent left nephrostomy tube placement on 08/15, underlying UTI for which she is on abx, and left ureteral sten that was removed 08/17. Baseline Cr is 0.8- 0.9. We are optimistic that pt will recover renal function gradually -Continue withholding nephrotoxins. Monitor fluid status, given hx of CHF. -Still making adequate urine. Monitor Griffiths o/p. -Nephrology following, appreciate input TIA -left-sided deficits resolved. Per Neuro recs: long-term continuation on Plavix & Eliquis. Initial deficits likely 2/2 noncompliance to Plavix prior to admission -will resume AC once blood levels stabilize. See plan above -Continue PT/OT as tolerated Acute blood loss anemmia --pt is s/p 3U transfused this admission. Currently stable and will continue q6h trending. Transfuse as needed to maintain Hgb>8 Hyperkalemia -likely 2/2 HUYEN. Valtessa per Nephro Hx of B/L Carotid Stenosis s/p b/l carotid endarterectomy in 04/2018 HTN -well-controlled Diltiazem IDDM2-consistent carb, hypoglycemic protocol HLD-switched to Crestor. Ezetamibe discontinued by nephro CAD-S/P CABG. On ASA-resumed, & statin Hypothyroidism-continue Synthroid-dose adjusted Paroxysmal A. fib-chronically on Eliquis-on hold, Diltiazem, Propafenone Systolic CHF-Lasix and lisinopril on hold given HUYEN. Monitor fluid status Depression-stable on lexapro GERD-po Protonix DVT prophylaxis: Mechanical. AC on hold given acute bleed Disposition: Pending clinical improvement. Possible d/c early next week. VS,Fishbone, I+O VS, Fishbone, I+O Laboratory Tests 08/17/18 14:46 Red Blood Count 3.25 L, Mean Corpuscular Volume 94.2, Mean Corpuscular Hemoglobin 29.8, Mean Corpuscular Hemoglobin Concent 31.7 L, Red Cell Distribution Width 16.6 H 08/17/18 18:02 08/18/18 05:20 Red Blood Count 3.22 L, Mean Corpuscular Volume 92.2, Mean Corpuscular Hemogl obin 29.8, Mean Corpuscular Hemoglobin Concent 32.3, Red Cell Distribution Width 17.4 H, Calcium Level 8.4 L Vital Signs Date Time Temp Pulse Resp B/P (MAP) Pulse Ox O2 Delivery O2 Flow Rate FiO2 08/18/18 09:45 64 119/60 08/18/18 06:00 96.9 18 95 08/15/18 13:45 2 I&O- Last 24 Hours up to 6 AM 08/18/18 06:00 Intake Total 885 ml Output Total 1500 ml Balance -615 ml GME ATTESTATION GME ATTESTATION My faculty preceptor for this patient encounter was physically present during the encounter and was fully available. All aspects of the patient interview, examination, medical decision making process, and medical care plan development were reviewed and approved by the faculty preceptor. The faculty preceptor is aware and concurs with the plan as stated in the body of this note and will attest to such by his/her cosignature. YANELI GUTIERREZ DO Aug 18, 2018 11:27
[2018-08-18 12:24] LABS: HEMATOCRIT 31.2 % (36.0-47.0)
[2018-08-18] MEDS: PATIROMER SORBITEX CALCIUM 8.4 GM POWDER PACKET (VELTASSA) PO SCH (12:27)
[2018-08-18 14:00] VITALS: BP 110/62
[2018-08-18] MEDS: ASPIRIN 81 MG ENTERIC TAB PO SCH (14:26)
[2018-08-18] MEDS: ERTAPENEM SODIUM 0.5 GM in NS 50 ML IV SCH (17:21)
[2018-08-18 18:09] LABS: HEMATOCRIT 29.3 % (36.0-47.0); HEMOGLOBIN 9.1 g/dl (12.0-15.5)
[2018-08-18] MEDS: ROSUVASTATIN 10 MG TAB (CRESTOR) PO SCH (20:14)
[2018-08-18 22:00] VITALS: BP 140/78
[2018-08-19 00:33] LABS: HEMATOCRIT 31.2 % (36.0-47.0); HEMOGLOBIN 9.5 g/dl (12.0-15.5)
[2018-08-19] MEDS: LEVOTHYROXINE PO SCH (05:56)
[2018-08-19] MEDS: PROPAFENONE 150 MG TAB PO SCH ×3 (05:56→21:45)
[2018-08-19] MEDS: SODIUM CHLORIDE 0.9% INJ 10 ML SYR IV SCH ×2 (05:56→17:21)
[2018-08-19 06:00] VITALS: BP 134/63
[2018-08-19 06:39] LABS: HEMATOCRIT 31.2 % (36.0-47.0); HEMOGLOBIN 9.8 g/dl (12.0-15.5); MEAN CORPUSCULAR HEMOGLOBIN 29.7 pg (27.0-33.0); MEAN CORPUSCULAR HGB CONC 31.4 g/dl (32.0-36.5); MEAN CORPUSCULAR VOLUME 94.5 fl (80.0-96.0); PLATELET COUNT, AUTOMATED 182 10^3/uL (150-450); WHITE BLOOD COUNT 14.2 10^3/uL (4.0-10.0)
[2018-08-19 07:02] LABS: CALCIUM LEVEL 8.6 MG/DL (8.8-10.2); CREATININE FOR GFR 2.37 MG/DL (0.55-1.30); GLOMERULAR FILTRATION RATE 20.6 (>32); POTASSIUM SERUM 4.7 MEQ/L (3.5-5.1)
[2018-08-19] MEDS ORDERED: FLUCONAZOLE 200 MG in APPROPRIATE DILUENT 1 EA IV SCH (08:15)
[2018-08-19] MEDS: ESCITALOPRAM OXALATE 10 MG TAB (LEXAPRO) PO SCH (09:07)
[2018-08-19] MEDS: PANTOPRAZOLE 40MG TAB (PROTONIX) PO SCH (09:07)
[2018-08-19] MEDS: VITAMIN D 1,000 INTERNATIONAL UNITS TABLET PO SCH (09:07)
[2018-08-19] MEDS ORDERED: FUROSEMIDE 40 MG/4 ML VIAL (J1940) IV ONE (10:30)
[2018-08-19 10:51] VITALS: BP 145/61
[2018-08-19] MEDS: FLUCONAZOLE 100 MG TAB PO SCH ×2 (10:51→15:01)
[2018-08-19] MEDS ORDERED: FLUCONAZOLE 100 MG in APPROPRIATE DILUENT 1 EA IV SCH (11:00)
[2018-08-19] MEDS: PATIROMER SORBITEX CALCIUM 8.4 GM POWDER PACKET (VELTASSA) PO SCH (12:28)
[2018-08-19] MEDS: SODIUM CHLORIDE 0.9% INJ 10 ML SYR IV PRN (12:42)
--- NOTE | 2018-08-19 13:26 | IPN ---
DATE: 08/19/2018 SUBJECTIVE: The patient was seen and examined at the bedside today morning. She continues to have mild hematuria from the left sided percutaneous nephrostomy and from the Griffiths catheter as well today. There is slight improvement in the renal function. Creatinine is down to 2.3. Hemoglobin is stable at 9.8. The patient has mild respiratory distress today. OBJECTIVE: VITAL SIGNS: Temperature is 98 degrees Fahrenheit, blood pressure 145/61, pulse is 70, respiratory rate of 18, saturating 96% on room air. INTAKE AND OUTPUT: Urine output recorded as 850 mL yesterday and 300 mL so far today since overnight. Weight on the bed scale is not available. PHYSICAL EXAMINATION: GENERAL: Patient is awake, alert, oriented times two, sitting up in the bed, mildly respiratory distress. HEAD AND NECK EXAM: Extraocular muscles intact. Pupils equally round and reactive to light. Mucous membranes are moist. Jugular venous distension (JVD) is significantly elevated. CARDIOVASCULAR: S1, S2. Midline sternotomy scar, left sided pacemaker. 1+ edema of the bilateral lower extremities was noted. RESPIRATORY: Decreased breath sounds at the bases with mild expiratory crackles at the bases. ABDOMEN: Soft, obese. Positive bowel sounds. Old surgical scars in the suprapubic region. Left sided percutaneous nephrostomy is noted. Urine in the bag is red in color. GENITOURINARY (): She has an indwelling Griffiths catheter. Urine was clear yesterday, however, today urine is red in color because of hematuria. CENTRAL NERVOUS SYSTEM: No focal deficits. Power is 5/5 in bilateral upper extremities. She is able to communicate. LAB REVIEW: CBC showed a WBC of 14.2, hemoglobin 9.8, platelets 182. BMP showed sodium 142, potassium 4.7, chloride 114, bicarb is 21, BUN 44, creatinine is 2.3, it was 2.6 yesterday, calcium 8.6. CURRENT INPATIENT MEDICATIONS: The patient's medications were all reviewed by me. IV fluconazole and IV ertapenem have been stopped. Patient has been started on fluconazole 100 mg by mouth daily. She also has been started on Zyvox 600 mg by mouth twice a day. No other change in the medications today as compared with yesterday. ASSESSMENT/PLAN: 1. Acute renal failure superimposed on chronic kidney disease. The patient's renal function is slowly getting better. Creatinine is down to 2.3. Continue to monitor intake and output. No urgent need of renal replacement therapy. 2. Respiratory distress and fluid overload. I have given the patient a dose of Lasix 40 mg IV times one dose today. 3. Left-sided hydronephrosis and hematuria. The patient is status post left sided percutaneous nephrostomy. Left sided ureteral stent was removed. Renal function is improving. 4. Extended-spectrum beta-lactamase (ESBL) and Enterococcus Faecium UTI along with growth of yeast in the recent urine culture. Patient has been started on oral Zyvox and fluconazole by the primary team. 5. Hyperkalemia. Potassium level is stable at 4.7. She continues to be on VELTASSA 8.4 grams by mouth daily. 6. Blood loss anemia. Hemoglobin is 9.8, which is optimal. Patient has received 3 units of packed red blood cells (PRBC) transfusion so far in the hospital. Patient is still on aspirin. Decision for antiplatelet and anticoagulation is as per primary team.
[2018-08-19 14:00] VITALS: BP 142/60
[2018-08-19] MEDS: LINEZOLID 600MG TABLET (ZYVOX) PO SCH ×2 (15:01→21:44)
[2018-08-19] MEDS: ASPIRIN 81 MG ENTERIC TAB PO SCH (15:01)
[2018-08-19] MEDS: PERCOCET 5MG/325MG TAB PO PRN ×2 (15:03→23:27)
--- NOTE | 2018-08-19 15:18 | IPNPDOC ---
Assessment/Plan Date Seen The patient was seen on 08/19/18. Patient Summary This is an 88 y/o F admitted for a CVA, HUYEN, hematuria, and a UTI, s/p left neph tube placement on 08/15/18 and left ureteral stent removal on 08/17/18. Her Hb is stable. The urine from her Griffiths catheter was more red this morning, but is clearing up this afternoon. Similarly, the urine from the left neph tube was more red this morning, but is clearing up and looks dark pink this afternoon. Plan/VTE VTE Prophylaxis Ordered?: Yes VTE Exclusion Mechanical Proph: N/A:VTE Prophy Ordered Plan/Urinary Catheter Urinary Catheter: Other Catheter: (continue catheter to monitor UOP) Plan - treatment for ESBL E. coli UTI (from catheter on admission) and E faecalis/yeast (from left neph tube insertion) per primary team - recommend that we continue to hold anticoagulation and plavix for now (ideally until urine is light pink or clearer from both the catheter and neph tube for a 1-2 days) - baby ASA is ok to continue - will follow (I will be signing out to Dr. Brice who will be on this weekend) Subjective Review oF Systems Chief Complaint The patient is a 88-year-old female admitted with a reason for visit of Stroke,Uti, Retained Ureteral Stent. Events since Last Encounter No acute events o/n. Patient notes that her left flank pain from the neph tube is getting better. Objective Physical Examination General Exam: No Acute Distress Heart Exam: Positive: Normal S1, Normal S2 Neuro Exam: Normal Speech Psych Exam: Mood NL Other physical findings dark pink urine draining from Griffiths catheter; bright red urine draining from left neph tube Vital Signs/I&O Vital Signs Date Time Temp Pulse Resp B/P (MAP) Pulse Ox O2 Delivery O2 Flow Rate FiO2 08/19/18 15:03 18 08/19/18 14:00 97.8 72 142/60 (87) 96 08/15/18 13:45 2 I&O- Last 24 Hours up to 6 AM 08/19/18 06:00 Intake Total 1790 ml Output Total 1175 ml Balance 615 ml Laboratory Data Labs 24H Laboratory Tests 2 08/18/18 20:19: Bedside Glucose (Misc Panel) 172H 08/19/18 06:24: Nucleated Red Blood Cells % (auto) 0.2H, Anion Gap 7L, Glomerular Filtration Rate 20.6L, Blood Urea Nitrogen 44H, Creatinine 2.37H, Sodium Level 142, Potassium Level 4.7, Chloride Level 114H, Carbon Dioxide Level 21, Calcium Level 8.6L 08/19/18 11:51: Bedside Glucose (Misc Panel) 162H CBC/BMP Laboratory Tests 08/18/18 18:00 08/19/18 00:21 08/19/18 06:24 Red Blood Count 3.30 L, Mean Corpuscular Volume 94.5, Mean Corpuscular Hemoglobin 29.7, Mean Corpuscular Hemoglobin Concent 31.4 L, Red Cell Distribution Width 17.7 H, Calcium Level 8.6 L FSBS Laboratory Tests Test 08/18/18 20:19 08/19/18 11:51 Range/Units Bedside Glucose (Misc Panel) 172 162 83-110 MG/DL Microbiology Microbiology 08/15/18 Anaerobic Culture - Final, Complete 08/15/18 Gram Stain - Final, Resulted 08/15/18 Body Fluid Culture - Preliminary, Resulted Enterococcus Faecium Yeast Like Organism MCKINLEY PANCHAL MD Aug 19, 2018 15:18
[2018-08-19] MEDS: MIRALAX *UNIT DOSE* 17GM PACKET PO PRN (17:21)
--- NOTE | 2018-08-19 21:20 | IPN ---
DATE: 08/19/2018 SUBJECTIVE: The patient is seen and examined multiple times today. In the morning, the patient was confused. Near noontime, the patient's mentation is improving. The patient's daughters were present during the discussion. They are aware the patient do have significant bleeding through the urostomy and the patient started having recurrence of bleeding noted in the Griffiths catheter. The patient was started on baby aspirin. Will continue holding other anticoagulation therapy due to the bleeding. The patient and the patient's daughter understand the risks and benefit of the treatment plan. All of her questions were answered. OBJECTIVE: VITAL SIGNS: Temperature is 98.7, respirations 18, blood pressure (BP) 134/63, pulse oximetry 96% on room air. GENERAL: The patient was initially confused in the morning. Later, the patient become more oriented during the noontime. HEENT: Normocephalic, atraumatic. CARDIOVASCULAR: Positive S1 and S2. Regular rate. LUNGS: Clear to auscultation bilaterally. ABDOMEN: Soft, nontender, nondistended. EXTREMITIES: No edema. GENITOURINARY (): Griffiths catheter in place. There is a blood clot. Multiple blood clot noted in the Griffiths catheter and Griffiths catheter bag. There is bright red blood noted on the urostomy bag. LABORATORY DATA: White blood count (WBC) of 14.2, hemoglobin 9.8, hematocrit 31.2, platelet count is 182. Sodium is 142, potassium 4.7, chloride 114, CO2 21, BUN 44, creatinine is 2.37, glomerular filtration rate (GFR) is 20.6, fasting glucose is 156, calcium is 8.6. ASSESSMENT AND PLAN: 1. Gross hematuria. The patient had a left ureteral stent removal by urology. I will follow with hemoglobin and hematocrit and transfuse if needed. Currently, the patient is on aspirin. Antiplatelet and anticoagulation on hold due to the bleeding. Continue following with urology and neurology. I had a discussion with the patient and her daughters and say that they aware of the risks and benefit that occur and treatment plans. 2. Urinary tract infection. Initially, the patient was noted to have ESBL, status post ertapenem therapy. Later urostomy culture grew heavy yeast-like organism and Enterococcus faecium. The patient was started on Diflucan, also the Zyvox. 3. Frequent transient ischemic attack (TIA)/stroke. Per neurology, the patient should be on long-term treatment with Plavix and Eliquis. However, due to significant blood loss, the patient is on aspirin at this moment. Will continue to assess the patient's bleeding and blood count. Will resume the antiplatelet and anticoagulation if the patient's bleeding start to improve. 3. Acute on chronic kidney disease. Baseline chronic kidney disease (CKD), stage III. Also, is secondary to hydronephrosis. The patient had nephrostomy tube placement August 15. The patient is currently being treated for urinary tract infection. Urostomy removed. Griffiths catheter in place. Nephrostomy consulted. Appreciate their assistance. Acute blood loss anemia. Since admission, The patient has been received multiple blood transfusions. Blood transfusion was performed August 12, August 16 and August 17. Continue to monitor the patient. 4. Hyperkalemia on Veltassa. 5. Bilateral carotid stenosis, status post carotid endarterectomy in April 2018. 6. Hypertension. Blood pressure in the satisfactory range. The patient is on Cardizem. 7. Insulin-dependent diabetes on consistent carbohydrate diet. 8. Coronary artery disease, status post coronary artery bypass graft (CABG) on aspirin and statin. 9. Dyslipidemia on Crestor. 10. Hypothyroidism on Synthroid. 11. History of paroxysmal atrial fibrillation. Anticoagulation on hold due to bleeding. 12. Systolic dysfunction. Will continue to monitor for sign of fluid overload. Lasix and lisinopril on hold due to acute on chronic kidney disease. 13. Depression on Lexapro. 14. Gastroesophageal reflux disease on Protonix. 15. Deep vein thrombosis (DVT) prophylaxis on JUAN PABLO compression.
[2018-08-19] MEDS: ROSUVASTATIN 10 MG TAB (CRESTOR) PO SCH (21:44)
[2018-08-19] MEDS: HumaLOG INSULIN (NovoLOG) PER UNIT SC SCH (21:45)
[2018-08-19 22:00] VITALS: BP 100/49
[2018-08-20] MEDS: PROPAFENONE 150 MG TAB PO SCH ×3 (05:47→22:02)
[2018-08-20] MEDS: LEVOTHYROXINE PO SCH (05:47)
[2018-08-20] MEDS: SODIUM CHLORIDE 0.9% INJ 10 ML SYR IV SCH ×2 (05:47→17:41)
[2018-08-20 05:48] LABS: HEMATOCRIT 28.9 % (36.0-47.0); MEAN CORPUSCULAR HEMOGLOBIN 29.4 pg (27.0-33.0); MEAN CORPUSCULAR HGB CONC 31.1 g/dl (32.0-36.5); MEAN CORPUSCULAR VOLUME 94.4 fl (80.0-96.0); PLATELET COUNT, AUTOMATED 204 10^3/uL (150-450); RED BLOOD COUNT 3.06 10^6/uL (4.00-5.40); WHITE BLOOD COUNT 8.1 10^3/uL (4.0-10.0)
[2018-08-20 06:00] VITALS: BP 105/47
[2018-08-20 06:05] LABS: CALCIUM LEVEL 8.2 MG/DL (8.8-10.2); CREATININE FOR GFR 2.38 MG/DL (0.55-1.30); GLOMERULAR FILTRATION RATE 20.5 (>32); POTASSIUM SERUM 4.9 MEQ/L (3.5-5.1)
[2018-08-20] MEDS: LINEZOLID 600MG TABLET (ZYVOX) PO SCH ×2 (08:42→22:02)
[2018-08-20] MEDS: PANTOPRAZOLE 40MG TAB (PROTONIX) PO SCH (08:42)
[2018-08-20] MEDS: ASPIRIN 81 MG ENTERIC TAB PO SCH (08:42)
[2018-08-20] MEDS: VITAMIN D 1,000 INTERNATIONAL UNITS TABLET PO SCH (08:42)
[2018-08-20] MEDS: FLUCONAZOLE 100 MG TAB PO SCH (08:42)
[2018-08-20] MEDS: ESCITALOPRAM OXALATE 10 MG TAB (LEXAPRO) PO SCH (08:42)
[2018-08-20] MEDS: HumaLOG INSULIN (NovoLOG) PER UNIT SC SCH ×4 (08:42→21:00)
[2018-08-20] MEDS: MIRALAX *UNIT DOSE* 17GM PACKET PO PRN (08:54)
--- NOTE | 2018-08-20 12:03 | IPNPDOC ---
Text Note Date of Service The patient was seen on 08/20/18. NOTE S: Patient examined at bedside. No reported issues overnight. She continues to have good urine output with over 2 L out yesterday. She continues on antibiotics. Her hematuria bleeding from her left nephrostomy tube will continue this a.m., however her hemoglobin remained stable she has no complaints this morning. PE: General: Alert and cooperative, A&O, fully conversant and energetic Eye exam: PERRLA, EOMI, anicteric sclera HEENT: Atraumatic, normocephalic Cardiac: regular rhythm, rate is controlled-hx of PAFib, normal S1 & S2, no murmurs Respiratory: CTAB, mild rhonchi, no wheezing or rales Abdomen: obese, soft, ND normoactive bowel sounds. Left nephrostomy tube in pl amanda with bloody output and clean dry bandages Extremity: 2+ radial pulses, no edema Skin: [place], warm, dry, no visible rash Neuro: no focal deficits : Griffiths in place with dark bloody output A/P: 80-year-old female with history of TIAs and bilateral carotid endarterectom y, presented for acute onset of expressive aphasia, confusion, left-sided paresthesias, found to also have HUYEN and hematuria. Gross Hematuria Continues into this a.m. There is bleeding in her Griffiths, and left nephrostomy tube. Her H&H remain stable at 9-10 this am, which appears to be around her ba seline. Continue monitoring and transfuse as needed to maintain Hgb>8. She is s/P 3U PRBC transfused during this stay thus far. She had left nephrostomy tube placed 08/15 and left ureteral stent removal 08/17. Bleeding is likely multifactorial given her ureteral stent and UTI. Will continue holding her Plavix and Eliquis as per urology. Patient has been off of anticoagulants since morning of 08/15, and temporarily started on aspirin in the meanwhile per urology and neurology. Patient updated regarding plan of care and continuing withholding anticoagulation, she is in agreement. Urology is following. UTI -Urine culture +ESBL Escherichia coli, and nephrostomy culture +E.Faecium & yeast. -Patient transitioned from ertapenem to Zyvox & Diflucan. Doing well, afebrile and WBC normalized HUYEN on CKD III -Cr stable at 2.3, no improvement from yesterday. May be related to her restart of hematuria. Baseline Cr is 0.8-0.9. We are optimistic that pt will recover renal function gradually, or otherwise will likely need dialysis -Continue withholding nephrotoxins. Monitor fluid status, given hx of CHF. -Still making adequate urine. Monitor Griffiths o/p. -Nephrology following, appreciate input TIA -left-sided deficits resolved. Per Neuro recs: long-term continuation on Plavix & Eliquis. Initial deficits likely 2/2 noncompliance to Plavix prior to admission -will resume AC once blood levels stabilize. See plan above -Continue PT/OT as tolerated Acute blood loss anemia --pt is s/p 3U transfused this admission. Currently stable and will continue monitoring. Transfuse as needed to maintain Hgb>8 Hyperkalemia -likely 2/2 HUYEN. Valtessa per Nephro Hx of B/L Carotid Stenosis s/p b/l carotid endarterectomy in 04/2018 HTN -well-controlled Diltiazem IDDM2-consistent carb, ISS, hypoglycemic protocol HLD-switched to Crestor. Ezetamibe discontinued by nephro CAD-S/P CABG. On ASA-resumed, & statin Hypothyroidism-continue Synthroid-dose adjusted Paroxysmal A. fib-chronically on Eliquis-on hold, Diltiazem, Propafenone Systolic CHF-Lasix and lisinopril on hold given HUYEN. Monitor fluid status Depression-stable on lexapro GERD-po Protonix DVT prophylaxis: Mechanical. AC on hold given acute bleed Disposition: Pending clinical improvement, PT/OT. VS,Fishbone, I+O VS, Fishbone, I+O Laboratory Tests 08/20/18 05:33 Red Blood Count 3.06 L, Mean Corpuscular Volume 94.4, Mean Corpuscular Hemoglobin 29.4, Mean Corpuscular Hemoglobin Concent 31.1 L, Red Cell Distribution Width 17.8 H, Calcium Level 8.2 L Vital Signs Date Time Temp Pulse Resp B/P (MAP) Pulse Ox O2 Delivery O2 Flow Rate FiO2 08/20/18 08:43 71 123/60 08/20/18 06:00 98.1 15 95 08/15/18 13:45 2 I&O- Last 24 Hours up to 6 AM 08/20/18 05:59 Intake Total 1470 ml Output Total 2050 ml Balance -580 ml GME ATTESTATION GME ATTESTATION My faculty preceptor for this patient encounter was physically present during the encounter and was fully available. All aspects of the patient interview, examination, medical decision making process, and medical care plan development were reviewed and approved by the faculty preceptor. The faculty preceptor is aware and concurs with the plan as stated in the body of this note and will attest to such by his/her cosignature. YANELI GUTIERREZ DO Aug 20, 2018 12:03
[2018-08-20] MEDS: PATIROMER SORBITEX CALCIUM 8.4 GM POWDER PACKET (VELTASSA) PO SCH (13:37)
--- NOTE | 2018-08-20 13:42 | REP ---
Clinical: Pyuria. Technique: Real time perry scale ultrasound examination using curved array transducer. Findings: The bilateral kidneys are normal in contour, size, echogenicity, and reniform shape without hydronephrosis, nephrolithiasis, cystic or renal mass lesion. Left nephrostomy tube noted. No perinephric fluid collection. Right kidney measures 10.8 x 4.2 x 4.5 cm left kidney measures 10.4 x 4.0 x 5.1 cm. Griffiths catheter in collapsed bladder. Impression: Essentially normal appearance the bilateral kidneys without hydronephrosis. Left nephrostomy tube identified. Griffiths catheter in collapsed bladder. Electronically Signed by Puneet Sommers MD 08/20/2018 01:34 P
[2018-08-20 14:00] VITALS: BP 129/59
[2018-08-20] MEDS: SENOKOT S TAB PO SCH ×2 (15:57→22:02)
[2018-08-20] MEDS: PERCOCET 5MG/325MG TAB PO PRN (16:51)
--- NOTE | 2018-08-20 17:11 | IPN ---
DATE: 08/20/2018 SUBJECTIVE: Patient was seen and examined at the bedside today morning. She is afebrile, hemodynamically stable. She was getting the right arm peripherally inserted central catheter (PICC) line dressing changed when I saw her. Renal function is stable. Creatinine is at 2.3. She was given a dose of Lasix yesterday. She made 1.4 liters of urine. There is slight drop in the hemoglobin from 9.8 to 9 today. She continues to have mild persistent hematuria from left-sided percutaneous nephrostomy. Urine in the Griffiths bag is getting more clear now. OBJECTIVE: Vital signs: Temperature is 98.1 degrees Fahrenheit, blood pressure 105/47, pulse is 69, respiratory rate of 15, saturating 95% on room air. Intake and output: Urine output recorded is 1.4 liters yesterday, 125 mL so far today since overnight. Weight in the bed scale is 82.9 kg. PHYSICAL EXAMINATION: GENERAL: Patient is awake, alert, oriented times two, lying in bed getting the dressing changed. HEAD AND NECK: Extraocular muscles intact. Pupils equally round and reactive to light. Mucous membranes are moist. Neck is supple. Mild elevation of jugular venous distention (JVD). CARDIOVASCULAR: S1, S2. Midline sternotomy scar. Left-sided peacemaker. Trace edema of the bilateral lower extremities. RESPIRATORY: Decreased breath sounds at the bases. Otherwise no active rales or rhonchi. ABDOMEN: Soft, obese. Positive bowel sounds. Old surgical scar in the suprapubic region. Left-sided percutaneous nephrostomy tube. Urine in the nephrostomy bag is still red in color. GENITOURINARY: Patient has an indwelling Griffiths catheter. Urine in the bag is getting more clear now. CENTRAL NERVOUS SYSTEM: No focal deficit. Power is 5/5 in bilateral upper extremities. LABORATORY REVIEW: CBC showed a WBC 8.1, hemoglobin 9, platelets are 204. BMP showed sodium 141, potassium 4.9, chloride 110, bicarbonate 24, BUN 48, creatinine 2.3; it was 2.3 yesterday as well. Calcium is 8.2. CURRENT INPATIENT MEDICATIONS: Patient's medications were all reviewed by me. She was given a dose of Lasix 40 mg IV yesterday. No other change in the medications today as compared with yesterday. ASSESSMENT AND PLAN: 1. Acute renal failure superimposed on chronic kidney disease. Patient's creatinine is stable at 2.3 today as compared with yesterday. She was given a dose of Lasix yesterday. Volume status is optimal. No need of diuretic at this point. Renal function is gradually improving. 2. Left-sided hydronephrosis and hematuria. Patient is status post left-sided percutaneous nephrostomy. Left-sided ureteral stent has been removed. Persistent hematuria from the left nephrostomy tube. Urine in the Griffiths is getting more clear. Rest of the management is as per urology. 3. Extended-spectrum beta lactamase (ESBL) and Enterococcus faecium urinary tract infection (UTI). Patient is currently on Zyvox and fluconazole. 4. Hyperkalemia. Potassium level is controlled with daily administration of Veltassa. 5. Blood loss anemia. Patient is status post 3 packed red blood cells (PRBC) transfusion. Transfuse as needed for hemoglobin below 8.
[2018-08-20 18:21] LABS: HEMATOCRIT 25.7 % (36.0-47.0); HEMOGLOBIN 8.3 g/dl (12.0-15.5)
[2018-08-20 22:00] VITALS: BP 121/70
[2018-08-20] MEDS: ROSUVASTATIN 10 MG TAB (CRESTOR) PO SCH (22:02)
[2018-08-20] MEDS: ACETAMINOPHEN TAB 650MG DOSE (2X325MG) PO PRN (22:03)
--- NOTE | 2018-08-20 22:48 | IPNPDOC ---
Date Seen The patient was seen on 08/20/18. Progress Note SUBJECTIVE: Patient is a 88 yo female h/o gross hematuria requiring [address] Loza has been her urologist. He signed out the following: This is an 88 y/o F admitted for a CVA, HUYEN, hematuria, and a UTI, s/p left neph tube placement on 08/15/18 and left ureteral stent removal on 08/17/18. Her Hb is stable. The urine from her Bowers catheter was more red this morning, but is clearing up this afternoon. Similarly, the urine from the left neph tube was more red this morning, but is clearing up and looks dark pink this afternoon. OBJECTIVE PHYSICAL EXAMINATION: GENERAL: Patient is awake, alert, oriented times two, lying in bed getting the dressing changed. HEAD AND NECK: Extraocular muscles intact. Pupils equally round and reactive to light. Mucous membranes are moist. Neck is supple. Mild elevation of jugular venous distention (JVD). CARDIOVASCULAR: Midline sternotomy scar. Trace edema of the bilateral lower extremities. RESPIRATORY: Decreased breath sounds at the bases. Otherwise no active rales or rhonchi. ABDOMEN: Soft, obese. Positive bowel sounds. Old surgical scar in the suprapubic region. Left-sided percutaneous nephrostomy tube. Urine in the nephrostomy bag is still red in color. GENITOURINARY: Patient has an indwelling Bowers catheter [place] cloudy fluid. Nephrostomy tube bloody urine. CENTRAL NERVOUS SYSTEM: No focal deficit. Power is 5/5 in bilateral upper ex tremities. SKIN: bruised. LABORATORY DATA, IMAGING STUDIES, MICROBIOLOGY: Please see below. ASSESSMENT AND PLAN: This is a 88yo female h/o gross hematuria. PROBLEMS: 1. gross hematuria associated with nephrostomy tube and chronic enteroccus and yeast infection 2. gross hematuria associated with bowers and ecoli infection. 3. Pt is hemodynamically stable, but her HCT (currently 25) has slowly drifted down: PTT/PT are normal 4. Continue antibiotic and antifungal treatment. Follow H/HCT closely. Check platelet function d dimer fibrinogen 5. Renal function is stable CKD 4 6. Calcium low. check ionized ca. consider replacement per hospitalist team. DISPOSITION: per hospitalist. VS, I&O, 24H, Fishbone Vital Signs/I&O Vital Signs Date Time Temp Pulse Resp B/P (MAP) Pulse Ox O2 Delivery O2 Flow Rate FiO2 08/20/18 17:21 18 08/20/18 14:00 96.8 70 129/59 (82) 100 08/15/18 13:45 2 I&O- Last 24 Hours up to 6 AM 08/20/18 06:00 Intake Total 1530 ml Output Total 1850 ml Balance -320 ml Laboratory Data 24H LABS Laboratory Tests 2 08/20/18 05:33: Nucleated Red Blood Cells % (auto) 0.2H, Anion Gap 7L, Glomerular Filtration Rate 20.5L, Blood Urea Nitrogen 48H, Creatinine 2.38H, Sodium Level 141, Potassium Level 4.9, Chloride Level 110H, Carbon Dioxide Level 24, Calcium Level 8.2L 08/20/18 12:09: Bedside Glucose (Misc Panel) 202H 08/20/18 16:32: Bedside Glucose (Misc Panel) 130H 08/20/18 20:35: Bedside Glucose (Misc Panel) 183H CBC/BMP Laboratory Tests 08/20/18 05:33 Red Blood Count 3.06 L, Mean Corpuscular Volume 94.4, Mean Corpuscular Hemoglobin 29.4, Mean Corpuscular Hemoglobin Concent 31.1 L, Red Cell Distribution Width 17.8 H, Calcium Level 8.2 L 08/20/18 17:54 Microbiology Microbiology 08/20/18 Urine Culture, Received Pending 08/15/18 Anaerobic Culture - Final, Complete 08/15/18 Gram Stain - Final, Complete 08/15/18 Body Fluid Culture - Final, Complete Enterococcus Faecium Yeast Like Organism Opal Peoples MD Aug 20, 2018 22:26
[2018-08-21] VITALS (9 sets, daily range): BP systolic 84–117; BP diastolic 46–74
[2018-08-21 00:19] LABS: HEMATOCRIT 26.6 % (36.0-47.0); HEMOGLOBIN 8.3 g/dl (12.0-15.5)
[2018-08-21 06:20] LABS: HEMOGLOBIN 8.3 g/dl (12.0-15.5); MEAN CORPUSCULAR HEMOGLOBIN 29.5 pg (27.0-33.0); MEAN CORPUSCULAR HGB CONC 30.7 g/dl (32.0-36.5); MEAN CORPUSCULAR VOLUME 96.1 fl (80.0-96.0); PLATELET COUNT, AUTOMATED 191 10^3/uL (150-450); RED BLOOD COUNT 2.81 10^6/uL (4.00-5.40); WHITE BLOOD COUNT 11.6 10^3/uL (4.0-10.0)
[2018-08-21] MEDS: PROPAFENONE 150 MG TAB PO SCH ×3 (06:23→21:25)
[2018-08-21] MEDS: SODIUM CHLORIDE 0.9% INJ 10 ML SYR IV SCH ×2 (06:24→18:36)
[2018-08-21] MEDS: LEVOTHYROXINE PO SCH (06:24)
[2018-08-21 06:47] LABS: CALCIUM LEVEL 8.3 MG/DL (8.8-10.2); CREATININE FOR GFR 2.78 MG/DL (0.55-1.30); GLOMERULAR FILTRATION RATE 17.1 (>32); POTASSIUM SERUM 5.1 MEQ/L (3.5-5.1)
[2018-08-21] MEDS: ESCITALOPRAM OXALATE 10 MG TAB (LEXAPRO) PO SCH (08:29)
[2018-08-21] MEDS: HumaLOG INSULIN (NovoLOG) PER UNIT SC SCH ×4 (08:29→21:00)
[2018-08-21] MEDS: MIRALAX *UNIT DOSE* 17GM PACKET PO SCH (08:29)
[2018-08-21] MEDS: SENOKOT S TAB PO SCH ×2 (08:30→21:20)
[2018-08-21] MEDS: LINEZOLID 600MG TABLET (ZYVOX) PO SCH ×2 (08:30→21:21)
[2018-08-21] MEDS: PANTOPRAZOLE 40MG TAB (PROTONIX) PO SCH (08:30)
[2018-08-21] MEDS: FLUCONAZOLE 100 MG TAB PO SCH (08:30)
[2018-08-21] MEDS: VITAMIN D 1,000 INTERNATIONAL UNITS TABLET PO SCH (08:30)
[2018-08-21] MEDS: ASPIRIN 81 MG ENTERIC TAB PO SCH (08:30)
--- NOTE | 2018-08-21 08:36 | REP ---
Clinical: Renal failure. Technique: Axial noncontrast images from the lung bases to the pubic symphysis after the administration of oral contrast material. Coronal and sagittal re-formations were obtained. Comparison: 08/08/2018. Findings: Moderate bilateral consolidations with moderate pleural effusions (right greater than left) may be slightly increased from prior examination. Liver, spleen, atrophic pancreas, bilateral adrenal glands and right kidney appear relatively stable/normal. Left kidney demonstrates percutaneous nephrostomy tube in satisfactory position and evidence for decreased/improved hydroureteronephrosis. The enteric system demonstrates fecal stasis with possible constipation and no evidence for bowel obstruction. A nonobstructed ventral hernia containing loop of transverse colon is again identified. Griffiths catheter noted in collapsed bladder. No ascites. No free air. No obvious significant adenopathy. Extensive atherosclerotic changes throughout the aorta and vasculature noted. The musculoskeletal structures demonstrate degenerative changes without focal osseous abnormality. Significant subcutaneous edema is noted and consistent with the given history of renal failure. Impression: 1. Moderate bilateral consolidations and moderate pleural effusions (right greater than left) slightly increased from prior examination. 2. Left kidney demonstrates decreased/improved hydroureteronephrosis. 3. Remainder examination demonstrates chronic stable changes as detailed above. Electronically Signed by Puneet Sommers MD 08/21/2018 08:28 A
[2018-08-21] MEDS ORDERED: LevoFLOXacin IV 750 MG in APPROPRIATE DILUENT 1 EA IV ONE (10:00)
[2018-08-21 10:12] LABS: ALBUMIN 2.5 GM/DL (3.2-5.2); BILIRUBIN,DIRECT 0.1 MG/DL (0.0-0.2); BILIRUBIN,TOTAL 0.3 MG/DL (0.2-1.0); C REACTIVE PROTEIN QUANTITATIV 3.51 MG/DL (0.00-0.30); TOTAL PROTEIN 6.1 GM/DL (6.4-8.2)
--- NOTE | 2018-08-21 10:20 | REP ---
Clinical: History of renal failure. Technique: Axial noncontrast images from the thoracic inlet to the upper abdomen with coronal and sagittal re-formations. Findings: Moderate bilateral pleural effusions and lower lobe consolidations (right greater than left) are identified. No pneumothorax. Mild mediastinal and hilar adenopathy is suggested. Cardiomegaly is noted along with evidence to suggest mild pulmonary vascular congestion. Atherosclerotic changes to the thoracic aorta and coronary arteries noted without aortic aneurysm. No pericardial effusion. Pacemaker leads in seemingly satisfactory position. Skeletal structures without focal osseous abnormality. Impression: Moderate pleural effusions and consolidations (right greater than left). Pulmonary vascular congestion. Electronically Signed by Puneet Sommers MD 08/21/2018 10:11 A
[2018-08-21 10:25] LABS: ERYTHROCYTE SEDIMENTATION RATE 51 mm/hr (0-42)
--- NOTE | 2018-08-21 10:27 | IPNPDOC ---
Date Seen The patient was seen on 08/21/18. Progress Note SUBJECTIVE: Patient is a 88 yo female s/p 3 u PBRBC associated with hematuria. she now has low urine output and low po intake. She is more confused. Her HCT is up without any new PRBC's. Her Cr is up. Dr. Rodriguez will d/w nephrology her renal function. CT abd/pelvis. nephrostomy is in the left kidney in good location. no significant perineph stranding at preliminary impression. final result from r adiology reviewed (also, see below). There is inflammation of the left kidney. urine culture from cloudy bowers is pending. 30 cc irrigation prn has helped clear the bloody urine. This is the first day with clearer urine. OBJECTIVE PHYSICAL EXAMINATION: VITAL SIGNS: Please see below. GENERAL: confused lethargic HEENT: no erythema no exudate CARDIOVASCULAR: pale. RESPIRATORY: no labored breathing. ABDOMINAL: soft non tender non distended EXTREMITIES: no cyanosis clubbing or edema NEUROLOGICAL: confused PSYCHOLOGICAL: normal mood and affect LABORATORY DATA, IMAGING STUDIES, MICROBIOLOGY: Please see below. Impression (FINAL per RADIOLOGY): 1. Moderate bilateral consolidations and moderate pleural effusions (right greater than left) slightly increased from prior examination. 2. Left kidney demonstrates decreased/improved hydroureteronephrosis. 3. Remainder examination demonstrates chronic stable changes as detailed above. Electronically Signed by Puneet Sommers MD 08/21/2018 08:28 A ASSESSMENT AND PLAN: This is a 88yo female with low urine output. relatively d ry; nephrology input warranted. check ekg and troponins. check liver profile. PROBLEMS: 1. gross hematuria: improved with irrigation and stopping the plavix. currently on aspirin per neurology; restarting plavix could complicate a tenuous situation. 2. low urine output: volume ordered in consultation with nephrology. 3. lung consolidation, pulmonary effusion (right greater than left) confusion and increase wbc: watch for signs and symptoms of ards/sepsis/toxic shock v cardiogenic. currently on antibiotic and antifungal therapies for the pulmonary and urinary tract per hospitalist team. DISPOSITION: per hospitalist VS, I&O, 24H, Fishbone Vital Signs/I&O Vital Signs Date Time Temp Pulse Resp B/P (MAP) Pulse Ox O2 Delivery O2 Flow Rate FiO2 08/21/18 08:33 69 124/70 08/21/18 06:00 97.9 17 92 08/15/18 13:45 2 I&O- Last 24 Hours up to 6 AM 08/21/18 06:00 Intake Total 1450 ml Output Total 593 ml Balance 857 ml Laboratory Data 24H LABS Laboratory Tests 2 08/20/18 12:09: Bedside Glucose (Misc Panel) 202H 08/20/18 16:32: Bedside Glucose (Misc Panel) 130H 08/20/18 20:35: Bedside Glucose (Misc Panel) 183H 08/21/18 05:16: Nucleated Red Blood Cells % (auto) 0.0, Anion Gap 6L, Glomerular Filtration Rate 17.1L, Calcium Level 8.3L CBC/BMP Laboratory Tests 08/20/18 17:54 08/20/18 23:57 08/21/18 05:16 Red Blood Count 2.81 L, Mean Corpuscular Volume 96.1 H, Mean Corpuscular Hemoglobin 29.5, Mean Corpuscular Hemoglobin Concent 30.7 L, Red Cell Distribution Width 17.9 H Microbiology Microbiology 08/20/18 Urine Culture, Received Pending 08/15/18 Anaerobic Culture - Final, Complete 08/15/18 Gram Stain - Final, Complete 08/15/18 Body Fluid Culture - Final, Complete Enterococcus Faecium Yeast Like Organism Opal Peoples MD Aug 21, 2018 10:27
[2018-08-21] MEDS: ONDANSETRON 4MG/2ML VIAL (J2405) IV PRN ×2 (11:20→17:12)
[2018-08-21] MEDS: SODIUM CHLORIDE 0.9% INJ 10 ML SYR IV PRN (11:21)
[2018-08-21 12:09] LABS: HEMATOCRIT 25.5 % (36.0-47.0); HEMOGLOBIN 7.9 g/dl (12.0-15.5)
[2018-08-21] MEDS: PATIROMER SORBITEX CALCIUM 8.4 GM POWDER PACKET (VELTASSA) PO SCH (12:54)
[2018-08-21] MEDS ORDERED: FUROSEMIDE 40 MG/4 ML VIAL (J1940) IV SCH (17:00)
--- NOTE | 2018-08-21 17:23 | IPNPDOC ---
Text Note Date of Service The patient was seen on 08/21/18. NOTE SUBJECTIVE: The patient is seen and examined multiple times today. Patient is more confused compared to yesterday. Denies fever or chill. Denies shortness of breath or cough. Denies chest pain. OBJECTIVE: VITAL SIGNS: Listed below. GENERAL: Alert and awake. Confused. HEENT: Normocephalic, atraumatic. CARDIOVASCULAR: Positive S1 and S2. Regular rate. LUNGS: Clear to auscultation bilaterally. ABDOMEN: Soft, nontender, nondistended. EXTREMITIES: No edema. GENITOURINARY (): Bowers catheter in place. Cloudy yellow urine noted in bowers bag. [place] urine noted in Urostomy bag. LABORATORY DATA: Listed below ASSESSMENT AND PLAN: #. Gross hematuria. - Left ureteral stent removal by urology. CT ABD/PEL reviewed. Culture from bowers catheter demonstrated ESBL S/P course of antibiotic. Culture from nephrostomy demonstrate E. Faecium and yeast-like organism. On Diflucan and Zyvox. Bleeding is improving. Patient is on ASA. #. Urinary tract infection. - Initially, the patient was noted to have ESBL, status post ertapenem therapy. Later nephrostomy culture grew heavy yeast-like organism and Enterococcus faecium. On Diflucan, also the Zyvox. #. Frequent transient ischemic attack (TIA)/stroke. - Per neurology, the patient should be on long-term treatment with Plavix and Eliquis. However, due to significant blood loss, the patient is on aspirin at this moment. Continue holding Plavix per urology recommendation. #. Acute on chronic kidney disease. - Baseline chronic kidney disease (CKD), stage III. Also, is secondary to hydronephrosis. The patient had nephrostomy tube placement August 15. The patient is currently being treated for urinary tract infection. Bowers catheter in place. Nephrology consulted. Appreciate their assistance. #Acute blood loss anemia. Since admission, The patient has been received multiple blood transfusions. Blood transfusion was performed August 12, August 16 and August 17. Continue to monitor the patient. #. Hyperkalemia on Veltassa. #. Bilateral carotid stenosis, status post carotid endarterectomy in April 2018. #. Hypertension. Blood pressure in the satisfactory range. The patient is on Cardizem. #. Insulin-dependent diabetes on consistent carbohydrate diet. #. Coronary artery disease, status post coronary artery bypass graft (CABG) on aspirin and statin. #. Dyslipidemia on Crestor. #. Hypothyroidism on Synthroid. #. History of paroxysmal atrial fibrillation. Anticoagulation on hold due to bleeding. #. Systolic dysfunction. Will continue to monitor for sign of fluid overload. Lasix and lisinopril on hold due to acute on chronic kidney disease. #. Depression on Lexapro. #. Gastroesophageal reflux disease on Protonix. #. Deep vein thrombosis (DVT) prophylaxis on JUAN PABLO compression. VS,Fishbone, I+O VS, Fishbone, I+O Laboratory Tests 08/20/18 17:54 08/20/18 23:57 08/21/18 05:16 Red Blood Count 2.81 L, Mean Corpuscular Volume 96.1 H, Mean Corpuscular Hemoglobin 29.5, Mean Corpuscular Hemoglobin Concent 30.7 L, Red Cell Distribution Width 17.9 H 08/21/18 11:59 Vital Signs Date Time Temp Pulse Resp B/P (MAP) Pulse Ox O2 Delivery O2 Flow Rate FiO2 08/21/18 15:34 76 117/58 (77) 08/21/18 14:00 97.1 18 100 08/15/18 13:45 2 I&O- Last 24 Hours up to 6 AM 08/21/18 06:00 Intake Total 1450 ml Output Total 593 ml Balance 857 ml JANAY BRAVO DO Aug 21, 2018 17:23
[2018-08-21] MEDS ORDERED: NS 500 ML IV ONE (17:45)
[2018-08-21 18:15] LABS: ABG HCO3 20.9 MEQ/L (22.0-26.0); ABG O2 SATURATION 93.2 % (95.0-99.0); ABG STANDARD HCO3 20.3 MEQ/L (22.0-26.0); ABG TOTAL CO2 22.2 MEQ/L (23.0-31.0); ABG pH (ARTERIAL) 7.315 UNITS (7.350-7.450)
[2018-08-21 18:17] LABS: HEMATOCRIT 29.2 % (36.0-47.0); HEMOGLOBIN 9.2 g/dl (12.0-15.5); MEAN CORPUSCULAR HEMOGLOBIN 29.7 pg (27.0-33.0); MEAN CORPUSCULAR HGB CONC 31.5 g/dl (32.0-36.5); MEAN CORPUSCULAR VOLUME 94.2 fl (80.0-96.0); PLATELET COUNT, AUTOMATED 185 10^3/uL (150-450); WHITE BLOOD COUNT 9.9 10^3/uL (4.0-10.0)
[2018-08-21] MEDS: MEROPENEM INJ 1 GM in APPROPRIATE DILUENT 1 EA IV SCH (18:36)
[2018-08-21 18:42] LABS: ERYTHROCYTE SEDIMENTATION RATE 71 mm/hr (0-42)
[2018-08-21 18:44] LABS: BLOOD UREA NITROGEN 53 MG/DL (7-18); C REACTIVE PROTEIN QUANTITATIV 3.05 MG/DL (0.00-0.30); CALCIUM LEVEL 7.8 MG/DL (8.8-10.2); CARBON DIOXIDE LEVEL 24 MEQ/L (21-32); CHLORIDE LEVEL 108 MEQ/L (98-107); CREATININE FOR GFR 2.97 MG/DL (0.55-1.30); GLOMERULAR FILTRATION RATE 15.9 (>32); GLUCOSE, FASTING 147 MG/DL (70-100); POTASSIUM SERUM 5.3 MEQ/L (3.5-5.1); SODIUM LEVEL 138 MEQ/L (136-145)
[2018-08-21 19:11] LABS: CPK CREATINE PHOSPHOKINASE 113 U/L (26-192); MB/CK RELATIVE INDEX 1.15 (< OR =4); TROPONIN I < 0.02 NG/ML (< 0.10)
[2018-08-21] MEDS: ROSUVASTATIN 10 MG TAB (CRESTOR) PO SCH (21:19)
[2018-08-21] MEDS: PERCOCET 5MG/325MG TAB PO PRN (23:47)
[2018-08-22 00:31] LABS: HEMATOCRIT 28.5 % (36.0-47.0)
[2018-08-22] MEDS: ATROPINE SULF 1MG/10ML SYRINGE (J0461) IV PRN (00:32)
[2018-08-22 04:00] VITALS: BP 127/58
[2018-08-22] MEDS: LEVOTHYROXINE PO SCH (05:11)
[2018-08-22] MEDS: SODIUM CHLORIDE 0.9% INJ 10 ML SYR IV SCH ×2 (05:12→18:38)
[2018-08-22] MEDS: PROPAFENONE 150 MG TAB PO SCH ×3 (05:12→20:37)
[2018-08-22] MEDS: MEROPENEM INJ 1 GM in APPROPRIATE DILUENT 1 EA IV SCH ×2 (05:12→18:38)
[2018-08-22 05:16] LABS: HEMATOCRIT 27.9 % (36.0-47.0); HEMOGLOBIN 8.7 g/dl (12.0-15.5); MEAN CORPUSCULAR HEMOGLOBIN 29.9 pg (27.0-33.0); MEAN CORPUSCULAR HGB CONC 31.2 g/dl (32.0-36.5); MEAN CORPUSCULAR VOLUME 95.9 fl (80.0-96.0); PLATELET COUNT, AUTOMATED 175 10^3/uL (150-450); RED BLOOD COUNT 2.91 10^6/uL (4.00-5.40); WHITE BLOOD COUNT 9.6 10^3/uL (4.0-10.0)
[2018-08-22 05:46] LABS: CALCIUM LEVEL 8.2 MG/DL (8.8-10.2); CREATININE FOR GFR 3.11 MG/DL (0.55-1.30); POTASSIUM SERUM 5.5 MEQ/L (3.5-5.1)
[2018-08-22] MEDS: HumaLOG INSULIN (NovoLOG) PER UNIT SC SCH ×4 (07:30→21:00)
--- NOTE | 2018-08-22 07:37 | IPN ---
DATE: 08/21/2018 SUBJECTIVE: Estrella is seen and examined this morning at the bedside. She remains somewhat confused but she was able to tell me her name and both of her daughter's name. She denies any shortness of breath at rest. She has been eating some of her meals and continues with Griffiths catheter and left sided percutaneous nephrostomy. Her urine output has significantly slowed down and her renal function is worsening. Most recent CAT scan showed moderate bilateral pleural effusions with consolidation and improvement in left hydroureteronephrosis. VITAL SIGNS: Temperature 97.0, pulse 76, respiratory rate 18, blood pressure 117/58 saturating 96-100% on room air. Intake yesterday was 880 and urine output yesterday was 475 from Griffiths catheter and 300 from the left nephrostomy. Weight in the bed scale today is 82.6 kg. GENERAL: Patient is seen lying in bed, elderly female. Head of bed elevated, confused reaching out to grab something and midair. Makes eye contact and answers some simple questions. Tongue is moist. Neck is supple and jugular veins are moderately elevated. Cardiac, S1, S2 regular rate. Lungs: Diminished breath sounds at the bilateral bases. Abdomen: Soft and nontender. : Shows a Griffiths catheter in placed with cloudy yellow urine and pinkish carmen tinged urine in the left nephrostomy bag. Neurologic: Patient is able to tell me her name, able to tell me her daughter's name and her date of . She is unable to tell me the year. LABS: White count 9.9, hemoglobin 9.2, platelet 185, sodium 138, potassium 5.3, BUN 53, creatinine 2.9, BNP 2,000. CT abdomen pelvis 08/21/2018 without contrast shows moderate bilateral consolidations and moderate pleural effusions, right greater than left and improving left hydroureteronephrosis. INPATIENT MEDICATIONS: Patient got one dose of Levaquin and is started on Meropenem 1 gram IV every 12 hours. She received 500 mL of normal saline, holding parameters are added to the diltiazem. Remainder of the medications are unchanged from prior. PROBLEMS: 1. Acute kidney injury, superimposed on CKD stage 2. Patient has a baseline creatinine of around 1. She has had a prolonged kidney injury since admission on 08/07/2018. Her creatinine was slowly improving up until this morning. Yesterday her urine output significantly slowed off. She had recent noncontrast CAT scan of the chest abdomen and pelvis. These were notable for moderate bilateral pleural effusions with consolidation and also for improving left sided hydroureteronephrosis. Initially I had planned to give the patient Lasix 40 mg IV for concern of pleural effusion / volume overload and that decreasing urine output. However this evening she subsequently became hypotensive, blood pressure 84/28. This was despite getting one unit of packed red blood cells. Subsequently Lasix administration was held and she did not get any diuretic dose today. Instead she was given a small fluid bolus of 500 mL normal saline. I would not like to continue IV fluid given that she already has bilateral moderate pleural effusions which look to have increased over the course of this admission. We will instead given her albumin 25% every 8 hours for three doses to see if that helps with the intravascular volume. There is no urgent indication for dialysis at present but I did speak earlier with her daughter Mora regarding the prolonged nature of this kidney injury which has been going on now for more than 2 weeks. 2. Hyperkalemia, persistent and related to renal failure. She is on daily Veltassa. I am adding 2 grams potassium restriction to her diet. There is no acidosis. 3. Blood loss anemia related to the hematuria. Hemoglobin has down trended over the course of the admission. She was transfused another unit of packed red blood cells today. The urine in the Griffiths and nephrostomy is getting more clear. She is followed by urology. She is receiving antibiotics for ESBL culture from the Griffiths catheter and nephrostomy with E. Faecium and yeast . 4. Hypertension. Blood pressures are soft today. I have added generous holding parameters to the Cardizem. She received a small fluid bolus. 5. Systolic dysfunction. Mild on recent [place], [place] [id number], moderate pleural effusions on CT imaging today. Diuretics were planned for but then held due to hypotension in the evening. She instead received albumin to help promote intravascular volume. If blood pressures are more stable tomorrow We will plan for a trial of diuretics.
[2018-08-22 08:00] VITALS: BP 140/70
[2018-08-22] MEDS: FLUCONAZOLE 100 MG TAB PO SCH (09:40)
[2018-08-22 09:41] VITALS: BP 140/70
[2018-08-22] MEDS: LINEZOLID 600MG TABLET (ZYVOX) PO SCH ×2 (09:41→20:37)
[2018-08-22] MEDS: ASPIRIN 81 MG ENTERIC TAB PO SCH (09:43)
[2018-08-22] MEDS: ESCITALOPRAM OXALATE 10 MG TAB (LEXAPRO) PO SCH (09:44)
[2018-08-22] MEDS: PANTOPRAZOLE 40MG TAB (PROTONIX) PO SCH (09:44)
[2018-08-22] MEDS: VITAMIN D 1,000 INTERNATIONAL UNITS TABLET PO SCH (09:45)
[2018-08-22] MEDS: SENOKOT S TAB PO SCH ×2 (09:46→20:35)
[2018-08-22] MEDS: MIRALAX *UNIT DOSE* 17GM PACKET PO SCH (09:46)
[2018-08-22] MEDS: ONDANSETRON 4MG/2ML VIAL (J2405) IV PRN (09:53)
[2018-08-22] MEDS: SODIUM CHLORIDE 0.9% INJ 10 ML SYR IV PRN ×2 (09:54→13:26)
[2018-08-22 11:06] LABS: C REACTIVE PROTEIN QUANTITATIV 2.97 MG/DL (0.00-0.30)
[2018-08-22 11:19] LABS: ERYTHROCYTE SEDIMENTATION RATE 49 mm/hr (0-42)
[2018-08-22 12:00] VITALS: BP 128/70
[2018-08-22] MEDS: PATIROMER SORBITEX CALCIUM 8.4 GM POWDER PACKET (VELTASSA) PO SCH (12:10)
[2018-08-22] MEDS ORDERED: SODIUM BICARBONATE 75 MEQ in NS 0.45% 1,000 ML IV SCH (13:00)
--- NOTE | 2018-08-22 14:13 | IPNPDOC ---
Assessment/Plan Date Seen The patient was seen on 08/22/18. Patient Summary This is an 88 y/o F admitted for a CVA, HUYEN, hematuria, and a UTI, s/p left neph tube placement on 08/15/18 and left ureteral stent removal on 08/17/18. Her Hb is 8.7. Her Cr is starting to trend back up, now 3.1. The urine from her Griffiths catheter appears clear of blood, but the left neph tube is still draining dark red urine. Plan/VTE VTE Prophylaxis Ordered?: Yes VTE Exclusion Mechanical Proph: N/A:VTE Prophy Ordered Plan/Urinary Catheter Urinary Catheter: Other Catheter: (continue catheter to monitor UOP) Plan - recommend that anticoagulation and antiplatelet therapy (w/ exception of baby ASA) continue to be held until urine from the Griffiths and the left neph tube are both clear - will follow Subjective Review oF Systems Chief Complaint The patient is a 88-year-old female admitted with a reason for visit of Stroke,Uti, Retained Ureteral Stent. Events since Last Encounter No acute events o/n. Patient tolerating mild pain from the left nephrostomy tube. Objective Physical Examination General Exam: Cooperative, No Acute Distress Heart Exam: Positive: Normal S1, Normal S2 Neuro Exam: Normal Speech Psych Exam: Mood NL Other physical findings Griffiths catheter in place, draining light carmen colored urine; left neph tube draining dark red urine Vital Signs/I&O Vital Signs Date Time Temp Pulse Resp B/P (MAP) Pulse Ox O2 Delivery O2 Flow Rate FiO2 08/22/18 12:00 96.7 68 20 128/70 (89) 94 1.0 I&O- Last 24 Hours up to 6 AM 08/22/18 06:00 Intake Total 300 ml Output Total 390 ml Balance -90 ml Laboratory Data Labs 24H Laboratory Tests 2 08/21/18 17:02: Bedside Glucose (Misc Panel) 153H 08/21/18 17:56: Nucleated Red Blood Cells % (auto) 0.0, Erythrocyte Sedimentation Rate 71H, Anion Gap 6L, Glomerular Filtration Rate 15.9L, Lactic Acid Level 0.8, Blood Urea Nitrogen 53H, Creatinine 2.97H, Sodium Level 138, Potassium Level 5.3H, Chloride Level 108H, Carbon Dioxide Level 24, Calcium Level 7.8L, Total Creatine Kinase 113, Magnesium Level 2.0, Creatine Kinase MB 1.0, Creatine Kinase MB Relative Index 1.15, Troponin I < 0.02, C-Reactive Protein, Quantitative 3.05H 08/21/18 18:05: Blood Gas Bicarbonate Standard 20.3L, Arterial Blood pH 7.315L, Arterial Blood Partial Pressure CO2 42.0, Arterial Blood Partial Pressure O2 65.0L, Arterial Blood Total CO2 22.2L, Arterial Blood HCO3 20.9L, Arterial Blood Base Excess - 5.0L, Arterial Blood Oxygen Saturation 93.2L 08/21/18 21:13: Bedside Glucose (Misc Panel) 162H 08/22/18 05:03: Nucleated Red Blood Cells % (auto) 0.2H, Erythrocyte Sedimentation Rate 49H, Anion Gap 7L, Glomerular Filtration Rate 15.0L, Blood Urea Nitrogen 55H, Creatinine 3.11H, Sodium Level 136, Potassium Level 5.5H, Chloride Level 108H, Carbon Dioxide Level 21, Calcium Level 8.2L, C-Reactive Protein, Quantitative 2.97H, VS-Uot-A-Type Natriuretic Peptide 2069H 08/22/18 11:46: Bedside Glucose (Misc Panel) 165H CBC/BMP Laboratory Tests 08/21/18 17:56 Red Blood Count 3.10 L, Mean Corpuscular Volume 94.2, Mean Corpuscular Hemoglobin 29.7, Mean Corpuscular Hemoglobin Concent 31.5 L, Red Cell Distribution Width 17.1 H, Calcium Level 7.8 L, Total Creatine Kinase 113 08/22/18 00:11 08/22/18 05:03 Red Blood Count 2.91 L, Mean Corpuscular Volume 95.9, Mean Corpuscular Hemoglobin 29.9, Mean Corpuscular Hemoglobin Concent 31.2 L, Red Cell Distribution Width 17.4 H, Calcium Level 8.2 L FSBS Laboratory Tests Test 08/21/18 17:02 08/21/18 21:13 08/22/18 11:46 Range/Units Bedside Glucose (Misc Panel) 153 162 165 83-110 MG/DL Microbiology Microbiology 08/20/18 Urine Culture - Final, Complete Yeast Like Organism 08/15/18 Anaerobic Culture - Final, Complete 08/15/18 Gram Stain - Final, Complete 08/15/18 Body Fluid Culture - Final, Complete Enterococcus Faecium Yeast Like Organism MCKINLEY PANCHAL MD Aug 22, 2018 14:13
[2018-08-22 16:00] VITALS: BP 111/61
--- NOTE | 2018-08-22 19:15 | IPNPDOC ---
Text Note Date of Service The patient was seen on 08/22/18. NOTE SUBJECTIVE: The patient was seen and examined multiple times today. Patient was not fully oriented during the encounter. Yesterday patient was noted to have hypotension and worsening confusion. Patient was upgraded from Med/Surg to PCU. Patient's daughters presented during the encounter. All their questions answered. OBJECTIVE: VITAL SIGNS: Listed below. GENERAL: Alert and awake. Confused. HEENT: Normocephalic, atraumatic. CARDIOVASCULAR: Positive S1 and S2. Regular rate. LUNGS: Clear to auscultation bilaterally. ABDOMEN: Soft, nontender, nondistended. EXTREMITIES: No edema. GENITOURINARY (): Blood clot noted in Bowers catheter bag. Significant blood clots noted in Urostomy bag. LABORATORY DATA: Listed below ASSESSMENT AND PLAN: #. Gross hematuria. - Left ureteral stent removal by urology. CT ABD/PEL reviewed. Previous culture from bowers catheter demonstrated ESBL S/P a course of antibiotic. Culture from urostomy demonstrate E. Faecium and yeast-like organism. On Diflucan and Zyvox. - Per recommendation, will continue to hold plavix or anticoagulation at this moment. - Continue to follow HH and transfer if needed. #. Urinary tract infection. - Initially, the patient was noted to have ESBL, status post ertapenem therapy. Later urostomy culture grew heavy yeast-like organism and Enterococcus faecium. On Diflucan, also the Zyvox. - Follow up repeat urine culture. Restart empirical antibiotic. #. Frequent transient ischemic attack (TIA)/stroke. - Per neurology, the patient should be on long-term treatment with Plavix and Eliquis. However, due to significant blood loss, the patient is on aspirin at this moment. Continue holding Plavix per urology recommendation. #. Acute on chronic kidney disease. - Baseline chronic kidney disease (CKD), stage III. The patient had hydroneprhosis s/p nephrostomy tube placement on August 15. The patient is currently being treated for urinary tract infection. Bowers catheter in place. Nephrology consulted. #Acute blood loss anemia. Since admission, The patient has been received multiple blood transfusions. Blood transfusion was performed August 12, August 16 and August 17. Continue to monitor the patient. #. Hyperkalemia on Veltassa. #. Bilateral carotid stenosis, status post carotid endarterectomy in April 2018. #. Hypertension. Blood pressure in the satisfactory range. The patient is on Cardizem. #. Insulin-dependent diabetes on consistent carbohydrate diet. #. Coronary artery disease, status post coronary artery bypass graft (CABG) on aspirin and statin. #. Dyslipidemia on Crestor. #. Hypothyroidism on Synthroid. #. History of paroxysmal atrial fibrillation. Anticoagulation on hold due to bleeding. #. Systolic dysfunction. Will continue to monitor for sign of fluid overload. Lasix and lisinopril on hold due to acute on chronic kidney disease. #. Depression on Lexapro. #. Gastroesophageal reflux disease on Protonix. #. Deep vein thrombosis (DVT) prophylaxis on JUAN PABLO compression. VS,Fishbone, I+O VS, Fishbone, I+O Laboratory Tests 08/22/18 00:11 08/22/18 05:03 Red Blood Count 2.91 L, Mean Corpuscular Volume 95.9, Mean Corpuscular Hemoglobin 29.9, Mean Corpuscular Hemoglobin Concent 31.2 L, Red Cell Distribution Width 17.4 H, Calcium Level 8.2 L Vital Signs Date Time Temp Pulse Resp B/P (MAP) Pulse Ox O2 Delivery O2 Flow Rate FiO2 08/22/18 16:00 96.2 69 22 111/61 (78) 96 1.0 I&O- Last 24 Hours up to 6 AM 08/22/18 06:00 Intake Total 300 ml Output Total 390 ml Balance -90 ml JANAY BRAVO DO Aug 22, 2018 19:15
[2018-08-22 20:00] VITALS: BP 127/60
[2018-08-22] MEDS: ROSUVASTATIN 10 MG TAB (CRESTOR) PO SCH (20:37)
[2018-08-22] MEDS ORDERED: IPRATROPIUM 0.5MG/ALBUTEROL 2.5MG INH SOL UD 3ML (DUONEB)(J7620) NEB ONE (20:45)
[2018-08-23] VITALS: BP 76/38
[2018-08-23] MEDS ORDERED: ATROPINE SULF 1MG/10ML SYRINGE (J0461) As Ordered ONE ×2 (00:19→00:25)
[2018-08-23] MEDS ORDERED: DOPamine HCL 400 MG in APPROPRIATE DILUENT 1 EA IV SCH (00:30)
[2018-08-23] MEDS: ATROPINE SULF 1MG/10ML SYRINGE (J0461) IV PRN ×2 (00:38→00:45)
[2018-08-23 00:51] LABS: HEMATOCRIT 29.3 % (36.0-47.0); HEMOGLOBIN 8.9 g/dl (12.0-15.5); MEAN CORPUSCULAR HEMOGLOBIN 30.5 pg (27.0-33.0); MEAN CORPUSCULAR HGB CONC 30.4 g/dl (32.0-36.5); MEAN CORPUSCULAR VOLUME 100.3 fl (80.0-96.0); PLATELET COUNT, AUTOMATED 197 10^3/uL (150-450); RED BLOOD COUNT 2.92 10^6/uL (4.00-5.40); WHITE BLOOD COUNT 12.8 10^3/uL (4.0-10.0)
[2018-08-23] MEDS ORDERED: MORPHINE 4 MG/ML 1ML VIAL/SYRINGE (J2270) As Ordered ONE (00:54)
[2018-08-23 01:05] VITALS: BP 76/38
[2018-08-23] MEDS ORDERED: NS 500 ML IV ONE (01:15)
[2018-08-23] MEDS ORDERED: MORPHINE 4 MG/ML 1ML VIAL/SYRINGE (J2270) IV PRN (01:15)
[2018-08-23 01:45] LABS: BLOOD UREA NITROGEN 62 MG/DL (7-18); CALCIUM LEVEL 7.7 MG/DL (8.8-10.2); CARBON DIOXIDE LEVEL 26 MEQ/L (21-32); CHLORIDE LEVEL 107 MEQ/L (98-107); CK-MB VALUE MASS < 1.0 NG/ML (<3.6); CPK CREATINE PHOSPHOKINASE 75 U/L (26-192); CREATININE FOR GFR 3.65 MG/DL (0.55-1.30); GLOMERULAR FILTRATION RATE 12.5 (>32); GLUCOSE, FASTING 235 MG/DL (70-100); MB/CK RELATIVE INDEX 1.33 (< OR =4); POTASSIUM SERUM 6.2 MEQ/L (3.5-5.1); SODIUM LEVEL 138 MEQ/L (136-145); TROPONIN I 0.03 NG/ML (< 0.10)
--- NOTE | 2018-08-23 02:04 | IPNPDOC ---
Date Seen The patient was seen on 08/23/18. Progress Note SUBJECTIVE: Rapid assessment called on patient at 1204 hrs. Patient was non- responsive and bradycardiac with a heart rate in the 30's. Cardiac monitoring had revealed asystole however, this rhythm had been noted for the past few days due to the patients pacemaker interfering with telemetry. ACS protocol was initiated and patient received a total of 4 doses of atropine without response. Patient has a pacemaker in place although she remained in symptomatic bradycardia. Patient was placed on dobutamine and transferred to ICU. She continued to be unresponsive and developed agonal breathing. Patient had weak radial pulses bilaterally. Her pupils were nonreactive to light. Possible ACS or stroke was considered. Patient is DNR/DNI. Patients daughter was contacted by phone and patient was made comfort measures only. Magnet was placed over the patients pacemaker. Patients time of was 0159 hours. VS, I&O, 24H, Fishbone Vital Signs/I&O Vital Signs Date Time Temp Pulse Resp B/P (MAP) Pulse Ox O2 Delivery O2 Flow Rate FiO2 08/23/18 00:00 95.5 35 19 76/38 (51) 85 1.0 I&O- Last 24 Hours up to 6 AM 08/23/18 06:00 Intake Total 760 ml Output Total 245 ml Balance 515 ml Laboratory Data 24H LABS Laboratory Tests 2 08/22/18 05:03: Nucleated Red Blood Cells % (auto) 0.2H, Erythrocyte Sedimentation Rate 49H, Anion Gap 7L, Glomerular Filtration Rate 15.0L, Blood Urea Nitrogen 55H, Creatinine 3.11H, Sodium Level 136, Potassium Level 5.5H, Chloride Level 108H, Carbon Dioxide Level 21, Calcium Level 8.2L, C-Reactive Protein, Quantitative 2.97H, XN-Duf-S-Type Natriuretic Peptide 2069H 08/22/18 11:46: Bedside Glucose (Misc Panel) 165H 08/22/18 16:55: Bedside Glucose (Misc Panel) 108 08/22/18 20:10: Bedside Glucose (Misc Panel) 165H 08/23/18 00:00: Bedside Glucose (Misc Panel) 220H 08/23/18 00:38: Nucleated Red Blood Cells % (auto) 0.2H, Anion Gap 5L, Glomerular Filtration Rate 12.5L, Lactic Acid Level 1.5, Blood Urea Nitrogen 62H, Creatinine 3.65H, Sodium Level 138, Potassium Level 6.2*H, Chloride Level 107, Carbon Dioxide Level 26, Calcium Level 7.7L, Total Creatine Kinase 75, Ammonia 23, Creatine Kinase MB < 1.0, Creatine Kinase MB Relative Index 1.33, Troponin I 0.03# CBC/BMP Laboratory Tests 08/22/18 05:03 Red Blood Count 2.91 L, Mean Corpuscular Volume 95.9, Mean Corpuscular Hemoglobin 29.9, Mean Corpuscular Hemoglobin Concent 31.2 L, Red Cell Distribution Width 17.4 H, Calcium Level 8.2 L 08/23/18 00:38 Red Blood Count 2.92 L, Mean Corpuscular Volume 100.3 H, Mean Corpuscular Hemoglobin 30.5, Mean Corpuscular Hemoglobin Concent 30.4 L, Red Cell Distribution Width 17.4 H, Calcium Level 7.7 L, Total Creatine Kinase 75 Microbiology Microbiology 08/20/18 Urine Culture - Final, Complete Yeast Like Organism 08/15/18 Anaerobic Culture - Final, Complete 08/15/18 Gram Stain - Final, Complete 08/15/18 Body Fluid Culture - Final, Complete Enterococcus Faecium Yeast Like Organism GME ATTESTATION GME ATTESTATION My faculty preceptor for this patient encounter was physically present during the encounter and was fully available. All aspects of the patient interview, examination, medical decision making process, and medical care plan development were reviewed and approved by the faculty preceptor. The faculty preceptor is aware and concurs with the plan as stated in the body of this note and will attest to such by his/her cosignature. KONRAD ADRIAN DO Aug 23, 2018 02:04
--- NOTE | 2018-08-23 07:37 | ECGEPIP ---
Stationary ECG Study [facility] Test Date: 2018-08-23 Pat Name: JUDITH WEST Department: Room: [place] [address] Gender: F Inside Upholsterer: SURJIT : 1930 Requested By: KONRAD ADRIAN Order Number: [id number] Reading MD: Antonio Mock Measurements Intervals [place] Rate: 34 P: -32 DE: 157 QRS: 212 QRSD: 62 T: 0 QT: 162 QTc: 123 Interpretive Statements ELECT[employer]IAL PACEMAKER Low QRS voltages throughout Electronically Signed On 08-23-2018 7:37:35 EST by Antonio Mock
--- NOTE | 2018-08-23 08:00 | IPN ---
DATE: 08/22/2018 SUBJECTIVE: Estrella was seen and examined this morning at the bedside. Both of her daughters are present. There was no recurrent hypotension overnight aside from one episode around 5 pm yesterday. The patient remains confused and not at her baseline mentation, although she does recognize her daughters and is cooperative with the physical exam and answers some very simple questions appropriately. She remains oliguric with worsening renal failure and increasing hyperkalemia. I had a discussion with her daughters that she may progress to dialysis needs in the coming 24 hours. Patient denies any shortness of breath at rest. Her oral intake is reported to be poor and the percutaneous nephrostomy is now having gross hematuria again. Interventional radiology (IR) did not feel that she was ready for an exchange and nursing staff is irrigating the nephrostomy gently in case there are any clots obstructing flow. VITAL SIGNS: Temperature 97.5, pulse 65, respiratory rate 22, blood pressure 140/70, saturating 92-96% on 1 liter nasal cannula. Intake yesterday was 940. Urine output yesterday was less than 200 mL. Weight on the bed scale today is 81.3 kg which actually decreased from prior. GENERAL: Patient is seen lying in bed. Her two daughters are present. She is awake and alert. She is oriented to person and place but not to situation. She is cooperative with physical exam. HEENT: Extraocular muscles intact. Tongue is moist. Neck is supple. Jugular veins are mildly elevated. CARDIAC: S1, S2, regular rate. LUNGS: Diminished breath sounds at the bases, otherwise clear. No tachypnea or accessory muscle use. ABDOMEN: Soft and nontender. There are bowel sounds. GENITOURINARY: Shows Griffiths catheter with minimal urine, which is cloudy with sediment but without any gross hematuria. The percutaneous nephrostomy shows also minimal output but this is grossly hematuria. EXTREMITIES: Negative for edema. SKIN: Normal turgor and temperature. LABS: Sodium 136, potassium 5.5, bicarbonate 21, BUN 55, creatinine 3.1. BNP 2000, hemoglobin 8.7. INPATIENT MEDICATIONS: Reviewed by myself. I started her on half normal saline with some D5 mEq of sodium bicarbonate to run at 70 mL/h for 1 liter only. The remainder of medications are unchanged from prior. PROBLEMS: 1. Prolonged acute kidney injury in this patient with baseline chronic kidney disease (CKD) stage III with baseline creatinine of around 1. Patient has had significantly prolonged renal injury since her admission on 08/07/2018. Her best creatinine has only been 2.3. Over the past couple of days, her renal function has deteriorated. Hyperkalemia is becoming more of an issue. She is oliguric. Her daily weights have been down-trending. She is headed towards dialysis need. This has been discussed with both of her daughters. She does have bilateral pleural effusions, though I am loath to give general IV fluid. However, in view of minimal oxygen requirement, down-trending daily weight and poor oral intake, we will give a trial of 1 liters of bicarbonate-containing fluid with albumin for promotion of intravascular volume and see if she has any improved urine output on the same. Otherwise, she is likely to require PermaCath placement and dialysis initiation in the coming 24-48 hours. 2. Gross hematuria and left hydroureteronephrosis status post left percutaneous nephrostomy with ongoing gross hematuria in the left nephrostomy tube and clearer urine from the Griffiths catheter. Her obstruction is also complicated by multi-organism urinary tract infections (UTIs). She is on targeted antimicrobials. Nursing staff reports that the nephrostomy is being gently irrigated due to possibility of clot. Urology is closely following the patient. Her Plavix remains on hold. She is receiving blood transfusions as needed. 3. Hyperkalemia: It is due to oliguric renal failure. She has been receiving Veltassa for much of the course of this admission for at least the past 10 days. Unfortunately, now she is hyperkalemic despite Veltassa. She is on potassium-restricted diet. She is receiving some gentle bicarbonate containing fluids today. Her renal injury has been prolonged since admission on 08/07/2018. Her best creatinine in more than the past 2 weeks has been at 2.3 and with her worsening hyperkalemia, she is likely to require dialysis in the coming day or so. 4. Systolic dysfunction, pleural effusion: We will give only 1 liter of IV fluids and keep close watch on her volume and respiratory status. She is not suitable for aggressive IV hydration due to the oliguria and pleural effusion. If she does not respond to IV fluids, we will plan for dialysis initiation. 5. Renal prognosis was discussed with both of the patient's daughters at bedside this morning.
[2018-08-23] MEDS ORDERED: LevoFLOXacin IV 500 MG in APPROPRIATE DILUENT 1 EA IV SCH (09:00)
[2018-08-23 10:15] LABS: PROLACTIN 11.6 NG/ML
--- NOTE | 2018-08-23 17:59 | DSES ---
DATE OF ADMISSION: 08/07/2018 DATE OF : 08/23/2018 at 1:59 a.m. CONSULTANTS: Neurology, neurology, nephrology. DISCHARGE DIAGNOSES: 1. Cardiac arrest. 2. Recurrent urinary tract infections. 3. Acute blood loss anemia. 4. Frequent transient ischemic attack/stroke. 5. Renal failure. 6. Bilateral carotid stenosis status post carotid endarterectomy. 7. Hypertension. 8. Insulin-dependent diabetes. 9. Coronary artery disease status post coronary artery bypass graft. 10. Dyslipidemia. 11. Hypothyroidism. 12. History of paroxysmal atrial fibrillation. 13. Systolic congestive heart failure. 14. Depression. 15. Gastroesophageal reflux disease. HOSPITALIZATION COURSE: Patient is an 88-year-old female who presented to [facility] on 08/17/2018 with complaint of expressive aphagia. Patient was admitted under hospitalist service. Stroke workup initiated and neurology consulted. During admission, patient was found to have recurrent urinary tract infections and started on intravenous (IV) antibiotics. Due to the pacemaker, patient was not able to tolerate the MRI. After the neurology evaluation, patient was started on antiplatelet therapy along with anticoagulation therapy. During the diagnostic workup, patient was also found to have left-sided hydronephrosis. Urology was consulted. Nephrology was also consulted for acute renal failure superimposed on chronic kidney disease. Later, patient was found to have blood loss anemia from the gross hematuria. Later, Plavix and anticoagulation were on hold. Patient had a nephrostomy tube placed. Later, patient continued to have persistent hematuria. Urethral stent was removed by urology; however, patient continued to have persistent hematuria. Plavix and anticoagulation continued to be on hold per recommendations. Later, patient was started on low-dose aspirin. Later, patient culture from the nephrostomy insertion site came back positive for heavy growth of enterococcus and yeast-like organism. Patient was started on antifungal medication, and patient's antibiotic was also adjusted. Later, patient finished a course of IV antibiotic for extended-spectrum beta lactamase (ESBL). Due to persistence of the symptoms, a new set of urine culture was obtained, and patient was started on empiric antibiotic for possible ESBL UTI. Patient started demonstrating worsening confusion. Patient was also noted to have hypotension; therefore, patient was upgraded to the progressive care unit (PCU) for close monitoring. Due to patient's unchanged clinical picture, patient's proxy was contacted. DO NOT RESUSCITATE, DO NOT INTUBATE code status was confirmed. Blood pressure improved with conservative medical management; however, patient continued to remain very confused. There was no significant improvement of the acute renal failure. There was a proposal for possible dialysis due to the worsening of the renal function. Around midnight of 08/22/2018, patient was found unresponsive, and patient had bradycardia with heart rate around 30s. Risk assessment was called. Acute coronary syndrome (ACS) protocol initiated. Patient received several doses of Atrovent without response. Patient was started on dobutamine and transferred to intensive care unit (ICU). Later, patient continued to remain unresponsive, and patient developed agonal breathing. Patient's proxy was contacted over the phone, and patient was made comfort measures only. Magnet was placed over patient's pacemaker, and patient at approximately around 1:59 a.m. DISCHARGE TIME: Less than 30 minutes.
== END 2018-08-23 05:38 | disposition expired | DRG 69 ==
LOC: M ED 15:20 → M ED INP 17:47 → M MSPAV 22:00 → M PCU 08-21 16:01 → M ICU 08-23 00:32
PROVIDERS: ADMIT Internal Medicine; ATTEND Internal Medicine
PROC: 05HB33Z Insertion of Infusion Device into Right Basilic Vein, Percutaneous Approach (ICD-10-PCS; 2018-08-10)
PROC: 30233N1 Transfusion of Nonautologous Red Blood Cells into Peripheral Vein, Percutaneous Approach (ICD-10-PCS; 2018-08-12)
PROC: 0T9130Z Drainage of Left Kidney with Drainage Device, Percutaneous Approach (ICD-10-PCS; principal; 2018-08-15)
PROC: 0TP98DZ Removal of Intraluminal Device from Ureter, Via Natural or Artificial Opening Endoscopic (ICD-10-PCS; 2018-08-17)
DX: G45.9 Transient cerebral ischemic attack, unspecified (principal); I63.9 Cerebral infarction, unspecified; N39.0 Urinary tract infection, site not specified; I13.0 Hypertensive heart and chronic kidney disease with heart failure and stage 1 through stage 4 chronic kidney disease, or unspecified chronic kidney disease; I69.354 Hemiplegia and hemiparesis following cerebral infarction affecting left non-dominant side; N17.9 Acute kidney failure, unspecified; I50.22 Chronic systolic (congestive) heart failure; D62 Acute posthemorrhagic anemia; T83.592A Infection and inflammatory reaction due to indwelling ureteral stent, initial encounter; N13.1 Hydronephrosis with ureteral stricture, not elsewhere classified; R47.01 Aphasia; D68.32 Hemorrhagic disorder due to extrinsic circulating anticoagulants; Z51.5 Encounter for palliative care; Z66 Do not resuscitate; E11.22 Type 2 diabetes mellitus with diabetic chronic kidney disease; E78.5 Hyperlipidemia, unspecified; I25.10 Atherosclerotic heart disease of native coronary artery without angina pectoris; E03.9 Hypothyroidism, unspecified; E87.5 Hyperkalemia; R31.0 Gross hematuria; I48.2 Chronic atrial fibrillation; I46.9 Cardiac arrest, cause unspecified; N18.3 Chronic kidney disease, stage 3 (moderate); K21.9 Gastro-esophageal reflux disease without esophagitis; F32.9 Major depressive disorder, single episode, unspecified; E11.649 Type 2 diabetes mellitus with hypoglycemia without coma; B96.20 Unspecified Escherichia coli [E. coli] as the cause of diseases classified elsewhere; R00.1 Bradycardia, unspecified; Z88.2 Allergy status to sulfonamides; Z88.8 Allergy status to other drugs, medicaments and biological substances; Z79.01 Long term (current) use of anticoagulants; Z79.899 Other long term (current) drug therapy; Z95.0 Presence of cardiac pacemaker; Z79.82 Long term (current) use of aspirin; Z96.0 Presence of urogenital implants; Y84.6 Urinary catheterization as the cause of abnormal reaction of the patient, or of later complication, without mention of misadventure at the time of the procedure